=== PATIENT | male | born 1960 | race Caucasian/White ===

== ENCOUNTER 2016-11-22 05:44 | Inpatient (IN) | payer MEDICARE, MEDICAID ==
[2016-11-22] VITALS (19 sets, daily range): BP systolic 81–146; BP diastolic 55–86; PULSE 76–147; RESP 16; TEMP 98.4–100.4; O2SAT 94–100
[~2016-11-22] VITALS: Ht 182.9 cm; Wt 61.0 kg
[~2016-11-22 05:44] MED LIST: AMLO10 PO; DIPH1TAB36 PO; FOLI1 PO; LEVE500 PO; METO50CR PO; OXYC5 PO; PHEN100 PO; PHEN60TA PO; TOPA25TA8 PO; VITA100T13 PO
--- NOTE | 2016-11-22 05:56 | PD ---
HPI Chief Complaint: seizure Time Seen by Provider: 05:46 Travel History International Travel<30 days: No Contact w/Intl Traveler<30days: No Traveled to known affect area: No History of Present Illness HPI 56-year-old male brought in by EMS from home for evaluation of seizure. The patient apparently has history of seizure disorder. When EMS arrived to the patient's home, he was having a generalized tonoclonic seizure. He was given 2 mg of IM Ativan followed by 2 mg of IV Ativan once IV was established. After IV Ativan seizure activity stopped. BGL was in the 200s. Upon arrival to the emergency department the patient is altered and obtunded. He is unable to provide any history. His airway is patent and protected and he is breathing spontaneously. He has a preferential gaze to the right. Chart review shows that in 2013 the patient was brought in as a trauma alert and found to have a large right subdural hematoma with mass effect. He underwent right frontotemporal parietal decompressive craniectomy with evacuation of acute SDH. In 2014 he underwent cranioplasty to repair skull defect. Both procedures were performed by Dr. Davis. EMS presents with the patient's medications and shows that he is on Dilantin and Topiramate. Seizure witnessed by the patient's significant other. EMS reports that she is going to work and not coming to the emergency department. PFSH Past Medical History Anxiety: No Depression: No Cancer: No Cardiovascular Problems: Yes Diabetes: No Endocrine: No Genitourinary: No Hepatitis: No Hiatal Hernia: No Hypertension: Yes Immune Disorder: No Musculoskeletal: Yes (ARTHRITIS; LOW BACK PAIN) Neurologic: Yes (HX SEIZURES; 12/17 ACCIDENT SUBDURAL HEMATOMA) Psychiatric: No Reproductive: No Respiratory: No Thyroid Disease: No Past Surgical History Abdominal Surgery: No Body Medical Devices: RUBBER FLAP Cardiac Surgery: No Endocrine Surgery: No Gynecologic Surgery: No Neurologic Surgery: Yes (12/21/13 RIGHT CRANIOTOMY FOR SUBDURAL HEMATOMA ) Oral Surgery: Yes (DENTAL SX) Thoracic Surgery: No Social History Alcohol Use: Yes (occas) Tobacco Use: Yes Substance Use: No Allergies-Medications (Allergen,Severity, Reaction): Coded Allergies: No Known Allergies (Unverified , 11/22/16) Reported Meds & Prescriptions Reported Meds & Active Scripts Active Reported Amlodipine (Amlodipine Besylate) 10 Mg Tab 10 Mg PO DAILY Phenytoin Extended 100 Mg Cap 200 Mg PO BID Topiramate 50 Mg Tab 50 Mg PO BID Fluoxetine (Fluoxetine HCl) 20 Mg Cap 20 Mg PO DAILY Hydroxyzine Pamoate 25 Mg Cap 25 Mg PO DAILY PRN Review of Systems ROS Limitations: Clinical Condition, Altered Mental Status, Unresponsive Physical Exam Narrative GENERAL: Obtunded. Unresponsive to verbal or painful stimuli. SKIN: Warm and dry. No lacerations, abrasions, or ecchymosis. HEAD: Atraumatic. Normocephalic. EYES: Pupils equal, round, 2 mm, reactive to light. Preferential gaze to the right. No scleral icterus. No injection or drainage. ENT: Mucous membranes pink and moist. Airways patent and protected. No drooling or stridor. Normal gag reflex. NECK: Trachea midline. No JVD. No nuchal rigidity. CARDIOVASCULAR: Tachycardic, regular. RESPIRATORY: No accessory muscle use. Clear to auscultation. Breath sounds equal bilaterally. GASTROINTESTINAL: Abdomen soft, non-tender, nondistended. MUSCULOSKELETAL: No obvious deformities. No clubbing. No cyanosis. No edema. NEUROLOGICAL: Obtunded. Unresponsive to verbal or painful stimuli. Data Data Last Documented VS Vital Signs Date Time Temp Pulse Resp B/P Pulse Ox O2 Delivery O2 Flow Rate FiO2 11/22/16 06:36 100.4 127 16 146/86 96 Nasal Cannula 4 Orders Complete Blood Count With Diff (11/22/16 05:46) Alcohol (Ethanol) (11/22/16 05:46) Phenytoin (Dilantin) (11/22/16 05:46) Drug Screen, Random Urine (11/22/16 05:46) Blood Culture (11/22/16 05:46) Electrocardiogram (11/22/16 ) Ct Brain W/O Iv Contrast(Rout) (11/22/16 ) Ecg Monitoring (11/22/16 05:46) Iv Access Insert/Monitor (11/22/16 05:46) Oximetry (11/22/16 05:46) Comprehensive Metabolic Panel (11/22/16 05:46) Sodium Chloride 0.9% Flush (Ns Flush) (11/22/16 06:00) Urinalysis - C+S If Indicated (11/22/16 05:46) Prothrombin Time / Inr (Pt) (11/22/16 05:57) Act Partial Throm Time (Ptt) (11/22/16 05:57) Sodium Chlor 0.9% 1000 Ml Inj (Ns 1000 M (11/22/16 06:15) Insert Temp Sensing Schaffer Cath (11/22/16 06:09) Ckmb (Isoenzyme) Profile (11/22/16 06:12) Troponin I (11/22/16 06:12) Lactic Acid (11/22/16 06:40) Blood Culture (11/22/16 06:40) Drug Screen, Random Urine (11/22/16 06:47) Phenytoin Inj (Dilantin Inj) (11/22/16 07:00) Labs Laboratory Tests Test 11/22/16 05:50 White Blood Count 6.8 TH/MM3 Red Blood Count 4.16 MIL/MM3 Hemoglobin 14.5 GM/DL Hematocrit 43.6 % Mean Corpuscular Volume 104.8 FL Mean Corpuscular Hemoglobin 34.8 PG Mean Corpuscular Hemoglobin 33.3 % Concent Red Cell Distribution Width 14.8 % Platelet Count 364 TH/MM3 Mean Platelet Volume 7.1 FL Neutrophils (%) (Auto) 47.0 % Lymphocytes (%) (Auto) 38.5 % Monocytes (%) (Auto) 6.0 % Eosinophils (%) (Auto) 7.4 % Basophils (%) (Auto) 1.1 % Neutrophils # (Auto) 3.2 TH/MM3 Lymphocytes # (Auto) 2.6 TH/MM3 Monocytes # (Auto) 0.4 TH/MM3 Eosinophils # (Auto) 0.5 TH/MM3 Basophils # (Auto) 0.1 TH/MM3 CBC Comment DIFF FINAL Differential Comment Prothrombin Time 10.5 SEC Prothromb Time International 1.0 RATIO Ratio Activated Partial 25.0 SEC Thromboplast Time Sodium Level 140 MEQ/L Potassium Level 4.3 MEQ/L Chloride Level 103 MEQ/L Carbon Dioxide Level 13.2 MEQ/L Anion Gap 24 MEQ/L Blood Urea Nitrogen 13 MG/DL Creatinine 1.31 MG/DL Estimat Glomerular Filtration 56 ML/MIN Rate Random Glucose 220 MG/DL Calcium Level 8.6 MG/DL Total Bilirubin 0.2 MG/DL Aspartate Amino Transf 60 U/L (AST/SGOT) Alanine Aminotransferase 33 U/L (ALT/SGPT) Alkaline Phosphatase 148 U/L Total Protein 8.0 GM/DL Albumin 3.4 GM/DL Phenytoin (Dilantin) Level 5.6 MCG/ML Ethyl Alcohol Level LESS THAN 3 MG/DL MDM Medical Decision Making Medical Screen Exam Complete: Yes Emergency Medical Condition: Yes Medical Record Reviewed: Yes Interpretation(s) EKG: Sinus tachycardia, rate 137, normal axis, normal intervals, nonspecific ST and T-wave abnormality, no ST segment elevations. Differential Diagnosis ICH, status epilepticus, postictal, metabolic abnormality, meningitis/ encephalitis, dilantin toxicity Narrative Course Shortly after assessing the patient he was taken immediately to CAT scan for CT head. CT head: FINDINGS: There is no evidence for intracranial hemorrhage, mass effect, mass lesions, edema, or extra-axial fluid collections. The visualized bony structures appear intact. The ventricles are normal size for the patient's age. There are no signs of acute infarction for technique. Postcraniotomy changes are seen on the right than previously seen right subdural fluid blood is no longer seen, however encephalomalacia has developed in the right temporal lobe. Slight periventricular white matter changes are seen nonspecific mostly consistent with chronic small vessel ischemic changes. CONCLUSION: Resolution of previously seen subdural fluid collection on the right and development of encephalomalacia in right temporal lobe in the interim. Initial vital signs show heart rate 147, blood pressure 132/81, pulse ox 94% on room air, axillary temp of 99.6F. CBC shows WBC 6.8, hemoglobin 14.5, hematocrit 43.6, platelets 364, MCV 104.8. CMP is remarkable for bicarbonate 13.2, anion gap 24, creatinine 1.31, GFR 56, random glucose 220. Anion gap metabolic acidosis is likely secondary to lactic acidosis after seizure. Lactic acid will be sent. Dilantin level is 5.6. Alcohol level is negative. About 45 minutes after the patient arrived to the emergency department he is more responsive to sternal rub. He moves both of his extremities to sternal rub. His gag reflex remains intact and airway remains patent with spontaneous respirations. There is no nuchal rigidity on exam. I believe his elevated temperature is likely hyperthermia after having seizures. 6:45 AM: Case discussed with wine steward/stewardess Dr. Garcia who presented to the bedside to evaluate the patient. The patient be given a loading dose of Dilantin. At time of his assessment the patient seems to be responding more to painful stimuli. He is still severely altered. He has a wandering gaze. He will intubate the patient for airway protection. Diagnosis Primary Impression: Seizure Additional Impressions: Altered mental status Qualified Code: R40.2430 - Justin coma scale total score 3-8, unspecified time Metabolic acidosis Admitting Information Admitting Physician Requests: Admit Kirt Frances MD Nov 22, 2016 05:56 Kirt Frances MD Nov 22, 2016 05:56
[2016-11-22] MEDS ORDERED: SODIUM CHLORIDE 0.9% FLUSH 5 ML FLUSH IVF PRN ×2 (06:00→08:00)
--- NOTE | 2016-11-22 06:03 | RADRPT ---
EXAM DATE/TIME: 11/22/2016 05:52 [facility] COMPARISON: CT BRAIN W/O CONTRAST, June 18, 2015, 12:20. INDICATIONS : Altered mental status. Witnessed seziure. RADIATION DOSE: 56.35 CTDIvol (mGy) MEDICAL HISTORY : Non-responsive. SURGICAL HISTORY : Craniotomy. ENCOUNTER: Initial ACUITY: 1 day PAIN SCALE: Non-responsive LOCATION: cranial TECHNIQUE: Multiple contiguous axial images were obtained of the head. Using automated exposure control and adj ustment of the mA and/or kV according to patient size, radiation dose was kept as low as reasonably a chievable to obtain optimal diagnostic quality images. FINDINGS: There is no evidence for intracranial hemorrhage, mass effect, mass lesions, edema, or extra-axial fl uid collections. The visualized bony structures appear intact. The ventricles are normal size for t he patient's age. There are no signs of acute infarction for technique. Postcraniotomy changes are s een on the right than previously seen right subdural fluid blood is no longer seen, however encephalo malacia has developed in the right temporal lobe. Slight periventricular white matter changes are see n nonspecific mostly consistent with chronic small vessel ischemic changes. CONCLUSION: Resolution of previously seen subdural fluid collection on the right and development of e ncephalomalacia in right temporal lobe in the interim. Malena Boyd MD on November 22, 2016 at 6:01 Board Certified Radiologist. This report was verified electronically.
[2016-11-22 06:12] LABS: AUTOMATED NEUTROPHIL # 3.2 TH/MM3 (1.8-7.7); BASOPHIL # 0.1 TH/MM3 (0-0.2); BASOPHIL % 1.1 % (0.0-2.0); EOSINOPHIL # 0.5 TH/MM3 (0-0.4); EOSINOPHIL % 7.4 % (0.0-4.0); HEMATOCRIT 43.6 % (39.0-51.0); HEMO FLAGS DIFF FINAL; LYMPH % 38.5 % (9.0-44.0); LYMPHOCYTE # 2.6 TH/MM3 (1.0-4.8); MEAN CELL VOLUME 104.8 FL (80.0-100.0); MEAN CORPUSCULAR HEMOGLOBIN 34.8 PG (27.0-34.0); MEAN CORPUSCULAR HGB CONC 33.3 % (32.0-36.0); PLATELET COUNT 364 TH/MM3 (150-450); RED BLOOD COUNT 4.16 MIL/MM3 (4.50-5.90); RED CELL DISTRIBUTION WIDTH 14.8 % (11.6-17.2); WHITE BLOOD COUNT 6.8 TH/MM3 (4.0-11.0)
[2016-11-22] MEDS ORDERED: SODIUM CHLOR 0.9% 1000 ML INJ 1,000 ML IV ONE (06:15)
[2016-11-22 06:23] LABS: PROTHROMBIN TIME - PATIENT 10.5 SEC (9.8-11.6)
[2016-11-22 06:34] LABS: ALKALINE PHOSPHATASE 148 U/L (45-117); ALT (GPT) 33 U/L (12-78); ANION GAP 24 MEQ/L (5-15); AST (GOT) 60 U/L (15-37); BICARBONATE 13.2 MEQ/L (21.0-32.0); BLOOD UREA NITROGEN 13 MG/DL (7-18); CHLORIDE 103 MEQ/L (98-107); GLOMERULAR FILTRATION RATE 56 ML/MIN (>89); SODIUM (NA) 140 MEQ/L (136-145); TOTAL BILIRUBIN ADULT 0.2 MG/DL (0.2-1.0)
[2016-11-22 06:35] LABS: POTASSIUM 4.3 MEQ/L (3.5-5.1)
[2016-11-22] MEDS ORDERED: FLUO20CA4 PO (06:40)
[2016-11-22] MEDS ORDERED: HYDR1CAP30 PO (06:40)
[2016-11-22] MEDS ORDERED: PHEN100C PO (06:40)
[2016-11-22] MEDS ORDERED: TOPI1TAB36 PO (06:40)
[2016-11-22] MEDS ORDERED: AMLO10TA2 PO (06:42)
[2016-11-22] MEDS ORDERED: ETOMIDATE 20 MG/10 ML VIAL ONE (06:52)
[2016-11-22] MEDS ORDERED: ROCURONIUM INJ 50 MG/5 ML VIAL ONE (06:52)
[2016-11-22] MEDS ORDERED: MIDAZOLAM HCL 5 MG/ML VIAL (1 ML) ONE (06:52)
[2016-11-22] MEDS ORDERED: PROPOFOL 1000 MG/100 ML INJ 100 ML ONE ×2 (06:57→07:46)
[2016-11-22] MEDS ORDERED: PHENYTOIN INJ 1,000 MG in SODIUM CHLORIDE 0.9% INJ 100 ML IV ONE (07:00)
--- NOTE | 2016-11-22 07:30 | RADRPT ---
EXAM DATE/TIME: 11/22/2016 07:12 [facility] COMPARISON: CHEST SINGLE AP, June 19, 2015, 9:24. INDICATIONS : AMS, seizure, post intubation MEDICAL HISTORY : None. SURGICAL HISTORY : None. ENCOUNTER: Subsequent ACUITY: 1 day PAIN SCORE: Non-responsive. LOCATION: Bilateral chest FINDINGS: The ET tube and NG tube are well placed. The heart size is normal. The lungs are clear. There is a he aled third and ninth left rib fracture. CONCLUSION: ET tube and NG tube are well placed. The lungs are clear. Jose Paul MD on November 22, 2016 at 7:27 Board Certified Radiologist. This report was verified electronically.
[2016-11-22] MEDS ORDERED: POTASSIUM CL 40 MEQ/30 ML LIQ UDC PO/TUBE PRN ×2 (07:45)
[2016-11-22] MEDS ORDERED: POTASSIUM CHLOR 40 MEQ PREMIX 100 ML IV PRN ×2 (07:45)
[2016-11-22] MEDS ORDERED: POTASSIUM PHOSPHATE INJ 30 MMOL in SODIUM CHLOR 0.9% 250 ML INJ 250 ML IV PRN (07:45)
[2016-11-22] MEDS ORDERED: POTASSIUM CHLOR 20 MEQ PREMIX 100 ML IV PRN (07:45)
[2016-11-22] MEDS ORDERED: SODIUM PHOSPHATE INJ 30 MMOL in SODIUM CHLOR 0.9% 250 ML INJ 240 ML IV PRN (07:45)
[2016-11-22] MEDS ORDERED: POTASSIUM PHOSPHATE MONOBASIC 500 MG TAB PO/TUBE PRN (07:45)
[2016-11-22] MEDS ORDERED: MAGNESIUM SULFATE INJ 2 GM in SODIUM CHLORIDE 0.9% INJ 96 ML IV PRN (07:45)
[2016-11-22] MEDS ORDERED: MAGNESIUM SULFATE INJ 4 GM in SODIUM CHLORIDE 0.9% INJ 92 ML IV PRN (07:45)
[2016-11-22] MEDS ORDERED: POTASSIUM PHOSPHATE MONOBASIC 500 MG TAB PO PRN (07:45)
--- NOTE | 2016-11-22 07:52 | HHI.HP ---
[facility] Service Critical Care Medicine Primary Care Physician Jose Sheridan MD Admission Diagnosis seizure, AMS, anion gap metabolic acidosis Diagnosis: (1) Status epilepticus Diagnosis: Principal (2) Acute encephalopathy Diagnosis: Principal (3) Acute respiratory failure Diagnosis: Principal (4) Lactic acidosis Diagnosis: Principal (5) Acute kidney insufficiency Diagnosis: Principal (6) Metabolic acidosis Diagnosis: Principal (7) Sinus tachycardia Diagnosis: Principal (8) Seizure Diagnosis: Secondary (9) History of opioid abuse Diagnosis: Secondary (10) Essential hypertension Diagnosis: Secondary (11) History of TBI and subdural hemorrhage Diagnosis: Secondary (12) Status post craniotomy Diagnosis: Secondary (13) History of cranioplasty Diagnosis: Secondary Chief Complaint: Status epilepticus Travel History International Travel<30 Days: No Contact w/Intl Traveler <30 Da: No Traveled to Known Affected Are: No History of Present Illness This is a 55-year-old male with a past medical history of right subdural hematoma status post evacuation and craniectomy on 12/22/13, status post frontotemporal parietal reconstructive cranioplasty on 06/14/15, history of seizure disorder and hypertension who was brought in by EMS from home for evaluation of seizure. On EMS arrival he was having a generalized tonoclonic seizure. He was given 2 mg of IM Ativan followed by 2 mg of IV Ativan once IV was established. After IV Ativan seizure activity stopped. In the ER patient was altered and obtunded. He is unable to provide any history. Patient takes Dilantin and topiramate for seizure. A stat CT of the head did not show any acute changes other than evidence of encephalomalacia in the right temporal region and previous cranioplasty. Patient's Dilantin level was subtherapeutic at 5.6, alcohol level was negative. His lactic acid was elevated at 6.7 most likely secondary to seizure I evaluated the patient in the emergency department. He remains unresponsive not responding to painful stimuli. No spontaneous eye opening his eyes shows horizontal roving movements probable horizontal nystagmus. It appears like patient is in subclinical status. I proceeded with endotracheal intubation for airway protection as the patient was making gurgling sounds. Stat EEG is pending at this time. 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 Hypertension History of opiate abuse Past Surgical History Craniectomy with evacuation of subdural hemorrhage 12/22/14 Frontotemporal parietal reconstruction cranioplasty 06/14/15 Reported Medications Amlodipine (Amlodipine Besylate) 10 Mg Tab 10 Mg PO DAILY Phenytoin Extended 100 Mg Cap 200 Mg PO BID Topiramate 50 Mg Tab 50 Mg PO BID Fluoxetine (Fluoxetine HCl) 20 Mg Cap 20 Mg PO DAILY Hydroxyzine Pamoate 25 Mg Cap 25 Mg PO DAILY PRN Active Ordered Medications Reviewed Family History Unable to obtain at this time Social History Patient unable to give history Chart review reveals tobacco abuse, occasional alcohol use and previous history of poor by mouth abuse Physical Exam Vital Signs Vital Signs Date Time Temp Pulse Resp B/P Pulse Ox O2 Delivery O2 Flow Rate FiO2 11/22/16 07:30 100.2 118 16 135/79 100 Ventilator 11/22/16 07:06 100.2 132 16 146/76 100 Room Air 11/22/16 07:03 50 11/22/16 07:00 100 50 11/22/16 06:36 100.4 127 16 146/86 96 Nasal Cannula 4 11/22/16 06:26 147 16 100 Room Air 11/22/16 06:26 100.4 126 16 146/86 95 Nasal Cannula 6 11/22/16 05:54 145 16 143/82 100 Non-Rebreather 6 11/22/16 05:50 99.6 147 16 132/81 94 Physical Exam GENERAL: Obtunded. Unresponsive to verbal or painful stimuli. Gurgling breath sounds SKIN: Warm and dry. HEAD: Atraumatic. Normocephalic. EYES: Pupils equal, round, 2 mm, reactive to light. Horizontal roving movements probable horizontal nystagmus. e. ENT: Mucous membranes dry. NECK: Trachea midline. No JVD. No nuchal rigidity. CARDIOVASCULAR: Tachycardic, regular. No murmurs RESPIRATORY: No accessory muscle use. Clear to auscultation. Breath sounds equal bilaterally. GASTROINTESTINAL: Abdomen soft, non-tender, nondistended. MUSCULOSKELETAL: No obvious deformities. No clubbing. No cyanosis. No edema. NEUROLOGICAL: Obtunded. Unresponsive to verbal or painful stimuli. Slow horizontal nystagmus. Probable subclinical status Laboratory Laboratory Tests Test 11/22/16 11/22/16 05:50 06:48 White Blood Count 6.8 Red Blood Count 4.16 Hemoglobin 14.5 Hematocrit 43.6 Mean Corpuscular Volume 104.8 Mean Corpuscular Hemoglobin 34.8 Mean Corpuscular Hemoglobin 33.3 Concent Red Cell Distribution Width 14.8 Platelet Count 364 Mean Platelet Volume 7.1 Neutrophils (%) (Auto) 47.0 Lymphocytes (%) (Auto) 38.5 Monocytes (%) (Auto) 6.0 Eosinophils (%) (Auto) 7.4 Basophils (%) (Auto) 1.1 Neutrophils # (Auto) 3.2 Lymphocytes # (Auto) 2.6 Monocytes # (Auto) 0.4 Eosinophils # (Auto) 0.5 Basophils # (Auto) 0.1 CBC Comment DIFF FINAL Differential Comment Prothrombin Time 10.5 Prothromb Time International 1.0 Ratio Activated Partial 25.0 Thromboplast Time Sodium Level 140 Potassium Level 4.3 Chloride Level 103 Carbon Dioxide Level 13.2 Anion Gap 24 Blood Urea Nitrogen 13 Creatinine 1.31 Estimat Glomerular Filtration 56 Rate Random Glucose 220 Calcium Level 8.6 Total Bilirubin 0.2 Aspartate Amino Transf 60 (AST/SGOT) Alanine Aminotransferase 33 (ALT/SGPT) Alkaline Phosphatase 148 Total Protein 8.0 Albumin 3.4 Phenytoin (Dilantin) Level 5.6 Ethyl Alcohol Level LESS THAN 3 Lactic Acid Level 6.7 Date/Time Procedure Status Source Growth 11/22/16 05:50 Aerobic Blood Culture Received Blood Peripheral Pending 11/22/16 05:50 Anaerobic Blood Culture Received Blood Peripheral Pending Result Diagram: 11/22/16 0550 11/22/[address] of the head shows previous encephalomalacia right temporal region, no acute findings Assessment and Plan Assessment and Plan ASSESSMENT/PLAN: NEURO: Status epilepticus Seizure disorder Subtherapeutic Dilantin Craniectomy with evacuation of subdural hemorrhage 12/22/14 Frontotemporal parietal reconstruction cranioplasty 06/14/15 -Presented with status epilepticus. Dilantin level was subtherapeutic-5.6. Stat EEG -Ativan 2 mg IV every 2 hours when necessary for seizures -IV Cerebyx 1 g loading dose and 100 mg every 8 hours -Continue Topamax -CT head did not show any acute findings RESP: Acute respiratory failure Failure to protect airway -Intubated for airway protection. ACV 16/550/5. Titrate FiO2 to keep oxygen saturation more than 90% -Start weaning trials one seizure is better controlled and mentation improves -DuoNeb every 6 hours when necessary. -Monitor closely for aspiration and pneumonia CV: Lactic acidosis secondary to seizure Sinus tachycardia/SIRS History of hypertension -Normal saline IV fluids, await 2d echo, cardiology consult, repeat troponin -Repeat lactic acid to ensure clearance GI: -Nothing by mouth, IV Protonix, Colace for bowel regimen : Acute kidney insufficiency -Monitor renal function closely. Schaffer catheter. -Continue aggressive hydration ID: -Monitor closely for infection HEME: -Monitor CBC, CMP ENDO: -Electrolyte replacement per protocol PROPH: -Bilateral lower extremity SCDs. Lovenox 40 mg subcutaneous daily. IV Protonix 40 mg daily LINES: -Utilize peripheral IVs, central line if needed CC time 65 min not including procedure time Code Status Full Discussed Condition With Serena Spears MD Nov 22, 2016 07:52
[2016-11-22] MEDS ORDERED: RESP: ALBUTEROL 2.5 MG/IPRATROPIUM 0.5 MG NEB (PRN) INH (08:00)
[2016-11-22] MEDS ORDERED: CHLORHEXIDINE GLUCONATE 2 % 1 PACK (2 CLOTHS) TOP PRN (08:00)
[2016-11-22] MEDS ORDERED: MISCELLANEOUS NURSING INFORMATION XX SCH (08:00)
[2016-11-22 08:19] LABS: BLOOD GAS BASE EXCESS -2.8 mmol/L (-2-2); BLOOD GAS CARBOXYHEMOGLOBIN 2.3 % (0-4); BLOOD GAS HCO3 22 mmol/L (22-26); BLOOD GAS METHEMOGLOBIN 2.2 % (0-2); BLOOD GAS O2 HGB SATURATION 94 % (90-100); BLOOD GAS OXYGEN CONTENT 18.1 Vol % (12.0-20.0); BLOOD GAS PCO2 41 mmHg (38-42); BLOOD GAS PO2 155 mmHG (61-120); BLOOD GAS TOTAL HGB 13.5 G/DL (12.0-16.0); CRITICAL VALUE NO; DRAW SITE LT FEMORAL; FIO2 50 %; NUMBER OF ARTERIAL PUNCTURES 2; OXYGEN DEVICE VENTILATOR; STAT YES; TEMP CORR TO 98.6; VENT SETTINGS AC16/500/5PEEP
[2016-11-22] MEDS ORDERED: MIDAZOLAM HCL 5 MG/5 ML VIAL IV PUSH ONE (08:30)
[2016-11-22] MEDS: TOPIRAMATE 25 MG TAB PO SCH ×2 (09:00→22:44)
[2016-11-22] MEDS: SODIUM CHLORIDE 0.9% FLUSH 5 ML FLUSH IVF SCH ×2 (09:00→21:31)
[2016-11-22] MEDS ORDERED: ETOMIDATE 20 MG/10 ML VIAL IV PUSH ONE (09:15)
[2016-11-22] MEDS ORDERED: ROCURONIUM INJ 50 MG/5 ML VIAL IV ONE (09:15)
[2016-11-22] MEDS: PROPOFOL 1000 MG/100 ML INJ 100 ML IV SCH ×3 (10:04→21:33)
[2016-11-22] MEDS: SODIUM CHLOR 0.9% 1000 ML INJ 1,000 ML IV SCH ×2 (11:00→15:00)
[2016-11-22] MEDS: PANTOPRAZOLE SODIUM 40 MG VIAL IV SCH (11:00)
[2016-11-22] MEDS: ENOXAPARIN SODIUM 40 MG/0.4 ML SYRINGE SQ SCH (11:00)
[2016-11-22] MEDS ORDERED: MIDAZOLAM 100 MG/ML INJ 100 ML IV SCH (12:00)
[2016-11-22] MEDS ORDERED: FOSPHENYTOIN SODIUM 100 MG PE/2 ML VIAL IV SCH (14:00)
[2016-11-22] MEDS: FOSPHENYTOIN INJ 100 MGPE in SODIUM CHLORIDE 0.9% INJ 50 ML IV SCH (17:23)
[2016-11-22] MEDS: CHLORHEXIDINE 0.12% (ORAL KIT) 15 ML CUP MT SCH (21:31)
--- NOTE | 2016-11-22 22:40 | EKG ---
Date Performed: 11/22/2016 Time Performed: 05:09:33 PTAGE: 56 years EKG: SINUS TACHYCARDIA NONSPECIFIC ST & T-WAVE ABNORMALITY ABNORMAL RHYTHM ECG PREVIOUS TRACING : 06/18/2015 11.40 DOCTOR: Ernie Gunderson Interpretating Date/Time 11/22/2016 22:38:57
[2016-11-22 23:31] LABS: CREATINE KINASE 128 U/L (39-308)
[2016-11-22 23:51] LABS: CKMB 0.8 NG/ML (0.5-3.6)
[2016-11-23] VITALS (17 sets, daily range): BP systolic 127–156; BP diastolic 68–93; PULSE 76–107; RESP 15–22; TEMP 95.2–99.9; O2SAT 93–100
[2016-11-23 00:11] LABS: BLOOD, URINE MOD (NEG); GLUCOSE,URINE NEG (NEG); KETONE, URINE 40 mg/dL (NEG); MUCUS URINE FEW /lpf (OCC); NITRITE,URINE NEG (NEG); PH, URINE 5.5 (5.0-8.5); SQUAMOUS EPITHELIAL CELL URINE 1 /hpf (0-5); URIC ACID CRYSTALS, URINE OCC /hpf; URINE COLOR YELLOW (YELLW/STRAW)
[2016-11-23 00:12] LABS: COMMENT (UR) CATH-CULT NOT IND; CULTURE IF INDICATED CATH CULTURE NOT IND
[2016-11-23 00:23] LABS: AMPHETAMINE, URINE NEG (NEG); BARBITURATES, URINE NEG (NEG); COCAINE, URINE NEG (NEG)
[2016-11-23] MEDS: FOSPHENYTOIN INJ 100 MGPE in SODIUM CHLORIDE 0.9% INJ 50 ML IV SCH ×3 (00:51→18:00)
[2016-11-23] MEDS: CHLORHEXIDINE GLUCONATE 2 % 1 PACK (2 CLOTHS) TOP SCH ×2 (03:10→21:33)
[2016-11-23] MEDS: PROPOFOL 1000 MG/100 ML INJ 100 ML IV SCH ×2 (05:14→10:11)
[2016-11-23 06:35] LABS: ANION GAP 9 MEQ/L (5-15)
[2016-11-23 06:39] LABS: ALKALINE PHOSPHATASE 94 U/L (45-117); ALT (GPT) 28 U/L (12-78); AST (GOT) 34 U/L (15-37); BICARBONATE 24.6 MEQ/L (21.0-32.0); BLOOD UREA NITROGEN 7 MG/DL (7-18); CHLORIDE 108 MEQ/L (98-107); GLOMERULAR FILTRATION RATE 188 ML/MIN (>89); SODIUM (NA) 142 MEQ/L (136-145); TOTAL BILIRUBIN ADULT 0.3 MG/DL (0.2-1.0)
[2016-11-23 06:42] LABS: POTASSIUM 2.9 MEQ/L (3.5-5.1)
[2016-11-23] MEDS: POTASSIUM CHLOR 20 MEQ PREMIX 100 ML IV PRN ×3 (06:50→12:48)
[2016-11-23 07:00] LABS: AUTOMATED NEUTROPHIL # 5.5 TH/MM3 (1.8-7.7); BASOPHIL % 0.6 % (0.0-2.0); EOSINOPHIL % 0.4 % (0.0-4.0); HEMATOCRIT 38.5 % (39.0-51.0); HEMO FLAGS DIFF FINAL; LYMPH % 10.4 % (9.0-44.0); LYMPHOCYTE # 0.7 TH/MM3 (1.0-4.8); MEAN CELL VOLUME 99.6 FL (80.0-100.0); MEAN CORPUSCULAR HGB CONC 34.1 % (32.0-36.0); MONO % 10.1 % (0.0-8.0); NEUT % 78.5 % (16.0-70.0); PLATELET COUNT 295 TH/MM3 (150-450); RED BLOOD COUNT 3.86 MIL/MM3 (4.50-5.90); RED CELL DISTRIBUTION WIDTH 14.4 % (11.6-17.2)
[2016-11-23] MEDS: CHLORHEXIDINE 0.12% (ORAL KIT) 15 ML CUP MT SCH ×2 (08:00→20:00)
[2016-11-23] MEDS: PANTOPRAZOLE SODIUM 40 MG VIAL IV SCH (09:00)
[2016-11-23] MEDS: SODIUM CHLORIDE 0.9% FLUSH 5 ML FLUSH IVF SCH ×2 (09:00→21:00)
[2016-11-23] MEDS: ENOXAPARIN SODIUM 40 MG/0.4 ML SYRINGE SQ SCH (09:00)
[2016-11-23] MEDS: TOPIRAMATE 25 MG TAB PO SCH ×2 (09:00→20:18)
--- NOTE | 2016-11-23 10:36 | HHI.CCPN ---
Subjective Remarks/Hospital Course This is a 55-year-old male with a past medical history of right subdural hematoma status post evacuation and craniectomy on 12/22/13, status post frontotemporal parietal reconstructive cranioplasty on 06/14/15, history of seizure disorder and hypertension who was brought in by EMS from home for evaluation of seizure. On EMS arrival he was having a generalized tonoclonic seizure. He was given 2 mg of IM Ativan followed by 2 mg of IV Ativan once IV was established. After IV Ativan seizure activity stopped. In the ER patient was altered and obtunded. He is unable to provide any history. Patient takes Dilantin and topiramate for seizure. A stat CT of the head did not show any acute changes other than evidence of encephalomalacia in the right temporal region and previous cranioplasty. Patient's Dilantin level was subtherapeutic at 5.6, alcohol level was negative. His lactic acid was elevated at 6.7 most likely secondary to seizure I evaluated the patient in the emergency department. He remains unresponsive not responding to painful stimuli. No spontaneous eye opening his eyes shows horizontal roving movements probable horizontal nystagmus. It appears like patient is in subclinical status. I proceeded with endotracheal intubation for airway protection as the patient was making gurgling sounds. Stat EEG is pending at this time. Patient had been loaded with 1 g of IV Cerebyx continue Cerebyx at 100 mg every 8 hours, and use when necessary Ativan for seizures 11/23 Patient is sedated with Diprivan, Fentanyl and intubated. Afebrile, no recurrence seizures overnight. Objective Vital Signs Date Time Temp Pulse Resp B/P Pulse Ox O2 Delivery O2 Flow Rate FiO2 11/23/16 09:41 100 40 11/23/16 07:00 Mechanical Ventilator 11/23/16 06:00 90 11/23/16 04:00 98.1 19 127/70 11/22/16 06:36 4 Intake and Output 11/22/16 11/22/16 11/23/16 08:00 16:00 00:00 Intake Total 2500 ml 757 ml Output Total 600 ml 1330 ml Balance 1900 ml -573 ml Result Diagram: 11/23/16 0535 11/23/16 0535 Other Results Laboratory Tests Test 11/22/16 11/23/16 23:45 05:35 Urine Color YELLOW Urine Turbidity CLOUDY Urine pH 5.5 Urine Specific [place] 1.018 Urine Protein NEG mg/dL Urine Glucose (UA) NEG mg/dL Urine Ketones 40 mg/dL Urine Occult Blood MOD Urine Nitrite NEG Urine Bilirubin NEG Urine Urobilinogen LESS THAN 2.0 MG/DL Urine Leukocyte Esterase NEG Urine RBC 27 /hpf Urine WBC 4 /hpf Urine Squamous Epithelial 1 /hpf Cells Urine Uric Acid Crystals OCC /hpf Urine Mucus FEW /lpf Microscopic Urinalysis Comment CATH-CULT NOT IND Urine Opiates Screen NEG Urine Barbiturates Screen NEG Urine Amphetamines Screen NEG Urine Benzodiazepines Screen POS Urine Cocaine Screen NEG Urine Cannabinoids Screen NEG White Blood Count 7.0 TH/MM3 Red Blood Count 3.86 MIL/MM3 Hemoglobin 13.1 GM/DL Hematocrit 38.5 % Mean Corpuscular Volume 99.6 FL Mean Corpuscular Hemoglobin 34.0 PG Mean Corpuscular Hemoglobin 34.1 % Concent Red Cell Distribution Width 14.4 % Platelet Count 295 TH/MM3 Mean Platelet Volume 7.2 FL Neutrophils (%) (Auto) 78.5 % Lymphocytes (%) (Auto) 10.4 % Monocytes (%) (Auto) 10.1 % Eosinophils (%) (Auto) 0.4 % Basophils (%) (Auto) 0.6 % Neutrophils # (Auto) 5.5 TH/MM3 Lymphocytes # (Auto) 0.7 TH/MM3 Monocytes # (Auto) 0.7 TH/MM3 Eosinophils # (Auto) 0.0 TH/MM3 Basophils # (Auto) 0.0 TH/MM3 CBC Comment DIFF FINAL Differential Comment Sodium Level 142 MEQ/L Potassium Level 2.9 MEQ/L Chloride Level 108 MEQ/L Carbon Dioxide Level 24.6 MEQ/L Anion Gap 9 MEQ/L Blood Urea Nitrogen 7 MG/DL Creatinine 0.46 MG/DL Estimat Glomerular Filtration 188 ML/MIN Rate Random Glucose 98 MG/DL Calcium Level 7.6 MG/DL Total Bilirubin 0.3 MG/DL Aspartate Amino Transf 34 U/L (AST/SGOT) Alanine Aminotransferase 28 U/L (ALT/SGPT) Alkaline Phosphatase 94 U/L Total Protein 6.4 GM/DL Albumin 2.7 GM/DL Phenytoin (Dilantin) Level 14.4 MCG/ML Imaging Last Impressions Head CT 11/22/16 0000 Signed Impressions: Service Date/Time: Tuesday, November 22, 2016 05:52 - CONCLUSION: Resolution of previously seen subdural fluid collection on the right and development of encephalomalacia in right temporal lobe in the interim. Malena Boyd MD Chest X-Ray 11/22/16 0000 Signed Impressions: Service Date/Time: Tuesday, November 22, 2016 07:12 - CONCLUSION: ET tube and NG tube are well placed. The lungs are clear. Jose Paul MD Objective Remarks GENERAL: Patient is 56 yo intubated and sedated SKIN: Warm and dry. HEAD: Normocephalic. EYES: No scleral icterus. No injection or drainage. NECK: Supple, trachea midline. No JVD or lymphadenopathy. CARDIOVASCULAR: Regular rate and rhythm without murmurs, gallops, or rubs. RESPIRATORY: Breath sounds equal bilaterally. No accessory muscle use. GASTROINTESTINAL: Abdomen soft, non-tender, nondistended. MUSCULOSKELETAL: No cyanosis, or edema. Neuro: sedated A/P Assessment and Plan ASSESSMENT/PLAN: NEURO: Status epilepticus Seizure disorder Subtherapeutic Dilantin Craniectomy with evacuation of subdural hemorrhage 12/22/14 Frontotemporal parietal reconstruction cranioplasty 06/14/15 -Presented with status epilepticus. Dilantin level 14.4 today from 5.6 -Ativan 2 mg IV every 2 hours when necessary for seizures -s/p IV Cerebyx 1 g loading dose and 100 mg every 8 hours -Continue Topamax -CT head did not show any acute findings -Neuro eval. RESP: Acute respiratory failure Failure to protect airway -Continue with vent support keep sat >92% -DuoNeb every 6 hours when necessary. -ICU vent bundle. CV: Lactic acidosis secondary to seizure Sinus tachycardia/SIRS History of hypertension -Monitor HR and BP keep MAP>65mmHg. On Norvasc 10mg daily -Repeat lactic acid to ensure clearance -Follow up on echo results GI: - IV Protonix, Colace for bowel regimen -Start TF-Glucerna 1.5 with goal rate 45ml/hr : Acute kidney insufficiency -Monitor renal function , I/O's, electrolytes replacement per protocol. -Will need K replacement today, check Mg, phos level. ID: -Monitor for signs of infections ( Fever, WBC) HEME: -Monitor CBC, CMP ENDO: -Electrolyte replacement per protocol -SSI if needed for glycemic control PROPH: -Bilateral lower extremity SCDs. Lovenox 40 mg subcutaneous daily. IV Protonix 40 mg daily LINES: -Utilize peripheral IVs, CCT 30 mins Lawrence Sanchez MD Nov 23, 2016 10:36 Lawrence Sanchez MD Nov 23, 2016 10:36
[2016-11-23] MEDS ORDERED: DEXTROSE 50% IN WATER 50 ML VIAL(D50) IV PUSH PRN (11:15)
[2016-11-23] MEDS ORDERED: GLUCAGON 1 MG/ML VIAL OTHER PRN (11:15)
[2016-11-23 11:29] LABS: MAGNESIUM 1.8 MG/DL (1.5-2.5)
[2016-11-23] MEDS: INSULIN NovoLIN REGULAR SUPPLEMENTAL SCALE SQ SCH ×2 (12:00→18:00)
[2016-11-23] MEDS: ACETAMINOPHEN 325 MG TAB PO PRN (20:18)
[2016-11-24] VITALS (18 sets, daily range): BP systolic 136–154; BP diastolic 74–86; PULSE 85–105; RESP 16–24; TEMP 98–100.2; O2SAT 0–100
[2016-11-24] MEDS: PROPOFOL 1000 MG/100 ML INJ 100 ML IV SCH ×2 (01:12→09:26)
[2016-11-24] MEDS: FOSPHENYTOIN INJ 100 MGPE in SODIUM CHLORIDE 0.9% INJ 50 ML IV SCH ×3 (02:30→17:00)
[2016-11-24 03:45] LABS: AUTOMATED NEUTROPHIL # 4.7 TH/MM3 (1.8-7.7); BASOPHIL % 0.6 % (0.0-2.0); EOSINOPHIL # 0.2 TH/MM3 (0-0.4); EOSINOPHIL % 3.4 % (0.0-4.0); HEMATOCRIT 37.1 % (39.0-51.0); HEMO FLAGS DIFF FINAL; MEAN CELL VOLUME 98.5 FL (80.0-100.0); MEAN CORPUSCULAR HEMOGLOBIN 34.5 PG (27.0-34.0); MEAN CORPUSCULAR HGB CONC 35.1 % (32.0-36.0); MONO % 11.1 % (0.0-8.0); NEUT % 69.9 % (16.0-70.0); PLATELET COUNT 266 TH/MM3 (150-450); RED BLOOD COUNT 3.77 MIL/MM3 (4.50-5.90); RED CELL DISTRIBUTION WIDTH 14.4 % (11.6-17.2); WHITE BLOOD COUNT 6.7 TH/MM3 (4.0-11.0)
[2016-11-24 04:09] LABS: BICARBONATE 26.3 MEQ/L (21.0-32.0); POTASSIUM 3.6 MEQ/L (3.5-5.1)
[2016-11-24] MEDS: RESP: ALBUTEROL 2.5 MG/IPRATROPIUM 0.5 MG NEB (SCH) NEB ×4 (04:21→22:45)
[2016-11-24] MEDS: INSULIN NovoLIN REGULAR SUPPLEMENTAL SCALE SQ SCH ×3 (06:00→12:00)
[2016-11-24] MEDS: ENOXAPARIN SODIUM 40 MG/0.4 ML SYRINGE SQ SCH (09:26)
[2016-11-24] MEDS: PANTOPRAZOLE SODIUM 40 MG VIAL IV SCH (09:26)
[2016-11-24] MEDS: CHLORHEXIDINE 0.12% (ORAL KIT) 15 ML CUP MT SCH ×2 (09:27→20:00)
[2016-11-24] MEDS: SODIUM CHLORIDE 0.9% FLUSH 5 ML FLUSH IVF SCH ×2 (09:27→20:27)
[2016-11-24] MEDS: TOPIRAMATE 25 MG TAB PO SCH ×2 (09:27→20:27)
--- NOTE | 2016-11-24 09:28 | HHI.CCPN ---
Subjective Remarks/Hospital Course This is a 55-year-old male with a past medical history of right subdural hematoma status post evacuation and craniectomy on 12/22/13, status post frontotemporal parietal reconstructive cranioplasty on 06/14/15, history of seizure disorder and hypertension who was brought in by EMS from home for evaluation of seizure. On EMS arrival he was having a generalized tonoclonic seizure. He was given 2 mg of IM Ativan followed by 2 mg of IV Ativan once IV was established. After IV Ativan seizure activity stopped. In the ER patient was altered and obtunded. He is unable to provide any history. Patient takes Dilantin and topiramate for seizure. A stat CT of the head did not show any acute changes other than evidence of encephalomalacia in the right temporal region and previous cranioplasty. Patient's Dilantin level was subtherapeutic at 5.6, alcohol level was negative. His lactic acid was elevated at 6.7 most likely secondary to seizure I evaluated the patient in the emergency department. He remains unresponsive not responding to painful stimuli. No spontaneous eye opening his eyes shows horizontal roving movements probable horizontal nystagmus. It appears like patient is in subclinical status. I proceeded with endotracheal intubation for airway protection as the patient was making gurgling sounds. Stat EEG is pending at this time. Patient had been loaded with 1 g of IV Cerebyx continue Cerebyx at 100 mg every 8 hours, and use when necessary Ativan for seizures 11/23 Patient is sedated with Diprivan, Fentanyl and intubated. Afebrile, no recurrence seizures overnight. 11/24 No acute events overnight. Sedated and intubated, Afebrile. Objective Vital Signs Date Time Temp Pulse Resp B/P Pulse Ox O2 Delivery O2 Flow Rate FiO2 11/24/16 08:00 98.2 103 22 145/85 100 11/24/16 07:00 Mechanical Ventilator 40 11/22/16 06:36 4 Intake and Output 11/23/16 11/23/16 11/24/16 08:00 16:00 00:00 Intake Total 792 ml 1165 ml 1395 ml Output Total 425 ml 400 ml Balance 367 ml 1165 ml 995 ml Result Diagram: 11/24/167 11/24/167 Other Results Laboratory Tests Test 11/23/16 11/24/16 10:55 03:17 Lactic Acid Level 1.5 mmol/L Phosphorus Level 2.4 MG/DL Magnesium Level 1.8 MG/DL White Blood Count 6.7 TH/MM3 Red Blood Count 3.77 MIL/MM3 Hemoglobin 13.0 GM/DL Hematocrit 37.1 % Mean Corpuscular Volume 98.5 FL Mean Corpuscular Hemoglobin 34.5 PG Mean Corpuscular Hemoglobin 35.1 % Concent Red Cell Distribution Width 14.4 % Platelet Count 266 TH/MM3 Mean Platelet Volume 7.1 FL Neutrophils (%) (Auto) 69.9 % Lymphocytes (%) (Auto) 15.0 % Monocytes (%) (Auto) 11.1 % Eosinophils (%) (Auto) 3.4 % Basophils (%) (Auto) 0.6 % Neutrophils # (Auto) 4.7 TH/MM3 Lymphocytes # (Auto) 1.0 TH/MM3 Monocytes # (Auto) 0.7 TH/MM3 Eosinophils # (Auto) 0.2 TH/MM3 Basophils # (Auto) 0.0 TH/MM3 CBC Comment DIFF FINAL Differential Comment Sodium Level 142 MEQ/L Potassium Level 3.6 MEQ/L Chloride Level 108 MEQ/L Carbon Dioxide Level 26.3 MEQ/L Anion Gap 8 MEQ/L Blood Urea Nitrogen 5 MG/DL Creatinine 0.43 MG/DL Estimat Glomerular Filtration 203 ML/MIN Rate Random Glucose 110 MG/DL Calcium Level 7.9 MG/DL Imaging Last Impressions Head CT 11/22/16 0000 Signed Impressions: Service Date/Time: Tuesday, November 22, 2016 05:52 - CONCLUSION: Resolution of previously seen subdural fluid collection on the right and development of encephalomalacia in right temporal lobe in the interim. Malena Boyd MD Chest X-Ray 11/22/16 0000 Signed Impressions: Service Date/Time: Tuesday, November 22, 2016 07:12 - CONCLUSION: ET tube and NG tube are well placed. The lungs are clear. Jose Paul MD Objective Remarks GENERAL: Patient is 56 yo intubated and sedated SKIN: Warm and dry. HEAD: Normocephalic. EYES: No scleral icterus. No injection or drainage. NECK: Supple, trachea midline. No JVD or lymphadenopathy. CARDIOVASCULAR: Regular rate and rhythm without murmurs, gallops, or rubs. RESPIRATORY: Breath sounds equal bilaterally. No accessory muscle use. GASTROINTESTINAL: Abdomen soft, non-tender, nondistended. MUSCULOSKELETAL: No cyanosis, or edema. Neuro: sedated A/P Assessment and Plan ASSESSMENT/PLAN: NEURO: Status epilepticus Seizure disorder Subtherapeutic Dilantin Craniectomy with evacuation of subdural hemorrhage 12/22/14 Frontotemporal parietal reconstruction cranioplasty 06/14/15 -Presented with status epilepticus. Dilantin level 14.4 on 11/23 -Ativan 2 mg IV every 2 hours when necessary for seizures -s/p IV Cerebyx 1 g loading dose and 100 mg every 8 hours -Continue Topamax -CT head did not show any acute findings -Neuro consulted RESP: Acute respiratory failure Failure to protect airway -Continue with vent support keep sat >92% -DuoNeb every 6 hours when necessary. -ICU vent bundle. start CPAP trials and possible extubation today CV: Lactic acidosis secondary to seizure Sinus tachycardia/SIRS History of hypertension -Monitor HR and BP keep MAP>65mmHg. On Norvasc 10mg daily -Lactic acid 1.5 -Follow up on echo results GI: - IV Protonix, Colace for bowel regimen -On TF-Glucerna 1.5 with goal rate 45ml/hr : Acute kidney insufficiency -Monitor renal function , I/O's, electrolytes replacement per protocol. ID: -Monitor for signs of infections ( Fever, WBC) HEME: -Monitor CBC, CMP ENDO: -Electrolyte replacement per protocol -SSI if needed for glycemic control PROPH: -Bilateral lower extremity SCDs. Lovenox 40 mg subcutaneous daily. IV Protonix 40 mg daily LINES: -Utilize peripheral IVs, CCT 30 mins Lawrence Sanchez MD Nov 24, 2016 09:28
[2016-11-24 12:49] LABS: BLOOD GAS BASE EXCESS 0.5 mmol/L (-2-2); BLOOD GAS CARBOXYHEMOGLOBIN 0.7 % (0-4); BLOOD GAS HCO3 24 mmol/L (22-26); BLOOD GAS O2 HGB SATURATION 97 % (90-100); BLOOD GAS OXYGEN CONTENT 18.6 Vol % (12.0-20.0); BLOOD GAS PCO2 34 mmHg (38-42); BLOOD GAS PO2 149 mmHg (61-120); BLOOD GAS TOTAL HGB 13.4 G/DL (12.0-16.0); CRITICAL VALUE NO; DRAW SITE RT RADIAL; FIO2 40 %; NUMBER OF ARTERIAL PUNCTURES 1; OXYGEN DEVICE VENTILATOR; STAT NO; TEMP CORR TO 98.6; ULNAR PULSE PRESENT; VENT SETTINGS CPAP 5/PS 10
--- NOTE | 2016-11-24 15:07 | PD.CONS ---
History of Present Illness Service Neurology Consult Requested By medical Reason for Consult sz Primary Care Physician Jose Sheridan MD History of Present Illness 55-year-old male with a past medical history of right subdural hematoma status post evacuation and craniectomy, status post frontotemporal parietal reconstructive cranioplasty, history of seizure disorder and hypertension who was brought in by EMS from home for evaluation of seizure. On EMS arrival he was having a generalized tonoclonic seizure. He was given 2 mg of IM Ativan followed by 2 mg of IV Ativan once IV was established. After IV Ativan seizure activity stopped. Patient's Dilantin level was subtherapeutic at 5.6 he is followed at our clinic but some non-compliance with f/u. 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 Hypertension History of opiate abuse Past Surgical History Craniectomy with evacuation of subdural hemorrhage 12/22/14 Frontotemporal parietal reconstruction cranioplasty 06/14/15 Reported Medications Amlodipine (Amlodipine Besylate) 10 Mg Tab 10 Mg PO DAILY Phenytoin Extended 100 Mg Cap 200 Mg PO BID Topiramate 50 Mg Tab 50 Mg PO BID Fluoxetine (Fluoxetine HCl) 20 Mg Cap 20 Mg PO DAILY Hydroxyzine Pamoate 25 Mg Cap 25 Mg PO DAILY PRN Active Ordered Medications Reviewed Family History Unable to obtain at this time Social History Patient unable to give history Chart review reveals tobacco abuse, occasional alcohol use and previous history of poor by mouth abuse Review of Systems Eye: Blurring Respiratory: Negative Cardiovascular: Negative Gastrointestinal: Negative All other ROS: ROS reviewed as documented in chart Past Family Social History Allergies: Coded Allergies: No Known Allergies (Unverified , 11/22/16) Active Ordered Medications Current Medications Medications (Trade) Dose Ordered Sig/Peewee Route Start Time Stop Time Status Last Admin Potassium Chloride 100 ml @ 50 mls/hr Q2H PRN IV 11/22/16 07:45 (KCl 20 Meq Premix Inj) 100 ml @ 50 mls/hr Q2H PRN IV 11/22/16 07:45 11/23/16 12:48 Potassium Chloride 40 meq 40 meq UNSCH PRN PO/TUBE 11/22/16 07:45 Potassium Chloride 100 ml @ 25 mls/hr UNSCH PRN IV 11/22/16 07:45 Potassium Chloride 100 ml @ 50 mls/hr Q2H PRN IV 11/22/16 07:45 (Magnesium Sulfate Inj/NS Inj) 100 ml @ 50 mls/hr UNSCH PRN IV 11/22/16 07:45 Magnesium Oxide 800 mg 800 mg UNSCH PRN PO 11/22/16 07:45 (Magnesium Sulfate Inj/NS Inj) 100 ml @ 50 mls/hr UNSCH PRN IV 11/22/16 07:45 Potassium Phosphate 2000 mg 2,000 mg Q4H PRN PO 11/22/16 07:45 (Sodium Phosphate Inj/NS 250 ml Inj) 250 ml @ 42 mls/hr UNSCH PRN IV 11/22/16 07:45 (KCl 40 Meq/30 ml Liq) 40 meq UNSCH PRN PO/TUBE 11/22/16 07:45 Potassium Phosphate 2000 mg 2,000 mg UNSCH PRN PO/TUBE 11/22/16 07:45 (Potassium Phosphate Inj/NS 250 ml Inj) 260 ml @ 42 mls/hr UNSCH PRN IV 11/22/16 07:45 (Norvasc) 10 mg DAILY PO 11/22/16 09:00 11/24/16 09:27 (Topamax) 50 mg BID PO 11/22/16 09:00 11/24/16 09:27 (NS Flush) 2 ml UNSCH PRN IVF 11/22/16 08:00 (NS Flush) 2 ml BID IVF 11/22/16 09:00 11/24/16 09:27 (Tylenol) 650 mg Q6H PRN PO 11/22/16 08:00 11/23/16 20:18 (fentaNYL INJ) 50 mcg Q1H PRN IV 11/22/16 08:00 11/22/16 08:31 (Peridex 0.12% Liq) 15 ml BID@08,20 MT 11/22/16 08:00 11/24/16 09:27 (Protonix Inj) 40 mg DAILY IV 11/22/16 09:00 11/24/16 09:26 (Lovenox Inj) 40 mg Q24H SQ 11/22/16 09:00 11/24/16 09:26 Miscellaneous Information 1 Q361D XX 11/22/16 08:00 (Chlorhexidine 2% Cloth) 3 pack Taper DAILY@04 TOP 11/23/16 04:00 11/19/17 03:59 11/23/16 21:33 Chlorhexidine Gluconate 3 pack 3 pack UNSCH PRN TOP 11/22/16 08:00 Midazolam HCl 100 ml @ 0 mls/hr TITRATE IV 11/22/16 12:00 11/23/16 05:14 (Cerebyx Inj/NS Inj) 52 ml @ 208 mls/hr Q8H IV 11/22/16 17:00 11/24/16 09:32 (D50w (Vial) Inj) 25 ml UNSCH PRN IV PUSH 11/23/16 11:15 (Glucagon Inj) 1 mg UNSCH PRN OTHER 11/23/16 11:15 (NovoLIN R SUPPLEMENTAL SCALE) 1 Q6HR SQ 11/23/16 11:15 Exam I&O / VS 11/23/16 11/23/16 11/24/16 15:00 23:00 07:00 Intake Total 1165 ml 1395 ml 810 ml Output Total 400 ml 250 ml Balance 1165 ml 995 ml 560 ml Intake Oral 0 ml IV Total 900 ml 675 ml 440 ml Tube Feeding 145 ml 600 ml 250 ml Tube Irrigant 120 ml Other 120 ml 120 ml Output Urine Total 400 ml 250 ml Stool Total 0 ml Vital Signs Date Time Temp Pulse Resp B/P Pulse Ox O2 Delivery O2 Flow Rate FiO2 11/24/16 14:00 100 11/24/16 13:52 99 Nasal Cannula 2.00 11/24/16 13:42 94 Nasal Cannula 4 11/24/16 12:00 100 11/24/16 12:00 100.0 100 22 154/74 96 11/24/16 10:10 40 11/24/16 10:10 100 40 11/24/16 10:00 99 11/24/16 08:00 98.2 103 22 145/85 100 11/24/16 08:00 102 11/24/16 07:00 100 Mechanical Ventilator 40 11/24/16 06:00 100 11/24/16 04:13 100 40 11/24/16 04:00 99.7 93 18 148/80 100 11/24/16 04:00 99 11/24/16 02:00 90 11/24/16 00:35 100 40 1/22/17 00:00 99.7 102 16 148/86 100 11/24/16 00:00 98 11/23/16 22:00 96 11/23/16 22:00 93 40 11/23/16 20:00 103 11/23/16 20:00 99.9 107 22 156/93 100 11/23/16 19:00 100 Mechanical Ventilator 40 11/23/16 18:00 90 11/23/16 17:00 95.2 91 15 146/68 100 11/23/16 16:49 100 40 11/23/16 16:00 90 Eye: Other Respiratory: Lungs CTA, Non-labored respirations Cardiology: Normal rate Musculoskeletal: Deformity, Other Neurologic: Alert, CN II-XII intact Psychiatric: Cooperative Exam Comments ox 2, not to date, does not recognize me, ou 3-2mm, russell to gravity, mild postural tremor Review/Management Diagnosis/Plan: (1) Seizure Plan: subtherapeutic levels recs resume dilantin and topamax p.t. d/c planning in 1-2 days no driving/no climbing/operating dangerous machinery (2) Head injury, unspecified (3) Intracranial hemorrhage on right side following injury Problem Qualifiers (1) Intracranial hemorrhage on right side following injury: Michael Rascon MD Nov 24, 2016 15:07
[2016-11-24] MEDS ORDERED: LORazepam 2 MG/ML VIAL IV PRN (18:45)
[2016-11-24] MEDS: PHENYTOIN SUSP 100 MG/4 ML CUP PO SCH (22:55)
[2016-11-24] MEDS: ACETAMINOPHEN 325 MG TAB PO PRN (23:05)
[2016-11-25] VITALS (13 sets, daily range): BP systolic 114–128; BP diastolic 58–68; PULSE 85–116; RESP 11–24; TEMP 97.8–98.5; O2SAT 96–98
[2016-11-25] MEDS: CHLORHEXIDINE GLUCONATE 2 % 1 PACK (2 CLOTHS) TOP SCH (04:00)
[2016-11-25 04:14] LABS: AUTOMATED NEUTROPHIL # 4.4 TH/MM3 (1.8-7.7); BASOPHIL # 0.1 TH/MM3 (0-0.2); BASOPHIL % 1.1 % (0.0-2.0); EOSINOPHIL # 0.4 TH/MM3 (0-0.4); EOSINOPHIL % 6.1 % (0.0-4.0); HEMATOCRIT 37.5 % (39.0-51.0); HEMO FLAGS DIFF FINAL; LYMPH % 17.3 % (9.0-44.0); LYMPHOCYTE # 1.2 TH/MM3 (1.0-4.8); MEAN CELL VOLUME 98.8 FL (80.0-100.0); MEAN CORPUSCULAR HEMOGLOBIN 34.3 PG (27.0-34.0); MEAN CORPUSCULAR HGB CONC 34.7 % (32.0-36.0); MONO % 10.1 % (0.0-8.0); NEUT % 65.4 % (16.0-70.0); PLATELET COUNT 262 TH/MM3 (150-450); RED CELL DISTRIBUTION WIDTH 14.1 % (11.6-17.2); WHITE BLOOD COUNT 6.7 TH/MM3 (4.0-11.0)
[2016-11-25] MEDS: RESP: ALBUTEROL 2.5 MG/IPRATROPIUM 0.5 MG NEB (SCH) NEB ×4 (04:29→22:00)
[2016-11-25 04:44] LABS: BICARBONATE 26.2 MEQ/L (21.0-32.0); MAGNESIUM 1.4 MG/DL (1.5-2.5); POTASSIUM 3.2 MEQ/L (3.5-5.1)
[2016-11-25] MEDS: PHENYTOIN SUSP 100 MG/4 ML CUP PO SCH ×3 (05:14→22:03)
[2016-11-25] MEDS: MAGNESIUM OXIDE 400 MG TAB PO PRN (05:14)
[2016-11-25] MEDS: CHLORHEXIDINE 0.12% (ORAL KIT) 15 ML CUP MT SCH ×2 (07:56→20:00)
--- NOTE | 2016-11-25 08:52 | MG ---
cc: ASIM GARDNER MD Lab No: [id number] Date: 11/22/2016 Age: 56 Sex: M Race: DATE OF : 1960. HISTORY: This 56 year-old male with history of intubation, seizure activity. Asymmetric left hemispheric swelling appreciated. Generalized spindles. Tiny sharp transient, C4, P4, EPOCH 42. rare sharp transient, Sharp wave C4, P4, EPOCH 57. A little bit of driving photic stimulation. Single EKG show sinus rhythm. INTERPRETATION: Moderate to severe encephalopathy with asymmetric left hemispheric slowing in addition to right frontal central lesion sharp transient suggestive of cortical irritability although no active seizures. Clinical correlation. Asim Gardner MD MG/ /4:36 PM /8:48 AM MTD
--- NOTE | 2016-11-25 09:00 | HHI.PR ---
Review/Management Diagnosis/Plan: (1) Seizure Plan: subtherapeutic levels dil 11.3 recs resume dilantin and topamax p.t. d/c planning ok for floor 5th with tele he lives with his sister outpatient f/u no driving/no climbing/operating dangerous machinery (2) Head injury, unspecified (3) Intracranial hemorrhage on right side following injury Subjective Subjective Comments No acute events reported No headache No chest pain No dyspnea Active Medications Current Medications Medications (Trade) Dose Ordered Sig/Peewee Route Start Time Stop Time Status Last Admin Potassium Chloride 100 ml @ 50 mls/hr Q2H PRN IV 11/22/16 07:45 (KCl 20 Meq Premix Inj) 100 ml @ 50 mls/hr Q2H PRN IV 11/22/16 07:45 11/23/16 12:48 Potassium Chloride 40 meq 40 meq UNSCH PRN PO/TUBE 11/22/16 07:45 Potassium Chloride 100 ml @ 25 mls/hr UNSCH PRN IV 11/22/16 07:45 Potassium Chloride 100 ml @ 50 mls/hr Q2H PRN IV 11/22/16 07:45 (Magnesium Sulfate Inj/NS Inj) 100 ml @ 50 mls/hr UNSCH PRN IV 11/22/16 07:45 Magnesium Oxide 800 mg 800 mg UNSCH PRN PO 11/22/16 07:45 11/25/16 05:14 (Magnesium Sulfate Inj/NS Inj) 100 ml @ 50 mls/hr UNSCH PRN IV 11/22/16 07:45 Potassium Phosphate 2000 mg 2,000 mg Q4H PRN PO 11/22/16 07:45 (Sodium Phosphate Inj/NS 250 ml Inj) 250 ml @ 42 mls/hr UNSCH PRN IV 11/22/16 07:45 (KCl 40 Meq/30 ml Liq) 40 meq UNSCH PRN PO/TUBE 11/22/16 07:45 11/25/16 05:09 Potassium Phosphate 2000 mg 2,000 mg UNSCH PRN PO/TUBE 11/22/16 07:45 11/25/16 05:09 (Potassium Phosphate Inj/NS 250 ml Inj) 260 ml @ 42 mls/hr UNSCH PRN IV 11/22/16 07:45 (Norvasc) 10 mg DAILY PO 11/22/16 09:00 11/24/16 09:27 (NS Flush) 2 ml UNSCH PRN IVF 11/22/16 08:00 (NS Flush) 2 ml BID IVF 11/22/16 09:00 11/24/16 20:27 (Tylenol) 650 mg Q6H PRN PO 11/22/16 08:00 11/24/16 23:05 (fentaNYL INJ) 50 mcg Q1H PRN IV 11/22/16 08:00 11/22/16 08:31 (Peridex 0.12% Liq) 15 ml BID@08,20 MT 11/22/16 08:00 11/24/16 09:27 (Protonix Inj) 40 mg DAILY IV 11/22/16 09:00 11/24/16 09:26 (Lovenox Inj) 40 mg Q24H SQ 11/22/16 09:00 11/24/16 09:26 Miscellaneous Information 1 Q361D XX 11/22/16 08:00 (Chlorhexidine 2% Cloth) 3 pack Taper DAILY@04 TOP 11/23/16 04:00 11/19/17 03:59 11/25/16 04:00 Chlorhexidine Gluconate 3 pack 3 pack UNSCH PRN TOP 11/22/16 08:00 (Versed Inj) 100 ml @ 0 mls/hr TITRATE IV 11/22/16 12:00 11/23/16 05:14 (Topamax) 75 mg BID PO 11/24/16 21:00 11/24/16 20:27 (Dilantin Liq) 150 mg Q8HR PO 11/24/16 22:00 11/25/16 05:14 (Ativan Inj) 1 mg Q4H PRN IV 11/24/16 18:45 Allergies Allergies Coded Allergies No Known Allergies (Unverified11/22/16) Review of Systems Eye: Blurring Respiratory: Negative Cardiovascular: Negative Gastrointestinal: Negative All other ROS: ROS reviewed as documented in chart Exam I&O / VS 11/24/16 11/24/16 11/25/16 15:00 23:00 07:00 Intake Total 620 ml 240 ml 240 ml Output Total 900 ml Balance -280 ml 240 ml 240 ml Intake Oral 240 ml 240 ml IV Total 540 ml Tube Feeding 50 ml Other 30 ml Output Urine Total 900 ml # Voids 1 4 # Bowel Movements 1 1 Vital Signs Date Time Temp Pulse Resp B/P Pulse Ox O2 Delivery O2 Flow Rate FiO2 11/25/16 06:00 96 11/25/16 04:00 97.9 88 20 128/62 96 11/25/16 04:00 88 11/25/16 02:00 86 11/25/16 00:00 98.2 86 11 117/58 96 11/25/16 00:00 86 11/24/16 22:45 96 21 11/24/16 22:00 93 11/24/16 20:00 105 11/24/16 20:00 98.0 105 24 136/76 97 11/24/16 18:00 85 11/24/16 16:51 92 70 11/24/16 16:00 98 11/24/16 16:00 100.2 100 16 140/83 0 11/24/16 14:00 100 11/24/16 13:52 99 Nasal Cannula 2.00 11/24/16 13:42 94 Nasal Cannula 4 11/24/16 13:42 94 Nasal Cannula 4.00 11/24/16 12:00 100 11/24/16 12:00 100.0 100 22 154/74 96 11/24/16 10:10 40 11/24/16 10:10 100 40 11/24/16 10:00 99 Eye: Other Respiratory: Lungs CTA, Non-labored respirations Cardiology: Normal rate Musculoskeletal: Deformity, Other Neurologic: Alert, CN II-XII intact Psychiatric: Cooperative Exam Comments ox 2, not to date, calm, pleasant, ou 3-2mm, russell to gravity, mild postural tremor Objective Micro and Labs Laboratory Tests Test 11/24/16 11/25/16 12:36 03:36 Blood Gas Puncture Site RT RADIAL Blood Gas Patient Temperature 98.6 Blood Gas HCO3 24 Blood Gas Base Excess 0.5 Blood Gas Oxygen Saturation 97 Arterial Blood pH 7.46 Arterial Blood Partial 34 Pressure CO2 Arterial Blood Partial 149 Pressure O2 Arterial Blood Oxygen Content 18.6 Arterial Blood 0.7 Carboxyhemoglobin Arterial Blood Methemoglobin 1.0 Blood Gas Hemoglobin 13.4 Oxygen Delivery Device VENTILATOR Blood Gas Ventilator Setting CPAP 5/PS 10 Blood Gas Inspired Oxygen 40 White Blood Count 6.7 Red Blood Count 3.80 Hemoglobin 13.0 Hematocrit 37.5 Mean Corpuscular Volume 98.8 Mean Corpuscular Hemoglobin 34.3 Mean Corpuscular Hemoglobin 34.7 Concent Red Cell Distribution Width 14.1 Platelet Count 262 Mean Platelet Volume 7.3 Neutrophils (%) (Auto) 65.4 Lymphocytes (%) (Auto) 17.3 Monocytes (%) (Auto) 10.1 Eosinophils (%) (Auto) 6.1 Basophils (%) (Auto) 1.1 Neutrophils # (Auto) 4.4 Lymphocytes # (Auto) 1.2 Monocytes # (Auto) 0.7 Eosinophils # (Auto) 0.4 Basophils # (Auto) 0.1 CBC Comment DIFF FINAL Differential Comment Sodium Level 141 Potassium Level 3.2 Chloride Level 107 Carbon Dioxide Level 26.2 Anion Gap 8 Blood Urea Nitrogen 5 Creatinine 0.40 Estimat Glomerular Filtration 221 Rate Random Glucose 88 Calcium Level 8.5 Phosphorus Level 2.0 Magnesium Level 1.4 Phenytoin (Dilantin) Level 11.3 Date/Time Procedure Status Source Growth 11/22/16 05:50 Aerobic Blood Culture - Preliminary Resulted Blood Peripheral NO GROWTH IN 2 DAYS 11/22/16 05:50 Anaerobic Blood Culture - Preliminary Resulted Blood Peripheral NO GROWTH IN 2 DAYS Problem Qualifiers (1) Intracranial hemorrhage on right side following injury: Michael Rascon MD Nov 25, 2016 09:00
[2016-11-25] MEDS: PANTOPRAZOLE SODIUM 40 MG VIAL IV SCH (09:09)
[2016-11-25] MEDS: SODIUM CHLORIDE 0.9% FLUSH 5 ML FLUSH IVF SCH ×2 (09:10→22:04)
[2016-11-25] MEDS: TOPIRAMATE 25 MG TAB PO SCH ×2 (09:10→22:03)
[2016-11-25] MEDS: ENOXAPARIN SODIUM 40 MG/0.4 ML SYRINGE SQ SCH (09:11)
--- NOTE | 2016-11-25 17:07 | HHI.CCPN ---
Subjective Remarks/Hospital Course This is a 55-year-old male with a past medical history of right subdural hematoma status post evacuation and craniectomy on 12/22/13, status post frontotemporal parietal reconstructive cranioplasty on 06/14/15, history of seizure disorder and hypertension who was brought in by EMS from home for evaluation of seizure. On EMS arrival he was having a generalized tonoclonic seizure. He was given 2 mg of IM Ativan followed by 2 mg of IV Ativan once IV was established. After IV Ativan seizure activity stopped. In the ER patient was altered and obtunded. He is unable to provide any history. Patient takes Dilantin and topiramate for seizure. A stat CT of the head did not show any acute changes other than evidence of encephalomalacia in the right temporal region and previous cranioplasty. Patient's Dilantin level was subtherapeutic at 5.6, alcohol level was negative. His lactic acid was elevated at 6.7 most likely secondary to seizure I evaluated the patient in the emergency department. He remains unresponsive not responding to painful stimuli. No spontaneous eye opening his eyes shows horizontal roving movements probable horizontal nystagmus. It appears like patient is in subclinical status. I proceeded with endotracheal intubation for airway protection as the patient was making gurgling sounds. Stat EEG is pending at this time. Patient had been loaded with 1 g of IV Cerebyx continue Cerebyx at 100 mg every 8 hours, and use when necessary Ativan for seizures 11/23 Patient is sedated with Diprivan, Fentanyl and intubated. Afebrile, no recurrence seizures overnight. 11/24 No acute events overnight. Sedated and intubated, Afebrile. 11/25: The patient was successfully extubated yesterday afternoon. The patient became confused and got out of bed going to the bathroom and was found down on the bathroom floor. Occurrence report obtained. No apparent injuries were noted at that time. [place] restraint was initiated last evening. The patient alert and responsive today. Objective Vital Signs Date Time Temp Pulse Resp B/P Pulse Ox O2 Delivery O2 Flow Rate FiO2 11/25/16 16:00 101 11/25/16 16:00 98.2 17 115/61 98 11/24/16 22:45 21 11/24/16 13:52 Nasal Cannula 2.00 Intake and Output 11/24/16 11/24/16 11/25/16 08:00 16:00 00:00 Intake Total 810 ml 620 ml 240 ml Output Total 250 ml 900 ml Balance 560 ml -280 ml 240 ml Result Diagram: 11/25/16 0336 11/25/16 1100 Imaging Last Impressions Head CT 11/22/16 0000 Signed Impressions: Service Date/Time: Tuesday, November 22, 2016 05:52 - CONCLUSION: Resolution of previously seen subdural fluid collection on the right and development of encephalomalacia in right temporal lobe in the interim. Malena Boyd MD Chest X-Ray 11/22/16 0000 Signed Impressions: Service Date/Time: Tuesday, November 22, 2016 07:12 - CONCLUSION: ET tube and NG tube are well placed. The lungs are clear. Jose Paul MD Objective Remarks GENERAL: Patient is 56 yo intubated and sedated SKIN: Warm and dry. HEAD: Normocephalic. EYES: No scleral icterus. No injection or drainage. NECK: Supple, trachea midline. No JVD or lymphadenopathy. CARDIOVASCULAR: Regular rate and rhythm without murmurs, gallops, or rubs. RESPIRATORY: Breath sounds equal bilaterally. No accessory muscle use. GASTROINTESTINAL: Abdomen soft, non-tender, nondistended. MUSCULOSKELETAL: No cyanosis, or edema. Neuro: sedated Urinary Catheter: No Vascular Central Line Catheter: No A/P Assessment and Plan ASSESSMENT/PLAN: NEURO: Status epilepticus Seizure disorder Subtherapeutic Dilantin Craniectomy with evacuation of subdural hemorrhage 12/22/14 Frontotemporal parietal reconstruction cranioplasty 06/14/15 -Presented with status epilepticus. Dilantin level 14.4 on 11/23 -Ativan 2 mg IV every 2 hours when necessary for seizures -s/p IV Cerebyx 1 g loading dose and 100 mg every 8 hours -Continue Topamax -CT head did not show any acute findings -Neurology, Dr. Rascon on board follow-up recommendations -Patient oriented to self and location, states the year 1998 RESP: Acute respiratory failure-resolved Failure to protect airway-resolved -Maintain O2 sat >92%. Currently on room air 97% -DuoNeb every 6 hours when necessary. -Continue incentive spirometry q 1 hr while awake, 2000 cc per breath CV: Lactic acidosis secondary to seizure-resolved Sinus tachycardia/SIRS-resolved History of hypertension -Monitor HR and BP keep MAP>65mmHg. - On Norvasc 10mg daily -Lactic acid 1.5 GI: - IV Protonix, -Colace for bowel regimen, on hold secondary to loose stools -Tolerating regular diet : Acute kidney insufficiency -Monitor renal function , I/O's, electrolytes replacement per protocol. ID: -Monitor for signs of infections ( Fever, WBC) HEME: -Monitor CBC, CMP ENDO: -Electrolyte replacement per protocol -SSI if needed for glycemic control PROPH: -Bilateral lower extremity SCDs. Lovenox 40 mg subcutaneous daily. IV Protonix 40 mg daily LINES: -Utilize peripheral IVs, Dispo: Patient tolerating regular diet, maintaining O2 sat > 97% on room air. Plan to transfer to hospitalist, and transfer to [address] [place] [address] 3 Physician Brittany Quiroz MD Nov 25, 2016 17:07
[2016-11-25] MEDS: ACETAMINOPHEN 325 MG TAB PO PRN (18:23)
[2016-11-26] VITALS (14 sets, daily range): BP systolic 118–143; BP diastolic 68–88; PULSE 80–109; RESP 17–29; TEMP 98–98.7; O2SAT 95–97
[2016-11-26] MEDS: RESP: ALBUTEROL 2.5 MG/IPRATROPIUM 0.5 MG NEB (SCH) NEB ×4 (02:36→20:57)
[2016-11-26] MEDS: ACETAMINOPHEN 325 MG TAB PO PRN (03:20)
[2016-11-26] MEDS: CHLORHEXIDINE GLUCONATE 2 % 1 PACK (2 CLOTHS) TOP SCH (04:00)
[2016-11-26] MEDS: PHENYTOIN SUSP 100 MG/4 ML CUP PO SCH ×3 (05:38→22:52)
[2016-11-26] MEDS: CHLORHEXIDINE 0.12% (ORAL KIT) 15 ML CUP MT SCH ×2 (08:00→22:51)
--- NOTE | 2016-11-26 08:05 | HHI.PR ---
Review/Management Diagnosis/Plan: (1) Seizure Plan: subtherapeutic levels dil 15.6 recs resume dilantin and topamax p.t. d/c planning today ok for floor 5th with tele he lives with his sister outpatient f/u no driving/no climbing/operating dangerous machinery (2) Head injury, unspecified (3) Intracranial hemorrhage on right side following injury Subjective Subjective Comments No acute events reported; no sz's No headache No chest pain No dyspnea Active Medications Current Medications Medications (Trade) Dose Ordered Sig/Peewee Route Start Time Stop Time Status Last Admin Potassium Chloride 100 ml @ 50 mls/hr Q2H PRN IV 11/22/16 07:45 (KCl 20 Meq Premix Inj) 100 ml @ 50 mls/hr Q2H PRN IV 11/22/16 07:45 11/23/16 12:48 Potassium Chloride 40 meq 40 meq UNSCH PRN PO/TUBE 11/22/16 07:45 Potassium Chloride 100 ml @ 25 mls/hr UNSCH PRN IV 11/22/16 07:45 Potassium Chloride 100 ml @ 50 mls/hr Q2H PRN IV 11/22/16 07:45 (Magnesium Sulfate Inj/NS Inj) 100 ml @ 50 mls/hr UNSCH PRN IV 11/22/16 07:45 Magnesium Oxide 800 mg 800 mg UNSCH PRN PO 11/22/16 07:45 11/25/16 05:14 (Magnesium Sulfate Inj/NS Inj) 100 ml @ 50 mls/hr UNSCH PRN IV 11/22/16 07:45 Potassium Phosphate 2000 mg 2,000 mg Q4H PRN PO 11/22/16 07:45 (Sodium Phosphate Inj/NS 250 ml Inj) 250 ml @ 42 mls/hr UNSCH PRN IV 11/22/16 07:45 (KCl 40 Meq/30 ml Liq) 40 meq UNSCH PRN PO/TUBE 11/22/16 07:45 11/25/16 05:09 Potassium Phosphate 2000 mg 2,000 mg UNSCH PRN PO/TUBE 11/22/16 07:45 11/25/16 05:09 (Potassium Phosphate Inj/NS 250 ml Inj) 260 ml @ 42 mls/hr UNSCH PRN IV 11/22/16 07:45 (Norvasc) 10 mg DAILY PO 11/22/16 09:00 11/25/16 09:10 (NS Flush) 2 ml UNSCH PRN IVF 11/22/16 08:00 (NS Flush) 2 ml BID IVF 11/22/16 09:00 11/25/16 22:04 (Tylenol) 650 mg Q6H PRN PO 11/22/16 08:00 11/26/16 03:20 (fentaNYL INJ) 50 mcg Q1H PRN IV 11/22/16 08:00 11/22/16 08:31 (Peridex 0.12% Liq) 15 ml BID@08,20 MT 11/22/16 08:00 11/24/16 09:27 (Protonix Inj) 40 mg DAILY IV 11/22/16 09:00 11/25/16 09:09 (Lovenox Inj) 40 mg Q24H SQ 11/22/16 09:00 11/25/16 09:11 Miscellaneous Information 1 Q361D XX 11/22/16 08:00 (Chlorhexidine 2% Cloth) 3 pack Taper DAILY@04 TOP 11/23/16 04:00 11/19/17 03:59 11/26/16 04:00 Chlorhexidine Gluconate 3 pack 3 pack UNSCH PRN TOP 11/22/16 08:00 (Versed Inj) 100 ml @ 0 mls/hr TITRATE IV 11/22/16 12:00 11/23/16 05:14 (Topamax) 75 mg BID PO 11/24/16 21:00 11/25/16 22:03 (Ativan Inj) 1 mg Q4H PRN IV 11/24/16 18:45 (Dilantin Liq) 200 mg Q8HR PO 11/25/16 14:00 11/26/16 05:38 Allergies Allergies Coded Allergies No Known Allergies (Unverified11/22/16) Review of Systems Eye: Blurring Respiratory: Negative Cardiovascular: Negative Gastrointestinal: Negative All other ROS: ROS reviewed as documented in chart Exam I&O / VS 11/25/16 11/25/16 11/26/16 15:00 23:00 07:00 Intake Total 760 ml 120 ml Balance 760 ml 120 ml Intake Oral 760 ml 120 ml IV Total 0 ml # Voids 6 2 4 # Bowel Movements 2 1 2 Vital Signs Date Time Temp Pulse Resp B/P Pulse Ox O2 Delivery O2 Flow Rate FiO2 1/24/17 06:00 85 11/26/16 04:00 98.0 87 17 131/70 95 11/26/16 04:00 87 11/26/16 02:39 95 21 11/26/16 02:00 82 11/26/16 00:00 85 11/26/16 00:00 98.2 85 19 130/84 95 11/25/16 22:00 86 11/25/16 20:00 91 11/25/16 20:00 98.4 91 20 126/63 97 11/25/16 18:00 100 11/25/16 16:00 101 11/25/16 16:00 98.2 104 17 115/61 98 11/25/16 14:00 102 11/25/16 12:00 97.8 116 19 128/68 98 11/25/16 12:00 104 11/25/16 10:22 96 11/25/16 10:00 100 Eye: Other Respiratory: Lungs CTA, Non-labored respirations Cardiology: Normal rate Musculoskeletal: Deformity, Other Neurologic: Alert, CN II-XII intact Psychiatric: Cooperative Exam Comments ox 2-3, remembers seeing me yesterday, "you're a doctor", calm, pleasant, ou 3- 2mm, russell to gravity,no tremor Objective Micro and Labs Laboratory Tests Test 11/25/16 11/26/16 11:00 03:32 Potassium Level 3.6 Phenytoin (Dilantin) Level 15.6 Date/Time Procedure Status Source Growth 11/22/16 05:50 Aerobic Blood Culture - Preliminary Resulted Blood Peripheral NO GROWTH IN 3 DAYS 11/22/16 05:50 Anaerobic Blood Culture - Preliminary Resulted Blood Peripheral NO GROWTH IN 3 DAYS Problem Qualifiers (1) Intracranial hemorrhage on right side following injury: Michael Rascon MD Nov 26, 2016 08:05
[2016-11-26] MEDS: SODIUM CHLORIDE 0.9% FLUSH 5 ML FLUSH IVF SCH ×2 (09:00→22:51)
[2016-11-26] MEDS: ENOXAPARIN SODIUM 40 MG/0.4 ML SYRINGE SQ SCH (09:12)
[2016-11-26] MEDS: PANTOPRAZOLE SODIUM 40 MG VIAL IV SCH (09:12)
[2016-11-26] MEDS: TOPIRAMATE 100 MG TAB PO SCH ×2 (09:33→22:52)
--- NOTE | 2016-11-26 16:20 | HHI.PR ---
Subjective Remarks Patient seen this morning around 11:30 AM. He says he feels all right. Denies any pain. Denies any nausea or vomiting. He says he lives with his sister. Objective Vital Signs Date Time Temp Pulse Resp B/P Pulse Ox O2 Delivery O2 Flow Rate FiO2 11/26/16 14:00 109 11/26/16 12:00 98.7 102 21 118/68 95 11/26/16 12:00 109 11/26/16 10:00 109 11/26/16 08:20 97 21 11/26/16 08:00 109 11/26/16 08:00 98.7 109 29 138/88 95 11/26/16 06:00 85 11/26/16 04:00 98.0 87 17 131/70 95 11/26/16 04:00 87 11/26/16 02:39 95 21 11/26/16 02:00 82 11/26/16 00:00 85 11/26/16 00:00 98.2 85 19 130/84 95 11/25/16 22:00 86 11/25/16 20:00 91 11/25/16 20:00 98.4 91 20 126/63 97 11/25/16 18:00 100 I/O 11/25/16 11/25/16 11/25/16 11/26/16 11/26/16 11/26/16 07:00 15:00 23:00 07:00 15:00 23:00 Intake Total 240 ml 760 ml 120 ml 600 ml Balance 240 ml 760 ml 120 ml 600 ml Intake Oral 240 ml 760 ml 120 ml 600 ml IV Total 0 ml # Voids 4 6 2 4 3 # Bowel Movements 1 2 1 2 1 Result Diagram: 11/25/16 0336 11/25/16 1100 Imaging Last Impressions Head CT 11/22/16 0000 Signed Impressions: Service Date/Time: Tuesday, November 22, 2016 05:52 - CONCLUSION: Resolution of previously seen subdural fluid collection on the right and development of encephalomalacia in right temporal lobe in the interim. Malena Boyd MD Chest X-Ray 11/22/16 0000 Signed Impressions: Service Date/Time: Tuesday, November 22, 2016 07:12 - CONCLUSION: ET tube and NG tube are well placed. The lungs are clear. Jose Paul MD Objective Remarks GENERAL: Lying in bed. Appears comfortable. Patient is alert to place. Uncertain of date. Tells me it is 2008. SKIN: Warm and dry. HEAD: Normocephalic. EYES: No scleral icterus. No injection or drainage. NECK: Supple, trachea midline. No JVD. CARDIOVASCULAR: Regular rate and rhythm without murmurs, gallops, or rubs. RESPIRATORY: Breath sounds equal bilaterally. No accessory muscle use. GASTROINTESTINAL: Abdomen soft, non-tender, nondistended. MUSCULOSKELETAL: No cyanosis, or edema. Moves all extremities. BACK: Nontender without obvious deformity. No CVA tenderness. A/P Assessment and Plan //Status epilepticus //Seizure disorder //Subtherapeutic Dilantin //Craniectomy with evacuation of subdural hemorrhage 12/22/14 //Frontotemporal parietal reconstruction cranioplasty 06/14/15 -Presented his admission with status epilepticus. Dilantin level 14.4 on 11/23 -Ativan 2 mg IV every 2 hours when necessary for seizures -s/p IV Cerebyx 1 g loading dose and 100 mg every 8 hours -Continue Topamax -CT head did not show any acute findings -Neurology, Dr. Rascon on board follow-up outpatient -Patient oriented to self and location, states the year 2008 (previously told it was 1998) RESP: //Acute respiratory failure-resolved //Failure to protect airway-resolved, extubated -Maintain O2 sat >92%. Continue on room air. -DuoNeb every 6 hours when necessary. -Continue incentive spirometry q 1 hr while awake, 2000 cc per breath CV: //Lactic acidosis secondary to seizure-resolved //Sinus tachycardia/SIRS-resolved //History of hypertension -Monitor HR and BP keep MAP>65mmHg. - Continue on Norvasc 10mg daily GI: - IV Protonix, -Colace for bowel regimen, on hold secondary to loose stools -Tolerating regular diet : //Acute kidney insufficiency -Monitor renal function , I/O's, electrolytes replacement per protocol. PROPH: -Bilateral lower extremity SCDs. Lovenox 40 mg subcutaneous daily. IV Protonix 40 mg daily LINES: -Utilize peripheral IVs, Discharge Planning Transfer to medical floor. Discharge home tomorrow with sister if stable. Jose Christopher MD Nov 26, 2016 16:20
[2016-11-27] VITALS (11 sets, daily range): BP systolic 106–147; BP diastolic 68–81; PULSE 87–115; RESP 14–29; TEMP 97.7–98.5; O2SAT 95–97
[2016-11-27] MEDS: RESP: ALBUTEROL 2.5 MG/IPRATROPIUM 0.5 MG NEB (SCH) NEB ×2 (04:47→09:05)
[2016-11-27 05:04] LABS: AUTOMATED NEUTROPHIL # 3.1 TH/MM3 (1.8-7.7); BASOPHIL # 0.1 TH/MM3 (0-0.2); BASOPHIL % 1.1 % (0.0-2.0); EOSINOPHIL # 0.6 TH/MM3 (0-0.4); EOSINOPHIL % 9.7 % (0.0-4.0); HEMATOCRIT 37.9 % (39.0-51.0); HEMO FLAGS DIFF FINAL; LYMPH % 22.9 % (9.0-44.0); LYMPHOCYTE # 1.4 TH/MM3 (1.0-4.8); MEAN CELL VOLUME 98.9 FL (80.0-100.0); MEAN CORPUSCULAR HGB CONC 34.4 % (32.0-36.0); MONO % 14.4 % (0.0-8.0); NEUT % 51.9 % (16.0-70.0); PLATELET COUNT 317 TH/MM3 (150-450); RED BLOOD COUNT 3.83 MIL/MM3 (4.50-5.90); RED CELL DISTRIBUTION WIDTH 14.3 % (11.6-17.2)
[2016-11-27] MEDS: CHLORHEXIDINE GLUCONATE 2 % 1 PACK (2 CLOTHS) TOP SCH (05:18)
[2016-11-27] MEDS: PHENYTOIN SUSP 100 MG/4 ML CUP PO SCH ×3 (05:18→21:06)
[2016-11-27 05:38] LABS: BICARBONATE 24.1 MEQ/L (21.0-32.0); POTASSIUM 3.4 MEQ/L (3.5-5.1)
--- NOTE | 2016-11-27 07:41 | HHI.PR ---
Review/Management Diagnosis/Plan: (1) Seizure Plan: subtherapeutic levels dil 17.2 recs resume dilantin and topamax p.t. d/c planning today ok for floor 5th with tele f/u with me in 1-2 weeks; weekly dilantin levels he lives with his sister; needs supervision outpatient f/u no driving/no climbing/operating dangerous machinery (2) Head injury, unspecified (3) Intracranial hemorrhage on right side following injury Subjective Subjective Comments No acute events reported No headache No chest pain No dyspnea Active Medications Current Medications Medications (Trade) Dose Ordered Sig/Peewee Route Start Time Stop Time Status Last Admin Potassium Chloride 100 ml @ 50 mls/hr Q2H PRN IV 11/22/16 07:45 (KCl 20 Meq Premix Inj) 100 ml @ 50 mls/hr Q2H PRN IV 11/22/16 07:45 11/23/16 12:48 Potassium Chloride 40 meq 40 meq UNSCH PRN PO/TUBE 11/22/16 07:45 Potassium Chloride 100 ml @ 25 mls/hr UNSCH PRN IV 11/22/16 07:45 Potassium Chloride 100 ml @ 50 mls/hr Q2H PRN IV 11/22/16 07:45 (Magnesium Sulfate Inj/NS Inj) 100 ml @ 50 mls/hr UNSCH PRN IV 11/22/16 07:45 Magnesium Oxide 800 mg 800 mg UNSCH PRN PO 11/22/16 07:45 11/25/16 05:14 (Magnesium Sulfate Inj/NS Inj) 100 ml @ 50 mls/hr UNSCH PRN IV 11/22/16 07:45 Potassium Phosphate 2000 mg 2,000 mg Q4H PRN PO 11/22/16 07:45 (Sodium Phosphate Inj/NS 250 ml Inj) 250 ml @ 42 mls/hr UNSCH PRN IV 11/22/16 07:45 (KCl 40 Meq/30 ml Liq) 40 meq UNSCH PRN PO/TUBE 11/22/16 07:45 11/25/16 05:09 Potassium Phosphate 2000 mg 2,000 mg UNSCH PRN PO/TUBE 11/22/16 07:45 11/25/16 05:09 (Potassium Phosphate Inj/NS 250 ml Inj) 260 ml @ 42 mls/hr UNSCH PRN IV 11/22/16 07:45 (Norvasc) 10 mg DAILY PO 11/22/16 09:00 11/26/16 09:12 (NS Flush) 2 ml UNSCH PRN IVF 11/22/16 08:00 (NS Flush) 2 ml BID IVF 11/22/16 09:00 11/26/16 22:51 (Tylenol) 650 mg Q6H PRN PO 11/22/16 08:00 11/26/16 03:20 (fentaNYL INJ) 50 mcg Q1H PRN IV 11/22/16 08:00 11/22/16 08:31 (Peridex 0.12% Liq) 15 ml BID@08,20 MT 11/22/16 08:00 11/26/16 22:51 (Protonix Inj) 40 mg DAILY IV 11/22/16 09:00 11/26/16 09:12 (Lovenox Inj) 40 mg Q24H SQ 11/22/16 09:00 11/26/16 09:12 Miscellaneous Information 1 Q361D XX 11/22/16 08:00 (Chlorhexidine 2% Cloth) 3 pack Taper DAILY@04 TOP 11/23/16 04:00 11/19/17 03:59 11/27/16 05:18 Chlorhexidine Gluconate 3 pack 3 pack UNSCH PRN TOP 11/22/16 08:00 (Versed Inj) 100 ml @ 0 mls/hr TITRATE IV 11/22/16 12:00 11/23/16 05:14 (Ativan Inj) 1 mg Q4H PRN IV 11/24/16 18:45 (Dilantin Liq) 150 mg Q8HR PO 11/26/16 14:00 11/27/16 05:18 (Topamax) 100 mg BID PO 11/26/16 09:00 11/26/16 22:52 Allergies Allergies Coded Allergies No Known Allergies (Unverified11/22/16) Review of Systems Eye: Blurring Respiratory: Negative Cardiovascular: Negative Gastrointestinal: Negative All other ROS: ROS reviewed as documented in chart Exam I&O / VS 11/26/16 11/26/16 11/27/16 15:00 23:00 07:00 Intake Total 600 ml Balance 600 ml Intake Oral 600 ml # Voids 3 2 3 # Bowel Movements 1 1 Vital Signs Date Time Temp Pulse Resp B/P Pulse Ox O2 Delivery O2 Flow Rate FiO2 11/27/16 04:00 97.7 99 14 147/81 95 11/27/16 04:00 99 11/27/16 00:00 87 11/27/16 00:00 98.0 87 22 140/75 97 11/26/16 22:00 91 11/26/16 20:00 95 11/26/16 20:00 98.3 95 23 143/83 97 11/26/16 18:00 109 11/26/16 16:00 98.2 80 24 130/76 95 11/26/16 16:00 109 11/26/16 14:00 109 11/26/16 12:00 98.7 102 21 118/68 95 11/26/16 12:00 109 11/26/16 10:00 109 11/26/16 08:20 97 21 11/26/16 08:00 109 11/26/16 08:00 98.7 109 29 138/88 95 Eye: Other Respiratory: Lungs CTA, Non-labored respirations Cardiology: Normal rate Musculoskeletal: Deformity, Other Neurologic: Alert, CN II-XII intact Psychiatric: Cooperative Exam Comments ox 2-3, calm, pleasant, remembers seeing me yesterday, pres: Trump, calm, pleasant, ou 3-2mm, russell to gravity,no tremor Objective Micro and Labs Laboratory Tests Test 11/27/16 04:31 White Blood Count 6.0 Red Blood Count 3.83 Hemoglobin 13.0 Hematocrit 37.9 Mean Corpuscular Volume 98.9 Mean Corpuscular Hemoglobin 34.0 Mean Corpuscular Hemoglobin 34.4 Concent Red Cell Distribution Width 14.3 Platelet Count 317 Mean Platelet Volume 7.3 Neutrophils (%) (Auto) 51.9 Lymphocytes (%) (Auto) 22.9 Monocytes (%) (Auto) 14.4 Eosinophils (%) (Auto) 9.7 Basophils (%) (Auto) 1.1 Neutrophils # (Auto) 3.1 Lymphocytes # (Auto) 1.4 Monocytes # (Auto) 0.9 Eosinophils # (Auto) 0.6 Basophils # (Auto) 0.1 CBC Comment DIFF FINAL Differential Comment Sodium Level 141 Potassium Level 3.4 Chloride Level 106 Carbon Dioxide Level 24.1 Anion Gap 11 Blood Urea Nitrogen 8 Creatinine 0.53 Estimat Glomerular Filtration 160 Rate Random Glucose 99 Calcium Level 8.9 Phenytoin (Dilantin) Level 17.2 Problem Qualifiers (1) Intracranial hemorrhage on right side following injury: Michael Rascon MD Nov 27, 2016 07:41
[2016-11-27] MEDS: CHLORHEXIDINE 0.12% (ORAL KIT) 15 ML CUP MT SCH ×2 (07:44→20:00)
[2016-11-27] MEDS: SODIUM CHLORIDE 0.9% FLUSH 5 ML FLUSH IVF SCH ×2 (07:51→21:06)
[2016-11-27] MEDS: TOPIRAMATE 100 MG TAB PO SCH ×2 (07:51→21:06)
[2016-11-27] MEDS: ENOXAPARIN SODIUM 40 MG/0.4 ML SYRINGE SQ SCH (07:51)
[2016-11-27] MEDS: PANTOPRAZOLE SODIUM 40 MG VIAL IV SCH (07:51)
[2016-11-27] MEDS: ACETAMINOPHEN 325 MG TAB PO PRN (07:52)
[2016-11-27] MEDS ORDERED: POTASSIUM CHLORIDE 10 MEQ CONTROLLED RELEASE TAB PO ONE (09:45)
[2016-11-27] MEDS: MAGNESIUM SULFATE 1 GM PREMIX 100 ML IV SCH ×2 (10:27→10:28)
[2016-11-27] MEDS: MAGNESIUM OXIDE 400 MG TAB PO PRN (12:08)
--- NOTE | 2016-11-27 19:12 | HHI.PR ---
Subjective Remarks Patient seen today at around 11 AM. He says that he feels well. Denies any chest pain or shortness of breath. Discussed over the phone with sister, who says that she saw him yesterday. She says that she works during the day, cannot be home to supervise him. Neurology recommends supervision at home. Objective Vital Signs Date Time Temp Pulse Resp B/P Pulse Ox O2 Delivery O2 Flow Rate FiO2 11/27/16 18:00 98 11/27/16 16:00 96 11/27/16 16:00 98.0 96 24 112/68 95 11/27/16 14:00 102 11/27/16 12:00 106 11/27/16 12:00 98.5 106 21 106/70 96 11/27/16 10:00 115 11/27/16 09:06 96 21 11/27/16 08:00 98.2 98 23 133/69 96 11/27/16 08:00 98 11/27/16 04:00 97.7 99 14 147/81 95 11/27/16 04:00 99 11/27/16 00:00 87 11/27/16 00:00 98.0 87 22 140/75 97 11/26/16 22:00 91 11/26/16 20:00 95 11/26/16 20:00 98.3 95 23 143/83 97 I/O 11/26/16 11/26/16 11/26/16 11/27/16 11/27/16 11/27/16 07:00 15:00 23:00 07:00 15:00 23:00 Intake Total 600 ml 840 ml Balance 600 ml 840 ml Intake Oral 600 ml 840 ml # Voids 4 3 2 3 6 # Bowel Movements 2 1 1 1 Result Diagram: 11/27/16 0431 11/27/16 0431 Objective Remarks GENERAL: sitting up in chair. Appears comfortable. Patient is alert to place. Uncertain of date. SKIN: Warm and dry. HEAD: Normocephalic. EYES: No scleral icterus. No injection or drainage. NECK: Supple, trachea midline. No JVD. CARDIOVASCULAR: Regular rate and rhythm without murmurs, gallops, or rubs. RESPIRATORY: Breath sounds equal bilaterally. No accessory muscle use. GASTROINTESTINAL: Abdomen soft, non-tender, nondistended. MUSCULOSKELETAL: No cyanosis, or edema. Moves all extremities. BACK: Nontender without obvious deformity. No CVA tenderness. A/P Assessment and Plan //Status epilepticus //Seizure disorder //Subtherapeutic Dilantin //Craniectomy with evacuation of subdural hemorrhage 12/22/14 //Frontotemporal parietal reconstruction cranioplasty 06/14/15 -Presented his admission with status epilepticus. Dilantin level 14.4 on 11/23 -Ativan 2 mg IV every 2 hours when necessary for seizures -s/p IV Cerebyx 1 g loading dose and 100 mg every 8 hours -Continue Topamax -CT head did not show any acute findings -Neurology, Dr. Rascon on board follow-up outpatient -11/26 Patient oriented to self and location, states the year 2008 (previously told it was 1998) -11/27. doing well. Electrolytes replaced. Discussed with sister, who says that patient is pretty much back to baseline, but says that she cannot supervise him , and does not feel comfortable leaving him at home. Even though patient will not need physical therapy, neurology recommends that patient will need supervision. Case management consult. RESP: //Acute respiratory failure-resolved //Failure to protect airway-resolved, extubated -Maintain O2 sat >92%. Continue on room air. -DuoNeb every 6 hours when necessary. -Continue incentive spirometry q 1 hr while awake, 2000 cc per breath CV: //Lactic acidosis secondary to seizure-resolved //Sinus tachycardia/SIRS-resolved //History of hypertension -Monitor HR and BP keep MAP>65mmHg. - Continue on Norvasc 10mg daily GI: - IV Protonix, -Colace for bowel regimen, on hold secondary to loose stools -Tolerating regular diet : //Acute kidney insufficiency -Monitor renal function , I/O's, electrolytes replacement per protocol. //Hypokalemia. Replaced. Monitor. //Hypomagnesemia. Replace. Monitor. PROPH: -Bilateral lower extremity SCDs. Lovenox 40 mg subcutaneous daily. IV Protonix 40 mg daily Discharge Planning Transfer to medical floor. -sister says that she cannot supervise patient, does not think he would be safe at her home at this time. Case management consult for possible placement options Jose Christopher MD Nov 27, 2016 19:12
[2016-11-28] VITALS (9 sets, daily range): BP systolic 101–139; BP diastolic 61–78; PULSE 83–99; RESP 16–24; TEMP 97.7–98.2; O2SAT 93–100
[2016-11-28] MEDS: CHLORHEXIDINE GLUCONATE 2 % 1 PACK (2 CLOTHS) TOP SCH (04:00)
[2016-11-28 04:35] LABS: AUTOMATED NEUTROPHIL # 2.7 TH/MM3 (1.8-7.7); BASOPHIL # 0.1 TH/MM3 (0-0.2); EOSINOPHIL # 0.6 TH/MM3 (0-0.4); EOSINOPHIL % 11.1 % (0.0-4.0); HEMATOCRIT 38.4 % (39.0-51.0); HEMO FLAGS DIFF FINAL; LYMPH % 25.1 % (9.0-44.0); LYMPHOCYTE # 1.4 TH/MM3 (1.0-4.8); MEAN CELL VOLUME 99.5 FL (80.0-100.0); MEAN CORPUSCULAR HEMOGLOBIN 34.2 PG (27.0-34.0); MEAN CORPUSCULAR HGB CONC 34.4 % (32.0-36.0); NEUT % 47.8 % (16.0-70.0); PLATELET COUNT 345 TH/MM3 (150-450); RED BLOOD COUNT 3.86 MIL/MM3 (4.50-5.90); RED CELL DISTRIBUTION WIDTH 14.3 % (11.6-17.2); WHITE BLOOD COUNT 5.6 TH/MM3 (4.0-11.0)
[2016-11-28 04:56] LABS: BICARBONATE 24.1 MEQ/L (21.0-32.0); MAGNESIUM 1.4 MG/DL (1.5-2.5); POTASSIUM 4.1 MEQ/L (3.5-5.1)
--- NOTE | 2016-11-28 06:19 | HHI.PR ---
Review/Management Diagnosis/Plan: (1) Seizure Plan: subtherapeutic levels dil 18.4 recs doing well d/c planning today ok for floor 5th with tele f/u with me in 1-2 weeks; weekly dilantin levels he lives with his sister; needs supervision outpatient f/u no driving/no climbing/operating dangerous machinery (2) Head injury, unspecified (3) Intracranial hemorrhage on right side following injury Subjective Subjective Comments No acute events reported No headache No chest pain No dyspnea Active Medications Current Medications Medications (Trade) Dose Ordered Sig/Peewee Route Start Time Stop Time Status Last Admin (Norvasc) 10 mg DAILY PO 11/22/16 09:00 11/27/16 07:51 (NS Flush) 2 ml UNSCH PRN IVF 11/22/16 08:00 (NS Flush) 2 ml BID IVF 11/22/16 09:00 11/27/16 21:06 (Tylenol) 650 mg Q6H PRN PO 11/22/16 08:00 11/27/16 07:52 (fentaNYL INJ) 50 mcg Q1H PRN IV 11/22/16 08:00 11/22/16 08:31 (Peridex 0.12% Liq) 15 ml BID@08,20 MT 11/22/16 08:00 11/26/16 22:51 (Protonix Inj) 40 mg DAILY IV 11/22/16 09:00 11/27/16 07:51 (Lovenox Inj) 40 mg Q24H SQ 11/22/16 09:00 11/27/16 07:51 Miscellaneous Information 1 Q361D XX 11/22/16 08:00 (Chlorhexidine 2% Cloth) Taper DAILY@04 TOP 11/23/16 04:00 11/19/17 03:59 11/28/16 04:00 Chlorhexidine Gluconate 3 pack 3 pack UNSCH PRN TOP 11/22/16 08:00 (Versed Inj) 100 ml @ 0 mls/hr TITRATE IV 11/22/16 12:00 11/23/16 05:14 (Ativan Inj) 1 mg Q4H PRN IV 11/24/16 18:45 (Dilantin Liq) 150 mg Q8HR PO 11/26/16 14:00 11/27/16 21:06 (Topamax) 100 mg BID PO 11/26/16 09:00 11/27/16 21:06 Allergies Allergies Coded Allergies No Known Allergies (Unverified11/22/16) Review of Systems Eye: Blurring Respiratory: Negative Cardiovascular: Negative Gastrointestinal: Negative All other ROS: ROS reviewed as documented in chart Exam I&O / VS 11/27/16 11/27/16 11/28/16 15:00 23:00 07:00 Intake Total 840 ml 480 ml Balance 840 ml 480 ml Intake Oral 840 ml 480 ml # Voids 6 5 # Bowel Movements 1 Vital Signs Date Time Temp Pulse Resp B/P Pulse Ox O2 Delivery O2 Flow Rate FiO2 11/28/16 04:00 97.8 99 17 119/76 100 11/28/16 04:00 99 11/28/16 02:00 88 11/28/16 00:00 94 11/28/16 00:00 97.7 94 24 101/76 96 11/27/16 22:00 101 11/27/16 20:00 97.9 101 29 142/80 96 11/27/16 20:00 101 11/27/16 18:00 98 11/27/16 16:00 96 11/27/16 16:00 98.0 96 24 112/68 95 11/27/16 14:00 102 11/27/16 12:00 106 11/27/16 12:00 98.5 106 21 106/70 96 11/27/16 10:00 115 11/27/16 09:06 96 21 11/27/16 08:00 98.2 98 23 133/69 96 11/27/16 08:00 98 Eye: Other Respiratory: Lungs CTA, Non-labored respirations Cardiology: Normal rate Musculoskeletal: Deformity, Other Neurologic: Alert, CN II-XII intact Psychiatric: Cooperative Exam Comments ox 3, calm, pleasant, pres: Trump, calm, pleasant, ou 3-2mm, russell to gravity,no tremor Objective Micro and Labs Laboratory Tests Test 11/27/16 11/27/16 11/28/16 08:00 10:52 04:00 Nasal Screen MRSA (PCR) NEGATIVE Magnesium Level 1.4 1.4 White Blood Count 5.6 Red Blood Count 3.86 Hemoglobin 13.2 Hematocrit 38.4 Mean Corpuscular Volume 99.5 Mean Corpuscular Hemoglobin 34.2 Mean Corpuscular Hemoglobin 34.4 Concent Red Cell Distribution Width 14.3 Platelet Count 345 Mean Platelet Volume 7.8 Neutrophils (%) (Auto) 47.8 Lymphocytes (%) (Auto) 25.1 Monocytes (%) (Auto) 15.0 Eosinophils (%) (Auto) 11.1 Basophils (%) (Auto) 1.0 Neutrophils # (Auto) 2.7 Lymphocytes # (Auto) 1.4 Monocytes # (Auto) 0.8 Eosinophils # (Auto) 0.6 Basophils # (Auto) 0.1 CBC Comment DIFF FINAL Differential Comment Sodium Level 140 Potassium Level 4.1 Chloride Level 107 Carbon Dioxide Level 24.1 Anion Gap 9 Blood Urea Nitrogen 10 Creatinine 0.58 Estimat Glomerular Filtration 144 Rate Random Glucose 93 Calcium Level 9.3 Phenytoin (Dilantin) Level 18.4 Problem Qualifiers (1) Intracranial hemorrhage on right side following injury: Michael Rascon MD Nov 28, 2016 06:19
[2016-11-28] MEDS: PHENYTOIN SUSP 100 MG/4 ML CUP PO SCH ×3 (06:22→19:49)
[2016-11-28] MEDS: CHLORHEXIDINE 0.12% (ORAL KIT) 15 ML CUP MT SCH ×2 (08:00→20:00)
[2016-11-28] MEDS: TOPIRAMATE 100 MG TAB PO SCH ×2 (08:54→19:49)
[2016-11-28] MEDS: MAGNESIUM SULFATE 1 GM PREMIX 100 ML IV SCH ×2 (08:55→09:59)
[2016-11-28] MEDS: SODIUM CHLORIDE 0.9% FLUSH 5 ML FLUSH IVF SCH ×2 (08:55→19:49)
[2016-11-28] MEDS: PANTOPRAZOLE SODIUM 40 MG VIAL IV SCH (08:55)
[2016-11-28] MEDS: ENOXAPARIN SODIUM 40 MG/0.4 ML SYRINGE SQ SCH (08:56)
[2016-11-28] MEDS: NICOTINE 7 MG/24 HR PATCH TD SCH (22:16)
--- NOTE | 2016-11-28 23:37 | HHI.PR ---
Subjective Remarks patient seen today around 10:30 AM. Patient says he feels well. Denies any chest pain or shortness of breath. Denies any nausea or vomiting. Discussed with caseworker protective services. Sister unable to take care of patientor provide supervision at home. Objective Vital Signs Date Time Temp Pulse Resp B/P Pulse Ox O2 Delivery O2 Flow Rate FiO2 11/28/16 19:43 93 11/28/16 16:00 98.0 83 18 123/68 100 11/28/16 12:00 98.2 98 16 111/61 100 11/28/16 08:00 98.2 97 23 139/78 100 11/28/16 07:47 97 21 11/28/16 04:00 97.8 99 17 119/76 100 11/28/16 04:00 99 11/28/16 02:00 88 11/28/16 00:00 94 11/28/16 00:00 97.7 94 24 101/76 96 I/O 11/27/16 11/27/16 11/27/16 11/28/16 11/28/16 11/28/16 07:00 15:00 23:00 07:00 15:00 23:00 Intake Total 840 ml 480 ml 240 ml 535 ml Balance 840 ml 480 ml 240 ml 535 ml Intake Oral 840 ml 480 ml 240 ml 350 ml IV Total 185 ml # Voids 3 6 5 2 3 # Bowel Movements 1 1 1 Result Diagram: 11/28/16 0400 11/28/16 0400 Objective Remarks GENERAL: sitting up in chair. Appears comfortable. Patient is alert to place. Uncertain of date. exam unchanged from yesterday. SKIN: Warm and dry. HEAD: Normocephalic. EYES: No scleral icterus. No injection or drainage. NECK: Supple, trachea midline. No JVD. CARDIOVASCULAR: Regular rate and rhythm without murmurs, gallops, or rubs. RESPIRATORY: Breath sounds equal bilaterally. No accessory muscle use. GASTROINTESTINAL: Abdomen soft, non-tender, nondistended. MUSCULOSKELETAL: No cyanosis, or edema. Moves all extremities. BACK: Nontender without obvious deformity. No CVA tenderness. A/P Assessment and Plan //Status epilepticus //Seizure disorder //Subtherapeutic Dilantin //Craniectomy with evacuation of subdural hemorrhage 2/19/15 //Frontotemporal parietal reconstruction cranioplasty 06/14/15 -Presented his admission with status epilepticus. Dilantin level 14.4 on 11/23 -Ativan 2 mg IV every 2 hours when necessary for seizures -s/p IV Cerebyx 1 g loading dose and 100 mg every 8 hours -Continue Topamax -CT head did not show any acute findings -Neurology, Dr. Rascon on board follow-up outpatient -11/26 Patient oriented to self and location, states the year 2008 (previously told it was 1998) -11/27. doing well. Electrolytes replaced. Discussed with sister, who says that patient is pretty much back to baseline, but says that she cannot supervise him , and does not feel comfortable leaving him at home. Even though patient will not need physical therapy, neurology recommends that patient will need supervision. Case management consult. -11/28. Discussed with case management. Working on safe discharge. RESP: //Acute respiratory failure-resolved //Failure to protect airway-resolved, extubated -Maintain O2 sat >92%. Continue on room air. -DuoNeb every 6 hours when necessary. -Continue incentive spirometry q 1 hr while awake, 2000 cc per breath CV: //Lactic acidosis secondary to seizure-resolved //Sinus tachycardia/SIRS-resolved //History of hypertension -Monitor HR and BP keep MAP>65mmHg. - Continue on Norvasc 10mg daily GI: - IV Protonix, -Colace for bowel regimen, on hold secondary to loose stools -Tolerating regular diet : //Acute kidney insufficiency -Monitor renal function , I/O's, electrolytes replacement per protocol. //Hypokalemia. resolved after replacement. Monitor. //Hypomagnesemia. Replace again. Monitor. PROPH: -Bilateral lower extremity SCDs. Lovenox 40 mg subcutaneous daily. IV Protonix 40 mg daily Discharge Planning Transfer to medical floorordered. -sister says that she cannot supervise patient, does not think he would be safe at her home at this time. Case management working on placement options Jose Christopher MD Nov 28, 2016 23:37
[2016-11-29] VITALS: BP 115/73; PULSE 86; RESP 16; TEMP 98; O2SAT 96
[2016-11-29 04:00] VITALS: BP 128/70; PULSE 90; RESP 19; TEMP 97.9; O2SAT 97
[2016-11-29] MEDS: CHLORHEXIDINE GLUCONATE 2 % 1 PACK (2 CLOTHS) TOP SCH ×2 (04:00→22:38)
[2016-11-29 05:37] LABS: BICARBONATE 26.6 MEQ/L (21.0-32.0); POTASSIUM 3.5 MEQ/L (3.5-5.1)
[2016-11-29] MEDS: PHENYTOIN SUSP 100 MG/4 ML CUP PO SCH ×3 (06:06→22:38)
--- NOTE | 2016-11-29 07:42 | HHI.PR ---
Review/Management Diagnosis/Plan: (1) Seizure Plan: 2/2 subtherapeutic levels dil 14.2 recs neuro stable d/c planning today ok for floor f/u with me in 1-2 weeks; weekly dilantin levels no driving/no climbing/operating dangerous machinery (2) Head injury, unspecified (3) Intracranial hemorrhage on right side following injury Subjective Subjective Comments No acute events reported No headache No chest pain No dyspnea Active Medications Current Medications Medications (Trade) Dose Ordered Sig/Peewee Route Start Time Stop Time Status Last Admin (Norvasc) 10 mg DAILY PO 11/22/16 09:00 11/28/16 08:54 (NS Flush) 2 ml UNSCH PRN IVF 11/22/16 08:00 (NS Flush) 2 ml BID IVF 11/22/16 09:00 11/28/16 19:49 (Tylenol) 650 mg Q6H PRN PO 11/22/16 08:00 11/27/16 07:52 (fentaNYL INJ) 50 mcg Q1H PRN IV 11/22/16 08:00 11/22/16 08:31 (Peridex 0.12% Liq) 15 ml BID@08,20 MT 11/22/16 08:00 11/26/16 22:51 (Protonix Inj) 40 mg DAILY IV 11/22/16 09:00 11/28/16 08:55 (Lovenox Inj) 40 mg Q24H SQ 11/22/16 09:00 11/28/16 08:56 Miscellaneous Information 1 Q361D XX 11/22/16 08:00 (Chlorhexidine 2% Cloth) Taper DAILY@04 TOP 11/23/16 04:00 11/19/17 03:59 11/28/16 04:00 Chlorhexidine Gluconate 3 pack 3 pack UNSCH PRN TOP 11/22/16 08:00 (Versed Inj) 100 ml @ 0 mls/hr TITRATE IV 11/22/16 12:00 11/23/16 05:14 (Ativan Inj) 1 mg Q4H PRN IV 11/24/16 18:45 (Dilantin Liq) 150 mg Q8HR PO 11/26/16 14:00 11/29/16 06:06 (Topamax) 100 mg BID PO 11/26/16 09:00 11/28/16 19:49 (Habitrol 7 Mg Patch.24 Hr) 1 patch DAILY TD 11/28/16 21:15 11/28/16 22:16 Miscellaneous Information 1 DAILY TD 11/29/16 09:00 Allergies Allergies Coded Allergies No Known Allergies (Unverified11/22/16) Review of Systems Eye: Blurring Respiratory: Negative Cardiovascular: Negative Gastrointestinal: Negative All other ROS: ROS reviewed as documented in chart Exam I&O / VS 11/28/16 11/28/16 11/29/16 15:00 23:00 07:00 Intake Total 535 ml 480 ml 240 ml Balance 535 ml 480 ml 240 ml Intake Oral 350 ml 480 ml 240 ml IV Total 185 ml # Voids 3 3 3 # Bowel Movements 1 Vital Signs Date Time Temp Pulse Resp B/P Pulse Ox O2 Delivery O2 Flow Rate FiO2 11/29/16 04:00 90 11/29/16 04:00 97.9 90 19 128/70 97 11/29/16 00:00 98.0 86 16 115/73 96 11/29/16 00:00 86 11/28/16 20:00 97.8 99 24 102/71 100 11/28/16 20:00 99 11/28/16 19:43 93 11/28/16 16:00 98.0 83 18 123/68 100 11/28/16 12:00 98.2 98 16 111/61 100 11/28/16 08:00 98.2 97 23 139/78 100 11/28/16 07:47 97 21 Eye: Other Respiratory: Lungs CTA, Non-labored respirations Cardiology: Normal rate Musculoskeletal: Deformity, Other Neurologic: Alert, CN II-XII intact Psychiatric: Cooperative Exam Comments ox 3, calm, pleasant, pres: Trump, calm, pleasant, ou 3-2mm, russell to gravity,no tremor, gait steady, romberg negative, difficulty with tandem Objective Micro and Labs Laboratory Tests Test 11/29/16 04:00 Sodium Level 138 Potassium Level 3.5 Chloride Level 104 Carbon Dioxide Level 26.6 Anion Gap 7 Blood Urea Nitrogen 14 Creatinine 0.59 Estimat Glomerular Filtration 141 Rate Random Glucose 106 Calcium Level 9.1 Phenytoin (Dilantin) Level 14.2 Problem Qualifiers (1) Intracranial hemorrhage on right side following injury: Michael Rascon MD Nov 29, 2016 07:42
[2016-11-29 08:00] VITALS: BP 98/67; PULSE 109; PULSE 90; RESP 26; TEMP 98.5; O2SAT 100
[2016-11-29] MEDS: CHLORHEXIDINE 0.12% (ORAL KIT) 15 ML CUP MT SCH ×2 (08:00→20:00)
[2016-11-29] MEDS: TOPIRAMATE 100 MG TAB PO SCH ×2 (08:17→22:38)
[2016-11-29] MEDS: NICOTINE 7 MG/24 HR PATCH TD SCH (08:17)
[2016-11-29] MEDS: ENOXAPARIN SODIUM 40 MG/0.4 ML SYRINGE SQ SCH (08:17)
[2016-11-29] MEDS: REMOVE OLD NICODERM (NICOTINE) PATCH TD SCH (08:17)
[2016-11-29] MEDS: PANTOPRAZOLE SODIUM 40 MG VIAL IV SCH (08:18)
[2016-11-29] MEDS: SODIUM CHLORIDE 0.9% FLUSH 5 ML FLUSH IVF SCH ×2 (08:18→22:49)
[2016-11-29] MEDS: ACETAMINOPHEN 325 MG TAB PO PRN ×3 (08:29→22:38)
[2016-11-29 12:00] VITALS: BP 114/68; PULSE 100; RESP 14; TEMP 97.9; O2SAT 100
[2016-11-29 16:00] VITALS: BP 126/79; PULSE 103; RESP 18; TEMP 96.6; O2SAT 100
[2016-11-29 20:00] VITALS: BP 138/70; PULSE 97; RESP 17; TEMP 98.6; O2SAT 99
--- NOTE | 2016-11-29 23:34 | HHI.PR ---
Subjective Remarks patient seen today around 11am. says he feels well. denies pain d/w cm. SNF referral Objective Vital Signs Date Time Temp Pulse Resp B/P Pulse Ox O2 Delivery O2 Flow Rate FiO2 11/29/16 16:00 96.6 103 18 126/79 100 11/29/16 12:00 97.9 100 14 114/68 100 11/29/16 08:00 98.5 109 26 98/67 100 11/29/16 08:00 90 11/29/16 04:00 90 11/29/16 04:00 97.9 90 19 128/70 97 11/29/16 00:00 98.0 86 16 115/73 96 11/29/16 00:00 86 I/O 11/28/16 11/28/16 11/28/16 11/29/16 11/29/16 11/29/16 07:00 15:00 23:00 07:00 15:00 23:00 Intake Total 240 ml 535 ml 480 ml 240 ml 450 ml Balance 240 ml 535 ml 480 ml 240 ml 450 ml Intake Oral 240 ml 350 ml 480 ml 240 ml 450 ml IV Total 185 ml # Voids 2 3 3 3 2 # Bowel Movements 1 Result Diagram: 11/28/16 0400 11/29/16 0400 Objective Remarks GENERAL: sitting up in chair. Appears comfortable. Patient is alert to place. Uncertain of date. exam again unchanged. SKIN: Warm and dry. HEAD: Normocephalic. EYES: No scleral icterus. No injection or drainage. NECK: Supple, trachea midline. No JVD. CARDIOVASCULAR: Regular rate and rhythm without murmurs, gallops, or rubs. RESPIRATORY: Breath sounds equal bilaterally. No accessory muscle use. GASTROINTESTINAL: Abdomen soft, non-tender, nondistended. MUSCULOSKELETAL: No cyanosis, or edema. Moves all extremities. BACK: Nontender without obvious deformity. No CVA tenderness. A/P Assessment and Plan patient seen and examined on 11/29/16. patient stable. Discharge planning. //Status epilepticus //Seizure disorder //Subtherapeutic Dilantin //Craniectomy with evacuation of subdural hemorrhage 12/22/14 //Frontotemporal parietal reconstruction cranioplasty 06/14/15 -Presented his admission with status epilepticus. Dilantin level 14.4 on 11/23 -Ativan 2 mg IV every 2 hours when necessary for seizures -s/p IV Cerebyx 1 g loading dose and 100 mg every 8 hours -Continue Topamax -CT head did not show any acute findings -Neurology, Dr. Rascon on board follow-up outpatient -11/26 Patient oriented to self and location, states the year 2008 (previously told it was 1998) -11/27. doing well. Electrolytes replaced. Discussed with sister, who says that patient is pretty much back to baseline, but says that she cannot supervise him , and does not feel comfortable leaving him at home. Even though patient will not need physical therapy, neurology recommends that patient will need supervision. Case management consult. -11/28. Discussed with case management. Working on safe discharge. RESP: //Acute respiratory failure-resolved //Failure to protect airway-resolved, extubated -Maintain O2 sat >92%. Continue on room air. -DuoNeb every 6 hours when necessary. -Continue incentive spirometry q 1 hr while awake, 2000 cc per breath CV: //Lactic acidosis secondary to seizure-resolved //Sinus tachycardia/SIRS-resolved //History of hypertension -Monitor HR and BP keep MAP>65mmHg. - Continue on Norvasc 10mg daily GI: - IV Protonix, -Colace for bowel regimen, on hold secondary to loose stools -Tolerating regular diet : //Acute kidney insufficiency -Monitor renal function , I/O's, electrolytes replacement per protocol. //Hypokalemia. resolved after replacement. Monitor. //Hypomagnesemia. Replace again. Monitor. PROPH: -Bilateral lower extremity SCDs. Lovenox 40 mg subcutaneous daily. IV Protonix 40 mg daily Discharge Planning Transfer to medical floorordered. -sister says that she cannot supervise patient, does not think he would be safe at her home at this time. Case management working on placement options Jose Christophre MD Nov 29, 2016 23:34
[2016-11-30 00:41] VITALS: BP 107/61; PULSE 97; RESP 16; TEMP 98; O2SAT 95
[2016-11-30 04:49] VITALS: BP 124/76; PULSE 88; RESP 16; TEMP 97.6; O2SAT 99
[2016-11-30] MEDS: PHENYTOIN SUSP 100 MG/4 ML CUP PO SCH ×2 (06:00→12:59)
[2016-11-30] MEDS: ACETAMINOPHEN 325 MG TAB PO PRN (06:01)
[2016-11-30 08:00] VITALS: BP 121/61; PULSE 94; PULSE 98; RESP 17; TEMP 96; TEMP 96.3; O2SAT 98
[2016-11-30] MEDS: CHLORHEXIDINE 0.12% (ORAL KIT) 15 ML CUP MT SCH (08:00)
[2016-11-30] MEDS: TOPIRAMATE 100 MG TAB PO SCH (08:22)
[2016-11-30] MEDS: ENOXAPARIN SODIUM 40 MG/0.4 ML SYRINGE SQ SCH (08:23)
[2016-11-30] MEDS: PANTOPRAZOLE SODIUM 40 MG VIAL IV SCH (08:24)
[2016-11-30] MEDS: SODIUM CHLORIDE 0.9% FLUSH 5 ML FLUSH IVF SCH (08:26)
[2016-11-30] MEDS: REMOVE OLD NICODERM (NICOTINE) PATCH TD SCH (08:26)
[2016-11-30] MEDS: NICOTINE 7 MG/24 HR PATCH TD SCH (08:26)
[2016-11-30] MEDS ORDERED: MAGNESIUM OXIDE 400 MG TAB PO SCH (09:45)
[2016-11-30] MEDS ORDERED: TOPA100T11 PO (11:05)
[2016-11-30] MEDS ORDERED: PHEN125S PO (11:05)
[2016-11-30] MEDS ORDERED: NICO7DIS2 TD (11:05)
[2016-11-30] MEDS ORDERED: MAGN400T3 PO (11:05)
[2016-11-30] MEDS ORDERED: PANT20TA2 PO (11:05)
[2016-11-30 12:00] VITALS: BP 104/65; PULSE 103; RESP 19; TEMP 98.5; O2SAT 99
--- NOTE | 2016-12-09 13:15 | HHI.DS ---
Discharge Summary Admission Date Nov 22, 2016 at 06:51 Discharge Date: Nov 30, 2016 Admitting Diagnosis seizure, AMS, anion gap metabolic acidosis (1) Status epilepticus ICD Code: G40.901 Diagnosis: Principal (2) Acute encephalopathy ICD Code: G93.40 Diagnosis: Principal (3) Acute respiratory failure ICD Code: J96.00 Diagnosis: Principal (4) Lactic acidosis ICD Code: E87.2 Diagnosis: Principal (5) Acute kidney insufficiency ICD Code: N28.9 Diagnosis: Principal (6) Metabolic acidosis ICD Code: E87.2 Diagnosis: Principal (7) Sinus tachycardia ICD Code: R00.0 Diagnosis: Principal (8) Seizure ICD Code: R56.9 Diagnosis: Secondary (9) History of opioid abuse ICD Code: F11.10 Diagnosis: Secondary (10) Essential hypertension ICD Code: I10 Diagnosis: Secondary (11) History of TBI and subdural hemorrhage Diagnosis: Secondary (12) Status post craniotomy ICD Code: Z98.89 Diagnosis: Secondary (13) History of cranioplasty ICD Code: Z98.89 Diagnosis: Secondary Procedures intubated. Subsequently extubated. Brief History - From Admission This is a 55-year-old male with a past medical history of right subdural hematoma status post evacuation and craniectomy on 12/22/13, status post frontotemporal parietal reconstructive cranioplasty on 06/14/15, history of seizure disorder and hypertension who was brought in by EMS from home for evaluation of seizure. On EMS arrival he was having a generalized tonoclonic seizure. He was given 2 mg of IM Ativan followed by 2 mg of IV Ativan once IV was established. After IV Ativan seizure activity stopped. In the ER patient was altered and obtunded. He is unable to provide any history. Patient takes Dilantin and topiramate for seizure. A stat CT of the head did not show any acute changes other than evidence of encephalomalacia in the right temporal region and previous cranioplasty. Patient's Dilantin level was subtherapeutic at 5.6, alcohol level was negative. His lactic acid was elevated at 6.7 most likely secondary to seizure I evaluated the patient in the emergency department. He remains unresponsive not responding to painful stimuli. No spontaneous eye opening his eyes shows horizontal roving movements probable horizontal nystagmus. It appears like patient is in subclinical status. I proceeded with endotracheal intubation for airway protection as the patient was making gurgling sounds. Stat EEG is pending at this time. Patient had been loaded with 1 g of IV Cerebyx continue Cerebyx at 100 mg every 8 hours, and use when necessary Ativan for seizures Imaging Last Impressions Head CT 11/22/16 0000 Signed Impressions: Service Date/Time: Tuesday, November 22, 2016 05:52 - CONCLUSION: Resolution of previously seen subdural fluid collection on the right and development of encephalomalacia in right temporal lobe in the interim. Malena Boyd MD Chest X-Ray 11/22/16 0000 Signed Impressions: Service Date/Time: Tuesday, November 22, 2016 07:12 - CONCLUSION: ET tube and NG tube are well placed. The lungs are clear. Jose Paul MD PE at Discharge GENERAL: sitting up in chair. Appears comfortable. Patient is alert to place. Uncertain of date. exam unchanged. SKIN: Warm and dry. HEAD: Normocephalic. EYES: No scleral icterus. No injection or drainage. NECK: Supple, trachea midline. No JVD. CARDIOVASCULAR: Regular rate and rhythm without murmurs, gallops, or rubs. RESPIRATORY: Breath sounds equal bilaterally. No accessory muscle use. GASTROINTESTINAL: Abdomen soft, non-tender, nondistended. MUSCULOSKELETAL: No cyanosis, or edema. Moves all extremities. BACK: Nontender without obvious deformity. No CVA tenderness. Pt update on day of discharge pt feeling well. no cp or sob. Hospital Course Patient was intubated for airway protection. Subsequently extubated. Neurology was consult that. Phenytoin found to be subtherapeutic. Phenytoin adjusted by neurology. Appreciate assistance. Patient doing well, however sister does not feel that she can supervise him. Patient was discharged to SNF. Needs monitoring of Dilantin level, follow-up with neurology in 1 week. //Status epilepticus //Seizure disorder //Subtherapeutic Dilantin //Craniectomy with evacuation of subdural hemorrhage 12/22/14 //Frontotemporal parietal reconstruction cranioplasty 06/14/15 -Presented his admission with status epilepticus. Dilantin level 14.4 on 11/23 -Ativan 2 mg IV every 2 hours when necessary for seizures -s/p IV Cerebyx 1 g loading dose and 100 mg every 8 hours -Continue Topamax -CT head did not show any acute findings -Neurology, Dr. Rascon on board follow-up outpatient -11/26 Patient oriented to self and location, states the year 2008 (previously told MD it was 1998) -11/27. doing well. Electrolytes replaced. Discussed with sister, who says that patient is pretty much back to baseline, but says that she cannot supervise him , and does not feel comfortable leaving him at home. Even though patient will not need physical therapy, neurology recommends that patient will need supervision. Case management consult. -11/28. Discussed with case management. Working on safe discharge. RESP: //Acute respiratory failure-resolved //Failure to protect airway-resolved, extubated -Maintain O2 sat >92%. Continue on room air. -DuoNeb every 6 hours when necessary. -Continue incentive spirometry q 1 hr while awake, 2000 cc per breath CV: //Lactic acidosis secondary to seizure-resolved //Sinus tachycardia/SIRS-resolved //History of hypertension -Monitor HR and BP keep MAP>65mmHg. - Continue on Norvasc 10mg daily GI: - IV Protonix, -Colace for bowel regimen, on hold secondary to loose stools -Tolerating regular diet : //Acute kidney insufficiency -Monitor renal function , I/O's, electrolytes replacement per protocol. //Hypokalemia. resolved after replacement. Monitor. //Hypomagnesemia. Replace again. Monitor. PROPH: -Bilateral lower extremity SCDs. Lovenox 40 mg subcutaneous daily. IV Protonix 40 mg daily Discharge Planning Transfer to medical floorordered. -sister says that she cannot supervise patient, does not think he would be safe at her home at this time. Case management working on placement options Pt Condition on Discharge: Good Discharge Disposition: Discharge to SNF Discharge Time: <= 30 minutes Discharge Instructions DIET: Follow Instructions for: Heart Healthy Diet Speech Therapy-Diet Recommends: Mechanical Soft Activities you can perform: Regular-No Restrictions Activities to Avoid: Driving Follow up Referrals: Neurology - 1 Week with Michael Rascon MD PCP Follow-up - 1 Week New Orders: BASIC METABOLIC PROF - 3-5 Days PHENYTOIN (DILANTIN) - 1 Week New Medications: Pantoprazole (Pantoprazole) 20 Mg Tab 20 MG PO DAILY Reflux #30 Ref 0 TAB Magnesium Oxide (Magnesium Oxide) 241.3 Mg Tab 400 MG PO DAILY low magnesium Days 30 TAB Nicotine Patch (Nicotine Patch) 7 Mg/24 Hr Patch 1 PATCH TD DAILY tobacco abuse Days 30 PATCH Phenytoin Liq (Phenytoin Liq) 125 Mg/5 Ml Micheline 150 MG PO Q8HR seizures Days 30 TAB Topiramate (Topamax) 100 Mg Tab 100 MG PO BID anticonvulsant Days 30 TAB Continued Medications: Amlodipine (Amlodipine) 10 Mg Tab 10 MG PO DAILY Blood Pressure Management #30 Ref 0 TAB Discontinued Medications: Fluoxetine (Fluoxetine) 20 Mg Cap 20 MG PO DAILY #30 Ref 0 CAP Hydroxyzine Pamoate (Hydroxyzine Pamoate) 25 Mg Cap 25 MG PO DAILY PRN SBP> OR = 180, DBP> OR = 100 Ref 0 CAP Phenytoin Extended (Phenytoin Extended) 100 Mg Cap 200 MG PO BID Control Seizures #90 Ref 0 CAP Topiramate (Topiramate) 50 Mg Tab 50 MG PO BID Control Seizures #60 Ref 0 TAB Jose Christopher MD Dec 09, 2016 13:15
== END 2016-11-30 14:12 | DRG 100 ==
LOC: NEPE 05:44 → NEDA 06:51 → N03A 11:25 → N03B 11-24 18:49 → N05B 11-29 15:38
PROVIDERS: ADMIT Internal Medicine; ATTEND Internal Medicine
DX: G40.901 Epilepsy, unspecified, not intractable, with status epilepticus (principal); G93.40 Encephalopathy, unspecified; J96.00 Acute respiratory failure, unspecified whether with hypoxia or hypercapnia; E87.2 Acidosis; N28.9 Disorder of kidney and ureter, unspecified; R00.0 Tachycardia, unspecified; I10 Essential (primary) hypertension; F11.10 Opioid abuse, uncomplicated; Z87.820 Personal history of traumatic brain injury; G93.89 Other specified disorders of brain; H55.09 Other forms of nystagmus; E83.42 Hypomagnesemia; E87.6 Hypokalemia; F17.200 Nicotine dependence, unspecified, uncomplicated; Z72.89 Other problems related to lifestyle; Z91.19 Patient's noncompliance with other medical treatment and regimen
CPT/HCPCS: 31500; 36600; 70450; 71010; 80048; 80053; 80185; 80307; 80320; 81001; 82550; 82552; 82805; 83605; 83735; 84100; 84132; 84484; 85025; 85610; 85730; 87040; 87641; 93005; 94002; 94003; 94150; 94640; 94664; 95819; C9113; J1165; J1650; J2250; J3010; J3475; J3480; J7030; Q2009

== ENCOUNTER 2016-12-13 09:29 | Inpatient (IN) | payer MEDICARE, MEDICAID ==
[2016-12-13] VITALS (7 sets, daily range): BP systolic 96–115; BP diastolic 55–73; PULSE 77–82; RESP 14–18; TEMP 97.6–97.8; O2SAT 98–99
[~2016-12-13] VITALS: Ht 180.3 cm; Wt 58.5 kg
[~2016-12-13 09:29] MED LIST changes: -AMLO10 PO; +AMLO10TA2 PO; -DIPH1TAB36 PO; -FOLI1 PO; -LEVE500 PO; +MAGN400T3 PO; -METO50CR PO; +NICO7DIS2 TD; -OXYC5 PO; +PANT20TA2 PO; -PHEN100 PO; +PHEN125S PO; -PHEN60TA PO; +TOPA100T11 PO; -TOPA25TA8 PO; -VITA100T13 PO
[2016-12-13] MEDS ORDERED: SODIUM CHLOR 0.9% 1000 ML INJ 1,000 ML IV ONE (09:37)
[2016-12-13] MEDS ORDERED: FLUO20CA4 PO (09:41)
[2016-12-13] MEDS ORDERED: TIZA4CAP3 PO (09:43)
[2016-12-13] MEDS ORDERED: SODIUM CHLORIDE 0.9% FLUSH 5 ML FLUSH IVF PRN (09:45)
[2016-12-13] MEDS ORDERED: LORazepam 2 MG/ML VIAL IV PUSH ONE (10:00)
[2016-12-13 10:03] LABS: AUTOMATED NEUTROPHIL # 7.7 TH/MM3 (1.8-7.7); BASOPHIL # 0.2 TH/MM3 (0-0.2); BASOPHIL % 1.5 % (0.0-2.0); EOSINOPHIL # 0.7 TH/MM3 (0-0.4); EOSINOPHIL % 6.2 % (0.0-4.0); HEMATOCRIT 38.5 % (39.0-51.0); HEMO FLAGS DIFF FINAL; LYMPH % 17.3 % (9.0-44.0); LYMPHOCYTE # 2.1 TH/MM3 (1.0-4.8); MEAN CELL VOLUME 100.1 FL (80.0-100.0); MEAN CORPUSCULAR HGB CONC 33.9 % (32.0-36.0); MONO % 9.6 % (0.0-8.0); NEUT % 65.4 % (16.0-70.0); PLATELET COUNT 416 TH/MM3 (150-450); RED BLOOD COUNT 3.85 MIL/MM3 (4.50-5.90); RED CELL DISTRIBUTION WIDTH 13.8 % (11.6-17.2); WHITE BLOOD COUNT 11.8 TH/MM3 (4.0-11.0)
--- NOTE | 2016-12-13 10:04 | RADRPT ---
EXAM DATE/TIME: 12/13/2016 09:42 [facility] COMPARISON: CT BRAIN W/O CONTRAST, November 22, 2016, 5:52. INDICATIONS : Altered mental status. RADIATION DOSE: 56.35 CTDIvol (mGy) MEDICAL HISTORY : Hypertension. Seizures. Cardiovascular disease SURGICAL HISTORY : Craniotomy. ENCOUNTER: Initial ACUITY: 1 day PAIN SCALE: Non-responsive LOCATION: cranial TECHNIQUE: Multiple contiguous axial images were obtained of the head. Using automated exposure control and adjustment of the mA and/or kV according to patient size, radiation dose was kept as low as reasonably achievable to obtain optimal diagnostic quality images. FINDINGS: There is evidence for previous surgery on the right. There is no parenchymal hemorrhage, acute infarction or mass lesion. 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 There are no extra -axial fluid collection appreciated. Ventricular size is appropriate. Posterior fossa is normal. T he portion of the orbits and sinuses visualized are unremarkable. CONCLUSION: Negative for an acute process. Chuck Edgar MD FACR on December 13, 2016 at 10:00 Board Certified Radiologist. This report was verified electronically.
--- NOTE | 2016-12-13 10:06 | RADRPT ---
EXAM DATE/TIME: 12/13/2016 09:42 [facility] COMPARISON: No previous studies available for comparison. INDICATIONS : Generalized abdominal pain. ORAL CONTRAST: No oral contrast ingested. RADIATION DOSE: 9.96 CTDIvol (mGy) MEDICAL HISTORY : Seizures. Hypertension. Cardiovascular disease SURGICAL HISTORY : Craniotomy. ENCOUNTER: Initial ACUITY: 1 day PAIN SCALE: Non-responsive LOCATION: abdomen TECHNIQUE: Volumetric scanning of the abdomen and pelvis was performed. Using automated exposure control and ad justment of the mA and/or kV according to patient size, radiation dose was kept as low as reasonably achievable to obtain optimal diagnostic quality images. FINDINGS: The lung bases are clear. The heart is minimally enlarged. The liver, spleen, pancreas and adrenals are unremarkable. There are no gallstones. The right and left kidneys are unremarkable. Bladder is distended in the pelvis. Pelvic contents are otherwise unremarkable. There is no ascites, adenopathy or free air. The abdominal kwan intact. Review of bone windows reveals only degenerative changes Small hiatal hernia is noted. CONCLUSION: Negative for an acute process. I don't see an etiology for the patient's acute abdominal pain. Mini mal vascular changes are evident.. Chuck Edgar MD FACR on December 13, 2016 at 10:02 Board Certified Radiologist. This report was verified electronically.
[2016-12-13 10:08] LABS: BLOOD GAS BASE EXCESS -0.7 mmol/L (-2-2); BLOOD GAS CARBOXYHEMOGLOBIN 4.6 % (0-4); BLOOD GAS HCO3 24 mmol/L (22-26); BLOOD GAS O2 HGB SATURATION 91 % (90-100); BLOOD GAS OXYGEN CONTENT 16.8 Vol % (12.0-20.0); BLOOD GAS PCO2 43 mmHg (38-42); BLOOD GAS PO2 93 mmHG (61-120); BLOOD GAS TOTAL HGB 13.1 G/DL (12.0-16.0); CRITICAL VALUE NO; DRAW SITE RT RADIAL; FIO2 21 %; OXYGEN DEVICE ROOM AIR; TEMP CORR TO 98.6
[2016-12-13 10:09] LABS: NUMBER OF ARTERIAL PUNCTURES 1; STAT YES; ULNAR PULSE PRESENT
[2016-12-13 10:16] LABS: ALT (GPT) 30 U/L (12-78); ANION GAP 11 MEQ/L (5-15); AST (GOT) 30 U/L (15-37); BICARBONATE 24.3 MEQ/L (21.0-32.0); CHLORIDE 101 MEQ/L (98-107); GLOMERULAR FILTRATION RATE 110 ML/MIN (>89); SODIUM (NA) 136 MEQ/L (136-145)
[2016-12-13 10:18] LABS: ALKALINE PHOSPHATASE 94 U/L (45-117); CREATINE KINASE 245 U/L (39-308); MAGNESIUM 1.4 MG/DL (1.5-2.5); TOTAL BILIRUBIN ADULT 0.2 MG/DL (0.2-1.0)
[2016-12-13] MEDS: MAGNESIUM SULFATE 1 GM PREMIX 100 ML IV ONE ×2 (10:30→12:06)
--- NOTE | 2016-12-13 10:32 | PD ---
HPI Chief Complaint: Neuro Symptoms/ Deficits Time Seen by Provider: 09:36 Travel History International Travel<30 days: No Contact w/Intl Traveler<30days: No Traveled to known affect area: No History of Present Illness HPI Patient is a 56-year-old male with history of seizures, presents to emergency room with complaints of altered mental status. As per EMS, patient was last seen normal by his friends around 9 PM last night. Reports that his friend went to check up on him this morning, patient was found on all fours in his bathroom with altered mental status. There was concerned that he may have been vomiting or to EMS arrival. EMS reports that patient's GCS was 10, reports history of seizures in the past, reports that he was recently discharged from rehabilitation facility for unknown reason.. Patient appears postictal at this time, patient unable to provide history of present illness. PFSH Past Medical History Anxiety: No Depression: No Heart Rhythm Problems: Yes Cancer: No Cardiovascular Problems: Yes High Cholesterol: No Chest Pain: No Congestive Heart Failure: No Cerebrovascular Accident: No Diabetes: No Endocrine: No Genitourinary: No Headaches: Yes Hepatitis: No Hiatal Hernia: No Hypertension: Yes Immune Disorder: No Musculoskeletal: No Neurologic: Yes (seizures) Psychiatric: No Reproductive: No Respiratory: No Migraines: Yes Seizures: Yes Thyroid Disease: No Past Surgical History Abdominal Surgery: No Body Medical Devices: RUBBER FLAP Cardiac Surgery: No Ear Surgery: No Endocrine Surgery: No Eye Surgery: No Genitourinary Surgery: No Gynecologic Surgery: No Neurologic Surgery: Yes (12/21/13 RIGHT CRANIOTOMY FOR SUBDURAL HEMATOMA ) Oral Surgery: Yes (dental removal) Thoracic Surgery: No Other Surgery: Yes Social History Alcohol Use: Yes (ETOH ABUSE ) Tobacco Use: Yes Substance Use: Yes (hx of Loratabs. ETOH ) Allergies-Medications (Allergen,Severity, Reaction): Coded Allergies: No Known Allergies (Unverified , 12/13/16) Reported Meds & Prescriptions Reported Meds & Active Scripts Active Pantoprazole (Pantoprazole Sodium) 20 Mg Tab 20 Mg PO DAILY Magnesium Oxide 241.3 Mg Tab 400 Mg PO DAILY 30 Days Phenytoin Liq (Phenytoin) 125 Mg/5 Ml Micheline 150 Mg PO Q8HR 30 Days Topamax (Topiramate) 100 Mg Tab 100 Mg PO BID 30 Days Reported Tizanidine (Tizanidine HCl) 4 Mg Cap 4 Mg PO DAILY Fluoxetine (Fluoxetine HCl) 20 Mg Cap 20 Mg PO DAILY Amlodipine (Amlodipine Besylate) 10 Mg Tab 10 Mg PO DAILY Review of Systems ROS Limitations: Altered Mental Status (patient post ictal at this time) Physical Exam Narrative GENERAL: Patient in moderate distress SKIN: Warm and dry. HEAD: Atraumatic. Normocephalic. EYES: Pupils equal and round. No scleral icterus. No injection or drainage. ENT: No nasal bleeding or discharge. Mucous membranes pink and moist. NECK: Trachea midline. No JVD. CARDIOVASCULAR: Patient tachycardic. No murmur appreciated. RESPIRATORY: No accessory muscle use. Clear to auscultation. Breath sounds equal bilaterally. GASTROINTESTINAL: Abdomen soft, non-tender, nondistended. Hepatic and splenic margins not palpable. MUSCULOSKELETAL: No obvious deformities. No clubbing. No cyanosis. No edema. NEUROLOGICAL: Patient awake, not alert, postictal Data Data Last Documented VS Vital Signs Date Time Temp Pulse Resp B/P Pulse Ox O2 Delivery O2 Flow Rate FiO2 12/13/16 10:05 98 Room Air 12/13/16 10:00 97.8 82 16 104/[address] Brain W/O Iv Contrast(Rout) (12/13/16 09:35) Complete Blood Count With Diff (12/13/16 09:37) Phenytoin (Dilantin) (12/13/16 09:37) Valproic Acid (Depakene) (12/13/16 09:37) Electrocardiogram (12/13/16 ) Blood Glucose (12/13/16 09:37) Ecg Monitoring (12/13/16 09:37) Iv Access Insert/Monitor (12/13/16 09:37) Oximetry (12/13/16 09:37) Cath For Specimen (12/13/16 09:37) Comprehensive Metabolic Panel (12/13/16 09:37) Sodium Chlor 0.9% 1000 Ml Inj (Ns 1000 M (12/13/16 09:37) Sodium Chloride 0.9% Flush (Ns Flush) (12/13/16 09:45) Urinalysis - C+S If Indicated (12/13/16 09:37) Lipase (12/13/16 09:37) Ckmb (Isoenzyme) Profile (12/13/16 09:39) Magnesium (Mg) (12/13/16 09:39) Troponin I (12/13/16 09:39) Drug Screen, Random Urine (12/13/16 09:40) Bedside Glucose SACHA.AC&HS (12/13/16 09:40) Arterial Blood Gas (Abg) (12/13/16 ) Ct Abd/Pel W/O Iv Contrast (12/13/16 ) Lorazepam Inj (Ativan Inj) (12/13/16 10:00) Alcohol (Ethanol) (12/13/16 10:00) CKMB (12/13/16 09:48) CKMB% (12/13/16 09:48) Magnesium Sulfate 1 Gm Premix (Magnesium (12/13/16 10:30) Chest, Single Ap (12/13/16 ) Labs Laboratory Tests Test 12/13/16 12/13/16 12/13/16 09:48 09:58 10:10 White Blood Count 11.8 TH/MM3 Red Blood Count 3.85 MIL/MM3 Hemoglobin 13.1 GM/DL Hematocrit 38.5 % Mean Corpuscular Volume 100.1 FL Mean Corpuscular Hemoglobin 34.0 PG Mean Corpuscular Hemoglobin 33.9 % Concent Red Cell Distribution Width 13.8 % Platelet Count 416 TH/MM3 Mean Platelet Volume 6.9 FL Neutrophils (%) (Auto) 65.4 % Lymphocytes (%) (Auto) 17.3 % Monocytes (%) (Auto) 9.6 % Eosinophils (%) (Auto) 6.2 % Basophils (%) (Auto) 1.5 % Neutrophils # (Auto) 7.7 TH/MM3 Lymphocytes # (Auto) 2.1 TH/MM3 Monocytes # (Auto) 1.1 TH/MM3 Eosinophils # (Auto) 0.7 TH/MM3 Basophils # (Auto) 0.2 TH/MM3 CBC Comment DIFF FINAL Differential Comment Sodium Level 136 MEQ/L Potassium Level 4.0 MEQ/L Chloride Level 101 MEQ/L Carbon Dioxide Level 24.3 MEQ/L Anion Gap 11 MEQ/L Blood Urea Nitrogen 13 MG/DL Creatinine 0.73 MG/DL Estimat Glomerular Filtration 110 ML/MIN Rate Random Glucose 204 MG/DL Calcium Level 8.9 MG/DL Magnesium Level 1.4 MG/DL Total Bilirubin 0.2 MG/DL Aspartate Amino Transf 30 U/L (AST/SGOT) Alanine Aminotransferase 30 U/L (ALT/SGPT) Alkaline Phosphatase 94 U/L Total Creatine Kinase 245 U/L Creatine Kinase MB 4.0 NG/ML Troponin I LESS THAN 0.02 NG/ML Total Protein 8.3 GM/DL Albumin 3.7 GM/DL Lipase 92 U/L Phenytoin (Dilantin) Level 64.2 MCG/ML Valproic Acid (Depakene) Level 6 MCG/ML Blood Gas Puncture Site RT RADIAL Blood Gas Patient Temperature 98.6 Blood Gas HCO3 24 mmol/L Blood Gas Base Excess -0.7 mmol/L Blood Gas Oxygen Saturation 91 % Arterial Blood pH 7.37 Arterial Blood Partial 43 mmHg Pressure CO2 Arterial Blood Partial 93 mmHG Pressure O2 Arterial Blood Oxygen Content 16.8 Vol % Arterial Blood 4.6 % Carboxyhemoglobin Arterial Blood Methemoglobin 2.0 % Blood Gas Hemoglobin 13.1 G/DL Oxygen Delivery Device ROOM AIR Blood Gas Inspired Oxygen 21 % Urine Color LIGHT-YELLOW Urine Turbidity CLOUDY Urine pH 7.5 Urine Specific [place] 1.010 Urine Protein NEG mg/dL Urine Glucose (UA) 150 mg/dL Urine Ketones NEG mg/dL Urine Occult Blood NEG Urine Nitrite NEG Urine Bilirubin NEG Urine Urobilinogen LESS THAN 2.0 MG/DL Urine Leukocyte Esterase NEG Urine Amorphous Sediment MOD Urine Mucus FEW /lpf Microscopic Urinalysis Comment CATH-CULT NOT IND Urine Opiates Screen NEG Urine Barbiturates Screen NEG Urine Amphetamines Screen NEG Urine Benzodiazepines Screen NEG Urine Cocaine Screen NEG Urine Cannabinoids Screen NEG Ethyl Alcohol Level LESS THAN 3 MG/DL MDM Medical Decision Making Medical Screen Exam Complete: Yes Emergency Medical Condition: Yes Interpretation(s) EKG at 1005: Normal sinus rhythm at 79 bpm, qt/qtc: 423/458, no acute st or t wave changes Vital Signs Date Time Temp Pulse Resp B/P Pulse Ox O2 Delivery O2 Flow Rate FiO2 12/13/16 10:05 98 Room Air 12/13/16 10:00 97.8 82 16 104/73 98 Room Air 12/13/16 09:35 87 14 98 Room Air 12/13/16 09:32 79 18 115/[address] 12/13/16 0935 Signed Impressions: Service Date/Time: Tuesday, December 13, 2016 09:42 - CONCLUSION: Negative for an acute process. Chuck Edgar MD FACR Abdomen/Pelvis CT 12/13/16 0000 Signed Impressions: Service Date/Time: Tuesday, December 13, 2016 09:42 - CONCLUSION: Negative for an acute process. I don't see an etiology for the patient's acute abdominal pain. Minimal vascular changes are evident.. Chuck Edgar MD FACR CBC & BMP Diagram 12/13/16 09:48 Differential Diagnosis Seizure, intracranial hemorrhage, drug overdose, arrhythmia, electrolyte abnormality Narrative Course Patient is a 56-year-old male with history of seizures, hypertension, AKA, history of opiate abuse, presents to emergency room with complaints of altered mental status. As per EMS, patient was last seen normal by his friends around 9 PM last night. Reports that his friend went to check up on him this morning, patient was found on all fours in his bathroom with altered mental status. There was concerned that he may have been vomiting or to EMS arrival. EMS reports that patient's GCS was 10, reports history of seizures in the past, reports that he was recently discharged from rehabilitation facility for unknown reason. Blood sugar was greater than 100 by EMS Upon arrival to the emergency room, patient is now alert and oriented 3, patient appears post ictal and is moving all extremities but does not have purposeful conversation. Patient unable to provide history of present illness. Patient was placed on a cellophane casting machine repairer as well as continuous pulse oximetry. EKG obtained as well as blood sugar. As well as CAT scan of head ordered. CT of head ordered for evaluation of possible intracranial hemorrhage as as previous records were reviewed. Patient does have history of a right-sided subdural hematoma status post evacuation and craniectomy on December 22, 2013. He is also status post frontal temporal parietal reconstructive cranioplasty on June 14, 2015. IV established, will continue to monitor patient. It appears the patient was discharged on November 30, 2016 after he was admitted on November 22, 2016 for status epilepticus, acute encephalopathy, anion gap metabolic acidosis. Laboratory Tests Test 12/13/16 12/13/16 12/13/16 09:48 09:58 10:10 White Blood Count 11.8 TH/MM3 (4.0-11.0) Red Blood Count 3.85 MIL/MM3 (4.50-5.90) Hemoglobin 13.1 GM/DL (13.0-17.0) Hematocrit 38.5 % (39.0-51.0) Mean Corpuscular Volume 100.1 FL (80.0-100.0) Mean Corpuscular Hemoglobin 34.0 PG (27.0-34.0) Mean Corpuscular Hemoglobin 33.9 % Concent (32.0-36.0) Red Cell Distribution Width 13.8 % (11.6-17.2) Platelet Count 416 TH/MM3 (150-450) Mean Platelet Volume 6.9 FL (7.0-11.0) Neutrophils (%) (Auto) 65.4 % (16.0-70.0) Lymphocytes (%) (Auto) 17.3 % (9.0-44.0) Monocytes (%) (Auto) 9.6 % (0.0-8.0) Eosinophils (%) (Auto) 6.2 % (0.0-4.0) Basophils (%) (Auto) 1.5 % (0.0-2.0) Neutrophils # (Auto) 7.7 TH/MM3 (1.8-7.7) Lymphocytes # (Auto) 2.1 TH/MM3 (1.0-4.8) Monocytes # (Auto) 1.1 TH/MM3 (0-0.9) Eosinophils # (Auto) 0.7 TH/MM3 (0-0.4) Basophils # (Auto) 0.2 TH/MM3 (0-0.2) CBC Comment DIFF FINAL Differential Comment Sodium Level 136 MEQ/L (136-145) Potassium Level 4.0 MEQ/L (3.5-5.1) Chloride Level 101 MEQ/L (98-107) Carbon Dioxide Level 24.3 MEQ/L (21.0-32.0) Anion Gap 11 MEQ/L (5-15) Blood Urea Nitrogen 13 MG/DL (7-18) Creatinine 0.73 MG/DL (0.60-1.30) Estimat Glomerular Filtration 110 ML/MIN Rate (>89) Random Glucose 204 MG/DL (74-106) Calcium Level 8.9 MG/DL (8.5-10.1) Magnesium Level 1.4 MG/DL (1.5-2.5) Total Bilirubin 0.2 MG/DL (0.2-1.0) Aspartate Amino Transf 30 U/L (15-37) (AST/SGOT) Alanine Aminotransferase 30 U/L (12-78) (ALT/SGPT) Alkaline Phosphatase 94 U/L (45-117) Total Creatine Kinase 245 U/L (39-308) Creatine Kinase MB 4.0 NG/ML (0.5-3.6) Troponin I LESS THAN 0.02 NG/ML (0.02-0.05) Total Protein 8.3 GM/DL (6.4-8.2) Albumin 3.7 GM/DL (3.4-5.0) Lipase 92 U/L (73-393) Phenytoin (Dilantin) Level 64.2 MCG/ML (10.0-20.0) Valproic Acid (Depakene) Level 6 MCG/ML (50-100) Blood Gas Puncture Site RT RADIAL Blood Gas Patient Temperature 98.6 Blood Gas HCO3 24 mmol/L (22-26) Blood Gas Base Excess -0.7 mmol/L (-2-2) Blood Gas Oxygen Saturation 91 % (90-100) Arterial Blood pH 7.37 (7.380-7.420) Arterial Blood Partial 43 mmHg (38-42) Pressure CO2 Arterial Blood Partial 93 mmHG Pressure O2 (61-120) Arterial Blood Oxygen Content 16.8 Vol % (12.0-20.0) Arterial Blood 4.6 % (0-4) Carboxyhemoglobin Arterial Blood Methemoglobin 2.0 % (0-2) Blood Gas Hemoglobin 13.1 G/DL (12.0-16.0) Oxygen Delivery Device ROOM AIR Blood Gas Inspired Oxygen 21 % Urine Color LIGHT-YELLOW (YELLW/STRAW) Urine Turbidity CLOUDY (CLEAR) Urine pH 7.5 (5.0-8.5) Urine Specific [place] 1.010 (1.002-1.035) Urine Protein NEG mg/dL (NEG-TRACE) Urine Glucose (UA) 150 mg/dL (NEG) Urine Ketones NEG mg/dL (NEG) Urine Occult Blood NEG (NEG) Urine Nitrite NEG (NEG) Urine Bilirubin NEG (NEG) Urine Urobilinogen LESS THAN 2.0 MG/DL (LESS THAN 2.0) Urine Leukocyte Esterase NEG (NEG) Urine Amorphous Sediment MOD Urine Mucus FEW /lpf (OCC) Microscopic Urinalysis Comment CATH-CULT NOT IND Urine Opiates Screen NEG (NEG) Urine Barbiturates Screen NEG (NEG) Urine Amphetamines Screen NEG (NEG) Urine Benzodiazepines Screen NEG (NEG) Urine Cocaine Screen NEG (NEG) Urine Cannabinoids Screen NEG (NEG) Ethyl Alcohol Level LESS THAN 3 MG/DL (0-5) Dilantin level is 64.2 which could be causing his symptoms at this time. Patient will prior admission for Dilantin toxicity Physician Communication Physician Communication case reviewed with dr arce who accepts pt to service Diagnosis Primary Impression: Dilantin toxicity Qualified Code: T42.0X4A - Dilantin toxicity, undetermined intent, initial encounter Additional Impressions: Altered mental status, unspecified Hypomagnesemia Admitting Information Admitting Physician Requests: AdmGrisel Emmanuel DO Dec 13, 2016 10:32
[2016-12-13 10:42] LABS: BLOOD UREA NITROGEN 13 MG/DL (7-18)
[2016-12-13 10:47] LABS: BLOOD, URINE NEG (NEG); GLUCOSE,URINE 150 mg/dL (NEG); KETONE, URINE NEG (NEG); MUCUS URINE FEW /lpf (OCC); NITRITE,URINE NEG (NEG); PH, URINE 7.5 (5.0-8.5); URINE COLOR LIGHT-YELLOW (YELLW/STRAW)
[2016-12-13 10:53] LABS: COMMENT (UR) CATH-CULT NOT IND; CULTURE IF INDICATED CATH CULTURE NOT IND
[2016-12-13 10:58] LABS: AMPHETAMINE, URINE NEG (NEG); BARBITURATES, URINE NEG (NEG); COCAINE, URINE NEG (NEG)
--- NOTE | 2016-12-13 11:48 | RADRPT ---
EXAM DATE/TIME: 12/13/2016 10:15 [place] COMPARISON: CHEST SINGLE AP, November 22, 2016, 7:12. INDICATIONS : Cough. MEDICAL HISTORY : Cardiovascular disease. SURGICAL HISTORY : None. ENCOUNTER: Initial ACUITY: 1 day PAIN SCORE: Non-responsive. LOCATION: Bilateral chest FINDINGS: A single view of the chest demonstrates lungs to be clear bilaterally. No effusions. Heart size is no rmal. Multilevel degenerative spurring in the dorsal spine. Osseous structures are intact. Endotrache al and nasogastric tubes have been removed. CONCLUSION: 1. No acute cardiopulmonary process. 2. Endotracheal and nasogastric tubes have been removed. Gunner Porras MD on December 13, 2016 at 11:45 Board Certified Radiologist. This report was verified electronically.
[2016-12-13] MEDS ORDERED: PROCHLORPERAZINE 25 MG SUPP PR PRN (12:00)
[2016-12-13] MEDS ORDERED: SENNOSIDES 8.6 MG TAB PO PRN (12:00)
[2016-12-13] MEDS ORDERED: MAGNESIUM HYDROXIDE SUSP 30 ML CUP PO PRN (12:00)
[2016-12-13] MEDS ORDERED: BISACODYL 10 MG SUPP PR PRN (12:00)
[2016-12-13] MEDS ORDERED: ACETAMINOPHEN 325 MG TAB PO PRN (12:00)
[2016-12-13] MEDS: MAGNESIUM SULFATE 1 GM PREMIX 100 ML IV SCH ×2 (12:10→13:17)
[2016-12-13] MEDS: SODIUM CHLOR 0.9% 1000 ML INJ 1,000 ML IV SCH ×2 (13:16→20:53)
[2016-12-13] MEDS: ONDANSETRON HCL 4 MG/2 ML VIAL IVP PRN ×2 (13:43→20:55)
--- NOTE | 2016-12-13 16:08 | HHI.HP ---
[facility] Service [facility] Primary Care Physician Jose Sheridan MD Admission Diagnosis Dilantin toxicity Diagnoses: Chief Complaint: Altered mental status Travel History International Travel<30 Days: No Contact w/Intl Traveler <30 Da: No Traveled to Known Affected Are: No History of Present Illness 56-year-old male with a past medical history of TBI, seizure disorder, HTN, depression, GERD who is brought in secondary to altered mental status. The patient is currently lethargic, poorly responsive, Ms. and noncontributory historian. History is obtained from patient's sister at bedside, ED communication, and the medical record. The patient was recently admitted for altered mental status, seizures, and subtherapeutic Dilantin level. He was discharged about 2 weeks ago to SNF. Prior to that he was living with his sister, who is no longer able to take care of him at home. He was discharged from SNF yesterday. He went to stay with a friend. When the friend returned in the evening, they found the patient on the floor with altered mental status. Sister reports the patient didn't have any access to medications. She is not sure how long he was alone. The patient's voice no acute concerns during his intermittent lucid. 2 sisters or nursing staff. The sister is not aware of any recent medication changes. The patient did have a history of alcohol use, has not had any access to alcohol since prior to admission last month. 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 Hypertension Depression GERD Past Surgical History Craniectomy with hematoma evacuation 12/22/14 Frontotemporal parietal reconstruction cranioplasty 06/14/15 Reported Medications Pantoprazole (Pantoprazole Sodium) 20 Mg Tab 20 Mg PO DAILY Magnesium Oxide 241.3 Mg Tab 400 Mg PO DAILY 30 Days Phenytoin Liq (Phenytoin) 125 Mg/5 Ml Micheline 150 Mg PO Q8HR 30 Days Topamax (Topiramate) 100 Mg Tab 100 Mg PO BID 30 Days Tizanidine (Tizanidine HCl) 4 Mg Cap 4 Mg PO DAILY Fluoxetine (Fluoxetine HCl) 20 Mg Cap 20 Mg PO DAILY Amlodipine (Amlodipine Besylate) 10 Mg Tab 10 Mg PO DAILY Allergies: Coded Allergies: No Known Allergies (Unverified , 12/13/16) Active Ordered Medications Current Medications Medications (Trade) Dose Ordered Sig/Peewee Route Start Time Stop Time Status Last Admin (NS 1000 ml Inj) 1,000 ml @ 100 mls/hr Q10H IV 12/13/16 12:00 12/13/16 13:16 (NS Flush) 2 ml UNSCH PRN FLUSH 12/13/16 12:00 (NS Flush) 2 ml BID FLUSH 12/13/16 21:00 (Tylenol) 650 mg Q4H PRN PO 12/13/16 12:00 (Zofran Inj) 4 mg Q6H PRN IVP 12/13/16 12:00 12/13/16 13:43 (Compazine Supp) 25 mg Q12H PRN AR 12/13/16 12:00 (Dulcolax Supp) 10 mg DAILY PRN AR 12/13/16 12:00 (Milk Of Magnesia Liq) 30 ml Q12H PRN PO 12/13/16 12:00 (Senokot) 17.2 mg Q12H PRN PO 12/13/16 12:00 Family History Mother had hepatitis and liver failure Father had kidney failure and peripheral vascular disease Social History History of alcohol and Lortab abuse Tobacco use Discharge from SNF and planning for [facility] Physical Exam Vital Signs Vital Signs Date Time Temp Pulse Resp B/P Pulse Ox O2 Delivery O2 Flow Rate FiO2 12/13/16 12:00 77 14 97/62 99 Room Air 12/13/16 11:00 82 16 96/55 99 Room Air 12/13/16 10:05 98 Room Air 12/13/16 10:00 97.8 82 16 104/73 98 Room Air 12/13/16 09:35 87 14 98 Room Air 12/13/16 09:32 79 18 115/66 Physical Exam GENERAL: Well-developed well-nourished. In no acute distress. SKIN: Warm and dry. No lesions noted. HEENT: Normocephalic. Pupils equal and round. Mucous membranes pink and moist. CARDIOVASCULAR: Regular rate and rhythm. No murmur appreciated. RESPIRATORY: No accessory muscle use. Clear to auscultation. Breath sounds equal bilaterally. GASTROINTESTINAL: Abdomen soft, non-tender, nondistended. Bowel sounds x4. MUSCULOSKELETAL: No obvious deformities. No clubbing or cyanosis. No edema. NEUROLOGICAL: Somnolent. Withdrawal to painful stimuli. Intermittently lucid. Intermittently agitated. Moves upper and lower extremities spontaneously. Normal speech. Laboratory Laboratory Tests Test 12/13/16 12/13/16 12/13/16 09:48 09:58 10:10 White Blood Count 11.8 Red Blood Count 3.85 Hemoglobin 13.1 Hematocrit 38.5 Mean Corpuscular Volume 100.1 Mean Corpuscular Hemoglobin 34.0 Mean Corpuscular Hemoglobin 33.9 Concent Red Cell Distribution Width 13.8 Platelet Count 416 Mean Platelet Volume 6.9 Neutrophils (%) (Auto) 65.4 Lymphocytes (%) (Auto) 17.3 Monocytes (%) (Auto) 9.6 Eosinophils (%) (Auto) 6.2 Basophils (%) (Auto) 1.5 Neutrophils # (Auto) 7.7 Lymphocytes # (Auto) 2.1 Monocytes # (Auto) 1.1 Eosinophils # (Auto) 0.7 Basophils # (Auto) 0.2 CBC Comment DIFF FINAL Differential Comment Sodium Level 136 Potassium Level 4.0 Chloride Level 101 Carbon Dioxide Level 24.3 Anion Gap 11 Blood Urea Nitrogen 13 Creatinine 0.73 Estimat Glomerular Filtration 110 Rate Random Glucose 204 Calcium Level 8.9 Magnesium Level 1.4 Total Bilirubin 0.2 Aspartate Amino Transf 30 (AST/SGOT) Alanine Aminotransferase 30 (ALT/SGPT) Alkaline Phosphatase 94 Total Creatine Kinase 245 Creatine Kinase MB 4.0 Troponin I LESS THAN 0.02 Total Protein 8.3 Albumin 3.7 Lipase 92 Phenytoin (Dilantin) Level 64.2 Valproic Acid (Depakene) Level 6 Blood Gas Puncture Site RT RADIAL Blood Gas Patient Temperature 98.6 Blood Gas HCO3 24 Blood Gas Base Excess -0.7 Blood Gas Oxygen Saturation 91 Arterial Blood pH 7.37 Arterial Blood Partial 43 Pressure CO2 Arterial Blood Partial 93 Pressure O2 Arterial Blood Oxygen Content 16.8 Arterial Blood 4.6 Carboxyhemoglobin Arterial Blood Methemoglobin 2.0 Blood Gas Hemoglobin 13.1 Oxygen Delivery Device ROOM AIR Blood Gas Inspired Oxygen 21 Urine Color LIGHT-YELLOW Urine Turbidity CLOUDY Urine pH 7.5 Urine Specific [place] 1.010 Urine Protein NEG Urine Glucose (UA) 150 Urine Ketones NEG Urine Occult Blood NEG Urine Nitrite NEG Urine Bilirubin NEG Urine Urobilinogen LESS THAN 2.0 Urine Leukocyte Esterase NEG Urine Amorphous Sediment MOD Urine Mucus FEW Microscopic Urinalysis Comment CATH-CULT NOT IND Urine Opiates Screen NEG Urine Barbiturates Screen NEG Urine Amphetamines Screen NEG Urine Benzodiazepines Screen NEG Urine Cocaine Screen NEG Urine Cannabinoids Screen NEG Ethyl Alcohol Level LESS THAN 3 Result Diagram: 12/13/1648 12/13/1648 Imaging Last Impressions Head CT 12/13/1635 Signed Impressions: Service Date/Time: Tuesday, December 13, 2016 09:42 - CONCLUSION: Negative for an acute process. Chuck Edgar MD FACR Chest X-Ray 12/13/16 0000 Signed Impressions: Service Date/Time: Tuesday, December 13, 2016 10:15 - CONCLUSION: 1. No acute cardiopulmonary process. 2. Endotracheal and nasogastric tubes have been removed. Gunner Porras MD Abdomen/Pelvis CT 12/13/16 0000 Signed Impressions: Service Date/Time: Tuesday, December 13, 2016 09:42 - CONCLUSION: Negative for an acute process. I don't see an etiology for the patient's acute abdominal pain. Minimal vascular changes are evident.. Chuck Edgar MD FACR Assessment and Plan Assessment and Plan 56-year-old male with a past medical history of TBI, seizure disorder, HTN, depression, GERD admitted for altered mental status Acute encephalopathy: Suspect secondary to Dilantin toxicity. WBC 11.8, reactive? Afebrile and no signs of acute infection on chest x-ray or UA. Neuro checks. Check EEG. Consult neurology. PT/ST consulted. Supratherapeutic Dilantin level: Recent admission for subtherapeutic level. At previous admission he received IV Celebrex 1, and otherwise Dilantin level was controlled on oral Dilantin. Currently Dilantin level is 64.2. Hold Dilantin and follow-up levels. History of seizure disorder: As above. Continue home Topamax. Seizure precautions. History of hypertension: BP is soft. Hold home amlodipine for now. Hypomagnesemia: Acute on chronic. Magnesium 1.4. Given IV magnesium in the ED. Resume home oral magnesium. Other chronic medical conditions include depression/GERD: Stable at this time and will continue home medications as indicated. DVT prophylaxis: SCDs Written by Norberto Ortega, acting as scribe for Dr. Harrington on 12/13/16 at 16:08. The documentation accurately reflects the work performed [id number] by me Dr. Harrington on 12/13/16 at 16:08. Discussed Condition With Patient with sister and RN at bedside, ED physician Norberto Ortega Dec 13, 2016 16:08 Philly Harrington MD Dec 13, 2016 16:30
--- NOTE | 2016-12-13 17:49 | MB ---
cc: JANIS BARDALES DATE OF CONSULTATION: 12/13/2016 HISTORY OF PRESENT ILLNESS The patient is a 48-year-old man with a history of traumatic brain injury, seizure disorder, hypertension, depression, GERD, and recently treated for a subtherapeutic Dilantin, discharged about two weeks ago to a SNF, living with his sister who cannot take care of him at home. Discharged from the SNF yesterday, went to stay with a friend, when the friend came he found him on the floor with change in mental status, not sure how long he was alone. There is some history of alcohol use but no access to alcohol on this admission. There is a history of subdural hematoma in December of 2014 status post craniectomy, hematoma evacuation, frontotemporal parietal reconstructive cranioplasty. MEDICATIONS AT HOME 1. Amlodipine. 2. Fluoxetine. 3. Tizanidine. 4. Topamax 100 b.i.d. 5. Dilantin suspension 150 mg q.8 hours. 6. Magnesium. 7. Protonix. ALLERGIES NO KNOWN DRUG ALLERGIES. REVIEW OF SYSTEMS Unable to get any review of systems from the patient. He was awake but not alert. He appeared postictal according to the ER. He did not have purposeful conversation. He was somnolent earlier today, intermittently lucid, some agitation, moved all of his extremities, normal speech according to Norberto Ortega. NEUROLOGIC EXAMINATION VITAL SIGNS: On exam he has been afebrile here, 97/62, 14, 77. He is restrained at the wrist bilaterally but literally climbing down the bottom of his bed with his arms behind him saying he has to pee, he does have a Schaffer in. He was rocking back and forth so much he almost hit his head on the crossbar at the foot of the bed. He will not answer any questions for me. He moves all of his extremities well. LABORATORIES His Dilantin level was 64. He had a Depakote level of 6. Urine drug screen was negative. Alcohol was negative. His UA here was normal. His basic metabolic profile here was normal. Glucose was 204. Magnesium was low at 1.4 though it has been in the past. CPK 245. Troponin negative. Albumin 3.7. CBC is generally unremarkable. White count 11.8. ABG was essentially normal. IMAGING STUDIES He had a CAT scan of his brain today, was no acute process. Review of the films shows the old craniotomy, he has got some hypodensities on the right white matter posteriorly, right temporal lobe encephalomalacia was noted a fair amount. EEG in the past had shown some right sharps. CT is basically unchanged from November 22 of this year, a little bit more extensive than what was seen in 2015 as far as encephalomalacia in the right temporal region. IMPRESSION Dilantin toxicity. He is too agitated to be on the floor here, I would recommend transferring him to the ICU. He also needs to be watched for any cardiac arrhythmias on the high Dilantin level, I note he was in sinus rhythm here so far. I would discontinue his Schaffer as that is only agitating for him. I did notify the nursing staff that I thought he needed to go to the ICU and that his Schaffer needed to be discontinued and for them to call the med team. MD CARTER Hyman/GABRIEL /4:51 PM /5:10 PM
[2016-12-13] MEDS ORDERED: CHLORHEXIDINE GLUCONATE 2 % 1 PACK (2 CLOTHS)(extra cloths) TOP PRN (20:45)
[2016-12-13] MEDS: SODIUM CHLORIDE 0.9% FLUSH 5 ML FLUSH FLUSH SCH (20:53)
[2016-12-13] MEDS: TOPIRAMATE 100 MG TAB PO SCH (20:53)
--- NOTE | 2016-12-13 21:17 | EKG ---
Date Performed: 12/13/2016 Time Performed: 10:05:59 PTAGE: 56 years EKG: Sinus rhythm MODERATE INTRAVENTRICULAR CONDUCTION DELAY When copmpared to previous tracing, heart rate has reduce d from 137 to 79, and ST-T changes have improved. BORDERLINE ECG PREVIOUS TRACING : 11/22/2016 05.09 DOCTOR: Michael Palemr Interpretating Date/Time 12/13/2016 21:16:49
[2016-12-13] MEDS: LORazepam 2 MG/ML VIAL IV PUSH PRN (21:52)
[2016-12-14] VITALS (9 sets, daily range): BP systolic 111–114; BP diastolic 61–74; PULSE 78–98; RESP 13–27; TEMP 98–98.4; O2SAT 100
[2016-12-14] MEDS: CHLORHEXIDINE GLUCONATE 2 % 1 PACK (2 CLOTHS)(taper/protocol) TOP SCH (04:00)
[2016-12-14] MEDS: LORazepam 2 MG/ML VIAL IV PUSH PRN ×2 (05:27→13:07)
[2016-12-14 06:20] LABS: ALKALINE PHOSPHATASE 101 U/L (45-117); ALT (GPT) 24 U/L (12-78); ANION GAP 5 MEQ/L (5-15); AST (GOT) 24 U/L (15-37); BICARBONATE 29.6 MEQ/L (21.0-32.0); BLOOD UREA NITROGEN 5 MG/DL (7-18); CHLORIDE 103 MEQ/L (98-107); GLOMERULAR FILTRATION RATE 188 ML/MIN (>89); POTASSIUM 3.6 MEQ/L (3.5-5.1); SODIUM (NA) 138 MEQ/L (136-145); TOTAL BILIRUBIN ADULT 0.3 MG/DL (0.2-1.0)
[2016-12-14] MEDS: SODIUM CHLOR 0.9% 1000 ML INJ 1,000 ML IV SCH ×2 (08:00→18:00)
--- NOTE | 2016-12-14 08:01 | MG ---
cc: JANIS BARDALES Lab No: [id number] Date: 12/14/2016 Age: 48 Sex: M Race: Hyperventilation not performed, 48-year-old man with seizures, subdural hematoma, right craniotomy, Fluoxetine with a definite asymmetry to the background, some 5 Hz slowing on the right compared to the left. The amplitudes are higher on the right compared with the left. Likely due to a breach rhythm effect, some phase reversing sharply contoured theta waves are seen over the right posterior temporal parietal head region and spindle like activity at that time seen as the patient is noted be asleep, better appreciated on the right than the left. 8 to 10 Hz posterior rhythm seen on the right, photic stimulation was performed without significant posterior driving. Hyperventilation was not performed. IMPRESSION There is an asymmetry which is likely somewhat of a breach rhythm. There is some phase reversing over the right posterior temporal parietal head region at times slightly sharply contoured could be a slight risk for seizures but no ongoing seizures are noted here. No spikes were seen. MD CARTER Hyman/florina /6:58 AM /7:48 AM
[2016-12-14] MEDS: PANTOPRAZOLE SOD 20 MG DELAYED RELEASE TAB PO SCH (09:16)
[2016-12-14] MEDS: FLUoxetine HCL 20 MG CAP PO SCH (09:16)
[2016-12-14] MEDS: TOPIRAMATE 100 MG TAB PO SCH ×2 (09:16→19:41)
[2016-12-14] MEDS: MAGNESIUM OXIDE 400 MG TAB PO SCH (09:16)
[2016-12-14] MEDS: SODIUM CHLORIDE 0.9% FLUSH 5 ML FLUSH FLUSH SCH ×2 (09:17→19:41)
--- NOTE | 2016-12-14 10:03 | HHI.PR ---
Subjective Remarks sr Objective Vital Signs Date Time Temp Pulse Resp B/P Pulse Ox O2 Delivery O2 Flow Rate FiO2 12/14/16 06:00 80 12/14/16 04:00 98.0 78 17 113/70 100 12/14/16 04:00 78 12/14/16 02:00 79 12/14/16 00:00 98.1 80 13 111/61 100 12/14/16 00:00 80 12/13/16 22:00 81 12/13/16 20:00 79 12/13/16 20:00 97.6 81 15 108/68 99 12/13/16 12:00 77 14 97/62 99 Room Air 12/13/16 11:00 82 16 96/55 99 Room Air 12/13/16 10:05 98 Room Air 12/13/16 10:00 97.8 82 16 104/73 98 Room Air I/O 12/13/16 12/13/16 12/13/16 12/14/16 12/14/16 12/14/16 07:00 15:00 23:00 07:00 15:00 23:00 Intake Total 565 ml 778 ml Output Total 1600 ml 1400 ml 700 ml Balance -1600 ml -835 ml 78 ml Intake IV Total 565 ml 778 ml Output Urine Total 1500 ml 1400 ml 700 ml Emesis 100 ml # Voids 0 Result Diagram: 12/13/16 0948 12/14/16 0453 Objective Remarks dil 60 his eyes rolled back a little but rxt threat at times ok says high and sticks out tongue for me moves all Assessment and Plan Assessment and Plan dil toxic check mri with odd eye position behavior better Dejan Cruz MD Dec 14, 2016 10:03
--- NOTE | 2016-12-14 12:06 | HHI.PR ---
Subjective Remarks Responding to name , he is still disoriented. No fever or chills. VSS. In restraints. Falling asleep easily. Eyes rolling back at times. Doesn't follow much commands. Objective Vitals Vital Signs Date Time Temp Pulse Resp B/P Pulse Ox O2 Delivery O2 Flow Rate FiO2 12/14/16 06:00 80 12/14/16 04:00 98.0 78 17 113/70 100 12/14/16 04:00 78 12/14/16 02:00 79 12/14/16 00:00 98.1 80 13 111/61 100 12/14/16 00:00 80 12/13/16 22:00 81 12/13/16 20:00 79 12/13/16 20:00 97.6 81 15 108/68 99 I/O 12/13/16 12/13/16 12/13/16 12/14/16 12/14/16 12/14/16 07:00 15:00 23:00 07:00 15:00 23:00 Intake Total 565 ml 778 ml Output Total 1600 ml 1400 ml 700 ml Balance -1600 ml -835 ml 78 ml Intake IV Total 565 ml 778 ml Output Urine Total 1500 ml 1400 ml 700 ml Emesis 100 ml # Voids 0 Result Diagram: 12/13/16 0948 12/14/16 0453 Imaging Last Impressions Head CT 12/13/16 0935 Signed Impressions: Service Date/Time: Tuesday, December 13, 2016 09:42 - CONCLUSION: Negative for an acute process. Chuck Edgar MD FACR Chest X-Ray 12/13/16 0000 Signed Impressions: Service Date/Time: Tuesday, December 13, 2016 10:15 - CONCLUSION: 1. No acute cardiopulmonary process. 2. Endotracheal and nasogastric tubes have been removed. Gunner Porras MD Abdomen/Pelvis CT 12/13/16 0000 Signed Impressions: Service Date/Time: Tuesday, December 13, 2016 09:42 - CONCLUSION: Negative for an acute process. I don't see an etiology for the patient's acute abdominal pain. Minimal vascular changes are evident.. Chuck Edgar MD FACR Objective Remarks GENERAL: Well-developed well-nourished. In no acute distress. SKIN: Warm and dry. No lesions noted. HEENT: Normocephalic. Pupils equal and round. Mucous membranes pink and moist. CARDIOVASCULAR: Regular rate and rhythm. No murmur appreciated. RESPIRATORY: No accessory muscle use. Clear to auscultation. Breath sounds equal bilaterally. GASTROINTESTINAL: Abdomen soft, non-tender, nondistended. Bowel sounds x4. MUSCULOSKELETAL: No obvious deformities. No clubbing or cyanosis. No edema. NEUROLOGICAL: Somnolent. Withdrawal to painful stimuli. Intermittently lucid. Intermittently agitated. Moves upper and lower extremities spontaneously. Normal speech. A/P Assessment and Plan 56-year-old male with a past medical history of TBI, seizure disorder, HTN, depression, GERD admitted for altered mental status Acute encephalopathy: Suspect secondary to Dilantin toxicity. WBC 11.8, reactive? Afebrile and no signs of acute infection on chest x-ray or UA. Neuro checks. Check EEG pending. Consult neurology, seen by Dr Cruz appreciate recommendations. Plan for MRI brain. PT/ST consulted. Supratherapeutic Dilantin level: Recent admission for subtherapeutic level. At previous admission he received IV Celebrex 1, and otherwise Dilantin level was controlled on oral Dilantin. Currently Dilantin level is 64.2 on admission. Hold Dilantin and follow-up levels. Trending down. History of seizure disorder: As above. Continue home Topamax. Seizure precautions. History of hypertension: BP is soft. Hold home amlodipine for now. Hypomagnesemia: Acute on chronic. Magnesium 1.4. Given IV magnesium in the ED. Resume home oral magnesium. Other chronic medical conditions include depression/GERD: Stable at this time and will continue home medications as indicated. DVT prophylaxis: SCDs Discussed with the patient, ICU nurse Philly Harrington MD Dec 14, 2016 12:06
[2016-12-14] MEDS ORDERED: MAGNESIUM OXIDE 400 MG TAB PO PRN (13:00)
[2016-12-14] MEDS ORDERED: MAGNESIUM SULFATE INJ 4 GM in SODIUM CHLORIDE 0.9% INJ 92 ML IV PRN (13:00)
[2016-12-14] MEDS ORDERED: SODIUM PHOSPHATE INJ 30 MMOL in SODIUM CHLOR 0.9% 250 ML INJ 240 ML IV PRN (13:00)
[2016-12-14] MEDS ORDERED: POTASSIUM PHOSPHATE MONOBASIC 500 MG TAB PO/TUBE PRN (13:00)
[2016-12-14] MEDS ORDERED: POTASSIUM PHOSPHATE MONOBASIC 500 MG TAB PO PRN (13:00)
[2016-12-14] MEDS ORDERED: MAGNESIUM SULFATE INJ 2 GM in SODIUM CHLORIDE 0.9% INJ 96 ML IV PRN (13:00)
[2016-12-14] MEDS ORDERED: POTASSIUM CHLOR 20 MEQ PREMIX 100 ML IV PRN ×2 (13:00)
[2016-12-14] MEDS ORDERED: POTASSIUM PHOSPHATE INJ 30 MMOL in SODIUM CHLOR 0.9% 250 ML INJ 250 ML IV PRN (13:00)
[2016-12-14] MEDS ORDERED: POTASSIUM CL 40 MEQ/30 ML LIQ UDC PO/TUBE PRN ×2 (13:00)
[2016-12-14] MEDS ORDERED: POTASSIUM CHLOR 40 MEQ PREMIX 100 ML IV PRN ×2 (13:00)
[2016-12-15] VITALS: BP 101/63; PULSE 90; PULSE 96; RESP 16; TEMP 98.6; O2SAT 98
[2016-12-15] MEDS: LORazepam 2 MG/ML VIAL IV PUSH PRN ×3 (01:08→21:36)
[2016-12-15 02:00] VITALS: PULSE 98
[2016-12-15 04:00] VITALS: BP 108/69; PULSE 102; RESP 19; TEMP 98.9; O2SAT 96
[2016-12-15] MEDS: CHLORHEXIDINE GLUCONATE 2 % 1 PACK (2 CLOTHS)(taper/protocol) TOP SCH (04:00)
[2016-12-15] MEDS: SODIUM CHLOR 0.9% 1000 ML INJ 1,000 ML IV SCH (05:02)
[2016-12-15 05:53] LABS: AUTOMATED NEUTROPHIL # 3.3 TH/MM3 (1.8-7.7); BASOPHIL # 0.1 TH/MM3 (0-0.2); BASOPHIL % 1.7 % (0.0-2.0); EOSINOPHIL # 0.9 TH/MM3 (0-0.4); EOSINOPHIL % 13.8 % (0.0-4.0); HEMATOCRIT 39.8 % (39.0-51.0); HEMO FLAGS DIFF FINAL; LYMPH % 22.6 % (9.0-44.0); LYMPHOCYTE # 1.5 TH/MM3 (1.0-4.8); MEAN CORPUSCULAR HEMOGLOBIN 33.9 PG (27.0-34.0); MEAN CORPUSCULAR HGB CONC 34.6 % (32.0-36.0); MONO % 10.8 % (0.0-8.0); NEUT % 51.1 % (16.0-70.0); PLATELET COUNT 392 TH/MM3 (150-450); RED BLOOD COUNT 4.07 MIL/MM3 (4.50-5.90); RED CELL DISTRIBUTION WIDTH 13.6 % (11.6-17.2); WHITE BLOOD COUNT 6.5 TH/MM3 (4.0-11.0)
[2016-12-15 06:00] VITALS: PULSE 93
[2016-12-15 06:58] LABS: BICARBONATE 27.1 MEQ/L (21.0-32.0); MAGNESIUM 1.5 MG/DL (1.5-2.5); POTASSIUM 3.4 MEQ/L (3.5-5.1)
[2016-12-15] MEDS: TOPIRAMATE 100 MG TAB PO SCH ×2 (07:30→19:43)
[2016-12-15] MEDS: PANTOPRAZOLE SOD 20 MG DELAYED RELEASE TAB PO SCH (07:31)
[2016-12-15] MEDS: MAGNESIUM OXIDE 400 MG TAB PO SCH (07:32)
[2016-12-15] MEDS: SODIUM CHLORIDE 0.9% FLUSH 5 ML FLUSH FLUSH SCH ×2 (07:32→19:43)
--- NOTE | 2016-12-15 08:09 | HHI.PR ---
Subjective Remarks More awake and alert. He is oriented by name only. Doesn't remember much. Reports headache. no seizures. No n/v/d/c. Falling asleep easily. Wth nistagmus. Follows commands . Denies motor or sensory deficit. no fever or chills. Objective Vitals Vital Signs Date Time Temp Pulse Resp B/P Pulse Ox O2 Delivery O2 Flow Rate FiO2 12/15/16 06:00 93 12/15/16 04:00 98.9 102 19 108/69 96 12/15/16 04:00 102 12/15/16 02:00 98 12/15/16 00:00 98.6 90 16 101/63 98 12/15/16 00:00 96 12/14/16 22:00 84 12/14/16 20:00 98 12/14/16 20:00 98.4 98 27 114/74 100 12/14/16 16:00 98.3 12/14/16 12:00 98.0 I/O 12/14/16 12/14/16 12/14/16 12/15/16 12/15/16 12/15/16 07:00 15:00 23:00 07:00 15:00 23:00 Intake Total 778 ml 1356 ml 761 ml Output Total 700 ml 1150 ml 350 ml Balance 78 ml 206 ml 411 ml Intake IV Total 778 ml 1356 ml 761 ml Output Urine Total 700 ml 1150 ml 350 ml # Bowel Movements 0 0 Result Diagram: 12/15/16 0442 12/15/16 0442 Imaging Last Impressions Brain MRI 12/15/16 0000 Signed Impressions: Service Date/Time: Thursday, December 15, 2016 09:48 - CONCLUSION: 1. 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 2. Otherwise unremarkable examination for patient' s age. No acute intracranial pathology on this limited study. Marco A Sadler MD Head CT 12/13/16 0935 Signed Impressions: Service Date/Time: Tuesday, December 13, 2016 09:42 - CONCLUSION: Negative for an acute process. Chuck Edgar MD FACR Chest X-Ray 12/13/16 0000 Signed Impressions: Service Date/Time: Tuesday, December 13, 2016 10:15 - CONCLUSION: 1. No acute cardiopulmonary process. 2. Endotracheal and nasogastric tubes have been removed. Gunner Porras MD Abdomen/Pelvis CT 12/13/16 0000 Signed Impressions: Service Date/Time: Tuesday, December 13, 2016 09:42 - CONCLUSION: Negative for an acute process. I don't see an etiology for the patient's acute abdominal pain. Minimal vascular changes are evident.. Chuck Edgar MD FACR Objective Remarks GENERAL: Well-developed well-nourished. In no acute distress. SKIN: Warm and dry. No lesions noted. HEENT: Normocephalic. Pupils equal and round. Mucous membranes pink and moist. CARDIOVASCULAR: Regular rate and rhythm. No murmur appreciated. RESPIRATORY: No accessory muscle use. Clear to auscultation. Breath sounds equal bilaterally. GASTROINTESTINAL: Abdomen soft, non-tender, nondistended. Bowel sounds x4. MUSCULOSKELETAL: No obvious deformities. No clubbing or cyanosis. No edema. NEUROLOGICAL: Somnolent. Withdrawal to painful stimuli. Intermittently lucid. Intermittently agitated. Moves upper and lower extremities spontaneously. Normal speech. A/P Assessment and Plan 56-year-old male with a past medical history of TBI, seizure disorder, HTN, depression, GERD admitted for altered mental status Acute encephalopathy: Suspect secondary to Dilantin toxicity. WBC 11.8, reactive? Afebrile and no signs of acute infection on chest x-ray or UA. Neuro checks. Check EEG pending. Consult neurology, seen by Dr Cruz appreciate recommendations. Plan for MRI brain. PT/ST consulted. Supratherapeutic Dilantin level: Recent admission for subtherapeutic level. At previous admission he received IV Celebrex 1, and otherwise Dilantin level was controlled on oral Dilantin. Currently Dilantin level is 64.2 on admission. Hold Dilantin and follow-up levels. Trending down. History of seizure disorder: As above. Continue home Topamax. Seizure precautions. History of hypertension: BP is soft. Hold home amlodipine for now. Hypomagnesemia: Acute on chronic. Magnesium 1.4. Given IV magnesium in the ED. Resume home oral magnesium. Other chronic medical conditions include depression/GERD: Stable at this time and will continue home medications as indicated. DVT prophylaxis: SCDs Discussed with the patient, ICU nurse Philly Harrington MD Dec 15, 2016 08:09
--- NOTE | 2016-12-15 08:42 | HHI.PR ---
Subjective Remarks sr Objective Vital Signs Date Time Temp Pulse Resp B/P Pulse Ox O2 Delivery O2 Flow Rate FiO2 12/15/16 06:00 93 12/15/16 04:00 98.9 102 19 108/69 96 12/15/16 04:00 102 12/15/16 02:00 98 12/15/16 00:00 98.6 90 16 101/63 98 12/15/16 00:00 96 12/14/16 22:00 84 12/14/16 20:00 98 12/14/16 20:00 98.4 98 27 114/74 100 12/14/16 16:00 98.3 12/14/16 12:00 98.0 I/O 12/14/16 12/14/16 12/14/16 12/15/16 12/15/16 12/15/16 07:00 15:00 23:00 07:00 15:00 23:00 Intake Total 778 ml 1356 ml 761 ml Output Total 700 ml 1150 ml 350 ml Balance 78 ml 206 ml 411 ml Intake IV Total 778 ml 1356 ml 761 ml Output Urine Total 700 ml 1150 ml 350 ml # Bowel Movements 0 0 Result Diagram: 12/15/162 12/15/16441 Objective Remarks dil 50 counts fingers moving well speech more clear Assessment and Plan Assessment and Plan dil toxic slowly lower check mri pend eyes better should slowly improve Dejan Cruz MD Dec 15, 2016 08:42
[2016-12-15] MEDS: SODIUM CHLORIDE 0.9% FLUSH 5 ML FLUSH FLUSH PRN (09:13)
[2016-12-15] MEDS ORDERED: GADODIAMIDE PF 287 MG/ML 10 ML VIAL (for RAD MRI) IV ONE (10:11)
--- NOTE | 2016-12-15 11:11 | RADRPT ---
EXAM DATE/TIME: 12/15/2016 09:48 [place] COMPARISON: CT BRAIN W/O CONTRAST, December 13, 2016, 9:42. INDICATIONS : Seizures. CONTRAST: 10 cc Omniscan (gadodiamide) IV MEDICAL HISTORY : Hypertension. TBI SURGICAL HISTORY : Craniotomy. Crainioplasty ENCOUNTER: Initial ACUITY: 1 day PAIN SCORE: 0/10 LOCATION: cranial TECHNIQUE: Multiplanar, multisequence MRI of the brain was performed both prior to and following the administrat ion of paramagnetic contrast. The study was significantly limited due to motion artifact on the major ity of the images. FINDINGS: CEREBRUM: The ventricles are normal for age. There is evidence of an old infarct involving the right temporal lobe. No evidence of midline shift, mass lesion, hemorrhage or acute infarction. No extraaxial fluid collections are seen. The pituitary gland and suprasellar cistern are normal in configuration. WHITE MATTER: No significant signal abnormalities are seen in the white matter. Limited due to motion artifact. POSTERIOR FOSSA: The cerebellum and brainstem are grossly intact. The 4th ventricle is midline. The cerebellopontine angle is unremarkable. The cerebellar tonsils are normal in position. Limited due to motion artifact . DIFFUSION IMAGING: No focal areas of restricted diffusion are seen. No evidence of acute infarction. EXTRACRANIAL: The visualized portions of the orbits and paranasal sinuses are unremarkable. POST-CONTRAST: Severely limited due to motion artifact. No definite enhancing mass occupying lesion. CONCLUSION: 1. 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 2. Otherwise unremarkable examination for patient's age. No acute intracranial pathology on this limi sofia study. Marco A Sadler MD on December 15, 2016 at 11:04 Board Certified Radiologist. This report was verified electronically.
[2016-12-15 20:00] VITALS: BP 127/72; PULSE 87; RESP 16; TEMP 98.8; O2SAT 97
[2016-12-15 22:00] VITALS: PULSE 84
[2016-12-16] VITALS (10 sets, daily range): BP systolic 100–150; BP diastolic 61–89; PULSE 82–97; RESP 17–20; TEMP 97.8–98.6; O2SAT 94–97
[2016-12-16] MEDS: SODIUM CHLOR 0.9% 1000 ML INJ 1,000 ML IV SCH ×3 (00:27→20:00)
[2016-12-16] MEDS: CHLORHEXIDINE GLUCONATE 2 % 1 PACK (2 CLOTHS)(taper/protocol) TOP SCH (00:28)
[2016-12-16] MEDS: LORazepam 2 MG/ML VIAL IV PUSH PRN ×2 (03:11→21:11)
[2016-12-16 04:36] LABS: AUTOMATED NEUTROPHIL # 2.7 TH/MM3 (1.8-7.7); BASOPHIL # 0.2 TH/MM3 (0-0.2); BASOPHIL % 3.3 % (0.0-2.0); EOSINOPHIL # 1.2 TH/MM3 (0-0.4); HEMATOCRIT 36.2 % (39.0-51.0); HEMO FLAGS DIFF FINAL; LYMPHOCYTE # 1.7 TH/MM3 (1.0-4.8); MEAN CELL VOLUME 98.1 FL (80.0-100.0); MEAN CORPUSCULAR HGB CONC 34.7 % (32.0-36.0); MONO % 12.3 % (0.0-8.0); NEUT % 40.4 % (16.0-70.0); PLATELET COUNT 379 TH/MM3 (150-450); RED BLOOD COUNT 3.69 MIL/MM3 (4.50-5.90); RED CELL DISTRIBUTION WIDTH 13.3 % (11.6-17.2); WHITE BLOOD COUNT 6.6 TH/MM3 (4.0-11.0)
[2016-12-16 05:04] LABS: BICARBONATE 25.3 MEQ/L (21.0-32.0); MAGNESIUM 1.8 MG/DL (1.5-2.5); POTASSIUM 3.3 MEQ/L (3.5-5.1)
--- NOTE | 2016-12-16 08:20 | HHI.PR ---
Subjective Remarks sr Objective Vital Signs Date Time Temp Pulse Resp B/P Pulse Ox O2 Delivery O2 Flow Rate FiO2 12/16/16 06:00 89 12/16/16 04:00 98.4 88 18 106/61 96 12/16/16 04:00 88 12/16/16 02:00 85 12/16/16 00:00 90 12/16/16 00:00 98.6 90 17 100/63 94 12/15/16 22:00 84 12/15/16 20:00 98.8 87 16 127/72 97 12/15/16 20:00 87 I/O 12/15/16 12/15/16 12/15/16 12/16/16 12/16/16 12/16/16 07:00 15:00 23:00 07:00 15:00 23:00 Intake Total 761 ml 115 ml 869 ml Output Total 350 ml 1000 ml 450 ml Balance 411 ml -885 ml 419 ml Intake IV Total 761 ml 115 ml 869 ml Output Urine Total 350 ml 1000 ml 450 ml # Bowel Movements 0 0 0 Result Diagram: 12/16/1640912/16/16 0410 Objective Remarks dil 44 moving well awakens and follows commands Assessment and Plan Assessment and Plan dil toxic slowly lower check mrineg eyes better should slowly improve oob Dejan Cruz MD Dec 16, 2016 08:20
[2016-12-16] MEDS: FLUoxetine HCL 20 MG CAP PO SCH ×2 (09:03→09:05)
[2016-12-16] MEDS: MAGNESIUM OXIDE 400 MG TAB PO SCH (09:03)
[2016-12-16] MEDS: SODIUM CHLORIDE 0.9% FLUSH 5 ML FLUSH FLUSH SCH ×2 (09:03→21:11)
[2016-12-16] MEDS: TOPIRAMATE 100 MG TAB PO SCH ×2 (09:03→21:10)
[2016-12-16] MEDS: PANTOPRAZOLE SOD 20 MG DELAYED RELEASE TAB PO SCH (09:03)
--- NOTE | 2016-12-16 14:02 | HHI.PR ---
Subjective Remarks More awake and alert. knows his name and . Confused. No n/v/d/c. Had urinary retention, wei in. No fever or chills. No seizures. Objective Vitals Vital Signs Date Time Temp Pulse Resp B/P Pulse Ox O2 Delivery O2 Flow Rate FiO2 12/16/16 06:00 89 12/16/16 04:00 98.4 88 18 106/61 96 12/16/16 04:00 88 12/16/16 02:00 85 12/16/16 00:00 90 12/16/16 00:00 98.6 90 17 100/63 94 12/15/16 22:00 84 12/15/16 20:00 98.8 87 16 127/72 97 12/15/16 20:00 87 I/O 12/15/16 12/15/16 12/15/16 12/16/16 12/16/16 12/16/16 07:00 15:00 23:00 07:00 15:00 23:00 Intake Total 761 ml 115 ml 869 ml Output Total 350 ml 1000 ml 450 ml Balance 411 ml -885 ml 419 ml Intake IV Total 761 ml 115 ml 869 ml Output Urine Total 350 ml 1000 ml 450 ml # Bowel Movements 0 0 0 Result Diagram: 12/16/1640912/16/16409 Objective Remarks GENERAL: Well-developed well-nourished. In no acute distress. Confused. SKIN: Warm and dry. No lesions noted. HEENT: Normocephalic. Pupils equal and round. Mucous membranes pink and moist. CARDIOVASCULAR: Regular rate and rhythm. No murmur appreciated. RESPIRATORY: No accessory muscle use. Clear to auscultation. Breath sounds equal bilaterally. GASTROINTESTINAL: Abdomen soft, non-tender, nondistended. Bowel sounds x4. MUSCULOSKELETAL: No obvious deformities. No clubbing or cyanosis. No edema. NEUROLOGICAL: Somnolent. Withdrawal to painful stimuli. Intermittently lucid. Intermittently agitated. Moves upper and lower extremities spontaneously. Normal speech. Following some commands. A/P Assessment and Plan 56-year-old male with a past medical history of TBI, seizure disorder, HTN, depression, GERD admitted for altered mental status Acute encephalopathy: Suspect secondary to Dilantin toxicity. WBC 11.8, reactive? Afebrile and no signs of acute infection on chest x-ray or UA. Neuro checks. Check EEG pending. Consult neurology, seen by Dr Cruz appreciate recommendations. Plan for MRI brain. PT/ST consulted. ST recommends soft diet. Supratherapeutic Dilantin level: Recent admission for subtherapeutic level. At previous admission he received IV Celebrex 1, and otherwise Dilantin level was controlled on oral Dilantin. Currently Dilantin level is 64.2 on admission. Hold Dilantin and follow-up levels. Trending down. History of seizure disorder: As above. Continue home Topamax. Seizure precautions. History of hypertension: BP is soft. Hold home amlodipine for now. Hypomagnesemia: Acute on chronic. Magnesium 1.4. Given IV magnesium in the ED. Resume home oral magnesium. Other chronic medical conditions include depression/GERD: Stable at this time and will continue home medications as indicated. DVT prophylaxis: SCDs Discussed with the patient, ICU nurse Discharge Planning DC pending improvement and clearance form consultants. Philly Harrington MD Dec 16, 2016 14:02
[2016-12-17] VITALS (12 sets, daily range): BP systolic 131–158; BP diastolic 75–95; PULSE 71–103; RESP 18–20; TEMP 97.9–98.3; O2SAT 98–100
[2016-12-17] MEDS: CHLORHEXIDINE GLUCONATE 2 % 1 PACK (2 CLOTHS)(taper/protocol) TOP SCH (04:00)
[2016-12-17] MEDS: SODIUM CHLOR 0.9% 1000 ML INJ 1,000 ML IV SCH ×2 (06:00→16:00)
--- NOTE | 2016-12-17 08:00 | HHI.PR ---
Subjective Remarks sr Objective Vital Signs Date Time Temp Pulse Resp B/P Pulse Ox O2 Delivery O2 Flow Rate FiO2 12/17/16 06:00 72 12/17/16 04:00 97.9 80 20 157/84 100 12/17/16 04:00 80 12/17/16 02:00 71 12/17/16 00:00 89 12/17/16 00:00 97.9 89 20 131/95 98 12/16/16 22:47 96 21 12/16/16 22:00 82 12/16/16 20:00 94 12/16/16 20:00 98.6 94 20 150/89 97 12/16/16 16:00 97.9 97 20 120/85 96 12/16/16 12:00 97.8 12/16/16 08:00 98.0 I/O 12/16/16 12/16/16 12/16/16 12/17/16 12/17/16 12/17/16 07:00 15:00 23:00 07:00 15:00 23:00 Intake Total 869 ml 1430 ml 704 ml Output Total 450 ml 1050 ml 1100 ml 650 ml Balance 419 ml -1050 ml 330 ml 54 ml Intake Oral 60 ml IV Total 869 ml 1370 ml 704 ml Output Urine Total 450 ml 1050 ml 1100 ml 650 ml # Bowel Movements 0 0 0 Result Diagram: 12/16/1640912/16/16409 Objective Remarks dil pend moving well awakens and follows commands hosptial yr not month Assessment and Plan Assessment and Plan dil toxic slowly lower pend today check mrineg eyes better slowly improve oDejan Fowler MD Dec 17, 2016 08:00
[2016-12-17 08:31] LABS: BASOPHIL # 0.2 TH/MM3 (0-0.2); BASOPHIL % 2.5 % (0.0-2.0); EOSINOPHIL # 1.7 TH/MM3 (0-0.4); EOSINOPHIL % 20.4 % (0.0-4.0); HEMATOCRIT 39.9 % (39.0-51.0); HEMO FLAGS DIFF FINAL; LYMPH % 18.5 % (9.0-44.0); LYMPHOCYTE # 1.6 TH/MM3 (1.0-4.8); MEAN CELL VOLUME 97.8 FL (80.0-100.0); MEAN CORPUSCULAR HEMOGLOBIN 34.3 PG (27.0-34.0); MEAN CORPUSCULAR HGB CONC 35.1 % (32.0-36.0); NEUT % 46.6 % (16.0-70.0); PLATELET COUNT 398 TH/MM3 (150-450); RED BLOOD COUNT 4.08 MIL/MM3 (4.50-5.90); RED CELL DISTRIBUTION WIDTH 13.3 % (11.6-17.2); WHITE BLOOD COUNT 8.5 TH/MM3 (4.0-11.0)
[2016-12-17] MEDS: TOPIRAMATE 100 MG TAB PO SCH (09:00)
[2016-12-17] MEDS: PANTOPRAZOLE SOD 20 MG DELAYED RELEASE TAB PO SCH (09:00)
[2016-12-17] MEDS: FLUoxetine HCL 20 MG CAP PO SCH (09:00)
[2016-12-17] MEDS: MAGNESIUM OXIDE 400 MG TAB PO SCH (09:00)
[2016-12-17] MEDS: SODIUM CHLORIDE 0.9% FLUSH 5 ML FLUSH FLUSH SCH (09:00)
[2016-12-17 09:11] LABS: BICARBONATE 25.7 MEQ/L (21.0-32.0); MAGNESIUM 1.5 MG/DL (1.5-2.5); POTASSIUM 3.3 MEQ/L (3.5-5.1)
[2016-12-17] MEDS: LORazepam 2 MG/ML VIAL IV PUSH PRN (09:30)
--- NOTE | 2016-12-17 10:02 | HHI.PR ---
Subjective Remarks in no acute distress. d/w the RN and reportedly anxious and agitated at times despite getting Ativan. noted that was on four-point restraints. Objective Vitals Vital Signs Date Time Temp Pulse Resp B/P Pulse Ox O2 Delivery O2 Flow Rate FiO2 12/17/16 08:00 77 12/17/16 06:00 72 12/17/16 04:00 97.9 80 20 157/84 100 12/17/16 04:00 80 12/17/16 02:00 71 12/17/16 00:00 89 12/17/16 00:00 97.9 89 20 131/95 98 12/16/16 22:47 96 21 12/16/16 22:00 82 12/16/16 20:00 94 12/16/16 20:00 98.6 94 20 150/89 97 12/16/16 16:00 97.9 97 20 120/85 96 12/16/16 12:00 97.8 I/O 12/16/16 12/16/16 12/16/16 12/17/16 12/17/16 12/17/16 07:00 15:00 23:00 07:00 15:00 23:00 Intake Total 869 ml 1430 ml 704 ml Output Total 450 ml 1050 ml 1100 ml 650 ml Balance 419 ml -1050 ml 330 ml 54 ml Intake Oral 60 ml IV Total 869 ml 1370 ml 704 ml Output Urine Total 450 ml 1050 ml 1100 ml 650 ml # Bowel Movements 0 0 0 Result Diagram: 12/17/16 0746 12/17/16 0746 Imaging Last Impressions Brain MRI 12/15/16 0000 Signed Impressions: Service Date/Time: Thursday, December 15, 2016 09:48 - CONCLUSION: 1. 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 2. Otherwise unremarkable examination for patient' s age. No acute intracranial pathology on this limited study. Marco A Sadler MD Head CT 12/13/16 0935 Signed Impressions: Service Date/Time: Tuesday, December 13, 2016 09:42 - CONCLUSION: Negative for an acute process. Chuck Edgar MD FACR Chest X-Ray 12/13/16 0000 Signed Impressions: Service Date/Time: Tuesday, December 13, 2016 10:15 - CONCLUSION: 1. No acute cardiopulmonary process. 2. Endotracheal and nasogastric tubes have been removed. Gunner Porras MD Abdomen/Pelvis CT 12/13/16 0000 Signed Impressions: Service Date/Time: Tuesday, December 13, 2016 09:42 - CONCLUSION: Negative for an acute process. I don't see an etiology for the patient's acute abdominal pain. Minimal vascular changes are evident.. Chuck Edgar MD FACR Objective Remarks GENERAL: This is a well-nourished, well-developed patient, in no apparent distress. CARDIOVASCULAR: Regular rate and regular rhythm without murmurs, gallops, or rubs. RESPIRATORY: Clear to auscultation. Breath sounds equal bilaterally. No wheezes , rales, or rhonchi. GASTROINTESTINAL: Abdomen soft, non-tender, nondistended. Normal, active bowel sounds MUSCULOSKELETAL: Extremities without clubbing, cyanosis, or edema. NEURO: awake and alert- oriented to person and partly to place Medications and IVs Current Medications Sodium Chloride (NS 1000 ml Inj) 1,000 ml @ 1,000 mls/hr Q1H ONCE IV Last administered on 12/13/16 12:07; Start 12/13/16 at 09:37; Stop 12/13/16 at 10:36 ; Status DC IV Flush (NS Flush) 2 ml UNSCH PRN IVF FLUSH AFTER USING IV ACCESS; Start 12/13 at 09:45; Stop 12/13/16 at 11:57; Status DC Lorazepam 1 mg 1 mg ONCE ONCE IV PUSH ; Start 12/13/16 at 10:00; Stop 12/13/16 at 10:00; Status DC Magnesium Sulfate/ Dextrose 100 ml @ 100 mls/hr ONCE ONCE IV ; Start 12/13/16 at 10:30; Stop 12/13/16 at 11:29; Status DC Magnesium Sulfate/ Dextrose 100 ml @ 100 mls/hr Q1H IV Last administered on 13:17; Start 12/13/16 at 12:00; Stop 12/13/16 at 13:59; Status DC Sodium Chloride (NS 1000 ml Inj) 1,000 ml @ 100 mls/hr Q10H IV Last administered on 12/16/16 20:00; Start 12/13/16 at 12:00 IV Flush (NS Flush) 2 ml UNSCH PRN FLUSH FLUSH AFTER USING IV ACCESS Last administered on 12/15/16 09:13; Start 12/13/16 at 12:00 IV Flush (NS Flush) 2 ml BID FLUSH Last administered on 12/16/16 21:11; Start 12/13/16 at 21:00 Acetaminophen (Tylenol) 650 mg Q4H PRN PO TEMP > 100.4; Start 12/13/16 at 12:00 Ondansetron HCl (Zofran Inj) 4 mg Q6H PRN IVP NAUSEA OR VOMITING Last administered on 12/13/16 20:55; Start 12/13/16 at 12:00 Prochlorperazine (Compazine Supp) 25 mg Q12H PRN MD NAUSEA OR VOMITING; Start 12/13/16 at 12:00 Bisacodyl (Dulcolax Supp) 10 mg DAILY PRN MD CONSTIPATION; Start 12/13/16 at 12 :00 Magnesium Hydroxide (Milk Of Magnesia Liq) 30 ml Q12H PRN PO CONSTIPATION; Start 12/13/16 at 12:00 Sennosides (Senokot) 17.2 mg Q12H PRN PO CONSTIPATION Last administered on 12/15 07:30; Start 12/13/16 at 12:00 Fluoxetine HCl (PROzac) 20 mg DAILY PO Last administered on 12/16/16 09:05; Start 12/14/16 at 09:00 Magnesium Oxide (Mag-Ox) 400 mg DAILY PO Last administered on 12/16/16 09:03; Start 12/14/16 at 09:00 Pantoprazole Sodium (Protonix) 20 mg DAILY PO Last administered on 12/16/16 09 :03; Start 12/14/16 at 09:00 Tizanidine HCl (Zanaflex) 4 mg DAILY PO Last administered on 12/16/16 09:03; Start 12/14/16 at 09:00 Topiramate (Topamax) 100 mg BID PO Last administered on 12/16/16 21:10; Start 12/13/16 at 21:00 Lorazepam (Ativan Inj) 1 mg Q6H PRN IV PUSH agitation/seizures Last administered on 12/16/16 21:11; Start 12/13/16 at 16:30 Miscellaneous Information Patient in critical care unit? Ass... Q361D XX Last administered on 12/13/16 20:45; Start 12/13/16 at 20:45 Chlorhexidine Gluconate (Chlorhexidine 2% Cloth) 3 pack DAILY@04 TOP Last administered on 12/17/16 04:00; Start 12/14/16 at 04:00; Stop 12/18/16 at 04:01 Chlorhexidine Gluconate 3 pack 3 pack UNSCH PRN TOP HYGIENIC CARE; Start at 20:45; Stop 12/18/16 at 20:33 Potassium Chloride 100 ml @ 50 mls/hr Q2H PRN IV For Potassium 2.8 - 3.2 mEq/L ; Start 12/14/16 at 13:00 Potassium Chloride (KCl 20 Meq Premix Inj) 100 ml @ 50 mls/hr Q2H PRN IV For Potassium 2.8 - 3.2 mEq/L; Start 12/14/16 at 13:00 Potassium Chloride 40 meq 40 meq UNSCH PRN PO/TUBE For Potassium 3.3 - 3.5 mEq/ L; Start 12/14/16 at 13:00 Potassium Chloride 100 ml @ 25 mls/hr UNSCH PRN IV For Potassium 3.3 - 3.5 mEq /L; Start 12/14/16 at 13:00 Potassium Chloride 100 ml @ 50 mls/hr Q2H PRN IV For Potassium 3.3 - 3.5 mEq/ L Last administered on 12/16/16 05:20; Start 12/14/16 at 13:00 Magnesium Sulfate/ Sodium Chloride (Magnesium Sulfate Inj/NS Inj) 100 ml @ 50 mls/hr UNSCH PRN IV For Magnesium 0.9 - 1.1 mg/dL; Start 12/14/16 at 13:00 Magnesium Oxide 800 mg 800 mg UNSCH PRN PO For Magnesium 1.2 - 1.6 mg/dL; Start 12/14/16 at 13:00 Magnesium Sulfate/ Sodium Chloride (Magnesium Sulfate Inj/NS Inj) 100 ml @ 50 mls/hr UNSCH PRN IV For Magnesium 1.2 - 1.6 mg/dL; Start 12/14/16 at 13:00 Potassium Phosphate 2000 mg 2,000 mg Q4H PRN PO For Phosphorus < 2.5 mg/dL; Start 12/14/16 at 13:00 Sodium Phosphate/ Sodium Chloride (Sodium Phosphate Inj/NS 250 ml Inj) 250 ml @ 42 mls/hr UNSCH PRN IV For Phosphorus < 2.5 mg/dL; Start 12/14/16 at 13:00 Potassium Chloride (KCl 40 Meq/30 ml Liq) 40 meq UNSCH PRN PO/TUBE SEE LABEL COMMENTS; Start 12/14/16 at 13:00 Potassium Phosphate 2000 mg 2,000 mg UNSCH PRN PO/TUBE SEE LABEL COMMENTS; Start 12/14/16 at 13:00 Potassium Phosphate/Sodium Chloride (Potassium Phosphate Inj/NS 250 ml Inj) 260 ml @ 42 mls/hr UNSCH PRN IV SEE LABEL COMMENTS; Start 12/14/16 at 13:00 Gadodiamide (Omniscan Pf Inj) 10 ml STK-MED ONCE IV Last administered on t 10:11; Start 12/15/16 at 10:11; Stop 12/15/16 at 10:12; Status DC A/P Assessment and Plan A/P Acute encephalopathy: Suspect secondary to Dilantin toxicity. Afebrile and no signs of acute infection on chest x-ray or UA. Neuro checks. dialntin level slowly improving- neurology following. restraints as needed. PT/ST consulted. ST recommends soft diet. Supratherapeutic Dilantin level: Recent admission for subtherapeutic level. At previous admission he received IV Celebrex 1, and otherwise Dilantin level was controlled on oral Dilantin. Hold Dilantin and follow-up levels. Trending down. History of seizure disorder: As above. Continue home Topamax. Seizure precautions. History of hypertension: BP is soft. Hold home amlodipine for now. Hypokalemia; replace as needed. Other chronic medical conditions include depression/GERD: Stable at this time and will continue home medications as indicated. DVT prophylaxis: Stephania Spence MD Dec 17, 2016 10:02
[2016-12-17] MEDS: HALOPERIDOL LACTATE 5 MG/ML AMP IM PRN ×2 (10:25→18:45)
[2016-12-17] MEDS ORDERED: MAGNESIUM SULFATE 1 GM PREMIX 100 ML ONE (10:30)
[2016-12-18] VITALS (12 sets, daily range): BP systolic 122–176; BP diastolic 68–86; PULSE 69–107; RESP 13–22; TEMP 97.5–98.7; O2SAT 94–99
[2016-12-18] MEDS: CHLORHEXIDINE GLUCONATE 2 % 1 PACK (2 CLOTHS)(taper/protocol) TOP SCH (04:00)
--- NOTE | 2016-12-18 07:53 | HHI.PR ---
Subjective Remarks sr Objective Vital Signs Date Time Temp Pulse Resp B/P Pulse Ox O2 Delivery O2 Flow Rate FiO2 12/18/16 06:00 86 12/18/16 04:00 79 12/18/16 04:00 98.0 69 18 122/68 94 12/18/16 02:00 89 12/18/16 00:00 98.2 81 18 142/71 99 12/18/16 00:00 81 12/17/16 22:00 103 12/17/16 20:00 98.1 97 20 137/77 100 12/17/16 20:00 97 12/17/16 18:00 74 12/17/16 16:00 98.3 84 18 158/84 100 12/17/16 16:00 88 12/17/16 14:27 77 12/17/16 12:00 98.0 80 18 153/75 100 12/17/16 12:00 76 12/17/16 10:00 82 12/17/16 08:00 98.0 85 18 157/91 100 12/17/16 08:00 77 I/O 12/17/16 12/17/16 12/17/16 12/18/16 12/18/16 12/18/16 07:00 15:00 23:00 07:00 15:00 23:00 Intake Total 704 ml 1028 ml 1108 ml 980 ml Output Total 650 ml 800 ml 1600 ml 350 ml Balance 54 ml 228 ml -492 ml 630 ml Intake Oral 450 ml 250 ml IV Total 704 ml 578 ml 858 ml 980 ml Output Urine Total 650 ml 800 ml 1600 ml 350 ml # Bowel Movements 0 1 3 1 Result Diagram: 12/17/1646 12/17/1646 Objective Remarks dil 39 moving well awakens and follows commands Assessment and Plan Assessment and Plan dil toxic slowly lower pend today check mri neg eyes better slowly improve oob ambulate more ok to tele bed by me a call put in to sister on how this happened Dejan Cruz MD Dec 18, 2016 07:53
[2016-12-18] MEDS: PANTOPRAZOLE SOD 20 MG DELAYED RELEASE TAB PO SCH (08:49)
[2016-12-18] MEDS: FLUoxetine HCL 20 MG CAP PO SCH (08:49)
[2016-12-18] MEDS: MAGNESIUM OXIDE 400 MG TAB PO SCH (08:49)
[2016-12-18] MEDS: LORazepam 2 MG/ML VIAL IV PUSH PRN ×2 (08:50→19:45)
[2016-12-18] MEDS: SODIUM CHLORIDE 0.9% FLUSH 5 ML FLUSH FLUSH PRN (08:51)
[2016-12-18] MEDS: SODIUM CHLORIDE 0.9% FLUSH 5 ML FLUSH FLUSH SCH ×2 (09:00→19:45)
[2016-12-18] MEDS: TOPIRAMATE 100 MG TAB PO SCH ×2 (09:02→19:45)
--- NOTE | 2016-12-18 09:47 | HHI.PR ---
Subjective Remarks f/u; dilantin toxicity in no acute distress. d/w the RN; agitated at times. otherwise no other acute issues over night. Objective Vitals Vital Signs Date Time Temp Pulse Resp B/P Pulse Ox O2 Delivery O2 Flow Rate FiO2 12/18/16 06:00 86 12/18/16 04:00 79 12/18/16 04:00 98.0 69 18 122/68 94 12/18/16 02:00 89 12/18/16 00:00 98.2 81 18 142/71 99 12/18/16 00:00 81 12/17/16 22:00 103 12/17/16 20:00 98.1 97 20 137/77 100 12/17/16 20:00 97 12/17/16 18:00 74 12/17/16 16:00 98.3 84 18 158/84 100 12/17/16 16:00 88 12/17/16 14:27 77 12/17/16 12:00 98.0 80 18 153/75 100 12/17/16 12:00 76 12/17/16 10:00 82 I/O 12/17/16 12/17/16 12/17/16 12/18/16 12/18/16 12/18/16 07:00 15:00 23:00 07:00 15:00 23:00 Intake Total 704 ml 1028 ml 1108 ml 980 ml Output Total 650 ml 800 ml 1600 ml 350 ml Balance 54 ml 228 ml -492 ml 630 ml Intake Oral 450 ml 250 ml IV Total 704 ml 578 ml 858 ml 980 ml Output Urine Total 650 ml 800 ml 1600 ml 350 ml # Bowel Movements 0 1 3 1 Result Diagram: 12/17/16 0746 12/17/16 0746 Imaging Last Impressions Brain MRI 12/15/16 0000 Signed Impressions: Service Date/Time: Thursday, December 15, 2016 09:48 - CONCLUSION: 1. 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 2. Otherwise unremarkable examination for patient' s age. No acute intracranial pathology on this limited study. Marco A Sadler MD Head CT 12/13/16 0935 Signed Impressions: Service Date/Time: Tuesday, December 13, 2016 09:42 - CONCLUSION: Negative for an acute process. Chuck Edgar MD FACR Chest X-Ray 12/13/16 0000 Signed Impressions: Service Date/Time: Tuesday, December 13, 2016 10:15 - CONCLUSION: 1. No acute cardiopulmonary process. 2. Endotracheal and nasogastric tubes have been removed. Gunner Porras MD Abdomen/Pelvis CT 12/13/16 0000 Signed Impressions: Service Date/Time: Tuesday, December 13, 2016 09:42 - CONCLUSION: Negative for an acute process. I don't see an etiology for the patient's acute abdominal pain. Minimal vascular changes are evident.. Chuck Edgar MD FACR Objective Remarks GENERAL: This is a well-nourished, well-developed patient, in no apparent distress. CARDIOVASCULAR: Regular rate and regular rhythm without murmurs, gallops, or rubs. RESPIRATORY: Clear to auscultation. Breath sounds equal bilaterally. No wheezes , rales, or rhonchi. GASTROINTESTINAL: Abdomen soft, non-tender, nondistended. Normal, active bowel sounds MUSCULOSKELETAL: Extremities without clubbing, cyanosis, or edema. NEURO: awake and alert- oriented to person and partly to place Medications and IVs Current Medications Sodium Chloride (NS 1000 ml Inj) 1,000 ml @ 1,000 mls/hr Q1H ONCE IV Last administered on 12/13/16 12:07; Start 12/13/16 at 09:37; Stop 12/13/16 at 10:36 ; Status DC IV Flush (NS Flush) 2 ml UNSCH PRN IVF FLUSH AFTER USING IV ACCESS; Start 12/13 at 09:45; Stop 12/13/16 at 11:57; Status DC Lorazepam 1 mg 1 mg ONCE ONCE IV PUSH ; Start 12/13/16 at 10:00; Stop 12/13/16 at 10:00; Status DC Magnesium Sulfate/ Dextrose 100 ml @ 100 mls/hr ONCE ONCE IV ; Start 12/13/16 at 10:30; Stop 12/13/16 at 11:29; Status DC Magnesium Sulfate/ Dextrose 100 ml @ 100 mls/hr Q1H IV Last administered on 13:17; Start 12/13/16 at 12:00; Stop 12/13/16 at 13:59; Status DC Sodium Chloride (NS 1000 ml Inj) 1,000 ml @ 100 mls/hr Q10H IV Last administered on 12/17/16 16:00; Start 12/13/16 at 12:00 IV Flush (NS Flush) 2 ml UNSCH PRN FLUSH FLUSH AFTER USING IV ACCESS Last administered on 12/18/16 08:51; Start 12/13/16 at 12:00 IV Flush (NS Flush) 2 ml BID FLUSH Last administered on 12/18/16 09:00; Start 12/13/16 at 21:00 Acetaminophen (Tylenol) 650 mg Q4H PRN PO TEMP > 100.4; Start 12/13/16 at 12:00 Ondansetron HCl (Zofran Inj) 4 mg Q6H PRN IVP NAUSEA OR VOMITING Last administered on 12/13/16 20:55; Start 12/13/16 at 12:00 Prochlorperazine (Compazine Supp) 25 mg Q12H PRN [place] NAUSEA OR VOMITING; Start 12/13/16 at 12:00 Bisacodyl (Dulcolax Supp) 10 mg DAILY PRN [place] CONSTIPATION; Start 12/13/16 at 12 :00 Magnesium Hydroxide (Milk Of Magnesia Liq) 30 ml Q12H PRN PO CONSTIPATION; Start 12/13/16 at 12:00 Sennosides (Senokot) 17.2 mg Q12H PRN PO CONSTIPATION Last administered on 12/15 07:30; Start 12/13/16 at 12:00 Fluoxetine HCl (PROzac) 20 mg DAILY PO Last administered on 12/18/16 08:49; Start 12/14/16 at 09:00 Magnesium Oxide (Mag-Ox) 400 mg DAILY PO Last administered on 12/18/16 08:49; Start 12/14/16 at 09:00 Pantoprazole Sodium (Protonix) 20 mg DAILY PO Last administered on 12/18/16 08 :49; Start 12/14/16 at 09:00 Tizanidine HCl (Zanaflex) 4 mg DAILY PO Last administered on 12/18/16 09:03; Start 12/14/16 at 09:00 Topiramate (Topamax) 100 mg BID PO Last administered on 12/18/16 09:02; Start 12/13/16 at 21:00 Lorazepam (Ativan Inj) 1 mg Q6H PRN IV PUSH agitation/seizures Last administered on 12/18/16 08:50; Start 12/13/16 at 16:30 Miscellaneous Information Patient in critical care unit? Ass... Q361D XX Last administered on 12/13/16 20:45; Start 12/13/16 at 20:45 Chlorhexidine Gluconate (Chlorhexidine 2% Cloth) 3 pack DAILY@04 TOP Last administered on 12/18/16 04:00; Start 12/14/16 at 04:00; Stop 12/18/16 at 04:01 ; Status DC Chlorhexidine Gluconate 3 pack 3 pack UNSCH PRN TOP HYGIENIC CARE; Start at 20:45; Stop 12/18/16 at 20:33 Potassium Chloride 100 ml @ 50 mls/hr Q2H PRN IV For Potassium 2.8 - 3.2 mEq/L ; Start 12/14/16 at 13:00 Potassium Chloride (KCl 20 Meq Premix Inj) 100 ml @ 50 mls/hr Q2H PRN IV For Potassium 2.8 - 3.2 mEq/L; Start 12/14/16 at 13:00 Potassium Chloride 40 meq 40 meq UNSCH PRN PO/TUBE For Potassium 3.3 - 3.5 mEq/ L Last administered on 12/17/16 10:11; Start 12/14/16 at 13:00 Potassium Chloride 100 ml @ 25 mls/hr UNSCH PRN IV For Potassium 3.3 - 3.5 mEq /L; Start 12/14/16 at 13:00 Potassium Chloride 100 ml @ 50 mls/hr Q2H PRN IV For Potassium 3.3 - 3.5 mEq/ L Last administered on 12/16/16 05:20; Start 12/14/16 at 13:00 Magnesium Sulfate/ Sodium Chloride (Magnesium Sulfate Inj/NS Inj) 100 ml @ 50 mls/hr UNSCH PRN IV For Magnesium 0.9 - 1.1 mg/dL; Start 12/14/16 at 13:00 Magnesium Oxide 800 mg 800 mg UNSCH PRN PO For Magnesium 1.2 - 1.6 mg/dL; Start 12/14/16 at 13:00 Magnesium Sulfate/ Sodium Chloride (Magnesium Sulfate Inj/NS Inj) 100 ml @ 50 mls/hr UNSCH PRN IV For Magnesium 1.2 - 1.6 mg/dL; Start 12/14/16 at 13:00 Potassium Phosphate 2000 mg 2,000 mg Q4H PRN PO For Phosphorus < 2.5 mg/dL; Start 12/14/16 at 13:00 Sodium Phosphate/ Sodium Chloride (Sodium Phosphate Inj/NS 250 ml Inj) 250 ml @ 42 mls/hr UNSCH PRN IV For Phosphorus < 2.5 mg/dL; Start 12/14/16 at 13:00 Potassium Chloride (KCl 40 Meq/30 ml Liq) 40 meq UNSCH PRN PO/TUBE SEE LABEL COMMENTS; Start 12/14/16 at 13:00 Potassium Phosphate 2000 mg 2,000 mg UNSCH PRN PO/TUBE SEE LABEL COMMENTS; Start 12/14/16 at 13:00 Potassium Phosphate/Sodium Chloride (Potassium Phosphate Inj/NS 250 ml Inj) 260 ml @ 42 mls/hr UNSCH PRN IV SEE LABEL COMMENTS; Start 12/14/16 at 13:00 Gadodiamide (Omniscan Pf Inj) 10 ml STK-MED ONCE IV Last administered on 10:11; Start 12/15/16 at 10:11; Stop 12/15/16 at 10:12; Status DC Haloperidol Lactate 2 mg 2 mg Q6H PRN IM AGITATION AND/OR HALLUCINATION Last administered on 12/17/16 18:45; Start 12/17/16 at 10:15 Magnesium Sulfate/ Dextrose (Magnesium Sulfate 1 Gm Premix) 100 ml @ As Directed STK-MED ONCE .ROUTE Last administered on 12/17/16 10:30; Start at 10:30; Stop 12/17/16 at 10:31; Status DC A/P Assessment and Plan A/P Acute encephalopathy: Suspect secondary to Dilantin toxicity. Afebrile and no signs of acute infection on chest x-ray or UA. Neuro checks. dialntin level slowly improving- neurology following. restraints as needed. PT/ST consulted. ST recommends soft diet. History of seizure disorder: As above. Continue home Topamax. Seizure precautions. History of hypertension: BP is soft. Hold home amlodipine for now. Hypokalemia; replace as needed. Other chronic medical conditions include depression/GERD: Stable at this time and will continue home medications as indicated. DVT prophylaxis: SCDs transfer to telemetry. d/w the RN. Stephania Metz MD Dec 18, 2016 09:47
[2016-12-18] MEDS: SODIUM CHLOR 0.9% 1000 ML INJ 1,000 ML IV SCH ×3 (12:00→22:00)
[2016-12-18] MEDS: HALOPERIDOL LACTATE 5 MG/ML AMP IM PRN (14:13)
[2016-12-19] VITALS (10 sets, daily range): BP systolic 151–189; BP diastolic 78–99; PULSE 80–97; RESP 20–26; TEMP 98.2–98.7; O2SAT 96–99
[2016-12-19] MEDS: LORazepam 2 MG/ML VIAL IV PUSH PRN ×2 (05:10→20:11)
[2016-12-19] MEDS: SODIUM CHLORIDE 0.9% FLUSH 5 ML FLUSH FLUSH SCH ×2 (09:00→20:11)
[2016-12-19] MEDS: FLUoxetine HCL 20 MG CAP PO SCH (10:02)
[2016-12-19] MEDS: TOPIRAMATE 100 MG TAB PO SCH ×2 (10:02→20:11)
[2016-12-19] MEDS: MAGNESIUM OXIDE 400 MG TAB PO SCH (10:02)
[2016-12-19] MEDS: PANTOPRAZOLE SOD 20 MG DELAYED RELEASE TAB PO SCH (10:02)
--- NOTE | 2016-12-19 10:42 | HHI.PR ---
Subjective Remarks in no acute distress. denies pain. still on restraints. Objective Vitals Vital Signs Date Time Temp Pulse Resp B/P Pulse Ox O2 Delivery O2 Flow Rate FiO2 12/19/16 08:25 98.5 92 26 189/78 98 12/19/16 08:23 93 12/19/16 06:00 90 12/19/16 04:00 98.4 95 26 177/99 98 12/19/16 04:00 95 12/19/16 02:00 80 12/19/16 00:00 83 12/19/16 00:00 98.2 83 20 151/90 98 12/18/16 22:00 78 12/18/16 20:00 80 12/18/16 20:00 97.5 99 22 173/86 98 12/18/16 18:00 92 12/18/16 16:00 98.7 86 18 169/80 99 12/18/16 16:00 86 12/18/16 14:00 107 12/18/16 12:00 98.2 90 17 176/86 98 12/18/16 12:00 90 I/O 12/18/16 12/18/16 12/18/16 12/19/16 12/19/16 12/19/16 07:00 15:00 23:00 07:00 15:00 23:00 Intake Total 980 ml 980 ml 1799 ml 638 ml Output Total 350 ml 450 ml 325 ml 250 ml Balance 630 ml 530 ml 1474 ml 388 ml Intake Oral 120 ml 400 ml 200 ml IV Total 980 ml 860 ml 1399 ml 438 ml Output Urine Total 350 ml 450 ml 325 ml 250 ml # Bowel Movements 1 1 0 Result Diagram: 12/17/16 0746 12/17/16 0746 Imaging Last Impressions Brain MRI 12/15/16 0000 Signed Impressions: Service Date/Time: Thursday, December 15, 2016 09:48 - CONCLUSION: 1. 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 2. Otherwise unremarkable examination for patient' s age. No acute intracranial pathology on this limited study. Marco A Sadler MD Head CT 12/13/16 0935 Signed Impressions: Service Date/Time: Tuesday, December 13, 2016 09:42 - CONCLUSION: Negative for an acute process. Chuck Edgar MD FACR Chest X-Ray 12/13/16 0000 Signed Impressions: Service Date/Time: Tuesday, December 13, 2016 10:15 - CONCLUSION: 1. No acute cardiopulmonary process. 2. Endotracheal and nasogastric tubes have been removed. Gunner Porras MD Abdomen/Pelvis CT 12/13/16 0000 Signed Impressions: Service Date/Time: Tuesday, December 13, 2016 09:42 - CONCLUSION: Negative for an acute process. I don't see an etiology for the patient's acute abdominal pain. Minimal vascular changes are evident.. Chuck Edgar MD FACR Objective Remarks GENERAL: in no apparent distress. CARDIOVASCULAR: Regular rate and regular rhythm without murmurs, gallops, or rubs. RESPIRATORY: Clear to auscultation. Breath sounds equal bilaterally. No wheezes , rales, or rhonchi. GASTROINTESTINAL: Abdomen soft, non-tender, nondistended. Normal, active bowel sounds MUSCULOSKELETAL: Extremities without clubbing, cyanosis, or edema. NEURO: awake and alert- oriented to person and partly to place Medications and IVs Current Medications Sodium Chloride (NS 1000 ml Inj) 1,000 ml @ 1,000 mls/hr Q1H ONCE IV Last administered on 12/13/16 12:07; Start 12/13/16 at 09:37; Stop 12/13/16 at 10:36 ; Status DC IV Flush (NS Flush) 2 ml UNSCH PRN IVF FLUSH AFTER USING IV ACCESS; Start 12/13 at 09:45; Stop 12/13/16 at 11:57; Status DC Lorazepam 1 mg 1 mg ONCE ONCE IV PUSH ; Start 12/13/16 at 10:00; Stop 12/13/16 at 10:00; Status DC Magnesium Sulfate/ Dextrose 100 ml @ 100 mls/hr ONCE ONCE IV ; Start 12/13/16 at 10:30; Stop 12/13/16 at 11:29; Status DC Magnesium Sulfate/ Dextrose 100 ml @ 100 mls/hr Q1H IV Last administered on 13:17; Start 12/13/16 at 12:00; Stop 12/13/16 at 13:59; Status DC Sodium Chloride (NS 1000 ml Inj) 1,000 ml @ 100 mls/hr Q10H IV Last administered on 12/18/16 22:00; Start 12/13/16 at 12:00 IV Flush (NS Flush) 2 ml UNSCH PRN FLUSH FLUSH AFTER USING IV ACCESS Last administered on 12/18/16 08:51; Start 12/13/16 at 12:00 IV Flush (NS Flush) 2 ml BID FLUSH Last administered on 12/18/16 19:45; Start 12/13/16 at 21:00 Acetaminophen (Tylenol) 650 mg Q4H PRN PO TEMP > 100.4; Start 12/13/16 at 12:00 Ondansetron HCl (Zofran Inj) 4 mg Q6H PRN IVP NAUSEA OR VOMITING Last administered on 12/13/16 20:55; Start 12/13/16 at 12:00 Prochlorperazine (Compazine Supp) 25 mg Q12H PRN [place] NAUSEA OR VOMITING; Start 12/13/16 at 12:00 Bisacodyl (Dulcolax Supp) 10 mg DAILY PRN [place] CONSTIPATION; Start 12/13/16 at 12 :00 Magnesium Hydroxide (Milk Of Magnesia Liq) 30 ml Q12H PRN PO CONSTIPATION; Start 12/13/16 at 12:00 Sennosides (Senokot) 17.2 mg Q12H PRN PO CONSTIPATION Last administered on 12/15 07:30; Start 12/13/16 at 12:00 Fluoxetine HCl (PROzac) 20 mg DAILY PO Last administered on 12/19/16 10:02; Start 12/14/16 at 09:00 Magnesium Oxide (Mag-Ox) 400 mg DAILY PO Last administered on 12/19/16 10:02; Start 12/14/16 at 09:00 Pantoprazole Sodium (Protonix) 20 mg DAILY PO Last administered on 12/19/16 10 :02; Start 12/14/16 at 09:00 Tizanidine HCl (Zanaflex) 4 mg DAILY PO Last administered on 12/19/16 10:02; Start 12/14/16 at 09:00 Topiramate (Topamax) 100 mg BID PO Last administered on 12/19/16 10:02; Start 12/13/16 at 21:00 Lorazepam (Ativan Inj) 1 mg Q6H PRN IV PUSH agitation/seizures Last administered on 12/19/16 05:10; Start 12/13/16 at 16:30 Miscellaneous Information Patient in critical care unit? Ass... Q361D XX Last administered on 12/13/16 20:45; Start 12/13/16 at 20:45 Chlorhexidine Gluconate (Chlorhexidine 2% Cloth) 3 pack DAILY@04 TOP Last administered on 12/18/16 04:00; Start 12/14/16 at 04:00; Stop 12/18/16 at 04:01 ; Status DC Chlorhexidine Gluconate 3 pack 3 pack UNSCH PRN TOP HYGIENIC CARE; Start at 20:45; Stop 12/18/16 at 20:33; Status DC Potassium Chloride 100 ml @ 50 mls/hr Q2H PRN IV For Potassium 2.8 - 3.2 mEq/L ; Start 12/14/16 at 13:00; Stop 12/18/16 at 09:53; Status DC Potassium Chloride (KCl 20 Meq Premix Inj) 100 ml @ 50 mls/hr Q2H PRN IV For Potassium 2.8 - 3.2 mEq/L; Start 12/14/16 at 13:00; Stop 12/18/16 at 09:53; Status DC Potassium Chloride 40 meq 40 meq UNSCH PRN PO/TUBE For Potassium 3.3 - 3.5 mEq/ L Last administered on 12/17/16 10:11; Start 12/14/16 at 13:00; Stop 12/18/16 at 09:50; Status DC Potassium Chloride 100 ml @ 25 mls/hr UNSCH PRN IV For Potassium 3.3 - 3.5 mEq /L; Start 12/14/16 at 13:00; Stop 12/18/16 at 09:50; Status DC Potassium Chloride 100 ml @ 50 mls/hr Q2H PRN IV For Potassium 3.3 - 3.5 mEq/ L Last administered on 12/16/16 05:20; Start 12/14/16 at 13:00; Stop 12/18/16 at 09:50; Status DC Magnesium Sulfate/ Sodium Chloride (Magnesium Sulfate Inj/NS Inj) 100 ml @ 50 mls/hr UNSCH PRN IV For Magnesium 0.9 - 1.1 mg/dL; Start 12/14/16 at 13:00; Stop 12/18/16 at 09:50; Status DC Magnesium Oxide 800 mg 800 mg UNSCH PRN PO For Magnesium 1.2 - 1.6 mg/dL; Start 12/14/16 at 13:00; Stop 12/18/16 at 09:51; Status DC Magnesium Sulfate/ Sodium Chloride (Magnesium Sulfate Inj/NS Inj) 100 ml @ 50 mls/hr UNSCH PRN IV For Magnesium 1.2 - 1.6 mg/dL; Start 12/14/16 at 13:00; Stop 12/18/16 at 09:51; Status DC Potassium Phosphate 2000 mg 2,000 mg Q4H PRN PO For Phosphorus < 2.5 mg/dL; Start 12/14/16 at 13:00; Stop 12/18/16 at 09:51; Status DC Sodium Phosphate/ Sodium Chloride (Sodium Phosphate Inj/NS 250 ml Inj) 250 ml @ 42 mls/hr UNSCH PRN IV For Phosphorus < 2.5 mg/dL; Start 12/14/16 at 13:00 Potassium Chloride (KCl 40 Meq/30 ml Liq) 40 meq UNSCH PRN PO/TUBE SEE LABEL COMMENTS; Start 12/14/16 at 13:00; Stop 12/18/16 at 09:51; Status DC Potassium Phosphate 2000 mg 2,000 mg UNSCH PRN PO/TUBE SEE LABEL COMMENTS; Start 12/14/16 at 13:00; Stop 12/18/16 at 09:51; Status DC Potassium Phosphate/Sodium Chloride (Potassium Phosphate Inj/NS 250 ml Inj) 260 ml @ 42 mls/hr UNSCH PRN IV SEE LABEL COMMENTS; Start 12/14/16 at 13:00; Stop 12/18/16 at 09:51; Status DC Gadodiamide (Omniscan Pf Inj) 10 ml STK-MED ONCE IV Last administered on 10:11; Start 12/15/16 at 10:11; Stop 12/15/16 at 10:12; Status DC Haloperidol Lactate 2 mg 2 mg Q6H PRN IM AGITATION AND/OR HALLUCINATION Last administered on 12/18/16 14:13; Start 12/17/16 at 10:15 Magnesium Sulfate/ Dextrose (Magnesium Sulfate 1 Gm Premix) 100 ml @ As Directed STK-MED ONCE .ROUTE Last administered on 12/17/16 10:30; Start 2/14/ 17 at 10:30; Stop 12/18/16 at 09:52; Status DC A/P Assessment and Plan A/P Acute encephalopathy: Suspect secondary to Dilantin toxicity. Afebrile and no signs of acute infection on chest x-ray or UA. Neuro checks. dialntin level slowly improving- neurology following. restraints as needed. PT/ST consulted. ST recommends soft diet. History of seizure disorder: As above. Continue home Topamax. Seizure precautions. History of hypertension: resume amlodipine- will monitor and adjust the regimen as needed. Hypokalemia; replaced as needed. Other chronic medical conditions include depression/GERD: Stable at this time and will continue home medications as indicated. DVT prophylaxis: SCDs for transfer to telemetry. Stephania Metz MD Dec 19, 2016 10:42
[2016-12-19] MEDS: amLODIPine BESYLATE 5 MG TAB PO SCH (11:00)
[2016-12-19] MEDS: SODIUM CHLOR 0.9% 1000 ML INJ 1,000 ML IV SCH (20:12)
[2016-12-19] MEDS: HALOPERIDOL LACTATE 5 MG/ML AMP IM PRN (21:29)
[2016-12-20] VITALS (10 sets, daily range): BP systolic 115–159; BP diastolic 53–86; PULSE 79–111; RESP 18–24; TEMP 98.3–98.7; O2SAT 94–98
[2016-12-20] MEDS: SODIUM CHLOR 0.9% 1000 ML INJ 1,000 ML IV SCH (04:00)
[2016-12-20 07:46] LABS: BICARBONATE 26.8 MEQ/L (21.0-32.0); POTASSIUM 3.4 MEQ/L (3.5-5.1)
--- NOTE | 2016-12-20 08:33 | HHI.PR ---
Subjective Remarks sr Objective Vital Signs Date Time Temp Pulse Resp B/P Pulse Ox O2 Delivery O2 Flow Rate FiO2 12/20/16 06:00 87 12/20/16 04:00 93 12/20/16 04:00 98.3 93 19 153/84 94 12/20/16 02:00 93 12/20/16 00:00 81 12/20/16 00:00 98.5 81 18 137/86 96 12/19/16 22:00 97 12/19/16 20:00 92 12/19/16 20:00 98.2 96 20 154/92 99 12/19/16 18:00 89 12/19/16 16:00 98.7 95 24 165/96 96 12/19/16 16:00 87 I/O 12/19/16 12/19/16 12/19/16 12/20/16 12/20/16 12/20/16 07:00 15:00 23:00 07:00 15:00 23:00 Intake Total 638 ml 800 ml 300 ml 200 ml Output Total 250 ml 845 ml 825 ml 600 ml Balance 388 ml -45 ml -525 ml -400 ml Intake Oral 200 ml 800 ml 300 ml 200 ml IV Total 438 ml 0 ml Output Urine Total 250 ml 845 ml 825 ml 600 ml # Bowel Movements 0 1 0 Result Diagram: 12/17/16 0746 12/20/16 0530 Objective Remarks dil 30 moving well awakens and follows commands no change Assessment and Plan Assessment and Plan dil toxic slowly lower pend today check mri neg eyes better slowly improve oob ambulate more ok to tele bed by me a call put in to sister on how this happened no call back i will be out of town until friday he could when dil level gets to low teens go on 300 mg at noc with level to be checked next week and dc at some point when steady on feet med team should talk to sister and try and find out what happened Dejan Cruz MD Dec 20, 2016 08:33
[2016-12-20] MEDS: SODIUM CHLORIDE 0.9% FLUSH 5 ML FLUSH FLUSH SCH ×2 (09:00→20:25)
[2016-12-20] MEDS: FLUoxetine HCL 20 MG CAP PO SCH (09:00)
[2016-12-20] MEDS: amLODIPine BESYLATE 5 MG TAB PO SCH (09:00)
[2016-12-20] MEDS: TOPIRAMATE 100 MG TAB PO SCH ×2 (09:00→20:25)
[2016-12-20] MEDS: MAGNESIUM OXIDE 400 MG TAB PO SCH (09:00)
[2016-12-20] MEDS: PANTOPRAZOLE SOD 20 MG DELAYED RELEASE TAB PO SCH (09:00)
--- NOTE | 2016-12-20 10:23 | HHI.PR ---
Subjective Remarks in no acute distress. awake and alert. on restraints. d/w the RN and no acute issues over night. Objective Vitals Vital Signs Date Time Temp Pulse Resp B/P Pulse Ox O2 Delivery O2 Flow Rate FiO2 12/20/16 06:00 87 12/20/16 04:00 93 12/20/16 04:00 98.3 93 19 153/84 94 12/20/16 02:00 93 12/20/16 00:00 81 12/20/16 00:00 98.5 81 18 137/86 96 12/19/16 22:00 97 12/19/16 20:00 92 12/19/16 20:00 98.2 96 20 154/92 99 12/19/16 18:00 89 12/19/16 16:00 98.7 95 24 165/96 96 12/19/16 16:00 87 I/O 12/19/16 12/19/16 12/19/16 12/20/16 12/20/16 12/20/16 07:00 15:00 23:00 07:00 15:00 23:00 Intake Total 638 ml 800 ml 300 ml 200 ml Output Total 250 ml 845 ml 825 ml 600 ml Balance 388 ml -45 ml -525 ml -400 ml Intake Oral 200 ml 800 ml 300 ml 200 ml IV Total 438 ml 0 ml Output Urine Total 250 ml 845 ml 825 ml 600 ml # Bowel Movements 0 1 0 Result Diagram: 12/17/16 0746 12/20/16 0530 Imaging Last Impressions Brain MRI 12/15/16 0000 Signed Impressions: Service Date/Time: Thursday, December 15, 2016 09:48 - CONCLUSION: 1. 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 2. Otherwise unremarkable examination for patient' s age. No acute intracranial pathology on this limited study. Marco A Sadler MD Head CT 12/13/16 0935 Signed Impressions: Service Date/Time: Tuesday, December 13, 2016 09:42 - CONCLUSION: Negative for an acute process. Chuck Edgar MD FACR Chest X-Ray 12/13/16 0000 Signed Impressions: Service Date/Time: Tuesday, December 13, 2016 10:15 - CONCLUSION: 1. No acute cardiopulmonary process. 2. Endotracheal and nasogastric tubes have been removed. Gunner Porras MD Abdomen/Pelvis CT 12/13/16 0000 Signed Impressions: Service Date/Time: Tuesday, December 13, 2016 09:42 - CONCLUSION: Negative for an acute process. I don't see an etiology for the patient's acute abdominal pain. Minimal vascular changes are evident.. Chuck Edgar MD FACR Objective Remarks GENERAL: in no apparent distress. CARDIOVASCULAR: Regular rate and regular rhythm without murmurs, gallops, or rubs. RESPIRATORY: Clear to auscultation. Breath sounds equal bilaterally. No wheezes , rales, or rhonchi. GASTROINTESTINAL: Abdomen soft, non-tender, nondistended. Normal, active bowel sounds MUSCULOSKELETAL: Extremities without clubbing, cyanosis, or edema. NEURO: awake and alert- oriented to person and partly to place Medications and IVs Current Medications Sodium Chloride (NS 1000 ml Inj) 1,000 ml @ 1,000 mls/hr Q1H ONCE IV Last administered on 12/13/16 12:07; Start 12/13/16 at 09:37; Stop 12/13/16 at 10:36 ; Status DC IV Flush (NS Flush) 2 ml UNSCH PRN IVF FLUSH AFTER USING IV ACCESS; Start 12/13 at 09:45; Stop 12/13/16 at 11:57; Status DC Lorazepam 1 mg 1 mg ONCE ONCE IV PUSH ; Start 12/13/16 at 10:00; Stop 12/13/16 at 10:00; Status DC Magnesium Sulfate/ Dextrose 100 ml @ 100 mls/hr ONCE ONCE IV ; Start 12/13/16 at 10:30; Stop 12/13/16 at 11:29; Status DC Magnesium Sulfate/ Dextrose 100 ml @ 100 mls/hr Q1H IV Last administered on 13:17; Start 12/13/16 at 12:00; Stop 12/13/16 at 13:59; Status DC Sodium Chloride (NS 1000 ml Inj) 1,000 ml @ 100 mls/hr Q10H IV Last administered on 12/19/16 20:12; Start 12/13/16 at 12:00 IV Flush (NS Flush) 2 ml UNSCH PRN FLUSH FLUSH AFTER USING IV ACCESS Last administered on 12/18/16 08:51; Start 12/13/16 at 12:00 IV Flush (NS Flush) 2 ml BID FLUSH Last administered on 12/19/16 20:11; Start 12/13/16 at 21:00 Acetaminophen (Tylenol) 650 mg Q4H PRN PO TEMP > 100.4; Start 12/13/16 at 12:00 Ondansetron HCl (Zofran Inj) 4 mg Q6H PRN IVP NAUSEA OR VOMITING Last administered on 12/13/16 20:55; Start 12/13/16 at 12:00 Prochlorperazine (Compazine Supp) 25 mg Q12H PRN [place] NAUSEA OR VOMITING; Start 12/13/16 at 12:00 Bisacodyl (Dulcolax Supp) 10 mg DAILY PRN [place] CONSTIPATION; Start 12/13/16 at 12 :00 Magnesium Hydroxide (Milk Of Magnesia Liq) 30 ml Q12H PRN PO CONSTIPATION; Start 12/13/16 at 12:00 Sennosides (Senokot) 17.2 mg Q12H PRN PO CONSTIPATION Last administered on 12/15 07:30; Start 12/13/16 at 12:00 Fluoxetine HCl (PROzac) 20 mg DAILY PO Last administered on 12/19/16 10:02; Start 12/14/16 at 09:00 Magnesium Oxide (Mag-Ox) 400 mg DAILY PO Last administered on 12/19/16 10:02; Start 12/14/16 at 09:00 Pantoprazole Sodium (Protonix) 20 mg DAILY PO Last administered on 12/19/16 10 :02; Start 12/14/16 at 09:00 Tizanidine HCl (Zanaflex) 4 mg DAILY PO Last administered on 12/19/16 10:02; Start 12/14/16 at 09:00 Topiramate (Topamax) 100 mg BID PO Last administered on 12/19/16 20:11; Start 12/13/16 at 21:00 Lorazepam (Ativan Inj) 1 mg Q6H PRN IV PUSH agitation/seizures Last administered on 12/19/16 20:11; Start 12/13/16 at 16:30 Miscellaneous Information Patient in critical care unit? Ass... Q361D XX Last administered on 12/13/16 20:45; Start 12/13/16 at 20:45 Chlorhexidine Gluconate (Chlorhexidine 2% Cloth) 3 pack DAILY@04 TOP Last administered on 12/18/16 04:00; Start 12/14/16 at 04:00; Stop 12/18/16 at 04:01 ; Status DC Chlorhexidine Gluconate 3 pack 3 pack UNSCH PRN [place] HYGIENIC CARE; Start at 20:45; Stop 12/18/16 at 20:33; Status DC Potassium Chloride 100 ml @ 50 mls/hr Q2H PRN IV For Potassium 2.8 - 3.2 mEq/L ; Start 12/14/16 at 13:00; Stop 12/18/16 at 09:53; Status DC Potassium Chloride (KCl 20 Meq Premix Inj) 100 ml @ 50 mls/hr Q2H PRN IV For Potassium 2.8 - 3.2 mEq/L; Start 12/14/16 at 13:00; Stop 12/18/16 at 09:53; Status DC Potassium Chloride 40 meq 40 meq UNSCH PRN PO/TUBE For Potassium 3.3 - 3.5 mEq/ L Last administered on 12/17/16 10:11; Start 12/14/16 at 13:00; Stop 12/18/16 at 09:50; Status DC Potassium Chloride 100 ml @ 25 mls/hr UNSCH PRN IV For Potassium 3.3 - 3.5 mEq /L; Start 12/14/16 at 13:00; Stop 12/18/16 at 09:50; Status DC Potassium Chloride 100 ml @ 50 mls/hr Q2H PRN IV For Potassium 3.3 - 3.5 mEq/ L Last administered on 12/16/16 05:20; Start 12/14/16 at 13:00; Stop 12/18/16 at 09:50; Status DC Magnesium Sulfate/ Sodium Chloride (Magnesium Sulfate Inj/NS Inj) 100 ml @ 50 mls/hr UNSCH PRN IV For Magnesium 0.9 - 1.1 mg/dL; Start 12/14/16 at 13:00; Stop 12/18/16 at 09:50; Status DC Magnesium Oxide 800 mg 800 mg UNSCH PRN PO For Magnesium 1.2 - 1.6 mg/dL; Start 12/14/16 at 13:00; Stop 12/18/16 at 09:51; Status DC Magnesium Sulfate/ Sodium Chloride (Magnesium Sulfate Inj/NS Inj) 100 ml @ 50 mls/hr UNSCH PRN IV For Magnesium 1.2 - 1.6 mg/dL; Start 12/14/16 at 13:00; Stop 12/18/16 at 09:51; Status DC Potassium Phosphate 2000 mg 2,000 mg Q4H PRN PO For Phosphorus < 2.5 mg/dL; Start 12/14/16 at 13:00; Stop 12/18/16 at 09:51; Status DC Sodium Phosphate/ Sodium Chloride (Sodium Phosphate Inj/NS 250 ml Inj) 250 ml @ 42 mls/hr UNSCH PRN IV For Phosphorus < 2.5 mg/dL; Start 12/14/16 at 13:00 Potassium Chloride (KCl 40 Meq/30 ml Liq) 40 meq UNSCH PRN PO/TUBE SEE LABEL COMMENTS; Start 12/14/16 at 13:00; Stop 12/18/16 at 09:51; Status DC Potassium Phosphate 2000 mg 2,000 mg UNSCH PRN PO/TUBE SEE LABEL COMMENTS; Start 12/14/16 at 13:00; Stop 12/18/16 at 09:51; Status DC Potassium Phosphate/Sodium Chloride (Potassium Phosphate Inj/NS 250 ml Inj) 260 ml @ 42 mls/hr UNSCH PRN IV SEE LABEL COMMENTS; Start 12/14/16 at 13:00; Stop 12/18/16 at 09:51; Status DC Gadodiamide (Omniscan Pf Inj) 10 ml STK-MED ONCE IV Last administered on 10:11; Start 12/15/16 at 10:11; Stop 12/15/16 at 10:12; Status DC Haloperidol Lactate 2 mg 2 mg Q6H PRN IM AGITATION AND/OR HALLUCINATION Last administered on 12/19/16 21:29; Start 12/17/16 at 10:15 Magnesium Sulfate/ Dextrose (Magnesium Sulfate 1 Gm Premix) 100 ml @ As Directed STK-MED ONCE .ROUTE Last administered on 12/17/16 10:30; Start at 10:30; Stop 12/18/16 at 09:52; Status DC Amlodipine Besylate (Norvasc) 5 mg DAILY PO ; Start 12/19/16 at 11:00 A/P Assessment and Plan A/P Acute encephalopathy: Suspect secondary to Dilantin toxicity. Afebrile and no signs of acute infection on chest x-ray or UA. Neuro checks. dialntin level slowly improving- neurology following. restraints as needed. PT/ST consulted. History of seizure disorder: As above. Continue home Topamax. Seizure precautions. History of hypertension: resume amlodipine- will monitor and adjust the regimen as needed. Hypokalemia; replaced as needed. Other chronic medical conditions include depression/GERD: Stable at this time and will continue home medications as indicated. DVT prophylaxis: SCDs for transfer to telemetry. Stephania Metz MD Dec 20, 2016 10:23
[2016-12-20] MEDS ORDERED: POTASSIUM CHLORIDE 20 MEQ CONTROLLED RELEASE TAB PO ONE (10:30)
[2016-12-20] MEDS: LORazepam 2 MG/ML VIAL IV PUSH PRN (20:25)
[2016-12-21] VITALS (9 sets, daily range): BP systolic 115–134; BP diastolic 71–92; PULSE 77–109; RESP 16–20; TEMP 97.2–98.7; O2SAT 93–99
[2016-12-21] MEDS: LORazepam 2 MG/ML VIAL IV PUSH PRN ×3 (04:17→21:05)
--- NOTE | 2016-12-21 08:58 | HHI.PR ---
Subjective Remarks in no acute distress. no new complaints. on restraints. Objective Vitals Vital Signs Date Time Temp Pulse Resp B/P Pulse Ox O2 Delivery O2 Flow Rate FiO2 12/21/16 08:00 81 12/21/16 08:00 97.5 80 18 115/71 95 12/21/16 06:00 89 12/21/16 04:00 99 12/21/16 04:00 98.7 99 20 115/73 94 12/21/16 02:00 92 12/21/16 00:00 81 12/21/16 00:00 98.2 77 17 124/92 93 12/20/16 22:00 79 12/20/16 20:00 109 12/20/16 20:00 98.6 99 24 152/86 98 12/20/16 18:00 98 12/20/16 16:00 90 12/20/16 16:00 98.5 111 19 115/53 95 12/20/16 14:09 91 12/20/16 12:00 98.7 93 19 159/74 95 I/O 12/20/16 12/20/16 12/20/16 12/21/16 12/21/16 12/21/16 07:00 15:00 23:00 07:00 15:00 23:00 Intake Total 200 ml 600 ml 400 ml 300 ml Output Total 600 ml 675 ml 925 ml 1000 ml Balance -400 ml -75 ml -525 ml -700 ml Intake Oral 200 ml 600 ml 400 ml 300 ml IV Total 0 ml Output Urine Total 600 ml 675 ml 925 ml 1000 ml # Bowel Movements 0 1 1 Result Diagram: 12/17/16 0746 12/20/16 0530 Imaging Last Impressions Brain MRI 12/15/16 0000 Signed Impressions: Service Date/Time: Thursday, December 15, 2016 09:48 - CONCLUSION: 1. 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 2. Otherwise unremarkable examination for patient' s age. No acute intracranial pathology on this limited study. Marco A Sadler MD Head CT 12/13/16 0935 Signed Impressions: Service Date/Time: Tuesday, December 13, 2016 09:42 - CONCLUSION: Negative for an acute process. Chuck Edgar MD FACR Chest X-Ray 12/13/16 0000 Signed Impressions: Service Date/Time: Tuesday, December 13, 2016 10:15 - CONCLUSION: 1. No acute cardiopulmonary process. 2. Endotracheal and nasogastric tubes have been removed. Gunner Porras MD Abdomen/Pelvis CT 12/13/16 0000 Signed Impressions: Service Date/Time: Tuesday, December 13, 2016 09:42 - CONCLUSION: Negative for an acute process. I don't see an etiology for the patient's acute abdominal pain. Minimal vascular changes are evident.. Chuck Edgar MD FACR Objective Remarks GENERAL: in no apparent distress. CARDIOVASCULAR: Regular rate and regular rhythm without murmurs, gallops, or rubs. RESPIRATORY: Clear to auscultation. Breath sounds equal bilaterally. No wheezes , rales, or rhonchi. GASTROINTESTINAL: Abdomen soft, non-tender, nondistended. Normal, active bowel sounds MUSCULOSKELETAL: Extremities without clubbing, cyanosis, or edema. NEURO: awake and alert- oriented to person and partly to place Medications and IVs Current Medications Sodium Chloride (NS 1000 ml Inj) 1,000 ml @ 1,000 mls/hr Q1H ONCE IV Last administered on 12/13/16 12:07; Start 12/13/16 at 09:37; Stop 12/13/16 at 10:36 ; Status DC IV Flush (NS Flush) 2 ml UNSCH PRN IVF FLUSH AFTER USING IV ACCESS; Start 12/13 at 09:45; Stop 12/13/16 at 11:57; Status DC Lorazepam 1 mg 1 mg ONCE ONCE IV PUSH ; Start 12/13/16 at 10:00; Stop 12/13/16 at 10:00; Status DC Magnesium Sulfate/ Dextrose 100 ml @ 100 mls/hr ONCE ONCE IV ; Start 12/13/16 at 10:30; Stop 12/13/16 at 11:29; Status DC Magnesium Sulfate/ Dextrose 100 ml @ 100 mls/hr Q1H IV Last administered on 13:17; Start 12/13/16 at 12:00; Stop 12/13/16 at 13:59; Status DC Sodium Chloride (NS 1000 ml Inj) 1,000 ml @ 100 mls/hr Q10H IV Last administered on 12/19/16 20:12; Start 12/13/16 at 12:00; Status Hold IV Flush (NS Flush) 2 ml UNSCH PRN FLUSH FLUSH AFTER USING IV ACCESS Last administered on 12/18/16 08:51; Start 12/13/16 at 12:00 IV Flush (NS Flush) 2 ml BID FLUSH Last administered on 12/20/16 20:25; Start 12/13/16 at 21:00 Acetaminophen (Tylenol) 650 mg Q4H PRN PO TEMP > 100.4; Start 12/13/16 at 12:00 Ondansetron HCl (Zofran Inj) 4 mg Q6H PRN IVP NAUSEA OR VOMITING Last administered on 12/13/16 20:55; Start 12/13/16 at 12:00 Prochlorperazine (Compazine Supp) 25 mg Q12H PRN GA NAUSEA OR VOMITING; Start 12/13/16 at 12:00 Bisacodyl (Dulcolax Supp) 10 mg DAILY PRN [place] CONSTIPATION; Start 12/13/16 at 12 :00 Magnesium Hydroxide (Milk Of Magnesia Liq) 30 ml Q12H PRN PO CONSTIPATION; Start 12/13/16 at 12:00 Sennosides (Senokot) 17.2 mg Q12H PRN PO CONSTIPATION Last administered on 12/15 07:30; Start 12/13/16 at 12:00 Fluoxetine HCl (PROzac) 20 mg DAILY PO Last administered on 12/20/16 09:00; Start 12/14/16 at 09:00 Magnesium Oxide (Mag-Ox) 400 mg DAILY PO Last administered on 12/20/16 09:00; Start 12/14/16 at 09:00 Pantoprazole Sodium (Protonix) 20 mg DAILY PO Last administered on 12/20/16 09 :00; Start 12/14/16 at 09:00 Tizanidine HCl (Zanaflex) 4 mg DAILY PO Last administered on 12/20/16 09:00; Start 12/14/16 at 09:00 Topiramate (Topamax) 100 mg BID PO Last administered on 12/20/16 20:25; Start 12/13/16 at 21:00 Lorazepam (Ativan Inj) 1 mg Q6H PRN IV PUSH agitation/seizures Last administered on 12/21/16 04:17; Start 12/13/16 at 16:30 Miscellaneous Information Patient in critical care unit? Ass... Q361D XX Last administered on 12/13/16 20:45; Start 12/13/16 at 20:45 Chlorhexidine Gluconate (Chlorhexidine 2% Cloth) 3 pack DAILY@04 TOP Last administered on 12/18/16 04:00; Start 12/14/16 at 04:00; Stop 12/18/16 at 04:01 ; Status DC Chlorhexidine Gluconate 3 pack 3 pack UNSCH PRN TOP HYGIENIC CARE; Start at 20:45; Stop 12/18/16 at 20:33; Status DC Potassium Chloride 100 ml @ 50 mls/hr Q2H PRN IV For Potassium 2.8 - 3.2 mEq/L ; Start 12/14/16 at 13:00; Stop 12/18/16 at 09:53; Status DC Potassium Chloride (KCl 20 Meq Premix Inj) 100 ml @ 50 mls/hr Q2H PRN IV For Potassium 2.8 - 3.2 mEq/L; Start 12/14/16 at 13:00; Stop 12/18/16 at 09:53; Status DC Potassium Chloride 40 meq 40 meq UNSCH PRN PO/TUBE For Potassium 3.3 - 3.5 mEq/ L Last administered on 12/17/16 10:11; Start 12/14/16 at 13:00; Stop 12/18/16 at 09:50; Status DC Potassium Chloride 100 ml @ 25 mls/hr UNSCH PRN IV For Potassium 3.3 - 3.5 mEq /L; Start 12/14/16 at 13:00; Stop 12/18/16 at 09:50; Status DC Potassium Chloride 100 ml @ 50 mls/hr Q2H PRN IV For Potassium 3.3 - 3.5 mEq/ L Last administered on 12/16/16 05:20; Start 12/14/16 at 13:00; Stop 12/18/16 at 09:50; Status DC Magnesium Sulfate/ Sodium Chloride (Magnesium Sulfate Inj/NS Inj) 100 ml @ 50 mls/hr UNSCH PRN IV For Magnesium 0.9 - 1.1 mg/dL; Start 12/14/16 at 13:00; Stop 12/18/16 at 09:50; Status DC Magnesium Oxide 800 mg 800 mg UNSCH PRN PO For Magnesium 1.2 - 1.6 mg/dL; Start 12/14/16 at 13:00; Stop 12/18/16 at 09:51; Status DC Magnesium Sulfate/ Sodium Chloride (Magnesium Sulfate Inj/NS Inj) 100 ml @ 50 mls/hr UNSCH PRN IV For Magnesium 1.2 - 1.6 mg/dL; Start 12/14/16 at 13:00; Stop 12/18/16 at 09:51; Status DC Potassium Phosphate 2000 mg 2,000 mg Q4H PRN PO For Phosphorus < 2.5 mg/dL; Start 12/14/16 at 13:00; Stop 12/18/16 at 09:51; Status DC Sodium Phosphate/ Sodium Chloride (Sodium Phosphate Inj/NS 250 ml Inj) 250 ml @ 42 mls/hr UNSCH PRN IV For Phosphorus < 2.5 mg/dL; Start 12/14/16 at 13:00 Potassium Chloride (KCl 40 Meq/30 ml Liq) 40 meq UNSCH PRN PO/TUBE SEE LABEL COMMENTS; Start 12/14/16 at 13:00; Stop 12/18/16 at 09:51; Status DC Potassium Phosphate 2000 mg 2,000 mg UNSCH PRN PO/TUBE SEE LABEL COMMENTS; Start 12/14/16 at 13:00; Stop 12/18/16 at 09:51; Status DC Potassium Phosphate/Sodium Chloride (Potassium Phosphate Inj/NS 250 ml Inj) 260 ml @ 42 mls/hr UNSCH PRN IV SEE LABEL COMMENTS; Start 12/14/16 at 13:00; Stop 12/18/16 at 09:51; Status DC Gadodiamide (Omniscan Pf Inj) 10 ml STK-MED ONCE IV Last administered on 10:11; Start 12/15/16 at 10:11; Stop 12/15/16 at 10:12; Status DC Haloperidol Lactate 2 mg 2 mg Q6H PRN IM AGITATION AND/OR HALLUCINATION Last administered on 12/19/16 21:29; Start 12/17/16 at 10:15 Magnesium Sulfate/ Dextrose (Magnesium Sulfate 1 Gm Premix) 100 ml @ As Directed STK-MED ONCE .ROUTE Last administered on 12/17/16 10:30; Start at 10:30; Stop 12/18/16 at 09:52; Status DC Amlodipine Besylate (Norvasc) 5 mg DAILY PO Last administered on 12/20/16 09: 00; Start 12/19/16 at 11:00 Potassium Chloride (KCl) 20 meq ONCE ONCE PO Last administered on 12/20/16 10 :27; Start 12/20/16 at 10:30; Stop 12/20/16 at 10:31; Status DC A/P Assessment and Plan A/P Acute encephalopathy: Suspect secondary to Dilantin toxicity. Afebrile and no signs of acute infection on chest x-ray or UA. Neuro checks. dialntin level slowly improving- neurology following. restraints as needed. PT/ST consulted. History of seizure disorder: As above. Continue home Topamax. Seizure precautions. History of hypertension: resume amlodipine- will monitor and adjust the regimen as needed. Hypokalemia; replaced as needed. Other chronic medical conditions include depression/GERD: Stable at this time and will continue home medications as indicated. DVT prophylaxis: SCDs for transfer to telemetry. Discharge Planning dc planning to SNF. Stephania Metz MD Dec 21, 2016 08:57
[2016-12-21] MEDS: TOPIRAMATE 100 MG TAB PO SCH ×2 (09:06→19:55)
[2016-12-21] MEDS: PANTOPRAZOLE SOD 20 MG DELAYED RELEASE TAB PO SCH (09:06)
[2016-12-21] MEDS: amLODIPine BESYLATE 5 MG TAB PO SCH (09:06)
[2016-12-21] MEDS: MAGNESIUM OXIDE 400 MG TAB PO SCH (09:06)
[2016-12-21] MEDS: SODIUM CHLORIDE 0.9% FLUSH 5 ML FLUSH FLUSH SCH ×2 (09:07→20:02)
[2016-12-21] MEDS: FLUoxetine HCL 20 MG CAP PO SCH (09:07)
[2016-12-21] MEDS: HALOPERIDOL LACTATE 5 MG/ML AMP IM PRN (18:50)
[2016-12-22 03:10] VITALS: BP 111/74; PULSE 97; RESP 16; TEMP 98.6; O2SAT 98
[2016-12-22] MEDS: LORazepam 2 MG/ML VIAL IV PUSH PRN ×2 (04:59→17:30)
[2016-12-22] MEDS: PANTOPRAZOLE SOD 20 MG DELAYED RELEASE TAB PO SCH (07:53)
[2016-12-22] MEDS: FLUoxetine HCL 20 MG CAP PO SCH (07:53)
[2016-12-22] MEDS: TOPIRAMATE 100 MG TAB PO SCH ×2 (07:53→20:57)
[2016-12-22] MEDS: MAGNESIUM OXIDE 400 MG TAB PO SCH (07:53)
[2016-12-22] MEDS: SODIUM CHLORIDE 0.9% FLUSH 5 ML FLUSH FLUSH SCH ×2 (07:54→20:58)
[2016-12-22 08:00] VITALS: BP 102/72; PULSE 104; RESP 16; TEMP 96.5; O2SAT 99
[2016-12-22] MEDS: amLODIPine BESYLATE 5 MG TAB PO SCH (09:00)
--- NOTE | 2016-12-22 11:34 | HHI.PR ---
Subjective Remarks in no acute distress. has slight headache. no other complaints. Objective Vitals Vital Signs Date Time Temp Pulse Resp B/P Pulse Ox O2 Delivery O2 Flow Rate FiO2 12/22/16 08:00 96.5 104 16 102/72 99 12/22/16 03:10 98.6 97 16 111/74 98 12/21/16 21:45 97.2 86 16 131/78 99 12/21/16 20:57 16 12/21/16 20:00 95 Room Air 12/21/16 20:00 98.1 95 16 134/88 95 12/21/16 20:00 95 12/21/16 16:00 109 12/21/16 16:00 97.5 105 18 121/76 93 12/21/16 12:00 90 12/21/16 12:00 97.6 90 18 115/79 95 I/O 12/21/16 12/21/16 12/21/16 12/22/16 12/22/16 12/22/16 07:00 15:00 23:00 07:00 15:00 23:00 Intake Total 300 ml 240 ml 1320 ml 480 ml Output Total 1000 ml 550 ml 925 ml 700 ml Balance -700 ml -310 ml 395 ml -220 ml Intake Oral 300 ml 240 ml 1320 ml 480 ml IV Total 0 ml Output Urine Total 1000 ml 550 ml 925 ml 700 ml # Bowel Movements 0 Result Diagram: 12/20/16 0530 Imaging Last Impressions Brain MRI 12/15/16 0000 Signed Impressions: Service Date/Time: Thursday, December 15, 2016 09:48 - CONCLUSION: 1. 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 2. Otherwise unremarkable examination for patient' s age. No acute intracranial pathology on this limited study. Marco A Sadler MD Head CT 12/13/16 0935 Signed Impressions: Service Date/Time: Tuesday, December 13, 2016 09:42 - CONCLUSION: Negative for an acute process. Chuck Edgar MD FACR Chest X-Ray 12/13/16 0000 Signed Impressions: Service Date/Time: Tuesday, December 13, 2016 10:15 - CONCLUSION: 1. No acute cardiopulmonary process. 2. Endotracheal and nasogastric tubes have been removed. Gunner Porras MD Abdomen/Pelvis CT 12/13/16 0000 Signed Impressions: Service Date/Time: Tuesday, December 13, 2016 09:42 - CONCLUSION: Negative for an acute process. I don't see an etiology for the patient's acute abdominal pain. Minimal vascular changes are evident.. Chuck Edgar MD FACR Objective Remarks GENERAL: in no apparent distress. CARDIOVASCULAR: Regular rate and regular rhythm without murmurs, gallops, or rubs. RESPIRATORY: Clear to auscultation. Breath sounds equal bilaterally. No wheezes , rales, or rhonchi. GASTROINTESTINAL: Abdomen soft, non-tender, nondistended. Normal, active bowel sounds MUSCULOSKELETAL: Extremities without clubbing, cyanosis, or edema. NEURO: awake and alert- oriented to person and partly to place Medications and IVs Current Medications Sodium Chloride (NS 1000 ml Inj) 1,000 ml @ 1,000 mls/hr Q1H ONCE IV Last administered on 12/13/16 12:07; Start 12/13/16 at 09:37; Stop 12/13/16 at 10:36 ; Status DC IV Flush (NS Flush) 2 ml UNSCH PRN IVF FLUSH AFTER USING IV ACCESS; Start 12/13 at 09:45; Stop 12/13/16 at 11:57; Status DC Lorazepam 1 mg 1 mg ONCE ONCE IV PUSH ; Start 12/13/16 at 10:00; Stop 12/13/16 at 10:00; Status DC Magnesium Sulfate/ Dextrose 100 ml @ 100 mls/hr ONCE ONCE IV ; Start 12/13/16 at 10:30; Stop 12/13/16 at 11:29; Status DC Magnesium Sulfate/ Dextrose 100 ml @ 100 mls/hr Q1H IV Last administered on 13:17; Start 12/13/16 at 12:00; Stop 12/13/16 at 13:59; Status DC Sodium Chloride (NS 1000 ml Inj) 1,000 ml @ 100 mls/hr Q10H IV Last administered on 12/19/16 20:12; Start 12/13/16 at 12:00; Status Hold IV Flush (NS Flush) 2 ml UNSCH PRN FLUSH FLUSH AFTER USING IV ACCESS Last administered on 12/18/16 08:51; Start 12/13/16 at 12:00 IV Flush (NS Flush) 2 ml BID FLUSH Last administered on 12/22/16 07:54; Start 12/13/16 at 21:00 Acetaminophen (Tylenol) 650 mg Q4H PRN PO TEMP > 100.4 Last administered on 19:57; Start 12/13/16 at 12:00 Ondansetron HCl (Zofran Inj) 4 mg Q6H PRN IVP NAUSEA OR VOMITING Last administered on 12/13/16 20:55; Start 12/13/16 at 12:00 Prochlorperazine (Compazine Supp) 25 mg Q12H PRN [place] NAUSEA OR VOMITING; Start 12/13/16 at 12:00 Bisacodyl (Dulcolax Supp) 10 mg DAILY PRN [place] CONSTIPATION; Start 12/13/16 at 12 :00 Magnesium Hydroxide (Milk Of Magnesia Liq) 30 ml Q12H PRN PO CONSTIPATION; Start 12/13/16 at 12:00 Sennosides (Senokot) 17.2 mg Q12H PRN PO CONSTIPATION Last administered on 12/15 07:30; Start 12/13/16 at 12:00 Fluoxetine HCl (PROzac) 20 mg DAILY PO Last administered on 12/22/16 07:53; Start 12/14/16 at 09:00 Magnesium Oxide (Mag-Ox) 400 mg DAILY PO Last administered on 12/22/16 07:53; Start 12/14/16 at 09:00 Pantoprazole Sodium (Protonix) 20 mg DAILY PO Last administered on 12/22/16 07 :53; Start 12/14/16 at 09:00 Tizanidine HCl (Zanaflex) 4 mg DAILY PO Last administered on 12/22/16 07:54; Start 12/14/16 at 09:00 Topiramate (Topamax) 100 mg BID PO Last administered on 12/22/16 07:53; Start 12/13/16 at 21:00 Lorazepam (Ativan Inj) 1 mg Q6H PRN IV PUSH agitation/seizures Last administered on 12/22/16 04:59; Start 12/13/16 at 16:30 Miscellaneous Information Patient in critical care unit? Ass... Q361D XX Last administered on 12/13/16 20:45; Start 12/13/16 at 20:45 Chlorhexidine Gluconate (Chlorhexidine 2% Cloth) 3 pack DAILY@04 TOP Last administered on 12/18/16 04:00; Start 12/14/16 at 04:00; Stop 12/18/16 at 04:01 ; Status DC Chlorhexidine Gluconate 3 pack 3 pack UNSCH PRN TOP HYGIENIC CARE; Start at 20:45; Stop 12/18/16 at 20:33; Status DC Potassium Chloride 100 ml @ 50 mls/hr Q2H PRN IV For Potassium 2.8 - 3.2 mEq/L ; Start 12/14/16 at 13:00; Stop 12/18/16 at 09:53; Status DC Potassium Chloride (KCl 20 Meq Premix Inj) 100 ml @ 50 mls/hr Q2H PRN IV For Potassium 2.8 - 3.2 mEq/L; Start 12/14/16 at 13:00; Stop 12/18/16 at 09:53; Status DC Potassium Chloride 40 meq 40 meq UNSCH PRN PO/TUBE For Potassium 3.3 - 3.5 mEq/ L Last administered on 12/17/16 10:11; Start 12/14/16 at 13:00; Stop 12/18/16 at 09:50; Status DC Potassium Chloride 100 ml @ 25 mls/hr UNSCH PRN IV For Potassium 3.3 - 3.5 mEq /L; Start 12/14/16 at 13:00; Stop 12/18/16 at 09:50; Status DC Potassium Chloride 100 ml @ 50 mls/hr Q2H PRN IV For Potassium 3.3 - 3.5 mEq/ L Last administered on 12/16/16 05:20; Start 12/14/16 at 13:00; Stop 12/18/16 at 09:50; Status DC Magnesium Sulfate/ Sodium Chloride (Magnesium Sulfate Inj/NS Inj) 100 ml @ 50 mls/hr UNSCH PRN IV For Magnesium 0.9 - 1.1 mg/dL; Start 12/14/16 at 13:00; Stop 12/18/16 at 09:50; Status DC Magnesium Oxide 800 mg 800 mg UNSCH PRN PO For Magnesium 1.2 - 1.6 mg/dL; Start 12/14/16 at 13:00; Stop 12/18/16 at 09:51; Status DC Magnesium Sulfate/ Sodium Chloride (Magnesium Sulfate Inj/NS Inj) 100 ml @ 50 mls/hr UNSCH PRN IV For Magnesium 1.2 - 1.6 mg/dL; Start 12/14/16 at 13:00; Stop 12/18/16 at 09:51; Status DC Potassium Phosphate 2000 mg 2,000 mg Q4H PRN PO For Phosphorus < 2.5 mg/dL; Start 12/14/16 at 13:00; Stop 12/18/16 at 09:51; Status DC Sodium Phosphate/ Sodium Chloride (Sodium Phosphate Inj/NS 250 ml Inj) 250 ml @ 42 mls/hr UNSCH PRN IV For Phosphorus < 2.5 mg/dL; Start 12/14/16 at 13:00 Potassium Chloride (KCl 40 Meq/30 ml Liq) 40 meq UNSCH PRN PO/TUBE SEE LABEL COMMENTS; Start 12/14/16 at 13:00; Stop 12/18/16 at 09:51; Status DC Potassium Phosphate 2000 mg 2,000 mg UNSCH PRN PO/TUBE SEE LABEL COMMENTS; Start 12/14/16 at 13:00; Stop 12/18/16 at 09:51; Status DC Potassium Phosphate/Sodium Chloride (Potassium Phosphate Inj/NS 250 ml Inj) 260 ml @ 42 mls/hr UNSCH PRN IV SEE LABEL COMMENTS; Start 12/14/16 at 13:00; Stop 12/18/16 at 09:51; Status DC Gadodiamide (Omniscan Pf Inj) 10 ml STK-MED ONCE IV Last administered on 10:11; Start 12/15/16 at 10:11; Stop 12/15/16 at 10:12; Status DC Haloperidol Lactate 2 mg 2 mg Q6H PRN IM AGITATION AND/OR HALLUCINATION Last administered on 12/21/16 18:50; Start 12/17/16 at 10:15 Magnesium Sulfate/ Dextrose (Magnesium Sulfate 1 Gm Premix) 100 ml @ As Directed STK-MED ONCE .ROUTE Last administered on 12/17/16 10:30; Start at 10:30; Stop 12/18/16 at 09:52; Status DC Amlodipine Besylate (Norvasc) 5 mg DAILY PO Last administered on 12/21/16 09: 06; Start 12/19/16 at 11:00 Potassium Chloride (KCl) 20 meq ONCE ONCE PO Last administered on 12/20/16t 10 :27; Start 12/20/16 at 10:30; Stop 12/20/16 at 10:31; Status DC A/P Assessment and Plan A/P Acute encephalopathy: Suspect secondary to Dilantin toxicity. Afebrile and no signs of acute infection on chest x-ray or UA. Neuro checks. dialntin level now within therapeutic level.- neurology following. will resume dilantin likely in am. restraints as needed. PT/ST consulted. History of seizure disorder: As above. Continue home Topamax. Seizure precautions. History of hypertension: resumed amlodipine- will monitor and adjust the regimen as needed. Hypokalemia; replaced as needed. Other chronic medical conditions include depression/GERD: Stable at this time and will continue home medications as indicated. DVT prophylaxis: SCDs couldn't reach the sister. Discharge Planning dc planning to SNF. Stephania Metz MD Dec 22, 2016 11:34
[2016-12-22 12:00] VITALS: BP 115/77; PULSE 93; RESP 16; TEMP 97.9; O2SAT 95
[2016-12-22 16:00] VITALS: BP 156/96; PULSE 91; RESP 16; TEMP 97.6; O2SAT 99
[2016-12-22 20:48] VITALS: BP 139/82; PULSE 107; RESP 21; TEMP 97; O2SAT 99
[2016-12-23 00:56] VITALS: BP 105/72; PULSE 85; RESP 20; TEMP 97.3; O2SAT 96
[2016-12-23 04:58] VITALS: BP 99/66; PULSE 98; RESP 18; TEMP 96.6; O2SAT 97
[2016-12-23 08:00] VITALS: BP 138/84; PULSE 89; RESP 18; TEMP 96.4; O2SAT 99
[2016-12-23] MEDS: amLODIPine BESYLATE 5 MG TAB PO SCH (09:18)
[2016-12-23] MEDS: FLUoxetine HCL 20 MG CAP PO SCH (09:19)
[2016-12-23] MEDS: TOPIRAMATE 100 MG TAB PO SCH ×2 (09:19→20:34)
[2016-12-23] MEDS: PANTOPRAZOLE SOD 20 MG DELAYED RELEASE TAB PO SCH (09:20)
[2016-12-23] MEDS: MAGNESIUM OXIDE 400 MG TAB PO SCH (09:20)
[2016-12-23] MEDS: LORazepam 2 MG/ML VIAL IV PUSH PRN ×3 (09:21→20:34)
[2016-12-23] MEDS: SODIUM CHLORIDE 0.9% FLUSH 5 ML FLUSH FLUSH SCH ×2 (09:21→20:33)
--- NOTE | 2016-12-23 10:37 | HHI.PR ---
Subjective Remarks resting comfortably with no distress. no new complaints. Objective Vitals Vital Signs Date Time Temp Pulse Resp B/P Pulse Ox O2 Delivery O2 Flow Rate FiO2 12/23/16 08:00 96.4 89 18 138/84 99 12/23/16 04:58 96.6 98 18 99/66 97 12/23/16 00:56 97.3 85 20 105/72 96 12/22/16 20:48 97.0 107 21 139/82 99 12/22/16 16:00 97.6 91 16 156/96 99 12/22/16 12:00 97.9 93 16 115/77 95 I/O 12/22/16 12/22/16 12/22/16 12/23/16 12/23/16 12/23/16 07:00 15:00 23:00 07:00 15:00 23:00 Intake Total 480 ml 680 ml Output Total 700 ml 760 ml Balance -220 ml -80 ml Intake Oral 480 ml 680 ml Output Urine Total 700 ml 760 ml # Voids 2 2 # Bowel Movements 1 1 Result Diagram: 12/20/16 0530 Imaging Last Impressions Brain MRI 12/15/16 0000 Signed Impressions: Service Date/Time: Thursday, December 15, 2016 09:48 - CONCLUSION: 1. 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 2. Otherwise unremarkable examination for patient' s age. No acute intracranial pathology on this limited study. Marco A Sadler MD Head CT 12/13/16 0935 Signed Impressions: Service Date/Time: Tuesday, December 13, 2016 09:42 - CONCLUSION: Negative for an acute process. Chuck Edgar MD FACR Chest X-Ray 12/13/16 0000 Signed Impressions: Service Date/Time: Tuesday, December 13, 2016 10:15 - CONCLUSION: 1. No acute cardiopulmonary process. 2. Endotracheal and nasogastric tubes have been removed. Gunner Porras MD Abdomen/Pelvis CT 12/13/16 0000 Signed Impressions: Service Date/Time: Tuesday, December 13, 2016 09:42 - CONCLUSION: Negative for an acute process. I don't see an etiology for the patient's acute abdominal pain. Minimal vascular changes are evident.. Chuck Edgar MD FACR Objective Remarks GENERAL: in no apparent distress. CARDIOVASCULAR: Regular rate and regular rhythm without murmurs, gallops, or rubs. RESPIRATORY: Clear to auscultation. Breath sounds equal bilaterally. No wheezes , rales, or rhonchi. GASTROINTESTINAL: Abdomen soft, non-tender, nondistended. Normal, active bowel sounds MUSCULOSKELETAL: Extremities without clubbing, cyanosis, or edema. NEURO: awake and alert- oriented to person and partly to place Procedures none Medications and IVs Current Medications Sodium Chloride (NS 1000 ml Inj) 1,000 ml @ 1,000 mls/hr Q1H ONCE IV Last administered on 12/13/16 12:07; Start 12/13/16 at 09:37; Stop 12/13/16 at 10:36 ; Status DC IV Flush (NS Flush) 2 ml UNSCH PRN IVF FLUSH AFTER USING IV ACCESS; Start 12/13 at 09:45; Stop 12/13/16 at 11:57; Status DC Lorazepam 1 mg 1 mg ONCE ONCE IV PUSH ; Start 12/13/16 at 10:00; Stop 12/13/16 at 10:00; Status DC Magnesium Sulfate/ Dextrose 100 ml @ 100 mls/hr ONCE ONCE IV ; Start 12/13/16 at 10:30; Stop 12/13/16 at 11:29; Status DC Magnesium Sulfate/ Dextrose 100 ml @ 100 mls/hr Q1H IV Last administered on 13:17; Start 12/13/16 at 12:00; Stop 12/13/16 at 13:59; Status DC Sodium Chloride (NS 1000 ml Inj) 1,000 ml @ 100 mls/hr Q10H IV Last administered on 12/19/16 20:12; Start 12/13/16 at 12:00; Status Hold IV Flush (NS Flush) 2 ml UNSCH PRN FLUSH FLUSH AFTER USING IV ACCESS Last administered on 12/18/16 08:51; Start 12/13/16 at 12:00 IV Flush (NS Flush) 2 ml BID FLUSH Last administered on 12/23/16 09:21; Start 12/13/16 at 21:00 Acetaminophen (Tylenol) 650 mg Q4H PRN PO TEMP > 100.4 Last administered on 19:57; Start 12/13/16 at 12:00 Ondansetron HCl (Zofran Inj) 4 mg Q6H PRN IVP NAUSEA OR VOMITING Last administered on 12/13/16 20:55; Start 12/13/16 at 12:00 Prochlorperazine (Compazine Supp) 25 mg Q12H PRN [place] NAUSEA OR VOMITING; Start 12/13/16 at 12:00 Bisacodyl (Dulcolax Supp) 10 mg DAILY PRN [place] CONSTIPATION; Start 12/13/16 at 12 :00 Magnesium Hydroxide (Milk Of Magnesia Liq) 30 ml Q12H PRN PO CONSTIPATION; Start 12/13/16 at 12:00 Sennosides (Senokot) 17.2 mg Q12H PRN PO CONSTIPATION Last administered on 12/15 07:30; Start 12/13/16 at 12:00 Fluoxetine HCl (PROzac) 20 mg DAILY PO Last administered on 12/23/16 09:19; Start 12/14/16 at 09:00 Magnesium Oxide (Mag-Ox) 400 mg DAILY PO Last administered on 12/23/16 09:20; Start 12/14/16 at 09:00 Pantoprazole Sodium (Protonix) 20 mg DAILY PO Last administered on 12/23/16 09 :20; Start 12/14/16 at 09:00 Tizanidine HCl (Zanaflex) 4 mg DAILY PO Last administered on 12/23/16 09:19; Start 12/14/16 at 09:00 Topiramate (Topamax) 100 mg BID PO Last administered on 12/23/16 09:19; Start 12/13/16 at 21:00 Lorazepam (Ativan Inj) 1 mg Q6H PRN IV PUSH agitation/seizures Last administered on 12/22/16 17:30; Start 12/13/16 at 16:30 Miscellaneous Information Patient in critical care unit? Ass... Q361D [id number] Last administered on 12/13/16 20:45; Start 12/13/16 at 20:45 Chlorhexidine Gluconate (Chlorhexidine 2% Cloth) 3 pack DAILY@04 TOP Last administered on 12/18/16 04:00; Start 12/14/16 at 04:00; Stop 12/18/16 at 04:01 ; Status DC Chlorhexidine Gluconate 3 pack 3 pack UNSCH PRN TOP HYGIENIC CARE; Start at 20:45; Stop 12/18/16 at 20:33; Status DC Potassium Chloride 100 ml @ 50 mls/hr Q2H PRN IV For Potassium 2.8 - 3.2 mEq/L ; Start 12/14/16 at 13:00; Stop 12/18/16 at 09:53; Status DC Potassium Chloride (KCl 20 Meq Premix Inj) 100 ml @ 50 mls/hr Q2H PRN IV For Potassium 2.8 - 3.2 mEq/L; Start 12/14/16 at 13:00; Stop 12/18/16 at 09:53; Status DC Potassium Chloride 40 meq 40 meq UNSCH PRN PO/TUBE For Potassium 3.3 - 3.5 mEq/ L Last administered on 12/17/16 10:11; Start 12/14/16 at 13:00; Stop 12/18/16 at 09:50; Status DC Potassium Chloride 100 ml @ 25 mls/hr UNSCH PRN IV For Potassium 3.3 - 3.5 mEq /L; Start 12/14/16 at 13:00; Stop 12/18/16 at 09:50; Status DC Potassium Chloride 100 ml @ 50 mls/hr Q2H PRN IV For Potassium 3.3 - 3.5 mEq/ L Last administered on 12/16/16 05:20; Start 12/14/16 at 13:00; Stop 12/18/16 at 09:50; Status DC Magnesium Sulfate/ Sodium Chloride (Magnesium Sulfate Inj/NS Inj) 100 ml @ 50 mls/hr UNSCH PRN IV For Magnesium 0.9 - 1.1 mg/dL; Start 12/14/16 at 13:00; Stop 12/18/16 at 09:50; Status DC Magnesium Oxide 800 mg 800 mg UNSCH PRN PO For Magnesium 1.2 - 1.6 mg/dL; Start 12/14/16 at 13:00; Stop 12/18/16 at 09:51; Status DC Magnesium Sulfate/ Sodium Chloride (Magnesium Sulfate Inj/NS Inj) 100 ml @ 50 mls/hr UNSCH PRN IV For Magnesium 1.2 - 1.6 mg/dL; Start 12/14/16 at 13:00; Stop 12/18/16 at 09:51; Status DC Potassium Phosphate 2000 mg 2,000 mg Q4H PRN PO For Phosphorus < 2.5 mg/dL; Start 12/14/16 at 13:00; Stop 12/18/16 at 09:51; Status DC Sodium Phosphate/ Sodium Chloride (Sodium Phosphate Inj/NS 250 ml Inj) 250 ml @ 42 mls/hr UNSCH PRN IV For Phosphorus < 2.5 mg/dL; Start 12/14/16 at 13:00 Potassium Chloride (KCl 40 Meq/30 ml Liq) 40 meq UNSCH PRN PO/TUBE SEE LABEL COMMENTS; Start 12/14/16 at 13:00; Stop 12/18/16 at 09:51; Status DC Potassium Phosphate 2000 mg 2,000 mg UNSCH PRN PO/TUBE SEE LABEL COMMENTS; Start 12/14/16 at 13:00; Stop 12/18/16 at 09:51; Status DC Potassium Phosphate/Sodium Chloride (Potassium Phosphate Inj/NS 250 ml Inj) 260 ml @ 42 mls/hr UNSCH PRN IV SEE LABEL COMMENTS; Start 12/14/16 at 13:00; Stop 12/18/16 at 09:51; Status DC Gadodiamide (Omniscan Pf Inj) 10 ml STK-MED ONCE IV Last administered on 10:11; Start 12/15/16 at 10:11; Stop 12/15/16 at 10:12; Status DC Haloperidol Lactate 2 mg 2 mg Q6H PRN IM AGITATION AND/OR HALLUCINATION Last administered on 12/21/16 18:50; Start 12/17/16 at 10:15 Magnesium Sulfate/ Dextrose (Magnesium Sulfate 1 Gm Premix) 100 ml @ As Directed STK-MED ONCE .ROUTE Last administered on 12/17/16 10:30; Start at 10:30; Stop 12/18/16 at 09:52; Status DC Amlodipine Besylate (Norvasc) 5 mg DAILY PO Last administered on 12/23/16 09: 18; Start 12/19/16 at 11:00 Potassium Chloride (KCl) 20 meq ONCE ONCE PO Last administered on 12/20/16 10 :27; Start 12/20/16 at 10:30; Stop 12/20/16 at 10:31; Status DC A/P Assessment and Plan A/P Acute encephalopathy: Suspect secondary to Dilantin toxicity. improving. dialntin level now within therapeutic level.- will resume dilantin today. neurology following. PT/ST consulted. History of seizure disorder: As above. Continue home Topamax. Seizure precautions. History of hypertension: resumed amlodipine- will monitor and adjust the regimen as needed. Hypokalemia; replaced as needed. Other chronic medical conditions include depression/GERD: Stable at this time and will continue home medications as indicated. DVT prophylaxis: SCDs spoke with the sister; didn't know why and how his dilantin level went too high although she said that he was with her for less than a day after he was released from nursing facility. Discharge Planning dc to SNF in am if stable. d/w case management. Stephania Metz MD Dec 23, 2016 10:37
[2016-12-23] MEDS ORDERED: DILA100C PO (10:40)
[2016-12-23] MEDS ORDERED: AMLO5 PO (10:40)
[2016-12-23 12:00] VITALS: BP 131/88; PULSE 91; RESP 19; TEMP 97.2; O2SAT 100
[2016-12-23 16:00] VITALS: BP 155/96; PULSE 89; RESP 19; TEMP 96; O2SAT 100
[2016-12-23 20:00] VITALS: BP 162/97; PULSE 110; RESP 16; TEMP 96.4; O2SAT 100
[2016-12-23] MEDS ORDERED: PHENYTOIN SODIUM 100 MG CAP PO SCH (21:00)
[2016-12-24] VITALS: BP 160/92; PULSE 85; RESP 16; TEMP 96.4; O2SAT 98
[2016-12-24 04:00] VITALS: BP 152/82; PULSE 81; RESP 17; TEMP 96.4; O2SAT 100
[2016-12-24] MEDS: LORazepam 2 MG/ML VIAL IV PUSH PRN (05:34)
[2016-12-24 08:00] VITALS: BP 142/83; PULSE 84; RESP 18; TEMP 97.2; O2SAT 100
--- NOTE | 2016-12-24 08:37 | HHI.PR ---
Subjective Remarks sr Objective Vital Signs Date Time Temp Pulse Resp B/P Pulse Ox O2 Delivery O2 Flow Rate FiO2 12/24/16 08:00 97.2 84 18 142/83 100 12/24/16 04:00 96.4 81 17 152/82 100 12/24/16 00:00 96.4 85 16 160/92 98 12/23/16 21:00 Room Air 12/23/16 20:00 96.4 110 16 162/97 100 12/23/16 16:00 96.0 89 19 155/96 100 12/23/16 12:00 97.2 91 19 131/88 100 I/O 12/23/16 12/23/16 12/23/16 12/24/16 12/24/16 12/24/16 07:00 15:00 23:00 07:00 15:00 23:00 Intake Total 1080 ml 360 ml Output Total 1150 ml 650 ml Balance -70 ml -290 ml Intake Oral 1080 ml 360 ml Output Urine Total 1150 ml 650 ml # Voids 2 # Bowel Movements 2 0 Result Diagram: 12/20/16 0530 Objective Remarks dil 10 moving well gait steady not yr Assessment and Plan Assessment and Plan dil toxic slowly lower pend today check mri neg eyes better slowly improve oob ambulate more ok to tele bed by me a call put in to sister on how this happened no call back i will be out of town until friday he could when dil level gets to low teens go on 300 mg at noc with level to be checked next week and dc at some point when steady on feet med team should talk to sister and try and find out what happened 12/24/16 back on dil 300 hs he does not know home dose and i putin call to sister it would be helpful if med team could make sure someone talks to sister as she holds his meds b4 Dejan Escobar MD Dec 24, 2016 08:37
[2016-12-24] MEDS: TOPIRAMATE 100 MG TAB PO SCH (10:09)
[2016-12-24] MEDS: FLUoxetine HCL 20 MG CAP PO SCH (10:09)
[2016-12-24] MEDS: MAGNESIUM OXIDE 400 MG TAB PO SCH (10:09)
[2016-12-24] MEDS: amLODIPine BESYLATE 5 MG TAB PO SCH (10:10)
[2016-12-24] MEDS: PANTOPRAZOLE SOD 20 MG DELAYED RELEASE TAB PO SCH (10:10)
[2016-12-24] MEDS: SODIUM CHLORIDE 0.9% FLUSH 5 ML FLUSH FLUSH SCH (10:11)
--- NOTE | 2016-12-24 11:32 | HHI.PR ---
Subjective Remarks looks and feels much better today. denies any new complaints. d/w the RN and no acute issues over night. Objective Vitals Vital Signs Date Time Temp Pulse Resp B/P Pulse Ox O2 Delivery O2 Flow Rate FiO2 12/24/16 08:00 97.2 84 18 142/83 100 12/24/16 04:00 96.4 81 17 152/82 100 12/24/16 00:00 96.4 85 16 160/92 98 12/23/16 21:00 Room Air 12/23/16 20:00 96.4 110 16 162/97 100 12/23/16 16:00 96.0 89 19 155/96 100 12/23/16 12:00 97.2 91 19 131/88 100 I/O 12/23/16 12/23/16 12/23/16 12/24/16 12/24/16 12/24/16 07:00 15:00 23:00 07:00 15:00 23:00 Intake Total 1080 ml 360 ml Output Total 1150 ml 650 ml Balance -70 ml -290 ml Intake Oral 1080 ml 360 ml Output Urine Total 1150 ml 650 ml # Voids 2 # Bowel Movements 2 0 Result Diagram: 12/20/16 0530 Imaging Last Impressions Brain MRI 12/15/16 0000 Signed Impressions: Service Date/Time: Thursday, December 15, 2016 09:48 - CONCLUSION: 1. 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 2. Otherwise unremarkable examination for patient' s age. No acute intracranial pathology on this limited study. Marco A Sadler MD Head CT 12/13/16 0935 Signed Impressions: Service Date/Time: Tuesday, December 13, 2016 09:42 - CONCLUSION: Negative for an acute process. Chuck Edgar MD FACR Chest X-Ray 12/13/16 0000 Signed Impressions: Service Date/Time: Tuesday, December 13, 2016 10:15 - CONCLUSION: 1. No acute cardiopulmonary process. 2. Endotracheal and nasogastric tubes have been removed. Gunner Porras MD Abdomen/Pelvis CT 12/13/16 0000 Signed Impressions: Service Date/Time: Tuesday, December 13, 2016 09:42 - CONCLUSION: Negative for an acute process. I don't see an etiology for the patient's acute abdominal pain. Minimal vascular changes are evident.. Chuck Edgar MD FACR Objective Remarks GENERAL: in no apparent distress. CARDIOVASCULAR: Regular rate and regular rhythm without murmurs, gallops, or rubs. RESPIRATORY: Clear to auscultation. Breath sounds equal bilaterally. No wheezes , rales, or rhonchi. GASTROINTESTINAL: Abdomen soft, non-tender, nondistended. Normal, active bowel sounds MUSCULOSKELETAL: Extremities without clubbing, cyanosis, or edema. NEURO: awake and alert Procedures none Medications and IVs Current Medications Sodium Chloride (NS 1000 ml Inj) 1,000 ml @ 1,000 mls/hr Q1H ONCE IV Last administered on 12/13/16 12:07; Start 12/13/16 at 09:37; Stop 12/13/16 at 10:36 ; Status DC IV Flush (NS Flush) 2 ml UNSCH PRN IVF FLUSH AFTER USING IV ACCESS; Start 12/13 at 09:45; Stop 12/13/16 at 11:57; Status DC Lorazepam 1 mg 1 mg ONCE ONCE IV PUSH ; Start 12/13/16 at 10:00; Stop 12/13/16 at 10:00; Status DC Magnesium Sulfate/ Dextrose 100 ml @ 100 mls/hr ONCE ONCE IV ; Start 12/13/16 at 10:30; Stop 12/13/16 at 11:29; Status DC Magnesium Sulfate/ Dextrose 100 ml @ 100 mls/hr Q1H IV Last administered on 13:17; Start 12/13/16 at 12:00; Stop 12/13/16 at 13:59; Status DC Sodium Chloride (NS 1000 ml Inj) 1,000 ml @ 100 mls/hr Q10H IV Last administered on 12/19/16 20:12; Start 12/13/16 at 12:00; Status Hold IV Flush (NS Flush) 2 ml UNSCH PRN FLUSH FLUSH AFTER USING IV ACCESS Last administered on 12/18/16 08:51; Start 12/13/16 at 12:00 IV Flush (NS Flush) 2 ml BID FLUSH Last administered on 12/24/16 10:11; Start 12/13/16 at 21:00 Acetaminophen (Tylenol) 650 mg Q4H PRN PO TEMP > 100.4 Last administered on 19:57; Start 12/13/16 at 12:00 Ondansetron HCl (Zofran Inj) 4 mg Q6H PRN IVP NAUSEA OR VOMITING Last administered on 12/13/16 20:55; Start 12/13/16 at 12:00 Prochlorperazine (Compazine Supp) 25 mg Q12H PRN [place] NAUSEA OR VOMITING; Start 12/13/16 at 12:00 Bisacodyl (Dulcolax Supp) 10 mg DAILY PRN [place] CONSTIPATION; Start 12/13/16 at 12 :00 Magnesium Hydroxide (Milk Of Magnesia Liq) 30 ml Q12H PRN PO CONSTIPATION; Start 12/13/16 at 12:00 Sennosides (Senokot) 17.2 mg Q12H PRN PO CONSTIPATION Last administered on 12/15 07:30; Start 12/13/16 at 12:00 Fluoxetine HCl (PROzac) 20 mg DAILY PO Last administered on 12/24/16 10:09; Start 12/14/16 at 09:00 Magnesium Oxide (Mag-Ox) 400 mg DAILY PO Last administered on 12/24/16 10:09; Start 12/14/16 at 09:00 Pantoprazole Sodium (Protonix) 20 mg DAILY PO Last administered on 12/24/16 10 :10; Start 12/14/16 at 09:00 Tizanidine HCl (Zanaflex) 4 mg DAILY PO Last administered on 12/24/16 10:10; Start 12/14/16 at 09:00 Topiramate (Topamax) 100 mg BID PO Last administered on 12/24/16 10:09; Start 12/13/16 at 21:00 Lorazepam (Ativan Inj) 1 mg Q6H PRN IV PUSH agitation/seizures Last administered on 12/24/16 05:34; Start 12/13/16 at 16:30 Miscellaneous Information Patient in critical care unit? Ass... Q361D XX Last administered on 12/13/16 20:45; Start 12/13/16 at 20:45 Chlorhexidine Gluconate (Chlorhexidine 2% Cloth) 3 pack DAILY@04 TOP Last administered on 12/18/16 04:00; Start 12/14/16 at 04:00; Stop 12/18/16 at 04:01 ; Status DC Chlorhexidine Gluconate 3 pack 3 pack UNSCH PRN TOP HYGIENIC CARE; Start at 20:45; Stop 12/18/16 at 20:33; Status DC Potassium Chloride 100 ml @ 50 mls/hr Q2H PRN IV For Potassium 2.8 - 3.2 mEq/L ; Start 12/14/16 at 13:00; Stop 12/18/16 at 09:53; Status DC Potassium Chloride (KCl 20 Meq Premix Inj) 100 ml @ 50 mls/hr Q2H PRN IV For Potassium 2.8 - 3.2 mEq/L; Start 12/14/16 at 13:00; Stop 12/18/16 at 09:53; Status DC Potassium Chloride 40 meq 40 meq UNSCH PRN PO/TUBE For Potassium 3.3 - 3.5 mEq/ L Last administered on 12/17/16t 10:11; Start 12/14/16 at 13:00; Stop 12/18/16 at 09:50; Status DC Potassium Chloride 100 ml @ 25 mls/hr UNSCH PRN IV For Potassium 3.3 - 3.5 mEq /L; Start 12/14/16 at 13:00; Stop 12/18/16 at 09:50; Status DC Potassium Chloride 100 ml @ 50 mls/hr Q2H PRN IV For Potassium 3.3 - 3.5 mEq/ L Last administered on 12/16/16t 05:20; Start 12/14/16 at 13:00; Stop 12/18/16 at 09:50; Status DC Magnesium Sulfate/ Sodium Chloride (Magnesium Sulfate Inj/NS Inj) 100 ml @ 50 mls/hr UNSCH PRN IV For Magnesium 0.9 - 1.1 mg/dL; Start 12/14/16 at 13:00; Stop 12/18/16 at 09:50; Status DC Magnesium Oxide 800 mg 800 mg UNSCH PRN PO For Magnesium 1.2 - 1.6 mg/dL; Start 12/14/16 at 13:00; Stop 12/18/16 at 09:51; Status DC Magnesium Sulfate/ Sodium Chloride (Magnesium Sulfate Inj/NS Inj) 100 ml @ 50 mls/hr UNSCH PRN IV For Magnesium 1.2 - 1.6 mg/dL; Start 12/14/16 at 13:00; Stop 12/18/16 at 09:51; Status DC Potassium Phosphate 2000 mg 2,000 mg Q4H PRN PO For Phosphorus < 2.5 mg/dL; Start 12/14/16 at 13:00; Stop 12/18/16 at 09:51; Status DC Sodium Phosphate/ Sodium Chloride (Sodium Phosphate Inj/NS 250 ml Inj) 250 ml @ 42 mls/hr UNSCH PRN IV For Phosphorus < 2.5 mg/dL; Start 12/14/16 at 13:00 Potassium Chloride (KCl 40 Meq/30 ml Liq) 40 meq UNSCH PRN PO/TUBE SEE LABEL COMMENTS; Start 12/14/16 at 13:00; Stop 12/18/16 at 09:51; Status DC Potassium Phosphate 2000 mg 2,000 mg UNSCH PRN PO/TUBE SEE LABEL COMMENTS; Start 12/14/16 at 13:00; Stop 12/18/16 at 09:51; Status DC Potassium Phosphate/Sodium Chloride (Potassium Phosphate Inj/NS 250 ml Inj) 260 ml @ 42 mls/hr UNSCH PRN IV SEE LABEL COMMENTS; Start 12/14/16 at 13:00; Stop 12/18/16 at 09:51; Status DC Gadodiamide (Omniscan Pf Inj) 10 ml STK-MED ONCE IV Last administered on 10:11; Start 12/15/16 at 10:11; Stop 12/15/16 at 10:12; Status DC Haloperidol Lactate 2 mg 2 mg Q6H PRN IM AGITATION AND/OR HALLUCINATION Last administered on 12/21/16 18:50; Start 12/17/16 at 10:15 Magnesium Sulfate/ Dextrose (Magnesium Sulfate 1 Gm Premix) 100 ml @ As Directed STK-MED ONCE .ROUTE Last administered on 12/17/16 10:30; Start at 10:30; Stop 12/18/16 at 09:52; Status DC Amlodipine Besylate (Norvasc) 5 mg DAILY PO Last administered on 12/24/16 10: 10; Start 12/19/16 at 11:00 Potassium Chloride (KCl) 20 meq ONCE ONCE PO Last administered on 12/20/16 10 :27; Start 12/20/16 at 10:30; Stop 12/20/16 at 10:31; Status DC Phenytoin (Dilantin) 300 mg HS PO Last administered on 12/23/16t 20:34; Start 12/23/16 at 21:00 A/P Assessment and Plan A/P Acute encephalopathy: Suspect secondary to Dilantin toxicity. improving. dialntin level now within therapeutic level.- resumed dilantin- will check the level in a few days. neurology follow-up appreciated. PT/ST consulted. History of seizure disorder: As above. Continue home Topamax. Seizure precautions. History of hypertension: resumed amlodipine- will monitor and adjust the regimen as needed. Hypokalemia; replaced as needed. Other chronic medical conditions include depression/GERD: Stable at this time and will continue home medications as indicated. DVT prophylaxis: SCDs spoke with the sister; didn't know why and how his dilantin level went too high although she said that he was with her for less than a day after he was released from nursing facility. Discharge Planning dc to SNF when arrangements made. see med list. d/w the patient and RN. Stephania Metz MD Dec 24, 2016 11:32
--- NOTE | 2016-12-24 11:32 | HHI.DCPOC ---
Discharge Care Plan Diagnosis: (1) Acute encephalopathy (2) Dilantin toxicity Your Health Problems Are: Difficulty with ADL Goals to Promote Your Health * To prevent worsening of your condition and complications * To maintain your health at the optimal level Directions to Meet Your Goals Take your medications as prescribed Follow your dietary instruction Follow activity as directed Keep your appointments as scheduled Take your immunizations and boosters as scheduled If your symptoms worsen call your PCP, if no PCP go to Urgent Care Center or Emergency Room Smoking is Dangerous to Your Health. Avoid second hand smoke Call the 24-hour hour crisis hotline for domestic abuse at Stephania Metz MD Dec 24, 2016 11:32
--- NOTE | 2016-12-24 11:33 | HHI.DS ---
Discharge Summary Admission Date Dec 17, 2016 at 10:17 Discharge Date: Dec 24, 2016 Admitting Diagnosis Dilantin toxicity (1) Dilantin toxicity ICD Code: T42.0X1A Diagnosis: Principal (2) Acute encephalopathy ICD Code: G93.40 Diagnosis: Principal Procedures none Brief History - From Admission 56-year-old male with a past medical history of TBI, seizure disorder, HTN, depression, GERD who is brought in secondary to altered mental status. The patient is currently lethargic, poorly responsive, Ms. and noncontributory historian. History is obtained from patient's sister at bedside, ED communication, and the medical record. The patient was recently admitted for altered mental status, seizures, and subtherapeutic Dilantin level. He was discharged about 2 weeks ago to SNF. Prior to that he was living with his sister, who is no longer able to take care of him at home. He was discharged from SNF yesterday. He went to stay with a friend. When the friend returned in the evening, they found the patient on the floor with altered mental status. Sister reports the patient didn't have any access to medications. She is not sure how long he was alone. The patient's voice no acute concerns during his intermittent lucid. 2 sisters or nursing staff. The sister is not aware of any recent medication changes. The patient did have a history of alcohol use, has not had any access to alcohol since prior to admission last month. CBC/BMP: 12/20/16 0530 Imaging Last Impressions Brain MRI 12/15/16 0000 Signed Impressions: Service Date/Time: Thursday, December 15, 2016 09:48 - CONCLUSION: 1. 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 2. Otherwise unremarkable examination for patient' s age. No acute intracranial pathology on this limited study. Marco A Sadler MD Head CT 12/13/16 0935 Signed Impressions: Service Date/Time: Tuesday, December 13, 2016 09:42 - CONCLUSION: Negative for an acute process. Chuck Edgar MD FACR Chest X-Ray 2/10/17 0000 Signed Impressions: Service Date/Time: Tuesday, December 13, 2016 10:15 - CONCLUSION: 1. No acute cardiopulmonary process. 2. Endotracheal and nasogastric tubes have been removed. Gunner Porras MD Abdomen/Pelvis CT 12/13/16 0000 Signed Impressions: Service Date/Time: Tuesday, December 13, 2016 09:42 - CONCLUSION: Negative for an acute process. I don't see an etiology for the patient's acute abdominal pain. Minimal vascular changes are evident.. Chuck Edgar MD FACR PE at Discharge GENERAL: in no apparent distress. CARDIOVASCULAR: Regular rate and regular rhythm without murmurs, gallops, or rubs. RESPIRATORY: Clear to auscultation. Breath sounds equal bilaterally. No wheezes , rales, or rhonchi. GASTROINTESTINAL: Abdomen soft, non-tender, nondistended. Normal, active bowel sounds MUSCULOSKELETAL: Extremities without clubbing, cyanosis, or edema. NEURO: awake and alert Hospital Course Acute encephalopathy: Suspect secondary to Dilantin toxicity. improving. dialntin level now within therapeutic level.- resumed dilantin- will check the level in a few days. neurology follow-up appreciated. PT/ST consulted. History of seizure disorder: As above. Continue home Topamax. Seizure precautions. History of hypertension: resumed amlodipine- will monitor and adjust the regimen as needed. Hypokalemia; replaced as needed. Other chronic medical conditions include depression/GERD: Stable at this time and will continue home medications as indicated. DVT prophylaxis: SCDs Pt Condition on Discharge: Good Discharge Disposition: Discharge to SNF Discharge Time: <= 30 minutes Discharge Instructions DIET: Follow Instructions for: Heart Healthy Diet Activities you can perform: Regular-No Restrictions Follow up Referrals: Neurology PCP Follow-up New Orders: PHENYTOIN (DILANTIN) - 1 Week New Medications: Phenytoin Extended (Dilantin) 100 Mg Cap 300 MG PO HS Control Seizures Days 30 Ref 0 CAP Amlodipine (Norvasc) 5 Mg Tab 5 MG PO DAILY hypertension Days 30 Ref 0 TAB Changed Medications: Tizanidine (Tizanidine) 4 Mg Cap 4 MG PO DAILY PRN muscle spasm #10 Ref 0 CAP (Medication details modified) Continued Medications: Fluoxetine (Fluoxetine) 20 Mg Cap 20 MG PO DAILY #30 Ref 0 CAP Magnesium Oxide (Magnesium Oxide) 241.3 Mg Tab 400 MG PO DAILY low magnesium Days 30 TAB Pantoprazole (Pantoprazole) 20 Mg Tab 20 MG PO DAILY Reflux #30 Ref 0 TAB Topiramate (Topamax) 100 Mg Tab 100 MG PO BID anticonvulsant Days 30 TAB Discontinued Medications: Amlodipine (Amlodipine) 10 Mg Tab 10 MG PO DAILY Blood Pressure Management #30 Ref 0 TAB Phenytoin Liq (Phenytoin Liq) 125 Mg/5 Ml Micheline 150 MG PO Q8HR seizures Days 30 TAB Stephania Metz MD Dec 24, 2016 11:33
[2016-12-24] MEDS ORDERED: TIZA4CAP3 PO (11:37)
[2016-12-24 12:00] VITALS: BP 138/82; PULSE 83; RESP 18; TEMP 97.4; O2SAT 100
== END 2016-12-24 17:46 | DRG 93 ==
LOC: NEPC 09:29 → NEDA 11:52 → INTOOBSV 11:52 → HOCA 15:23 → HIME 19:15 → OBSVTOIN 12-17 10:17 → N06A 12-21 21:27
PROVIDERS: ADMIT Internal Medicine; ATTEND Internal Medicine
DX: G92 Toxic encephalopathy (principal); E83.42 Hypomagnesemia; I10 Essential (primary) hypertension; T42.0X5A Adverse effect of hydantoin derivatives, initial encounter; Y92.9 Unspecified place or not applicable; G40.909 Epilepsy, unspecified, not intractable, without status epilepticus; E87.6 Hypokalemia; K21.9 Gastro-esophageal reflux disease without esophagitis; R33.9 Retention of urine, unspecified; Z72.0 Tobacco use; F10.10 Alcohol abuse, uncomplicated; F32.9 Major depressive disorder, single episode, unspecified; Z87.820 Personal history of traumatic brain injury
CPT/HCPCS: 36600; 70450; 70553; 71010; 74176; 76937; 80048; 80053; 80164; 80185; 80307; 80320; 81001; 82550; 82552; 82805; 82948; 83690; 83735; 84100; 84484; 85025; 87641; 93005; 95819; A9579; G0378; J1630; J2060; J2405; J3475; J3480; J7030; P9612

== ENCOUNTER 2017-02-12 08:46 | Emergency (ER) | payer MEDICARE, MEDICAID ==
[~2017-02-12] VITALS: Ht 175.3 cm; Wt 73.0 kg
[~2017-02-12 08:46] MED LIST changes: -AMLO10TA2 PO; +AMLO5 PO; +DILA100C PO; +FLUO20CA4 PO; -NICO7DIS2 TD; -PHEN125S PO; +TIZA4CAP3 PO
[2017-02-12 08:52] VITALS: BP 123/74; PULSE 97; RESP 20; TEMP 97.8; O2SAT 96
[2017-02-12] MEDS ORDERED: LORA1TAB12 PO (09:14)
--- NOTE | 2017-02-12 09:14 | PD ---
HPI . Left hand injury Chief Complaint: Injury Time Seen by Provider: 09:05 Travel History International Travel<30 days: No Contact w/Intl Traveler<30days: No Traveled to known affect area: No History of Present Illness HPI Patient was sent to us from [facility] for a fracture of his left fourth metacarpal. The patient is not a very good historian because of some previous brain events. He thinks that he injured it a couple days ago falling getting out of the shower. It was [facility]ed at the [facility] and he was found to have a minimally displaced oblique fracture of the fourth metacarpal. His pain is mild and continuous. PFSH Past Medical History Anxiety: No Depression: Yes Heart Rhythm Problems: Yes Cancer: No Cardiovascular Problems: Yes High Cholesterol: No Chest Pain: No Congestive Heart Failure: No Cerebrovascular Accident: No Diabetes: No Endocrine: No GERD: Yes Genitourinary: No Headaches: Yes Hepatitis: No Hiatal Hernia: No Hypertension: Yes Immune Disorder: No Musculoskeletal: No Neurologic: Yes (seizures, METABOLIC ENCEPHALOPATHY) Psychiatric: No Reproductive: No Respiratory: No Migraines: Yes Seizures: Yes Thyroid Disease: No Past Surgical History Abdominal Surgery: No Body Medical Devices: RUBBER FLAP Cardiac Surgery: No Ear Surgery: No Endocrine Surgery: No Eye Surgery: No Genitourinary Surgery: No Gynecologic Surgery: No Neurologic Surgery: Yes (12/21/13 RIGHT CRANIOTOMY FOR SUBDURAL HEMATOMA ) Oral Surgery: Yes (dental removal) Thoracic Surgery: No Tonsillectomy: Yes Other Surgery: Yes Social History Alcohol Use: Yes (ETOH ABUSE ) Tobacco Use: Yes (1PPD) Substance Use: Yes (hx of Loratabs. ETOH ) Allergies-Medications (Allergen,Severity, Reaction): Coded Allergies: No Known Allergies (Unverified , 02/12/17) Reported Meds & Prescriptions Reported Meds & Active Scripts Active Tizanidine (Tizanidine HCl) 4 Mg Cap 4 Mg PO DAILY PRN Dilantin (Phenytoin Extended) 100 Mg Cap 300 Mg PO HS 30 Days Norvasc (Amlodipine Besylate) 5 Mg Tab 5 Mg PO DAILY 30 Days Pantoprazole (Pantoprazole Sodium) 20 Mg Tab 20 Mg PO DAILY Magnesium Oxide 241.3 Mg Tab 400 Mg PO DAILY 30 Days Topamax (Topiramate) 100 Mg Tab 100 Mg PO BID 30 Days Reported Lorazepam 1 Mg Tab 1 Mg PO Q6H PRN Fluoxetine (Fluoxetine HCl) 20 Mg Cap 20 Mg PO DAILY Review of Systems ROS Limitations: Poor Historian Except as stated in HPI: all other systems reviewed are Neg Musculoskeletal: Positive: Arthralgias, Edema Physical Exam Narrative GENERAL: Awake and alert and in no acute distress. SKIN: Warm and dry. CARDIOVASCULAR: Regular rate and rhythm. RESPIRATORY: No accessory muscle use. MUSCULOSKELETAL: No obvious deformities. Diffuse swelling on the dorsal aspect of the left hand. I am unable to elicit any point tenderness. Is noted to have a wedding ring on. NEUROLOGICAL: Awake and alert. No obvious cranial nerve deficits. Motor grossly within normal limits. Normal speech. PSYCHIATRIC: Appropriate mood and affect; insight and judgment normal. Data Data Last Documented VS Vital Signs Date Time Temp Pulse Resp B/P Pulse Ox O2 Delivery O2 Flow Rate FiO2 02/12/17 08:52 97.8 97 20 123/74 96 Orders Hand, Complete ([id number]) (02/12/17 09:05) ^ Other Nursing Orders (02/12/17 09:05) [employer] Request For Service (02/12/17 09:39) MDM Medical Decision Making Medical Screen Exam Complete: Yes Emergency Medical Condition: Yes Differential Diagnosis Differential diagnosis of extremity trauma includes but is not limited to fracture, sprain or strain, dislocation, contusion Narrative Course This is a [facility] patient who has some dementia who presents to us with a known fracture of the left hand. There is no obvious deformity to the hand. There is some swelling. I will repeat the x-ray and then probably split the hand and refer him to orthopedics. X-ray shows an oblique fracture through the body of the left fourth metacarpal. There is very little displacement. We will splint and discharge him back to the [facility]. Diagnosis Primary Impression: Fracture of fourth metacarpal bone of left hand Qualified Code: S62.355A - Closed nondisplaced fracture of shaft of fourth metacarpal bone of left hand, initial encounter Referrals: Kai Everett MD 3 days Scripts Tramadol (Ultram)50 Mg Tab50 Mg PO Q4H PRN (PAIN) #12 TAB Ref 0 Prov:Shellie Joyner MD 02/12/17 Disposition: 01 DISCHARGE HOME Condition: Stable Shellie Joyner MD Feb 12, 2017 09:14
--- NOTE | 2017-02-12 09:37 | RADRPT ---
EXAM DATE/TIME: 02/12/2017 09:32 [facility] COMPARISON: No previous studies available for comparison. INDICATIONS : Left hand pain, fall. MEDICAL HISTORY : None. SURGICAL HISTORY : None. ENCOUNTER: Initial ACUITY: 3 days PAIN SCORE: 10/10 LOCATION: Left hand, fourth metacarpal. FINDINGS: Oblique mildly displaced fracture of the fourth metacarpal is identified. No other fractures are seen . CONCLUSION: Fourth metacarpal fracture. Regino Ramirez MD on February 12, 2017 at 9:35 Board Certified Radiologist. This report was verified electronically.
[2017-02-12] MEDS ORDERED: ULTR50TA5 PO (09:47)
== END 2017-02-12 10:52 ==
LOC: NEPC 08:46
DX: S62.305A Unspecified fracture of fourth metacarpal bone, left hand, initial encounter for closed fracture (principal); K21.9 Gastro-esophageal reflux disease without esophagitis; I10 Essential (primary) hypertension; F17.200 Nicotine dependence, unspecified, uncomplicated
CPT/HCPCS: 29125; 73130

== ENCOUNTER 2017-02-21 22:23 | Inpatient (IN) | payer MEDICARE, MEDICAID ==
[~2017-02-21 22:23] MED LIST changes: +LORA1TAB12 PO; +ULTR50TA5 PO
[2017-02-21 22:41] VITALS: BP 111/62; PULSE 79; RESP 18; TEMP 97.8; O2SAT 96
--- NOTE | 2017-02-21 23:14 | PD ---
HPI Chief Complaint: Fall Time Seen by Provider: 23:05 Travel History International Travel<30 days: No Contact w/Intl Traveler<30days: No Traveled to known affect area: No History of Present Illness HPI This patient lives at a correction and has history of traumatic brain injury and craniotomy. He had a fall today and struck the left side of his head. They felt that the correction that his mental status had declined somewhat. Symptoms severity is moderate. Patient does not specifically remember the fall. He can't relate any event surrounding the fall. He is not having any neck pain. He follows commands appropriately. Duration 2 hours. No alleviating factors. Symptoms severity is moderate. PFSH Past Medical History Anxiety: No Depression: Yes Heart Rhythm Problems: Yes Cancer: No Cardiovascular Problems: Yes High Cholesterol: No Chest Pain: No Congestive Heart Failure: No Cerebrovascular Accident: No Diabetes: No Diminished Hearing: No Endocrine: No GERD: Yes Genitourinary: No Headaches: Yes Hepatitis: No Hiatal Hernia: No Hypertension: Yes Immune Disorder: No Musculoskeletal: No Neurologic: Yes (seizures, METABOLIC ENCEPHALOPATHY) Psychiatric: No Reproductive: No Respiratory: No Migraines: Yes Seizures: Yes Thyroid Disease: No Past Surgical History Abdominal Surgery: No Body Medical Devices: RUBBER FLAP Cardiac Surgery: No Ear Surgery: No Endocrine Surgery: No Eye Surgery: No Genitourinary Surgery: No Gynecologic Surgery: No Neurologic Surgery: Yes (12/21/13 RIGHT CRANIOTOMY FOR SUBDURAL HEMATOMA ) Oral Surgery: Yes (dental removal) Thoracic Surgery: No Tonsillectomy: Yes Other Surgery: Yes Social History Alcohol Use: Yes (ETOH ABUSE ) Tobacco Use: No Substance Use: Yes (hx of Loratabs. ETOH ) Allergies-Medications (Allergen,Severity, Reaction): Coded Allergies: No Known Allergies (Unverified , 02/12/17) Reported Meds & Prescriptions Reported Meds & Active Scripts Active Ultram (Tramadol HCl) 50 Mg Tab 50 Mg PO Q4H PRN Tizanidine (Tizanidine HCl) 4 Mg Cap 4 Mg PO DAILY PRN Dilantin (Phenytoin Extended) 100 Mg Cap 300 Mg PO HS 30 Days Norvasc (Amlodipine Besylate) 5 Mg Tab 5 Mg PO DAILY 30 Days Pantoprazole (Pantoprazole Sodium) 20 Mg Tab 20 Mg PO DAILY Magnesium Oxide 241.3 Mg Tab 400 Mg PO DAILY 30 Days Topamax (Topiramate) 100 Mg Tab 100 Mg PO BID 30 Days Reported Lorazepam 1 Mg Tab 1 Mg PO Q6H PRN Fluoxetine (Fluoxetine HCl) 20 Mg Cap 20 Mg PO DAILY Review of Systems General / Constitutional: No: Fever Eyes: No: Visual changes HENT: No: Headaches Cardiovascular: No: Chest Pain or Discomfort Respiratory: No: Shortness of Breath Gastrointestinal: No: Abdominal Pain Genitourinary: No: Dysuria Musculoskeletal: No: Pain Skin: No Rash Neurologic: Positive: Change in Mentation, No: Weakness Psychiatric: No: Depression Endocrine: No: Polydipsia Hematologic/Lymphatic: No: Easy Bruising Physical Exam Narrative GENERAL: Well-nourished, well-developed patient who is confused . SKIN: Focused skin assessment reveals no rash and nodules. Skin is Warm and dry. HEAD: Has old right sided craniotomy scar. Tiny abrasion to the left cheekbone without tenderness. Normocephalic. EYES: Pupils equal and round. No scleral icterus. No injection or drainage. ENT: No nasal bleeding or discharge. Mucous membranes pink and moist. NECK: Trachea midline. No JVD. No midline tenderness CARDIOVASCULAR: Regular rate and rhythm. No murmur appreciated. RESPIRATORY: No accessory muscle use. Clear to auscultation. Breath sounds equal bilaterally. GASTROINTESTINAL: Abdomen soft, non-tender, nondistended. Hepatic and splenic margins not palpable. MUSCULOSKELETAL: No obvious deformities. No clubbing. No cyanosis. No edema. NEUROLOGICAL: Awake and looking around, seems confused. No obvious cranial nerve deficits. Motor grossly within normal limits. Understandable speech. PSYCHIATRIC: Somewhat lethargic mood and affect; insight and judgment reduced. Data Data Last Documented VS Vital Signs Date Time Temp Pulse Resp B/P Pulse Ox O2 Delivery O2 Flow Rate FiO2 02/21/17 22:45 18 02/21/17 22:41 97.8 79 111/62 96 Orders Electrocardiogram (02/21/17 23:10) Basic Metabolic Panel (Bmp) (02/21/17 23:10) Complete Blood Count With Diff (02/21/17 23:10) Prothrombin Time / Inr (Pt) (02/21/17 23:10) Act Partial Throm Time (Ptt) (02/21/17 23:10) Ct Brain W/O Iv Contrast(Rout) (02/21/17 23:10) Ecg Monitoring (02/21/17 23:10) Iv Access Insert/Monitor (02/21/17 23:10) Oximetry (02/21/17 23:10) Sodium Chloride 0.9% Flush (Ns Flush) (02/21/17 23:15) Phenytoin (Dilantin) (02/21/17 23:10) Admit Order (Ed Use Only) (02/22/17 00:23) Labs Laboratory Tests Test 02/21/17 23:15 White Blood Count 6.2 TH/MM3 Red Blood Count 3.65 MIL/MM3 Hemoglobin 12.4 GM/DL Hematocrit 34.7 % Mean Corpuscular Volume 95.0 FL Mean Corpuscular Hemoglobin 34.1 PG Mean Corpuscular Hemoglobin 35.9 % Concent Red Cell Distribution Width 13.2 % Platelet Count 331 TH/MM3 Mean Platelet Volume 6.3 FL Neutrophils (%) (Auto) 51.4 % Lymphocytes (%) (Auto) 25.7 % Monocytes (%) (Auto) 12.5 % Eosinophils (%) (Auto) 8.9 % Basophils (%) (Auto) 1.5 % Neutrophils # (Auto) 3.2 TH/MM3 Lymphocytes # (Auto) 1.6 TH/MM3 Monocytes # (Auto) 0.8 TH/MM3 Eosinophils # (Auto) 0.6 TH/MM3 Basophils # (Auto) 0.1 TH/MM3 CBC Comment DIFF FINAL Differential Comment Prothrombin Time 11.0 SEC Prothromb Time International 1.0 RATIO Ratio Activated Partial 32.6 SEC Thromboplast Time Sodium Level 134 MEQ/L Potassium Level 3.5 MEQ/L Chloride Level 100 MEQ/L Carbon Dioxide Level 25.7 MEQ/L Anion Gap 8 MEQ/L Blood Urea Nitrogen 10 MG/DL Creatinine 0.60 MG/DL Estimat Glomerular Filtration 138 ML/MIN Rate Random Glucose 84 MG/DL Calcium Level 8.5 MG/DL Phenytoin (Dilantin) Level 48.2 MCG/ML [facility] Medical Decision Making Medical Screen Exam Complete: Yes Emergency Medical Condition: Yes Medical Record Reviewed: Yes Differential Diagnosis Intracranial hemorrhage, concussion, contusion Narrative Course I have reviewed the patient's electronic medical record. Patient was here in 2013 with intracranial hemorrhage IV placed I reviewed his EKG which shows a sinus rhythm without ectopy. Extended cardiac monitoring reveals sinus rhythm without ectopy Patient has symmetric extremity strength and tone and follows commands appropriately. Brain CT shows no acute hemorrhage. There is right sided encephalomalacia changes where he had his craniotomy CBC is normal Metabolic profile is normal other than minor hyponatremia Coagulation studies are normal Dilantin level is significantly elevated at 48.2 which would explain his altered mental status. He has toxic encephalopathy due to Dilantin toxicity Aggregate critical care time was 35 minutes. Time to perform other separately billable procedures was not included in the critical care time. My time did not include minutes spent treating any other patients simultaneously or on activities that did not directly contribute to the patient's treatment. The services I provided to this patient were to treat and/or prevent clinically significant deterioration that could result in: Hemorrhagic lesion, brain stem herniation, cerebral edema, cardiac arrhythmia I provided critical care services requiring my management, as noted below: Chart data review, documentation time, medication orders and management, vital sign assessments/reviewing monitor data, ordering and reviewing lab tests, ordering and interpreting/reviewing x-rays and diagnostic studies, care of the patient and discussion of the patient with the admitting physicians. Patient will require inpatient stay. He is lethargic and listing to the left side, already fell once. We'll monitor on telemetry and obtain repeat levels. Discussed with hospitalist Diagnosis Primary Impression: Toxic encephalopathy Additional Impression: Dilantin toxicity Qualified Code: T42.0X1A - Dilantin toxicity, accidental or unintentional, initial encounter Admitting Information Admitting Physician Requests: Admit Kieran Nguyen MD Feb 21, 2017 23:14
[2017-02-21] MEDS ORDERED: SODIUM CHLORIDE 0.9% FLUSH 10 ML FLUSH IVF PRN (23:15)
[2017-02-21 23:29] LABS: AUTOMATED NEUTROPHIL # 3.2 TH/MM3 (1.8-7.7); BASOPHIL # 0.1 TH/MM3 (0-0.2); BASOPHIL % 1.5 % (0.0-2.0); EOSINOPHIL # 0.6 TH/MM3 (0-0.4); EOSINOPHIL % 8.9 % (0.0-4.0); HEMATOCRIT 34.7 % (39.0-51.0); HEMO FLAGS DIFF FINAL; LYMPH % 25.7 % (9.0-44.0); LYMPHOCYTE # 1.6 TH/MM3 (1.0-4.8); MEAN CORPUSCULAR HEMOGLOBIN 34.1 PG (27.0-34.0); MEAN CORPUSCULAR HGB CONC 35.9 % (32.0-36.0); MONO % 12.5 % (0.0-8.0); NEUT % 51.4 % (16.0-70.0); PLATELET COUNT 331 TH/MM3 (150-450); RED BLOOD COUNT 3.65 MIL/MM3 (4.50-5.90); RED CELL DISTRIBUTION WIDTH 13.2 % (11.6-17.2); WHITE BLOOD COUNT 6.2 TH/MM3 (4.0-11.0)
[2017-02-21 23:37] LABS: APTT (PATIENT) 32.6 SEC (24.3-30.1)
[2017-02-21 23:50] LABS: BICARBONATE 25.7 MEQ/L (21.0-32.0); POTASSIUM 3.5 MEQ/L (3.5-5.1)
--- NOTE | 2017-02-22 00:21 | RADRPT ---
EXAM DATE/TIME: 02/21/2017 23:51 [facility] COMPARISON: CT BRAIN W/O CONTRAST, December 13, 2016, 9:42. INDICATIONS : Trauma, fall. RADIATION DOSE: 56.35 CTDIvol (mGy) MEDICAL HISTORY : Seizures. Hypertension. SURGICAL HISTORY : Craniotomy. ENCOUNTER: Initial ACUITY: 1 day PAIN SCALE: Non-responsive LOCATION: cranial TECHNIQUE: Multiple contiguous axial images were obtained of the head. Using automated exposure control and adj ustment of the mA and/or kV according to patient size, radiation dose was kept as low as reasonably a chievable to obtain optimal diagnostic quality images. FINDINGS: The examination is stable. Encephalomalacia is seen within the right temporal lobe. There is ex vacuo dilatation of the right lateral ventricle. Right parietal craniotomy. No hemorrhage, acute infarctio n, or a mass. Chronic ethmoid sinus disease bilaterally. CONCLUSION: 1. No acute intracranial abnormality. 2. Stable chronic changes as detailed above. Diony Lynn Jr., MD on February 22, 2017 at 0:17 Board Certified Radiologist. This report was verified electronically.
[2017-02-22] MEDS ORDERED: SODIUM CHLORIDE 0.9% FLUSH 10 ML FLUSH IV FLUSH PRN (00:45)
[2017-02-22] MEDS ORDERED: ONDANSETRON HCL 4 MG/2 ML VIAL IVP PRN (00:45)
[2017-02-22] MEDS ORDERED: BISACODYL 10 MG SUPP RECTAL PRN (00:45)
--- NOTE | 2017-02-22 01:21 | HHI.HP ---
[facility] Dejan Aranda MD Admission Diagnosis toxic encephalopathy Diagnoses: (1) Fall Diagnosis: Principal (2) Toxic encephalopathy Diagnosis: Principal (3) Dilantin toxicity Diagnosis: Principal (4) Seizure Diagnosis: Principal Travel History International Travel<30 Days: No Contact w/Intl Traveler <30 Da: No Traveled to Known Affected Are: No History of Present Illness This is a 56-year-old male with a PMH of Traumatic Brain Injury and Seizure Disorder who was sent to the ER from [facility] after fall 12hrs prior to arrival. Per report, pt had fall today at [facility] where he struck his head, has had progressive weakness and altered mental status noted by staff. Pt w/ little recollection of events, does report headache. On arrival, BP 111/62, HR 79, O2 sat 96% on RA, Afebrile. CBC essentially at baseline. Chemistry unremarkable. INR 1.0. Dilantin Level elevated at 48.2. CT Head with no acute intracranial abnormalities. Review of Systems Except as stated in HPI: all other systems reviewed are Neg ROS: 14 point review of systems otherwise negative. Past Family Social History Past Medical History PMH: Traumatic Brain Injury and Seizure Disorder Past Surgical History PAST SURGICAL HISTORY: Right Craniotomy Allergies: Coded Allergies: No Known Allergies (Unverified , 02/12/17) Family History PAST FAMILY HISTORY: Reviewed. No h/o DM or CAD Social History PAST SOCIAL HISTORY: History of Alcohol Abuse and Opioid Abuse. Negative for tobacco. Physical Exam Vital Signs Vital Signs Date Time Temp Pulse Resp B/P Pulse Ox O2 Delivery O2 Flow Rate FiO2 02/21/17 22:45 18 02/21/17 22:41 97.8 79 18 111/62 96 Physical Exam PE: GENERAL: Middle-aged male in no acute distress, mildly confused. HEENT: PERRLA, EOMI. No scleral icterus or conjunctival pallor. No lid lag or facial droop. CARDIOVASCULAR: Regular rate and rhythm. No obvious murmurs to auscultation. No chest tenderness to palpation. RESPIRATORY: No obvious rhonchi or wheezing. Clear to auscultation. Breath sounds equal bilaterally. GASTROINTESTINAL: Abdomen soft, non-tender, nondistended. BS normal. MUSCULOSKELETAL: Extremities without clubbing, cyanosis, or edema. No obvious deformities. NEUROLOGICAL: Awake, confused, answering some questions. No new focal neurologic deficits. Moving both upper and lower extremities spontaneously. Laboratory Laboratory Tests Test 02/21/17 23:15 White Blood Count 6.2 Red Blood Count 3.65 Hemoglobin 12.4 Hematocrit 34.7 Mean Corpuscular Volume 95.0 Mean Corpuscular Hemoglobin 34.1 Mean Corpuscular Hemoglobin 35.9 Concent Red Cell Distribution Width 13.2 Platelet Count 331 Mean Platelet Volume 6.3 Neutrophils (%) (Auto) 51.4 Lymphocytes (%) (Auto) 25.7 Monocytes (%) (Auto) 12.5 Eosinophils (%) (Auto) 8.9 Basophils (%) (Auto) 1.5 Neutrophils # (Auto) 3.2 Lymphocytes # (Auto) 1.6 Monocytes # (Auto) 0.8 Eosinophils # (Auto) 0.6 Basophils # (Auto) 0.1 CBC Comment DIFF FINAL Differential Comment Prothrombin Time 11.0 Prothromb Time International 1.0 Ratio Activated Partial 32.6 Thromboplast Time Sodium Level 134 Potassium Level 3.5 Chloride Level 100 Carbon Dioxide Level 25.7 Anion Gap 8 Blood Urea Nitrogen 10 Creatinine 0.60 Estimat Glomerular Filtration 138 Rate Random Glucose 84 Calcium Level 8.5 Phenytoin (Dilantin) Level 48.2 Result Diagram: 02/21/17231402/21/175 Assessment and Plan Problem List: (1) Fall ICD Code: W19.XXXA Status: Acute (2) Toxic encephalopathy ICD Code: G92 Status: Acute (3) Dilantin toxicity ICD Code: T42.0X1A Status: Acute (4) Seizure ICD Code: R56.9 Status: Acute Assessment and Plan A/P: 1. Fall: s/p fall at [facility] approx 12hr prior to arrival per report, details of fall unclear but apparent head trauma. CT Head w/ no acute intracranial abnormalities, images reviewed by me. 2. Toxic Encephalopathy: Awake but confused. No reported seizure activity. Likely secondary to Dilantin Toxicity. 3. Dilantin Toxicity: Dilantin 48.2. Hold Dilantin. Seizure Precautions. Place on telemetry to eval for arrhythmia. Check Dilantin level q4h. Neuro checks q4h. 4. Seizure Disorder: Seizure Precautions. Hold anticonvulsants in light of Dilantin Toxicity. Neurology eval if needed. 5. DVT Prophylaxis: SCD/Teds. 6. Social work for d/c planning as needed. 7. Case discussed w/ ER physician at length. Physician Certification 2 Midnight Certification Type: Admission for Inpatient Services Order for Inpatient Services The services are ordered in accordance with Medicare regulations or non- Medicare payer requirements, as applicable. In the case of services not specified as inpatient-only, they are appropriately provided as inpatient services in accordance with the 2-midnight benchmark. Estimated LOS (days): 2 days is the estimated time the patient will need to remain in the hospital, assuming treatment plan goals are met and no additional complications. Post-Hospital Plan: SNF Problem Qualifiers (1) Dilantin toxicity: Qualified Code: T42.0X1A - Dilantin toxicity, accidental or unintentional, initial encounter Hermila Mera MD Feb 22, 2017 01:21
[2017-02-22 06:38] VITALS: PULSE 71
[2017-02-22 08:00] VITALS: BP 124/67; PULSE 84; RESP 17; TEMP 97.1; O2SAT 99
[2017-02-22] MEDS: SODIUM CHLORIDE 0.9% FLUSH 10 ML FLUSH IV FLUSH SCH ×2 (08:46→22:05)
[2017-02-22] MEDS: SODIUM CHLOR 0.9% 1000 ML INJ 1,000 ML IV SCH (08:47)
--- NOTE | 2017-02-22 11:32 | HHI.PR ---
Subjective Remarks This is a 56-year-old male with a PMH of Traumatic Brain Injury and Seizure Disorder who was sent to the ER from [facility] after fall 12hrs prior to arrival. Per report, pt had fall today at SNF where he struck his head, has had progressive weakness and altered mental status noted by staff. Pt w/ little recollection of events, does report headache. On arrival, BP 111/62, HR 79, O2 sat 96% on RA, Afebrile. CBC essentially at baseline. Chemistry unremarkable. INR 1.0. Dilantin Level elevated at 48.2. CT Head with no acute intracranial abnormalities. 02/22: Seen in his bedroom and discussed with nurse Miss Duffy his Dilantin levels are trending down, will be able to be evaluated by Physical Therapy and possible discharge again to his facility tomorrow or day after, he is stable in his bedroom and no complaint, no nausea, vomit or diarrhea. Objective Vital Signs Date Time Temp Pulse Resp B/P Pulse Ox O2 Delivery O2 Flow Rate FiO2 02/22/17 08:00 97.1 84 17 124/67 99 02/22/17 06:38 71 02/22/17 02:58 Room Air 02/21/17 22:45 18 02/21/17 22:41 97.8 79 18 111/62 96 I/O 02/21/17 02/21/17 02/21/17 02/22/17 02/22/17 02/22/17 07:00 15:00 23:00 07:00 15:00 23:00 Intake Total 101 ml Balance 101 ml Intake IV Total 101 ml Result Diagram: 02/21/17231402/21/172314 Imaging Last Impressions Head CT 02/21/172309 Signed Impressions: Service Date/Time: Tuesday, February 21, 2017 23:51 - CONCLUSION: 1. No acute intracranial abnormality. 2. Stable chronic changes as detailed above. Diony Lynn Jr., MD Procedures No procedures performed. Other Results Laboratory Tests Test 02/21/17 02/22/17 23:15 08:08 White Blood Count 6.2 TH/MM3 Red Blood Count 3.65 MIL/MM3 Hemoglobin 12.4 GM/DL Hematocrit 34.7 % Mean Corpuscular Volume 95.0 FL Mean Corpuscular Hemoglobin 34.1 PG Mean Corpuscular Hemoglobin 35.9 % Concent Red Cell Distribution Width 13.2 % Platelet Count 331 TH/MM3 Mean Platelet Volume 6.3 FL Neutrophils (%) (Auto) 51.4 % Lymphocytes (%) (Auto) 25.7 % Monocytes (%) (Auto) 12.5 % Eosinophils (%) (Auto) 8.9 % Basophils (%) (Auto) 1.5 % Neutrophils # (Auto) 3.2 TH/MM3 Lymphocytes # (Auto) 1.6 TH/MM3 Monocytes # (Auto) 0.8 TH/MM3 Eosinophils # (Auto) 0.6 TH/MM3 Basophils # (Auto) 0.1 TH/MM3 CBC Comment DIFF FINAL Differential Comment Prothrombin Time 11.0 SEC Prothromb Time International 1.0 RATIO Ratio Activated Partial 32.6 SEC Thromboplast Time Sodium Level 134 MEQ/L Potassium Level 3.5 MEQ/L Chloride Level 100 MEQ/L Carbon Dioxide Level 25.7 MEQ/L Anion Gap 8 MEQ/L Blood Urea Nitrogen 10 MG/DL Creatinine 0.60 MG/DL Estimat Glomerular Filtration 138 ML/MIN Rate Random Glucose 84 MG/DL Calcium Level 8.5 MG/DL Phenytoin (Dilantin) Level 41.7 MCG/ML Objective Remarks GENERAL: Middle-aged male in no acute distress, mildly confused. HEENT: PERRLA, EOMI. No scleral icterus or conjunctival pallor. No lid lag or facial droop. CARDIOVASCULAR: Regular rate and rhythm. No obvious murmurs to auscultation. No chest tenderness to palpation. RESPIRATORY: No obvious rhonchi or wheezing. Clear to auscultation. Breath sounds equal bilaterally. GASTROINTESTINAL: Abdomen soft, non-tender, nondistended. BS normal. MUSCULOSKELETAL: Extremities without clubbing, cyanosis, or edema. No obvious deformities. NEUROLOGICAL: Awake, confused, answering some questions. No new focal neurologic deficits. Moving both upper and lower extremities spontaneously. Medications and IVs Current Medications Medications (Trade) Dose Ordered Sig/Peewee Route Start Time Stop Time Status Last Admin (NS 1000 ml Inj) 1,000 ml @ 100 mls/hr Q10H IV 02/22/17 00:33 02/22/17 08:47 (NS Flush) 2 ml UNSCH PRN IV FLUSH 02/22/17 00:45 (NS Flush) 2 ml BID IV FLUSH 02/22/17 09:00 02/22/17 08:46 (Zofran Inj) 4 mg Q6H PRN IVP 02/22/17 00:45 (Dulcolax Supp) 10 mg DAILY PRN RECTAL 02/22/17 00:45 (Tylenol) 650 mg Q6H PRN PO 02/22/17 00:45 A/P Assessment and Plan (1) Fall ICD Code: W19.XXXA Status: Acute (2) Toxic encephalopathy ICD Code: G92 Status: Acute (3) Dilantin toxicity ICD Code: T42.0X1A Status: Acute (4) Seizure ICD Code: R56.9 Status: Acute Assessment and Plan A/P: 1. Fall: s/p fall at SNF approx 12hr prior to arrival per report, details of fall unclear but apparent head trauma. CT Head w/ no acute intracranial abnormalities, images reviewed by me. 2. Toxic Encephalopathy: Awake but confused. No reported seizure activity. Likely secondary to Dilantin Toxicity. 3. Dilantin Toxicity: Dilantin 41 now. . Hold Dilantin. Seizure Precautions. Place on telemetry to eval for arrhythmia. Check Dilantin level q4h. Neuro checks q4h. 4. Seizure Disorder: Seizure Precautions. Hold anticonvulsants in light of Dilantin Toxicity. Neurology eval if needed. DVT Prophylaxis: SCD/Teds. Social work for d/c planning as needed. Discharge Planning Expected by tomorrow. Kanu Sosa MD Feb 22, 2017 11:32
[2017-02-22 12:00] VITALS: BP 94/62; PULSE 86; RESP 17; TEMP 96.4; O2SAT 98
--- NOTE | 2017-02-22 13:43 | EKG ---
Date Performed: 02/21/2017 Time Performed: 23:11:02 PTAGE: 56 years EKG: Sinus rhythm VOLTAGE CRITERIA FOR LVH ABNORMAL ECG Compared to prior tracing no significant change NO PREVIOUS TRACING DOCTOR: Miguelito Yoon Interpretating Date/Time 02/22/2017 13:37:53
[2017-02-22] MEDS: ACETAMINOPHEN 325 MG TAB PO PRN ×2 (14:03→14:05)
[2017-02-22] MEDS ORDERED: LORazepam 1 MG TAB PO PRN (14:45)
[2017-02-22] MEDS: traMADol HCL 50 MG TAB PO PRN ×3 (15:04→22:05)
[2017-02-22 16:00] VITALS: BP 135/67; PULSE 94; RESP 17; TEMP 96.9; O2SAT 100
[2017-02-22 19:30] VITALS: BP 103/69; PULSE 78; RESP 16; TEMP 97.9; O2SAT 95
[2017-02-22] MEDS: TOPIRAMATE 100 MG TAB PO SCH (22:05)
[2017-02-23] VITALS: BP 125/73; PULSE 91; RESP 16; TEMP 97.2; O2SAT 96
[2017-02-23] MEDS: SODIUM CHLOR 0.9% 1000 ML INJ 1,000 ML IV SCH ×3 (02:26→16:33)
[2017-02-23 03:40] VITALS: BP 112/69; PULSE 86; RESP 16; TEMP 96; O2SAT 95
[2017-02-23 05:52] LABS: AUTOMATED NEUTROPHIL # 3.4 TH/MM3 (1.8-7.7); BASOPHIL # 0.1 TH/MM3 (0-0.2); BASOPHIL % 1.4 % (0.0-2.0); EOSINOPHIL # 0.6 TH/MM3 (0-0.4); EOSINOPHIL % 9.3 % (0.0-4.0); HEMATOCRIT 40.3 % (39.0-51.0); HEMO FLAGS DIFF FINAL; LYMPH % 24.9 % (9.0-44.0); LYMPHOCYTE # 1.6 TH/MM3 (1.0-4.8); MEAN CELL VOLUME 96.6 FL (80.0-100.0); MEAN CORPUSCULAR HEMOGLOBIN 32.6 PG (27.0-34.0); MEAN CORPUSCULAR HGB CONC 33.7 % (32.0-36.0); NEUT % 51.4 % (16.0-70.0); PLATELET COUNT 350 TH/MM3 (150-450); RED BLOOD COUNT 4.17 MIL/MM3 (4.50-5.90); RED CELL DISTRIBUTION WIDTH 13.5 % (11.6-17.2); WHITE BLOOD COUNT 6.6 TH/MM3 (4.0-11.0)
[2017-02-23 06:10] LABS: ANION GAP 9 MEQ/L (5-15); AST (GOT) 16 U/L (15-37); BICARBONATE 25.1 MEQ/L (21.0-32.0); BLOOD UREA NITROGEN 9 MG/DL (7-18); CHLORIDE 108 MEQ/L (98-107); GLOMERULAR FILTRATION RATE 128 ML/MIN (>89); POTASSIUM 3.7 MEQ/L (3.5-5.1); SODIUM (NA) 142 MEQ/L (136-145)
[2017-02-23 06:21] LABS: ALKALINE PHOSPHATASE 116 U/L (45-117); ALT (GPT) 16 U/L (12-78); TOTAL BILIRUBIN ADULT 0.2 MG/DL (0.2-1.0)
[2017-02-23 08:00] VITALS: BP 112/69; PULSE 82; RESP 17; TEMP 96; O2SAT 95
[2017-02-23] MEDS ORDERED: FLUoxetine HCL 20 MG CAP PO SCH (09:00)
[2017-02-23] MEDS ORDERED: PANTOPRAZOLE SOD 20 MG DELAYED RELEASE TAB PO SCH (09:00)
[2017-02-23] MEDS ORDERED: MAGNESIUM OXIDE 400 MG TAB PO SCH (09:00)
[2017-02-23] MEDS ORDERED: amLODIPine BESYLATE 5 MG TAB PO SCH (09:00)
--- NOTE | 2017-02-23 09:05 | HHI.PR ---
Subjective Remarks This is a 56-year-old male with a PMH of Traumatic Brain Injury and Seizure Disorder who was sent to the ER from [facility] after fall 12hrs prior to arrival. Per report, pt had fall today at SNF where he struck his head, has had progressive weakness and altered mental status noted by staff. Pt w/ little recollection of events, does report headache. On arrival, BP 111/62, HR 79, O2 sat 96% on RA, Afebrile. CBC essentially at baseline. Chemistry unremarkable. INR 1.0. Dilantin Level elevated at 48.2. CT Head with no acute intracranial abnormalities. 02/22: Seen in his bedroom and discussed with nurse Miss Duffy his Dilantin levels are trending down, will be able to be evaluated by Physical Therapy and possible discharge again to his facility tomorrow or day after, he is stable in his bedroom and no complaint, no nausea, vomit or diarrhea. 02/23: Stable his Dilantin level is trending down, okay to discharge and will follow Dilantin level in his [facility] next 02/25/17 and titrate Dilantin by Attending physician. No complaint by patient okay to discharge to SNF again. Objective Vital Signs Date Time Temp Pulse Resp B/P Pulse Ox O2 Delivery O2 Flow Rate FiO2 02/23/17 03:40 96.0 86 16 112/69 95 02/23/17 00:00 97.2 91 16 125/73 96 02/22/17 19:33 Room Air 02/22/17 19:30 97.9 78 16 103/69 95 02/22/17 16:00 96.9 94 17 135/67 100 02/22/17 12:00 96.4 86 17 94/62 98 I/O 02/22/17 02/22/17 02/22/17 02/23/17 02/23/17 02/23/17 07:00 15:00 23:00 07:00 15:00 23:00 Intake Total 101 ml 720 ml 240 ml 832 ml Output Total 650 ml Balance 101 ml 720 ml 240 ml 182 ml Intake Oral 720 ml 240 ml 240 ml IV Total 101 ml 592 ml Output Urine Total 650 ml # Voids 4 2 # Bowel Movements 2 1 0 Result Diagram: 02/23/17 0508 02/23/17 0508 Imaging Last Impressions Head CT 02/21/17 5110 Signed Impressions: Service Date/Time: Tuesday, February 21, 2017 23:51 - CONCLUSION: 1. No acute intracranial abnormality. 2. Stable chronic changes as detailed above. Diony Lynn Jr., MD Procedures No procedures performed. Other Results Laboratory Tests Test 02/21/17 02/23/17 23:15 05:08 Prothrombin Time 11.0 SEC Prothromb Time International 1.0 RATIO Ratio Activated Partial 32.6 SEC Thromboplast Time White Blood Count 6.6 TH/MM3 Red Blood Count 4.17 MIL/MM3 Hemoglobin 13.6 GM/DL Hematocrit 40.3 % Mean Corpuscular Volume 96.6 FL Mean Corpuscular Hemoglobin 32.6 PG Mean Corpuscular Hemoglobin 33.7 % Concent Red Cell Distribution Width 13.5 % Platelet Count 350 TH/MM3 Mean Platelet Volume 6.6 FL Neutrophils (%) (Auto) 51.4 % Lymphocytes (%) (Auto) 24.9 % Monocytes (%) (Auto) 13.0 % Eosinophils (%) (Auto) 9.3 % Basophils (%) (Auto) 1.4 % Neutrophils # (Auto) 3.4 TH/MM3 Lymphocytes # (Auto) 1.6 TH/MM3 Monocytes # (Auto) 0.9 TH/MM3 Eosinophils # (Auto) 0.6 TH/MM3 Basophils # (Auto) 0.1 TH/MM3 CBC Comment DIFF FINAL Differential Comment Sodium Level 142 MEQ/L Potassium Level 3.7 MEQ/L Chloride Level 108 MEQ/L Carbon Dioxide Level 25.1 MEQ/L Anion Gap 9 MEQ/L Blood Urea Nitrogen 9 MG/DL Creatinine 0.64 MG/DL Estimat Glomerular Filtration 128 ML/MIN Rate Random Glucose 88 MG/DL Calcium Level 8.5 MG/DL Total Bilirubin 0.2 MG/DL Aspartate Amino Transf 16 U/L (AST/SGOT) Alanine Aminotransferase 16 U/L (ALT/SGPT) Alkaline Phosphatase 116 U/L Total Protein 6.9 GM/DL Albumin 2.9 GM/DL Phenytoin (Dilantin) Level 36.5 MCG/ML Objective Remarks GENERAL: Middle-aged male in no acute distress, mildly confused. HEENT: PERRLA, EOMI. No scleral icterus or conjunctival pallor. No lid lag or facial droop. CARDIOVASCULAR: Regular rate and rhythm. No obvious murmurs to auscultation. No chest tenderness to palpation. RESPIRATORY: No obvious rhonchi or wheezing. Clear to auscultation. Breath sounds equal bilaterally. GASTROINTESTINAL: Abdomen soft, non-tender, nondistended. BS normal. MUSCULOSKELETAL: Extremities without clubbing, cyanosis, or edema. No obvious deformities. NEUROLOGICAL: Awake, confused, answering some questions. No new focal neurologic deficits. Moving both upper and lower extremities spontaneously. Medications and IVs Current Medications Medications (Trade) Dose Ordered Sig/Peewee Route Start Time Stop Time Status Last Admin (NS 1000 ml Inj) 1,000 ml @ 100 mls/hr Q10H IV 02/22/17 00:33 02/23/17 02:26 (NS Flush) 2 ml UNSCH PRN IV FLUSH 02/22/17 00:45 (NS Flush) 2 ml BID IV FLUSH 02/22/17 09:00 02/22/17 22:05 (Zofran Inj) 4 mg Q6H PRN IVP 02/22/17 00:45 (Dulcolax Supp) 10 mg DAILY PRN RECTAL 02/22/17 00:45 (Tylenol) 650 mg Q6H PRN PO 02/22/17 00:45 (Norvasc) 5 mg DAILY PO 02/23/17 09:00 (PROzac) 20 mg DAILY PO 02/23/17 09:00 (Ativan) 1 mg Q6H PRN PO 02/22/17 14:45 (Protonix) 20 mg DAILY PO 02/23/17 09:00 (Zanaflex) 4 mg DAILY PRN PO 02/22/17 14:45 (Topamax) 100 mg BID PO 02/22/17 21:00 02/22/17 22:05 (Ultram) 50 mg Q4H PRN PO 02/22/17 14:45 02/22/17 22:05 (Mag-Ox) 400 mg DAILY PO 02/23/17 09:00 A/P Assessment and Plan (1) Fall ICD Code: W19.XXXA Status: Acute (2) Toxic encephalopathy ICD Code: G92 Status: Acute (3) Dilantin toxicity ICD Code: T42.0X1A Status: Acute (4) Seizure ICD Code: R56.9 Status: Acute Assessment and Plan A/P: 1. Fall: s/p fall at SNF approx 12hr prior to arrival per report, details of fall unclear but apparent head trauma. CT Head w/ no acute intracranial abnormalities. 2. Toxic Encephalopathy: Awake but confused. No reported seizure activity. Improved after Hydration and Dilantin levels trending down, 3. Dilantin Toxicity: Dilantin 41 now. . Hold Dilantin. Seizure Precautions. was on Telemetry for cardiac monitoring, at this time Dilantin level 36.5 4. Seizure Disorder: Seizure Precautions. Hold anticonvulsants in light of Dilantin Toxicity. DVT Prophylaxis: SCD/Teds. Discussed with housekeeper manager and nurse tiera Abdi to discharge to SNF and follow Dilantin level for 02/25/17 and titrate medicine with Attending. Discharge Planning Discharge to SNF now. Kanu Sosa MD Feb 23, 2017 09:05
[2017-02-23] MEDS: traMADol HCL 50 MG TAB PO PRN ×3 (09:51→17:29)
[2017-02-23] MEDS: TOPIRAMATE 100 MG TAB PO SCH (09:57)
[2017-02-23] MEDS: ACETAMINOPHEN 325 MG TAB PO PRN (09:58)
[2017-02-23] MEDS: SODIUM CHLORIDE 0.9% FLUSH 10 ML FLUSH IV FLUSH SCH (10:07)
[2017-02-23] MEDS ORDERED: DILA100C PO (10:07)
--- NOTE | 2017-02-23 10:10 | HHI.DS ---
Discharge Summary Admission Date Feb 22, 2017 at 00:25 Discharge Date: Feb 23, 2017 Admitting Diagnosis toxic encephalopathy (1) Fall ICD Code: W19.XXXA Diagnosis: Secondary (2) Toxic encephalopathy ICD Code: G92 Diagnosis: Principal (3) Dilantin toxicity ICD Code: T42.0X1A Diagnosis: Principal (4) Seizure ICD Code: R56.9 Diagnosis: Secondary Procedures No procedures performed. Brief History - From Admission This is a 56-year-old male with a PMH of Traumatic Brain Injury and Seizure Disorder who was sent to the ER from [facility] after fall 12hrs prior to arrival. Per report, pt had fall today at SNF where he struck his head, has had progressive weakness and altered mental status noted by staff. Pt w/ little recollection of events, does report headache. On arrival, BP 111/62, HR 79, O2 sat 96% on RA, Afebrile. CBC essentially at baseline. Chemistry unremarkable. INR 1.0. Dilantin Level elevated at 48.2. CT Head with no acute intracranial abnormalities. CBC/BMP: 02/23/17 0508 02/23/17 0508 Significant Findings Laboratory Tests Test 02/21/17 02/22/17 02/22/17 02/22/17 23:15 04:45 08:08 10:28 Red Blood Count 3.65 MIL/MM3 (4.50-5.90) Hemoglobin 12.4 GM/DL (13.0-17.0) Hematocrit 34.7 % (39.0-51.0) Mean Corpuscular Hemoglobin 34.1 PG (27.0-34.0) Mean Platelet Volume 6.3 FL (7.0-11.0) Monocytes (%) (Auto) 12.5 % (0.0-8.0) Eosinophils (%) (Auto) 8.9 % (0.0-4.0) Eosinophils # (Auto) 0.6 TH/MM3 (0-0.4) Activated Partial 32.6 SEC Thromboplast Time (24.3-30.1) Sodium Level 134 MEQ/L (136-145) Phenytoin (Dilantin) Level 48.2 MCG/ML 47.1 MCG/ML 41.7 MCG/ML 43.0 MCG/ML (10.0-20.0) (10.0-20.0) (10.0-20.0) (10.0-20.0) Test 02/23/17 05:08 Red Blood Count 4.17 MIL/MM3 (4.50-5.90) Mean Platelet Volume 6.6 FL (7.0-11.0) Monocytes (%) (Auto) 13.0 % (0.0-8.0) Eosinophils (%) (Auto) 9.3 % (0.0-4.0) Eosinophils # (Auto) 0.6 TH/MM3 (0-0.4) Chloride Level 108 MEQ/L (98-107) Albumin 2.9 GM/DL (3.4-5.0) Phenytoin (Dilantin) Level 36.5 MCG/ML (10.0-20.0) Imaging Last Impressions Head CT 02/21/17 2310 Signed Impressions: Service Date/Time: Tuesday, February 21, 2017 23:51 - CONCLUSION: 1. No acute intracranial abnormality. 2. Stable chronic changes as detailed above. Diony Lynn Jr., MD PE at Discharge GENERAL: Middle-aged male in no acute distress, mildly confused. HEENT: PERRLA, EOMI. No scleral icterus or conjunctival pallor. No lid lag or facial droop. CARDIOVASCULAR: Regular rate and rhythm. No obvious murmurs to auscultation. No chest tenderness to palpation. RESPIRATORY: No obvious rhonchi or wheezing. Clear to auscultation. Breath sounds equal bilaterally. GASTROINTESTINAL: Abdomen soft, non-tender, nondistended. BS normal. MUSCULOSKELETAL: Extremities without clubbing, cyanosis, or edema. No obvious deformities. NEUROLOGICAL: Awake, confused, answering some questions. No new focal neurologic deficits. Moving both upper and lower extremities spontaneously. Hospital Course This is a 56-year-old male with a PMH of Traumatic Brain Injury and Seizure Disorder who was sent to the ER from [facility] after fall 12hrs prior to arrival. Per report, pt had fall today at [facility] where he struck his head, has had progressive weakness and altered mental status noted by staff. Pt w/ little recollection of events, does report headache. On arrival, BP 111/62, HR 79, O2 sat 96% on RA, Afebrile. CBC essentially at baseline. Chemistry unremarkable. INR 1.0. Dilantin Level elevated at 48.2. CT Head with no acute intracranial abnormalities. 02/22: Seen in his bedroom and discussed with nurse Miss Duffy his Dilantin levels are trending down, will be able to be evaluated by Physical Therapy and possible discharge again to his facility tomorrow or day after, he is stable in his bedroom and no complaint, no nausea, vomit or diarrhea. 02/23: Stable his Dilantin level is trending down, okay to discharge and will follow Dilantin level in his [facility] next 02/25/17 and titrate Dilantin by Attending physician. No complaint by patient okay to discharge to SNF again. Assessment and Plan (1) Fall ICD Code: W19.XXXA Status: Acute (2) Toxic encephalopathy ICD Code: G92 Status: Acute (3) Dilantin toxicity ICD Code: T42.0X1A Status: Acute (4) Seizure ICD Code: R56.9 Status: Acute Assessment and Plan A/P: 1. Fall: s/p fall at SNF approx 12hr prior to arrival per report, details of fall unclear but apparent head trauma. CT Head w/ no acute intracranial abnormalities. 2. Toxic Encephalopathy: Awake but confused. No reported seizure activity. Improved after Hydration and Dilantin levels trending down, 3. Dilantin Toxicity: Dilantin 41 now. . Hold Dilantin. Seizure Precautions. was on Telemetry for cardiac monitoring, at this time Dilantin level 36.5 4. Seizure Disorder: Seizure Precautions. Hold anticonvulsants in light of Dilantin Toxicity. DVT Prophylaxis: SCD/Teds. Discussed with physiotherapy practice manager and nurse Miss Padron, okay to discharge to SNF and follow Dilantin level for 02/25/17 and titrate medicine with Attending. Discharge Planning Discharge to SNF now. Pt Condition on Discharge: Good Discharge Disposition: Discharge to SNF Discharge Time: <= 30 minutes Discharge Instructions DIET: Follow Instructions for: As Tolerated, No Restrictions Activities you can perform: Regular-No Restrictions Kanu Sosa MD Feb 23, 2017 10:09
[2017-02-23 12:00] VITALS: BP 105/69; PULSE 87; RESP 17; TEMP 97.3; O2SAT 97
[2017-02-23 16:00] VITALS: BP 126/77; PULSE 83; RESP 18; TEMP 97.1; O2SAT 98
== END 2017-02-23 18:47 | DRG 92 ==
LOC: NEPD 22:23 → NEDA 02-22 00:25 → N06B 02-22 03:12
PROVIDERS: ADMIT Hospitalist; ATTEND Hospitalist
DX: G92 Toxic encephalopathy (principal); E87.1 Hypo-osmolality and hyponatremia; T42.0X5A Adverse effect of hydantoin derivatives, initial encounter; Z87.820 Personal history of traumatic brain injury; G40.909 Epilepsy, unspecified, not intractable, without status epilepticus; Z91.81 History of falling
CPT/HCPCS: 70450; 80048; 80053; 80185; 85025; 85610; 85730; 93005; J7030

== ENCOUNTER 2018-05-14 22:39 | Inpatient (IN) ==
--- NOTE | 2018-05-14 23:31 | ED ---
HPI General Chief Complaint: Altered Mental Status Stated Complaint: Poss AMS Time Seen by Provider: 05/14/18 23:29 Source: EMS Mode of arrival: EMS Limitations: altered mental status History of Present Illness HPI narrative: Patient is a 57-year-old male from a detention he traumatic brain injury lives in the detention apparently found lying on the floor tonight unknown amount of time altered mental status baseline is minimally verbal but now he is not really responding his eyes are open but he is not speaking he is brought in by EMS HPI and ROS is limited due to the fact the patient is nonverbal and altered mental no obvious injury at this time he is awake his eyes are open his heart rate is fluctuating from 110-130 mild temp axillary is 100.3 and he coughed what looked to be coffee-ground emesis on initial eval no other significant history is available due to the patient's mental status and nonverbal status MD complaint: altered mental status, confusion and decreased responsiveness Onset (ago): hour(s) Related Data Home Medications Medication Instructions Recorded Confirmed amlodipine 5 mg PO DAILY 05/15/18 05/15/18 clonazepam 1 mg PO BID 05/15/18 05/15/18 fluoxetine 20 mg PO DAILY 05/15/18 05/15/18 gabapentin 300 mg PO TID 05/15/18 05/15/18 lactulose 10 g PO BID 05/15/18 05/15/18 magnesium oxide 400 mg PO DAILY 05/15/18 05/15/18 omeprazole 20 mg PO DAILY 05/15/18 05/15/18 phenytoin sodium extended 300 mg PO DAILY 05/15/18 05/15/18 topiramate 100 mg PO BID 05/15/18 05/15/18 tramadol 50 mg PO Q6H 05/15/18 05/15/18 Allergies Allergy/AdvReac Type Severity Reaction Status Date / Time No Known Allergies Allergy Uncoded 02/12/17 09:00 Review of Systems ROS Unobtainable unobtainable due to mental status PMFSH Medical History Medical History Dementia (Acute) Epilepsia (Acute) Metabolic encephalopathy (Acute) Seizure (Acute) Traumatic brain injury (Acute) Social History Social History Substance History: Unable to Obtain Smoking Status: Unknown if ever smoked How Often Do You Have a Drink Containing Alcohol: Unable to Obtain Recent Travel in [facility] within the Last 8 Weeks: No Recent Out of Country Travel within the Last 8 Weeks: No Exam Narrative Exam Narrative: GENERAL: STARING OFF NOT MAKING EYE CONTACT SKIN: Focused skin assessment warm/dry. HEAD: Atraumatic. Normocephalic. RIGHT SIDED CRANIOTOMY DEFORMITY FELT ON RIGHT SCALP EYES: Pupils equal and round. No scleral icterus. No injection or drainage. ENT: No nasal bleeding or discharge. Mucous membranes pink and moist. NECK: Trachea midline. No JVD. CARDIOVASCULAR: TACHYCARDIC SINUS rhythm. bilaterally. GASTROINTESTINAL: Abdomen soft, PT VOMITED COFFEE GROUND EMESIS ONE TIME nondistended. Hepatic and splenic margins not palpable. MUSCULOSKELETAL: No obvious deformities. No clubbing. No cyanosis. No edema. NEUROLOGICAL: Awake ALERT NON VERBAL STARING AVOIDING EYE CONTACT PSYCH TBI NON VERBAL Course Reevaluation(s) Reevaluation #1: Patient is given fluid hydration antibiotics as well as aspirin for troponin of 1.69 EKG was sinus tach at 130 fluid and then Lopressor 2.5 to slow his heart I gave him Tylenol as well and there was an occult fever causing the tachycardia CT chest and head and abdomen revealed basal pneumonia covered with ceftriaxone troponin is repeated patient is admitted to [facility] I am going to Lovenox him and follow troponin antibiotics he has an elevated white count of 16 ,, PT is safe for stepdown ICU observation ...anticoagulation for cardiac ischemia Time: 04:11 Initial Documented Vital Signs Temperature 100.3 F H 05/14/18 23:21 Pulse Rate 132 H 05/14/18 23:21 Respiratory Rate 20 05/14/18 23:21 Pulse Oximetry 96 05/14/18 23:21 Last Documented Vital Signs Temperature 100.3 F H 05/14/18 23:21 Pulse Rate 119 H 05/15/18 02:43 Respiratory Rate 20 05/15/18 02:43 Blood Pressure 98/67 L 05/15/18 02:43 Pulse Oximetry 94 L 05/15/18 02:43 Critical Care Time Critical Care Time: Yes Total Critical Care Time: 30 Attestation: Between fluid resuscitation cardiac monitoring reperfusion arrhythmia monitoring anticoagulation antibiotics for pneumonia non-STEMI admit to [facility] critical care time 30 minutes Medical Decision Making Lab Data Result diagrams: 05/14/18 02:46 05/15/18 00:00 Lab Results 05/14/18 05/14/18 05/14/18 Range/Units 00:00 00:00 00:20 WBC (4.0-11.0) th/mm3 RBC (4.50-5.90) mil/mm3 Hgb (13.0-17.0) gm/dL Hct (39.0-51.0) % MCV (80.0-100.0) fL MCH (27.0-34.0) pg MCHC (32.0-36.0) % RDW (11.6-17.2) % Plt Count (150-450) th/mm3 MPV (7.0-11.0) fL Prelim Diff (Auto) Neut % (Auto) (16.0-70.0) % Lymph % (Auto) (9.0-44.0) % Candler % (Auto) (0.0-8.0) % Eos % (Auto) (0.0-4.0) % Baso % (Auto) (0.0-2.0) % Neut # (Auto) (1.8-7.7) th/mm3 Lymph # (Auto) (1.0-4.8) th/mm3 Candler # (Auto) (0.0-0.9) th/mm3 Eos # (Auto) (0.0-0.4) th/mm3 Baso # (Auto) (0.0-0.2) th/mm3 WBC Differential Diff Scan Differential Comment Platelet Estimate (Normal) Platelet Morphology (Normal) PT (9.8-11.6) sec INR Ratio APTT 24.1 L (24.3-30.1) sec Sodium (136-145) meq/L Potassium (3.5-5.1) meq/L Chloride (98-107) meq/L Carbon Dioxide (21.0-32.0) meq/L Anion Gap (5-15) meq/L BUN (7-18) mg/dL Creatinine (0.60-1.30) mg/dL Estimated GFR (>89) mL/min POC Glucose (68-110) mg/dl Random Glucose (74-106) mg/dL Lactic Acid 3.3 H (0.4-2.0) mmol/L Calcium (8.5-10.1) mg/dL Total Bilirubin (0.2-1.0) mg/dL AST (15-37) U/L ALT (12-78) U/L Alkaline Phosphatase (45-117) U/L Troponin I 1.69 H* (0.02-0.05) ng/mL Total Protein (6.4-8.2) g/dL Albumin (3.4-5.0) g/dL Lipase 130 (73-393) U/L Urine Color (Yellw/Straw) Urine Clarity (Clear) Urine pH (5.0-8.5) Ur Specific Mcclusky (1.002-1.035) Urine Protein (Neg-Trace) mg/dL Urine Glucose (UA) (Negative) mg/dL Urine Ketones (Negative) mg/dL Urine Occult Blood (Negative) Urine Nitrate (Negative) Urine Bilirubin (Negative) Urine Urobilinogen (Less than 2) mg/dL Ur Leukocyte Esterase (Negative) Urine RBC (0-3) /hpf Urine WBC (0-5) /hpf Ur Squamous Epith Cells (0-5) /hpf Urine Bacteria (None) /hpf Urine Mucus (Occasional) /lpf Micro UA Comment Urine Culture Comments 05/14/18 05/15/18 05/15/18 Range/Units 02:46 00:00 02:15 WBC 16.9 H (4.0-11.0) th/mm3 RBC 5.00 (4.50-5.90) mil/mm3 Hgb 15.7 (13.0-17.0) gm/dL Hct 46.9 (39.0-51.0) % MCV 93.8 (80.0-100.0) fL MCH 31.3 (27.0-34.0) pg MCHC 33.4 (32.0-36.0) % RDW 14.4 (11.6-17.2) % Plt Count 505 H (150-450) th/mm3 MPV 7.1 (7.0-11.0) fL Prelim Diff (Auto) Slide review pending Neut % (Auto) 80.1 H (16.0-70.0) % Lymph % (Auto) 7.2 L (9.0-44.0) % Candler % (Auto) 12.5 H (0.0-8.0) % Eos % (Auto) 0.0 (0.0-4.0) % Baso % (Auto) 0.2 (0.0-2.0) % Neut # (Auto) 13.6 H (1.8-7.7) th/mm3 Lymph # (Auto) 1.2 (1.0-4.8) th/mm3 Candler # (Auto) 2.1 H (0.0-0.9) th/mm3 Eos # (Auto) 0.0 (0.0-0.4) th/mm3 Baso # (Auto) 0.0 (0.0-0.2) th/mm3 WBC Differential . Diff Scan Auto diff confirmed Differential Comment . Platelet Estimate High H (Normal) Platelet Morphology Normal (Normal) PT (9.8-11.6) sec INR Ratio APTT (24.3-30.1) sec Sodium 136 (136-145) meq/L Potassium 3.9 (3.5-5.1) meq/L Chloride 101 (98-107) meq/L Carbon Dioxide 18.7 L (21.0-32.0) meq/L Anion Gap 16 H (5-15) meq/L BUN 11 (7-18) mg/dL Creatinine 1.37 H (0.60-1.30) mg/dL Estimated GFR 53 L (>89) mL/min POC Glucose (68-110) mg/dl Random Glucose 247 H (74-106) mg/dL Lactic Acid (0.4-2.0) mmol/L Calcium 9.4 (8.5-10.1) mg/dL Total Bilirubin 0.3 (0.2-1.0) mg/dL AST 33 (15-37) U/L ALT 26 (12-78) U/L Alkaline Phosphatase 140 H (45-117) U/L Troponin I (0.02-0.05) ng/mL Total Protein 8.8 H (6.4-8.2) g/dL Albumin 4.2 (3.4-5.0) g/dL Lipase (73-393) U/L Urine Color Yellow (Yellw/Straw) Urine Clarity Hazy H (Clear) Urine pH 5.0 (5.0-8.5) Ur Specific Mc[place]ky 1.012 (1.002-1.035) Urine Protein 100 H (Neg-Trace) mg/dL Urine Glucose (UA) 50 (Negative) mg/dL Urine Ketones Negative (Negative) mg/dL Urine Occult Blood Moderate H (Negative) Urine Nitrate Negative (Negative) Urine Bilirubin Negative (Negative) Urine Urobilinogen Less than 2 (Less than 2) mg/dL Ur Leukocyte Esterase Negative (Negative) Urine RBC 2 (0-3) /hpf Urine WBC 4 (0-5) /hpf Ur Squamous Epith Cells <1 (0-5) /hpf Urine Bacteria Few H (None) /hpf Urine Mucus Few H (Occasional) /lpf Micro UA Comment Cath-culture ind Urine Culture Comments Cath-cult indicated 05/15/18 05/15/18 05/15/18 Range/Units 02:47 03:45 03:45 WBC (4.0-11.0) th/mm3 RBC (4.50-5.90) mil/mm3 Hgb (13.0-17.0) gm/dL Hct (39.0-51.0) % MCV (80.0-100.0) fL MCH (27.0-34.0) pg MCHC (32.0-36.0) % RDW (11.6-17.2) % Plt Count (150-450) th/mm3 MPV (7.0-11.0) fL Prelim Diff (Auto) Neut % (Auto) (16.0-70.0) % Lymph % (Auto) (9.0-44.0) % Candler % (Auto) (0.0-8.0) % Eos % (Auto) (0.0-4.0) % Baso % (Auto) (0.0-2.0) % Neut # (Auto) (1.8-7.7) th/mm3 Lymph # (Auto) (1.0-4.8) th/mm3 Candler # (Auto) (0.0-0.9) th/mm3 Eos # (Auto) (0.0-0.4) th/mm3 Baso # (Auto) (0.0-0.2) th/mm3 WBC Differential Diff Scan Differential Comment Platelet Estimate (Normal) Platelet Morphology (Normal) PT 11.3 (9.8-11.6) sec INR 1.1 Ratio APTT (24.3-30.1) sec Sodium (136-145) meq/L Potassium (3.5-5.1) meq/L Chloride (98-107) meq/L Carbon Dioxide (21.0-32.0) meq/L Anion Gap (5-15) meq/L BUN (7-18) mg/dL Creatinine (0.60-1.30) mg/dL Estimated GFR (>89) mL/min POC Glucose 157 H (68-110) mg/dl Random Glucose (74-106) mg/dL Lactic Acid 1.7 (0.4-2.0) mmol/L Calcium (8.5-10.1) mg/dL Total Bilirubin (0.2-1.0) mg/dL AST (15-37) U/L ALT (12-78) U/L Alkaline Phosphatase (45-117) U/L Troponin I (0.02-0.05) ng/mL Total Protein (6.4-8.2) g/dL Albumin (3.4-5.0) g/dL Lipase (73-393) U/L Urine Color (Yellw/Straw) Urine Clarity (Clear) Urine pH (5.0-8.5) Ur Specific Mc[place]ky (1.002-1.035) Urine Protein (Neg-Trace) mg/dL Urine Glucose (UA) (Negative) mg/dL Urine Ketones (Negative) mg/dL Urine Occult Blood (Negative) Urine Nitrate (Negative) Urine Bilirubin (Negative) Urine Urobilinogen (Less than 2) mg/dL Ur Leukocyte Esterase (Negative) Urine RBC (0-3) /hpf Urine WBC (0-5) /hpf Ur Squamous Epith Cells (0-5) /hpf Urine Bacteria (None) /hpf Urine Mucus (Occasional) /lpf Micro UA Comment Urine Culture Comments Imaging Data Radiologist's impression: ITS Impressions Chest X-Ray 05/14/18 23:56 CONCLUSION: No acute cardiopulmonary disease. Head CT 05/15/18 00:08 CONCLUSION: 1. Encephalomalacia right temporal lobe. 2. Right-sided craniotomy. Chest CT 05/15/18 01:21 CONCLUSION: 1. Patchy infiltrates in the lower lobes and right middle lobe. 2. Mild emphysema. Abdomen/Pelvis CT 05/15/18 01:22 CONCLUSION: 1. No acute abnormalities. Discharge Plan Discharge Disposition Patient Disposition: 30 Still Patient Discharge Details Diagnosis: Non-ST elevation myocardial infarction in recovery phase Physicians Team ED Provider: Chandrakant Fuchs Primary Care Provider: Dejan Aranda Attending Provider: Hermila Mera Other Providers: Jsese Jones Status ED Status: Admitted Patient
[2018-05-15] MEDS ORDERED: Acetaminophen 650 MG Supp RECTAL ONE (00:07)
[2018-05-15 00:52] LABS: Troponin I 1.69 ng/mL (0.02-0.05)
[2018-05-15 00:52] LABS: Baso % (Auto) 0.2 % (0.0-2.0); Hematocrit 46.9 % (39.0-51.0); Hemoglobin 15.7 gm/dL (13.0-17.0); Lymph # (Auto) 1.2 th/mm3 (1.0-4.8); Lymph % (Auto) 7.2 % (9.0-44.0); Mean Corpuscular HGB Conc 33.4 % (32.0-36.0); Mean Corpuscular Hemoglobin 31.3 pg (27.0-34.0); Mean Corpuscular Volume 93.8 fL (80.0-100.0); Mean Platelet Volume 7.1 fL (7.0-11.0); Mono # (Auto) 2.1 th/mm3 (0.0-0.9); Mono % (Auto) 12.5 % (0.0-8.0); Neut # (Auto) 13.6 th/mm3 (1.8-7.7); Neut % (Auto) 80.1 % (16.0-70.0); Platelet Count 505 th/mm3 (150-450); Red Cell Distribution Width 14.4 % (11.6-17.2); White Blood Count 16.9 th/mm3 (4.0-11.0)
[2018-05-15] MEDS ORDERED: Aspirin 300 MG Supp RECTAL ONE (00:52)
--- NOTE | 2018-05-15 00:55 | XR ---
EXAM DATE: 05/15/2018 12:10 AM EDT AGE/SEX: 57 years / Male INDICATIONS: Altered mental status. CLINICAL DATA: This is the patient's initial encounter. Patient reports that signs and symptoms have been present for 1 day and indicates a pain score of Nonresponsive. MEDICAL/SURGICAL HISTORY: Cardiovascular disease. None. COMPARISON: synapse default, CHEST SINGLE AP, 12/13/2016. . FINDINGS: A single AP view of the chest demonstrates the lungs to be symmetrically aerated without evidence of mass, infiltrate or effusion. The cardiomediastinal contours are unremarkable. Osseous structures a re intact. CONCLUSION: No acute cardiopulmonary disease. Electronically signed by: Maury Lua MD 05/15/2018 12:53 AM EDT
[2018-05-15 01:25] LABS: Platelet Morphology Normal (Normal)
[2018-05-15] MEDS ORDERED: Metoprolol Inj 5 MG/5 ML Vial IV.PUSH ONE (02:11)
--- NOTE | 2018-05-15 02:15 | CT ---
EXAM DATE: 05/15/2018 1:42 AM EDT AGE/SEX: 57 years / Male INDICATIONS: Altered mental status. Possible seizure. CLINICAL DATA: This is the patient's initial encounter. Patient reports that signs and symptoms have been present for 1 day and indicates a pain score of Nonresponsive. MEDICAL/SURGICAL HISTORY: . Dementia. Seizures. TBI. Craniotomy. RADIATION DOSE: 56.35 CTDI (mGy) COMPARISON: [facility] [place], CT BRAIN W/O CONTRAST, 02/21/2017. . TECHNIQUE: CT of the head without contrast. Using automated exposure control and adjustment of the mA and/or kV according to patient size, radiation dose was kept as low as reasonably achievable to ob tain optimal diagnostic quality images. DICOM format image data is available electronically for revi ew and comparison. FINDINGS: Cerebrum: The ventricles are normal for age. No evidence of midline shift, mass lesion, hemorrhage or acute infarction. No extraaxial fluid collections are seen. Encephalomalacia right temporal lobe. Posterior Fossa: The cerebellum and brainstem are intact. The 4th ventricle is midline. The cerebe llopontine angle is unremarkable. Extracranial: The visualized portion of the orbits is intact. Skull: Right-sided craniotomy. No evidence of skull fracture. CONCLUSION: 1. Encephalomalacia right temporal lobe. 2. Right-sided craniotomy. Electronically signed by: Maury Lua MD 05/15/2018 2:13 AM EDT
--- NOTE | 2018-05-15 02:19 | CT ---
EXAM DATE: 05/15/2018 1:43 AM EDT AGE/SEX: 57 years / Male INDICATIONS: Fever, tachypnea. CLINICAL DATA: This is the patient's initial encounter. Patient reports that signs and symptoms have been present for 1 day and indicates a pain score of Nonresponsive. MEDICAL/SURGICAL HISTORY: . Dementia. Seizures. TBI. Craniotomy. RADIATION DOSE: 5.17 CTDI (mGy) ; Combined studies COMPARISON: No prior exams available for comparison. TECHNIQUE: Multiple contiguous axial images were obtained through the chest without contrast. Image s were obtained in suspended respiration using multiple row detector helical technique. Using automa sofia exposure control and adjustment of the mA and/or kV according to patient size, radiation dose was kept as low as reasonably achievable to obtain optimal diagnostic quality images. DICOM format imag e data is available electronically for review and comparison. FINDINGS: Lungs: Patchy densities within the lower lobes and right middle lobe. Mild emphysema. Mediastinum: There is good visualization of the great vessels of the middle mediastinum. No evidenc e of mediastinal or hilar adenopathy/mass. Pleurae: No evidence of focal thickening or pleural effusion. Axillae: Unremarkable. Bony Structures: Unremarkable. Miscellaneous: The examination was extended to include the upper abdomen, and both adrenal glands ar e normal in size and configuration. CONCLUSION: 1. Patchy infiltrates in the lower lobes and right middle lobe. 2. Mild emphysema. Electronically signed by: Maury Lua MD 05/15/2018 2:17 AM EDT
--- NOTE | 2018-05-15 02:23 | CT ---
EXAM DATE: 05/15/2018 1:45 AM EDT AGE/SEX: 57 years / Male INDICATIONS: Fever, coffe-ground emesis. CLINICAL DATA: This is the patient's initial encounter. Patient reports that signs and symptoms have been present for 1 day and indicates a pain score of Nonresponsive. MEDICAL/SURGICAL HISTORY: . Dementia. Seizures. TBI. Craniotomy. RADIATION DOSE: 5.17 CTDI (mGy) ; Combined studies [place] [facility] [place]AST[place] 12/13/2016. . TECHNIQUE: Multiple contiguous axial images were obtained through the abdomen. Images were obtained using multiple row detector helical technique. Using automated exposure control and adjustment of the mA and/or kV according to patient size, radiation dose was kept as low as reasonably achievable to o btain optimal diagnostic quality images. DICOM format image data is available electronically for rev iew and comparison. FINDINGS: Lower Lungs: Bibasilar patchy densities Liver: The liver has a homogeneous density without space-occupying lesion. There is no dilation of th e biliary tree. Spleen: Homogeneous density without enlargement. Pancreas: Unremarkable without mass or calcification. Kidneys: Normal in size and shape. No evidence of mass or hydronephrosis. Adrenal Glands: Unremarkable. Aorta: Atherosclerotic changes without aneurysmal dilation. Bowel/Mesentery: The bowel loops are grossly unremarkable. The cecum and sigmoid colon have a normal configuration. Abdominal Wall: Intact. Retroperitoneum: No evidence of adenopathy in the retrocrural, para-aortic, or deep pelvic regions. Bladder: Contours are smooth. Contains a Schaffer catheter. Reproductive Organs: No abnormal masses or calcifications seen. Inguinal: The inguinal region is unremarkable without evidence of adenopathy. Bony Structures: Unremarkable. CONCLUSION: 1. No acute abnormalities. Electronically signed by: Maury Lua MD 05/15/2018 2:22 AM EDT
[2018-05-15] MEDS ORDERED: Sod Chloride 0.9% Inj 1,000 ML IV.CONT SCH (02:30)
[2018-05-15] MEDS ORDERED: Pantoprazole Inj 40 MG Vial IV.PUSH ONE (03:14)
[2018-05-15 03:36] LABS: Alkaline Phosphatase 140 U/L (45-117); Total Protein 8.8 g/dL (6.4-8.2)
[2018-05-15 03:37] LABS: Alanine Aminotransferase 26 U/L (12-78); Albumin 4.2 g/dL (3.4-5.0); Anion Gap 16 meq/L (5-15); Aspartate Aminotransferase 33 U/L (15-37); Blood Urea Nitrogen 11 mg/dL (7-18); Calcium 9.4 mg/dL (8.5-10.1); Carbon Dioxide 18.7 meq/L (21.0-32.0); Chloride 101 meq/L (98-107); Glomerular Filtration Rate 53 mL/min (>89); Glucose,Random 247 mg/dL (74-106); Potassium 3.9 meq/L (3.5-5.1); Sodium 136 meq/L (136-145)
[2018-05-15] MEDS ORDERED: Bisacodyl 10 MG Supp RECTAL PRN (03:41)
[2018-05-15 03:57] LABS: Bacteria,Urine Few /hpf; Bilirubin,Urine Negative (Negative); Clarity,Urine Hazy (Clear); Color,Urine Yellow (Yellw/Straw); Glucose,Urine (UA) 50 mg/dL (Negative); Leukocyte Esterase,Urine Negative (Negative); Mucus,Urine Few /lpf (Occasional); Nitrite,Urine Negative (Negative); Specific Gravity,Urine 1.012 (1.002-1.035); Squamous Epithelial Cell,Urine <1 /hpf (0-5)
[2018-05-15] MEDS ORDERED: Vancomycin Consult Pharmacy 1 EACH OTHER SCH (04:00)
[2018-05-15 04:12] LABS: INR 1.1 Ratio; Prothrombin Time 11.3 sec (9.8-11.6)
--- NOTE | 2018-05-15 04:16 | P.HPIM ---
History of Present Illness Primary Care Physician: Dejan Aranda MD History of Present Illness: This is a 57-year-old male with a PMH of TBI, Seizure Disorder and Dementia who was brought to the ER by EMS from SNF after patient found lying on the floor unresponsive. Unknown length of downtime. Pt nonverbal, not answering questions, seemingly at baseline. Unable to obtain any history from patient. On arrival, BP 127/73, HR 132, O2 sat 96% on RA, Temp 100.3. WBC 16.9. Creatinine 1.37. Lactic Acid 3.3, repeat 1.7. Troponin I 0.69. UA positive for UTI. CT Head encephalomalacia right temporal lobe, right-sided craniotomy, no acute findings. CT Chest patchy infiltrates lower lobes and right middle lobe. CXR with no acute findings. CT Abdomen/Pelvis with no acute abnormalities. S/p Rocephin in ER. - Diagnosis (1) Sepsis (2) PNA (pneumonia) (3) NSTEMI (non-ST elevated myocardial infarction) (4) Encephalopathy Inpatient Certification: I certify that the inpatient services were ordered in accordance with Medicare regulations governing the order. This includes certification that hospital inpatient services are reasonable and necessary and in the case of services not specified as inpatient-only under 42 CFR 419.22(n), that they are appropriately provided as inpatient services in accordance to with the 2-midnight benchmark under 43 CFR 412.3(e) Estimated Total Length of Stay (Days): 2 Plans for Post Hospital Care: Not yet determined Review of Systems unobtainable due to mental condition, unobtainable due to mental status PMFSH - History History Provided By: Medical Record - Medical History Medical History: Medical History (Last Updated 05/15/18 @ 01:27 by Mindy Vazquez) Dementia Epilepsia Metabolic encephalopathy Seizure Traumatic brain injury - Tobacco History Smoking Status: Unknown if ever smoked - Alcohol History How Often Do You Have a Drink Containing Alcohol: Unable to Obtain - Substance Use History Substance History: Unable to Obtain - Travel History Recent Travel in the [place] Within the Last 8 Weeks: No Recent Travel Out of the Country Within the Last 8 Weeks: No - Immunization History Tetanus Immunization: Unable to Assess Hx Influenza Vaccine This Season: Unable to Assess Medications and Allergies Active Medications: Active Medications Acetaminophen (Tylenol) 650 mg PO Q4H PRN PRN Reason: FEVER/PAIN 1-2 Al Hydroxide/Mg Hydroxide (Milk Of Magnesia Liq) 30 ml PO Q12H PRN PRN Reason: Mild Constipation Bisacodyl (Dulcolax Supp) 10 mg RECTAL DAILY PRN PRN Reason: SEVERE CONSITIPATION Sodium Chloride (Ns Inj) 1,000 mls @ 100 mls/hr IV.CONT .Q10H [facility] Last Admin: 05/15/18 02:24 Dose: 100 mls/hr Cefepime HCl 1,000 mg/ Sodium (Chloride) 100 mls @ 200 mls/hr IV.SIG Q12H [facility] Pharmacy Profile Note (Vancomycin Consult Pharmacy) 0 mls @ 0 mls/hr OTHER UNSCH [facility] Sodium Chloride (Ns Inj) 1,000 mls @ 100 mls/hr IV.CONT .Q10H [facility] Lactulose (Lactulose Liq) 30 ml PO DAILY PRN PRN Reason: SEVERE CONSITIPATION Phenytoin Sodium (Dilantin) 300 mg PO DAILY [facility] Senna/Docusate Sodium (Coni-Colace) 1 tab PO BID [facility] Sennosides (Senokot) 17.2 mg PO Q12H PRN PRN Reason: Moderate Constipation Topiramate (Topamax) 100 mg PO BID [facility] Allergies Allergy/AdvReac Type Severity Reaction Status Date / Time No Known Allergies Allergy Uncoded 02/12/17 09:00 Home Medications Medication Instructions Recorded Confirmed Type amlodipine 5 mg PO DAILY 05/15/18 05/15/18 History clonazepam 1 mg PO BID 05/15/18 05/15/18 History fluoxetine 20 mg PO DAILY 05/15/18 05/15/18 History gabapentin 300 mg PO TID 05/15/18 05/15/18 History lactulose 10 g PO BID 05/15/18 05/15/18 History magnesium oxide 400 mg PO DAILY 05/15/18 05/15/18 History omeprazole 20 mg PO DAILY 05/15/18 05/15/18 History phenytoin sodium extended 300 mg PO DAILY 05/15/18 05/15/18 History topiramate 100 mg PO BID 05/15/18 05/15/18 History tramadol 50 mg PO Q6H 05/15/18 05/15/18 History Exam Vital signs: Vital Signs 05/14/18 23:21 05/14/18 23:51 05/15/18 01:21 Temperature 100.3 F H Pulse Rate 132 H 132 H Respiratory Rate 20 20 Blood Pressure 127/73 Pulse Oximetry 96 99 98 05/15/18 01:47 05/15/18 02:43 Temperature Pulse Rate 121 H 119 H Respiratory Rate 20 20 Blood Pressure 106/66 98/67 L Pulse Oximetry 95 94 L Intake & Output 05/14/18 05/14/18 05/15/18 06:59 18:59 06:59 Intake Total 100 / 100 Balance 100 / 100 Weight 88.451 kg Intake: IV 100 / 100 Rocephin Inj 1,000 MG In NS Inj 100 / 100 100 ML @ 200 mls/hr IV.SIG ONCE ONE Rx#:[id number] Narrative: PE: GENERAL: Middle-aged white male in no acute distress, nonverbal, not following commands. HEENT: PERRLA, EOMI. No scleral icterus or conjunctival pallor. No lid lag or facial droop. CARDIOVASCULAR: Regular rate and rhythm. No obvious murmurs to auscultation. No chest tenderness to palpation. RESPIRATORY: No obvious rhonchi or wheezing. Clear to auscultation. Breath sounds equal bilaterally. GASTROINTESTINAL: Abdomen soft, non-tender, nondistended. BS normal. MUSCULOSKELETAL: Extremities without clubbing, cyanosis, or edema. No obvious deformities. NEUROLOGICAL: Awake, nonverbal/non-communicative. No focal neurologic deficits. Moving both upper and lower extremities spontaneously. Results - Labs CBC & Chem 7: 05/14/18 02:46 05/15/18 00:00 Labs: Short CBC 05/14/18 Range/Units 02:46 WBC 16.9 H (4.0-11.0) th/mm3 Hgb 15.7 (13.0-17.0) gm/dL Hct 46.9 (39.0-51.0) % Plt Count 505 H (150-450) th/mm3 BMP 05/15/18 00:00 Sodium 136 Potassium 3.9 Chloride 101 Carbon Dioxide 18.7 L BUN 11 Creatinine 1.37 H Calcium 9.4 Cardiac Enzymes 05/14/18 Range/Units 00:00 Troponin I 1.69 H* (0.02-0.05) ng/mL Liver Function 05/15/18 Range/Units 00:00 Total Bilirubin 0.3 (0.2-1.0) mg/dL AST 33 (15-37) U/L ALT 26 (12-78) U/L Alkaline Phosphatase 140 H (45-117) U/L Albumin 4.2 (3.4-5.0) g/dL Urine 05/15/18 Range/Units 02:15 Urine Color Yellow (Yellw/Straw) Urine Clarity Hazy H (Clear) Urine pH 5.0 (5.0-8.5) Ur Specific [place] 1.012 (1.002-1.035) Urine Protein 100 H (Neg-Trace) mg/dL Urine Glucose (UA) 50 (Negative) mg/dL - Imaging Impressions Chest X-Ray 05/14/18 23:56 CONCLUSION: No acute cardiopulmonary disease. Head CT 05/15/18 00:08 CONCLUSION: 1. Encephalomalacia right temporal lobe. 2. Right-sided craniotomy. Chest CT 05/15/18 01:21 CONCLUSION: 1. Patchy infiltrates in the lower lobes and right middle lobe. 2. Mild emphysema. Abdomen/Pelvis CT 05/15/18 01:22 CONCLUSION: 1. No acute abnormalities. Caprini VTE Risk Assessment Caprini VTE Risk Assessment: No/Low Risk (score <= 1) Caprini Risk Assessment Model: Point Value = 1 Point Value = 2 Point Value = 3 Point Value = 5 Age 41-60 Minor surgery BMI > 25 kg/m2 Swollen legs Varicose veins or History of unexplained or recurrent spontaneous Oral contraceptives or hormone replacement Sepsis (< 1 month) Serious lung disease, including pneumonia (< 1 month) Abnormal pulmonary function Acute myocardial infarction Congestive heart failure (< 1 month) History of inflammatory bowel disease Medical patient at bed rest Age 61-74 Arthroscopic surgery Major open surgery (> 45 min) Laparoscopic surgery (> 45 min) Malignancy Confined to bed (> 72 hours) Immobilizing plaster cast Central venous access Age >= 75 History of VTE Family history of VTE Factor V Leiden Prothrombin [id number] Lupus anticoagulant Anticardiolipin antibodies Elevated serum homocysteine Heparin-induced thrombocytopenia Other congenital or acquired thrombophilia Stroke (< 1 month) Elective arthroplasty Hip, pelvis, or leg fracture Acute spinal cord injury (< 1 month) Prophylaxis Regimen: Total Risk Factor Score Risk Level Prophylaxis Regimen 0-1 Low Early ambulation 2 Moderate Order ONE of the following: *Sequential Compression Device (SCD) *Heparin 5000 units SQ BID 3-4 Higher Order ONE of the following medications: *Heparin 5000 units SQ TID *Enoxaparin/Lovenox 40 mg SQ daily (WT < 150 kg, CrCl > 30 mL/min) *Enoxaparin/Lovenox 30 mg SQ daily (WT < 150 kg, CrCl > 10-29 mL/min) *Enoxaparin/Lovenox 30 mg SQ BID (WT < 150 kg, CrCl > 30 mL/min) AND/OR *Sequential Compression Device (SCD) 5 or more Highest Order ONE of the following medications: *Heparin 5000 units SQ TID (Preferred with Epidurals) *Enoxaparin/Lovenox 40 mg SQ daily (WT < 150 kg, CrCl > 30 mL/min) *Enoxaparin/Lovenox 30 mg SQ daily (WT < 150 kg, CrCl > 10-29 mL/min) *Enoxaparin/Lovenox 30 mg SQ BID (WT < 150 kg, CrCl > 30 mL/min) AND *Sequential Compression Device (SCD) Assessment and Plan - Assessment (1) Sepsis Code(s): A41.9 - Sepsis, unspecified organism Status: Acute (2) PNA (pneumonia) Code(s): J18.9 - Pneumonia, unspecified organism Status: Acute (3) NSTEMI (non-ST elevated myocardial infarction) Code(s): I21.4 - Non-ST elevation (NSTEMI) myocardial infarction Status: Acute (4) Encephalopathy Code(s): G93.40 - Encephalopathy, unspecified Status: Acute - Plan A/P: 1. Sepsis: Temp 100.3, HR 130's, WBC 16, Source-UTI/PNA. Obtain blood cultures, s/p Rocephin in ER, will continue w/ broad spectrum antibiotics Vanc/ Cefepime, follow up cultures, IVF for hydration. Lactic Acid 3.3, repeat 1.7. Telemetry. 2. PNA: CXR w/ no acute findings, CT Chest w/ bilateral lower lobe and RML infiltrates, images reviewed by me. Continue w/ IV Abx as above, follow up cultures. 3. Encephalopathy: H/o TBI/Dementia, unable to obtain history from patient, unclear if baseline, likely Acute on Chronic, compounded by acute infection/ NSTEMI. CT Head w/ encephalomalacia, previous craniotomy, no acute findings, images reviewed by me. Neuro Checks. 4. NSTEMI: Trop 1.69, unable to ascertain if having chest pain, possibly due to demand ischemia from sepsis, however r/o ACS. Telemetry, Check serial cardiac enzymes, Consult Cardiology for further evaluation, pt likely poor candidate for intervention. 5. DVT Prophylaxis: SCD/Teds 6. Social work for d/c planning as needed. 7. Case discussed w/ ER physician at length, labs/records/imaging reviewed by me.
[2018-05-15] MEDS ORDERED: Vancomycin Inj 1,500 MG in Sodium Chlor 0.9% Inj 500 ML IV.SIG ONE (04:30)
[2018-05-15] MEDS ORDERED: Enoxaparin Inj 60 MG/0.6 ML Syringe SQ ONE (04:33)
[2018-05-15] MEDS ORDERED: Heparin 10,000 UNITS/10 ML Vial (for IV use) IV.PUSH ONE (04:51)
[2018-05-15] MEDS ORDERED: Heparin Drip 25,000 UNIT/250 ML BAG IV.CONT PRN (04:56)
--- NOTE | 2018-05-15 08:18 | MB ---
cc: Jesse Jones MD DATE: 05/15/2018 INDICATION: Elevated troponin. HISTORY OF PRESENT ILLNESS: This is a 57-year-old gentleman. Entire history is obtained from chart records as the patient is not able to give a history. The patient has history of dementia and seizure disorder. He was found at the subacute nursing facility on the floor and unresponsive with unknown time of length. The patient is nonverbal. The patient was tachycardic upon arrival with an elevated temperature. The patient was found to have elevated lactate and mildly elevated troponin. The patient has a right craniotomy and had encephalomalacia. Urinalysis revealed a urinary tract infection. CT of the chest revealed infiltrates consistent with possible pneumonia. The patient was started on antibiotics. We were consulted for further recommendations related to the elevated troponin. The patient is unable to give a history, but does not report symptoms or chest pain. Electrocardiograms are unremarkable. PAST MEDICAL HISTORY: Dementia, seizure disorder, metabolic encephalopathy, traumatic brain injury. SOCIAL HISTORY: No tobacco history recorded. FAMILY HISTORY: Not recorded. REVIEW OF SYSTEMS: Unobtainable. MEDICATIONS: See medication reconciliation. PHYSICAL EXAMINATION: VITAL SIGNS: Temperature is 100.3, pulse rate is 130, blood pressure 127/73 mmHg. GENERAL: The patient does not appear in any acute distress. HEENT: Shows pupils are reactive. CARDIOVASCULAR: Regular rate and rhythm without murmurs, rubs or gallops. LUNGS: Clear. ABDOMEN: Nontender, nondistended. MUSCULOSKELETAL: There is no clubbing, cyanosis or edema. NEUROLOGIC: Shows no focal deficits appreciated. LABORATORY DATA: WBC 16.9, hemoglobin 15.7, platelet count 505. INR is 1.1. Sodium 136, potassium 3.9, BUN is 11, creatinine is 1.37. Troponin 1.69 up to 3.88. Electrocardiogram shows sinus tachycardia without any significant ischemic changes. ASSESSMENT: 1. Sepsis. 2. Pneumonia. 3. Elevated troponin. PLAN: Electrocardiogram shows no significant ischemia. I suspect this is a type 2 demand mediated troponin elevation. The patient is not a good candidate for any invasive strategy regardless. We will followup. At this point, would entertain just medical management treatment of his sepsis. We will initiate aspirin and statin therapy. No further recommendations from a cardiovascular standpoint. I would not recommend any further significant workup as he is not a good candidate for heart catheterization. Conservative medical management will be undertaken. Given the nonischemic electrocardiogram, we will discontinue heparin drip. We will sign off. Call with further questions. MD CELI Gutierrez/DL , 07:53 AM , 08:17 AM
[2018-05-15] MEDS ORDERED: Topiramate 100 MG Tablet PO SCH (09:00)
[2018-05-15] MEDS ORDERED: Phenytoin Sodium 100 MG Capsule PO SCH (09:00)
--- NOTE | 2018-05-15 10:37 | P.PNIM ---
Subjective Interval history: This is a 57-year-old male with a PMH of TBI, Seizure Disorder and Dementia who was brought to the ER by EMS from SNF after patient found lying on the floor unresponsive. Unknown length of downtime. Pt nonverbal, not answering questions, seemingly at baseline. Unable to obtain any history from patient. On arrival, BP 127/73, HR 132, O2 sat 96% on RA, Temp 100.3. WBC 16.9. Creatinine 1.37. Lactic Acid 3.3, repeat 1.7. Troponin I 0.69. UA positive for UTI. CT Head encephalomalacia right temporal lobe, right-sided craniotomy, no acute findings. CT Chest patchy infiltrates lower lobes and right middle lobe. CXR with no acute findings. CT Abdomen/Pelvis with no acute abnormalities. S/p Rocephin in ER. 7 pt seen by cardiology- they recommend aspirin and a statin NO FURTHER WORK UP WITH THEM PATIENT IS AGITATED WILL TRY GEODON REVIEW HIS MEDICATIONS NOT FOLLOWING COMMAND IN SOFT RESTRAINTS FOR HIS PROTECTION DW RN WILL NEED PT AND OT AND ST EVAL Physical Exam Vital signs: Vital Signs 05/14/18 23:21 05/14/18 23:51 05/15/18 01:21 Temperature 100.3 F H Pulse Rate 132 H 132 H Respiratory Rate 20 20 Blood Pressure 127/73 Pulse Oximetry 96 99 98 05/15/18 01:47 05/15/18 02:43 05/15/18 04:48 Temperature 99.8 F H Pulse Rate 121 H 119 H 113 H Respiratory Rate 20 20 20 Blood Pressure 106/66 98/67 L 99/65 L Pulse Oximetry 95 94 L 97 05/15/18 04:50 05/15/18 05:25 05/15/18 07:16 Temperature 99.3 F Pulse Rate 113 H 107 H 109 H Respiratory Rate 17 12 Blood Pressure 102/67 108/62 Pulse Oximetry 98 100 Intake & Output 05/14/18 05/15/18 05/15/18 18:59 06:59 18:59 Intake Total 100 / 100 1015 / 1015 Output Total 750 / 750 Balance 100 / 100 265 / 265 Weight 88.451 kg Intake: IV 100 / 100 1015 / 1015 NS Inj 1,000 ML @ 100 mls/hr IV 500 / 500 .CONT .Q10H [facility] Rx#:[id number] Vancomycin Inj 1,500 MG In NS 515 / 515 Inj 500 ML @ 257.5 mls/hr IV. SIG ONCE ONE Rx#:[id number] Rocephin Inj 1,000 MG In NS Inj 100 / 100 100 ML @ 200 mls/hr IV.SIG ONCE ONE Rx#:[id number] Output: Urine Amount (Catheter) 750 / 750 Indwelling Urethral Catheter 750 / 750 Narrative: GENERAL: Awake and alert but very confused not able to follow any commands not able to answer any questions --appears agitated SKIN: Warm and dry. HEAD: Atraumatic. Normocephalic. EYES: Pupils equal and round. No scleral icterus. No injection or drainage. ENT: No nasal bleeding or discharge. Mucous membranes pink and moist. NECK: Trachea midline. No JVD. CARDIOVASCULAR: Regular rate and rhythm. S1-S2 no S3 RESPIRATORY: No accessory muscle use. Clear to auscultation. Breath sounds equal bilaterally. GASTROINTESTINAL: Abdomen soft, non-tender, nondistended. Hepatic and splenic margins not palpable. MUSCULOSKELETAL: Extremities without clubbing, cyanosis, or edema. No obvious deformities. NEUROLOGICAL: Awake and alert. No obvious cranial nerve deficits. Motor grossly within normal limits. Five out of 5 muscle strength in the arms and legs. ABNormal speech. PSYCHIATRIC: INAppropriate mood and affect; insight and judgment ABnormal. - Urinary Catheter Management Indwelling Urethral Catheter Cath placed during this visit: yes Reason for continuing: Other continuation reason Insertion date: 05/15/18 Insertion time: 01:19 Results - Labs CBC & Chem 7: 05/14/18 02:46 05/15/18 00:00 Laboratory Results - last 24 hr 05/14/18 05/14/18 05/14/18 00:00 00:00 00:20 WBC RBC Hgb Hct MCV MCH MCHC RDW Plt Count MPV Prelim Diff (Auto) Neut % (Auto) Lymph % (Auto) [place] % (Auto) Eos % (Auto) Baso % (Auto) Neut # (Auto) Lymph # (Auto) [place] # (Auto) Eos # (Auto) Baso # (Auto) WBC Differential Diff Scan Differential Comment Platelet Estimate Platelet Morphology PT INR APTT 24.1 L Sodium Potassium Chloride Carbon Dioxide Anion Gap BUN Creatinine Estimated GFR POC Glucose Random Glucose Lactic Acid 3.3 H Calcium Total Bilirubin AST ALT Alkaline Phosphatase Troponin I 1.69 H* Total Protein Albumin Lipase 130 Urine Color Urine Clarity Urine pH Ur Specific [place] Urine Protein Urine Glucose (UA) Urine Ketones Urine Occult Blood Urine Nitrate Urine Bilirubin Urine Urobilinogen Ur Leukocyte Esterase Urine RBC Urine WBC Ur Squamous Epith Cells Urine Bacteria Urine Mucus Micro UA Comment Urine Culture Comments 05/14/18 05/15/18 05/15/18 02:46 00:00 02:15 WBC 16.9 H RBC 5.00 Hgb 15.7 Hct 46.9 MCV 93.8 MCH 31.3 MCHC 33.4 RDW 14.4 Plt Count 505 H MPV 7.1 Prelim Diff (Auto) Slide review pending Neut % (Auto) 80.1 H Lymph % (Auto) 7.2 L [place] % (Auto) 12.5 H Eos % (Auto) 0.0 Baso % (Auto) 0.2 Neut # (Auto) 13.6 H Lymph # (Auto) 1.2 [place] # (Auto) 2.1 H Eos # (Auto) 0.0 Baso # (Auto) 0.0 WBC Differential . Diff Scan Auto diff confirmed Differential Comment . Platelet Estimate High H Platelet Morphology Normal PT INR APTT Sodium 136 Potassium 3.9 Chloride 101 Carbon Dioxide 18.7 L Anion Gap 16 H BUN 11 Creatinine 1.37 H Estimated GFR 53 L POC Glucose Random Glucose 247 H Lactic Acid Calcium 9.4 Total Bilirubin 0.3 AST 33 ALT 26 Alkaline Phosphatase 140 H Troponin I Total Protein 8.8 H Albumin 4.2 Lipase Urine Color Yellow Urine Clarity Hazy H Urine pH 5.0 Ur Specific [place] 1.012 Urine Protein 100 H Urine Glucose (UA) 50 Urine Ketones Negative Urine Occult Blood Moderate H Urine Nitrate Negative Urine Bilirubin Negative Urine Urobilinogen Less than 2 Ur Leukocyte Esterase Negative Urine RBC 2 Urine WBC 4 Ur Squamous Epith Cells <1 Urine Bacteria Few H Urine Mucus Few H Micro UA Comment Cath-culture ind Urine Culture Comments Cath-cult indicated 05/15/18 05/15/18 05/15/18 02:47 03:45 03:45 WBC RBC Hgb Hct MCV MCH MCHC RDW Plt Count MPV Prelim Diff (Auto) Neut % (Auto) Lymph % (Auto) [place] % (Auto) Eos % (Auto) Baso % (Auto) Neut # (Auto) Lymph # (Auto) [place] # (Auto) Eos # (Auto) Baso # (Auto) WBC Differential Diff Scan Differential Comment Platelet Estimate Platelet Morphology PT 11.3 INR 1.1 APTT Sodium Potassium Chloride Carbon Dioxide Anion Gap BUN Creatinine Estimated GFR POC Glucose 157 H Random Glucose Lactic Acid 1.7 Calcium Total Bilirubin AST ALT Alkaline Phosphatase Troponin I Total Protein Albumin Lipase Urine Color Urine Clarity Urine pH Ur Specific [place] Urine Protein Urine Glucose (UA) Urine Ketones Urine Occult Blood Urine Nitrate Urine Bilirubin Urine Urobilinogen Ur Leukocyte Esterase Urine RBC Urine WBC Ur Squamous Epith Cells Urine Bacteria Urine Mucus Micro UA Comment Urine Culture Comments 05/15/18 05/15/18 03:45 04:10 WBC RBC Hgb Hct MCV MCH MCHC RDW Plt Count MPV Prelim Diff (Auto) Neut % (Auto) Lymph % (Auto) [place] % (Auto) Eos % (Auto) Baso % (Auto) Neut # (Auto) Lymph # (Auto) [place] # (Auto) Eos # (Auto) Baso # (Auto) WBC Differential Diff Scan Differential Comment Platelet Estimate Platelet Morphology PT INR APTT 29.7 D Sodium Potassium Chloride Carbon Dioxide Anion Gap BUN Creatinine Estimated GFR POC Glucose Random Glucose Lactic Acid Calcium Total Bilirubin AST ALT Alkaline Phosphatase Troponin I 3.88 H* Total Protein Albumin Lipase Urine Color Urine Clarity Urine pH Ur Specific [place] Urine Protein Urine Glucose (UA) Urine Ketones Urine Occult Blood Urine Nitrate Urine Bilirubin Urine Urobilinogen Ur Leukocyte Esterase Urine RBC Urine WBC Ur Squamous Epith Cells Urine Bacteria Urine Mucus Micro UA Comment Urine Culture Comments - Imaging Impressions Chest X-Ray 05/14/18 23:56 CONCLUSION: No acute cardiopulmonary disease. Head CT 05/15/18 00:08 CONCLUSION: 1. Encephalomalacia right temporal lobe. 2. Right-sided craniotomy. Chest CT 05/15/18 01:21 CONCLUSION: 1. Patchy infiltrates in the lower lobes and right middle lobe. 2. Mild emphysema. Abdomen/Pelvis CT 05/15/18 01:22 CONCLUSION: 1. No acute abnormalities. Assessment and Plan - Assessment (1) Sepsis Code(s): A41.9 - Sepsis, unspecified organism Status: Acute (2) PNA (pneumonia) Code(s): J18.9 - Pneumonia, unspecified organism Status: Acute (3) NSTEMI (non-ST elevated myocardial infarction) Code(s): I21.4 - Non-ST elevation (NSTEMI) myocardial infarction Status: Acute (4) Encephalopathy Code(s): G93.40 - Encephalopathy, unspecified Status: Acute - Plan 1. Sepsis: Temp 100.3, HR 130's, WBC 16, Source-UTI/PNA. Obtain blood cultures, s/p Rocephin in ER, will continue w/ broad spectrum antibiotics Vanc/ Cefepime, follow up cultures, IVF for hydration. Lactic Acid 3.3, repeat 1.7. Telemetry. 2. PNA: CXR w/ no acute findings, CT Chest w/ bilateral lower lobe and RML infiltrates, Continue w/ IV Abx as above, follow up cultures. 3. Encephalopathy: H/o TBI/Dementia, unable to obtain history from patient, unclear if baseline, likely Acute on Chronic, compounded by acute infection/ NSTEMI. CT Head w/ encephalomalacia, previous craniotomy, no acute findings, images reviewed by me. Neuro Checks. 4. NSTEMI: Trop 1.69, unable to ascertain if having chest pain, possibly due to demand ischemia from sepsis, however r/o ACS. Telemetry, Check serial cardiac enzymes, Consult Cardiology for further evaluation, pt likely poor candidate for intervention. NO INTERVENTION PER CARDIOLOGY- ASPIRIN AND STATIN 5. DVT Prophylaxis: SCD/Teds 6 CONSULT PSYCHIATRY EFFIE PT AND OT AND ST EVAL AND TREAT Code Status: FULL CODE Discussed Condition With: RN PT IS VERY CONFUSED Discharge Planning: WILL GO BACK TO SNF ONCE IMPROVED
[2018-05-15] MEDS: Sod Chloride 0.9% Inj 1,000 ML IV.CONT SCH ×3 (10:40→20:30)
[2018-05-15] MEDS: Aspirin 300 MG Supp RECTAL SCH (10:40)
[2018-05-15] MEDS ORDERED: FLUoxetine 20 MG Capsule PO SCH (11:30)
[2018-05-15] MEDS ORDERED: Pantoprazole Sodium 20 MG DR Tablet PO SCH (11:30)
[2018-05-15] MEDS ORDERED: clonazePAM 1 MG Tablet PO SCH (12:00)
[2018-05-15] MEDS ORDERED: Gabapentin 300 MG Capsule PO SCH (13:00)
[2018-05-15 13:29] LABS: CKMB Percent 0.6 % (0.0-4.0); Creatine Kinase MB 22.9 ng/mL (0.5-3.6)
[2018-05-15] MEDS: Senna/Docusate Sodium 8.6/50 MG Tablet PO SCH ×2 (13:31→20:18)
[2018-05-15] MEDS: amLODIPine 5 MG Tablet PO SCH (13:31)
[2018-05-15] MEDS: Magnesium Oxide 400 MG Tablet PO SCH (13:31)
--- NOTE | 2018-05-15 17:33 | ECG ---
Date Performed: 05/15/2018 Time Performed: 00:58:12 PTAGE: 57 years EKG: SINUS TACHYCARDIA MODERATE INTRAVENTRICULAR CONDUCTION DELAY NONSPECIFIC T-WAVE ABNORMALITY ABNORMAL RHYTHM ECG PREVIOUS TRACING : 02/21/2017 23.11 COMPARED TO THE PREVIOUS TRACING SINUS TACHYCARDIAS NEW DOCTOR: Dar Myles Interpretating Date/Time 05/18/2018 07:16:58
[2018-05-15] MEDS: Topiramate 100 MG Tablet PO SCH ×2 (18:46→20:18)
[2018-05-15] MEDS: clonazePAM 1 MG Tablet PO SCH ×2 (18:47→20:18)
[2018-05-15] MEDS: Gabapentin 300 MG Capsule PO SCH (18:47)
[2018-05-15] MEDS: Pantoprazole Sodium 20 MG DR Tablet PO SCH (18:47)
[2018-05-15] MEDS: Phenytoin Sodium 100 MG Capsule PO SCH (18:48)
[2018-05-15] MEDS: FLUoxetine 20 MG Capsule PO SCH (18:48)
[2018-05-15 19:08] LABS: Hepatitits B Surface Antigen Nonreactive (Nonreactive)
[2018-05-15 19:19] LABS: CKMB Percent 0.5 % (0.0-4.0); Creatine Kinase MB 18.9 ng/mL (0.5-3.6)
--- NOTE | 2018-05-15 19:23 | ECG ---
Date Performed: 05/15/2018 Time Performed: 03:02:38 PTAGE: 57 years EKG: SINUS TACHYCARDIA ABNORMAL RHYTHM ECG PREVIOUS TRACING : 05/15/2018 00.58 Since the previous tracing, no significant change noted DOCTOR: Dar Myles Interpretating Date/Time 05/15/2018 19:21:32
[2018-05-15 19:34] LABS: Hepatitis A IgM Antibody Nonreactive (Nonreactive)
[2018-05-15] MEDS ORDERED: Vancomycin Inj 1,500 MG in Sodium Chlor 0.9% Inj 500 ML IV.SIG SCH (22:00)
[2018-05-16] MEDS: Sod Chloride 0.9% Inj 1,000 ML IV.CONT SCH ×2 (05:33→18:03)
[2018-05-16 06:00] LABS: Baso % (Auto) 0.2 % (0.0-2.0); Hematocrit 44.7 % (39.0-51.0); Lymph # (Auto) 1.1 th/mm3 (1.0-4.8); Lymph % (Auto) 6.3 % (9.0-44.0); Mean Corpuscular HGB Conc 33.5 % (32.0-36.0); Mean Corpuscular Hemoglobin 31.4 pg (27.0-34.0); Mean Corpuscular Volume 93.9 fL (80.0-100.0); Mean Platelet Volume 7.3 fL (7.0-11.0); Mono # (Auto) 2.2 th/mm3 (0.0-0.9); Mono % (Auto) 12.2 % (0.0-8.0); Neut # (Auto) 14.5 th/mm3 (1.8-7.7); Neut % (Auto) 81.3 % (16.0-70.0); Platelet Count 450 th/mm3 (150-450); Red Blood Count 4.76 mil/mm3 (4.50-5.90); Red Cell Distribution Width 14.4 % (11.6-17.2); White Blood Count 17.9 th/mm3 (4.0-11.0)
[2018-05-16 08:46] LABS: Acanthocytes Occ
[2018-05-16 08:47] LABS: Platelet Morphology Normal (Normal)
[2018-05-16 09:06] LABS: Alanine Aminotransferase 184 U/L (12-78); Albumin 3.3 g/dL (3.4-5.0); Alkaline Phosphatase 106 U/L (45-117); Anion Gap 17 meq/L (5-15); Aspartate Aminotransferase 334 U/L (15-37); Blood Urea Nitrogen 10 mg/dL (7-18); Calcium 8.8 mg/dL (8.5-10.1); Carbon Dioxide 17.9 meq/L (21.0-32.0); Chloride 108 meq/L (98-107); Chol/HDL Ratio 4.39 Ratio; Cholesterol 190 mg/dL (120-200); Free T4 (Free Thyroxine) 1.31 ng/dL (0.76-1.46); Glomerular Filtration Rate Greater Than 89 mL/min (>89); Glucose,Random 92 mg/dL (74-106); HDL Cholesterol 43.2 mg/dL (40.0-60.0); LDL Cholesterol,Calculated 122 mg/dL (0-99); Phosphorus 1.6 mg/dL (2.5-4.9); Sodium 143 meq/L (136-145); Total Protein 7.6 g/dL (6.4-8.2); Triglycerides 125 mg/dL (42-150)
[2018-05-16] MEDS: Topiramate 100 MG Tablet PO SCH ×2 (09:39→21:42)
[2018-05-16] MEDS: Pantoprazole Sodium 20 MG DR Tablet PO SCH (09:39)
[2018-05-16] MEDS: clonazePAM 1 MG Tablet PO SCH ×2 (09:39→21:42)
[2018-05-16] MEDS: Phenytoin Sodium 100 MG Capsule PO SCH (09:39)
[2018-05-16] MEDS: Senna/Docusate Sodium 8.6/50 MG Tablet PO SCH ×2 (09:40→21:42)
[2018-05-16] MEDS: FLUoxetine 20 MG Capsule PO SCH (09:40)
[2018-05-16] MEDS: amLODIPine 5 MG Tablet PO SCH (09:40)
[2018-05-16] MEDS: Gabapentin 300 MG Capsule PO SCH ×3 (09:40→19:35)
[2018-05-16] MEDS: Aspirin 300 MG Supp RECTAL SCH (09:40)
[2018-05-16] MEDS: Magnesium Oxide 400 MG Tablet PO SCH (09:40)
--- NOTE | 2018-05-16 11:09 | P.PNFP ---
Subjective Interval history: Pt seen and examined for follow-up of AMS, sepsis, NSTEMI, and PNA. He is somnolent but arousable. Answers yes or no questions but doesn't converse too much. Endorses a headache. Denies CP, SOB, abdominal pain, N/V. Tolerating PO. Results - Labs Result diagrams: 05/16/18 05:11 05/16/18 05:11 Abnormal lab results 05/15/18 05/15/18 05/16/18 Range/Units 10:45 17:18 05:11 WBC 17.9 H (4.0-11.0) th/mm3 Neut % (Auto) 81.3 H (16.0-70.0) % Lymph % (Auto) 6.3 L (9.0-44.0) % Mills % (Auto) 12.2 H (0.0-8.0) % Neut # (Auto) 14.5 H (1.8-7.7) th/mm3 Mills # (Auto) 2.2 H (0.0-0.9) th/mm3 Platelet Estimate High H (Normal) Basophilic Stippling Faint H (None) Acanthocytes (Spur) Occ H (None) Potassium (3.5-5.1) meq/L Chloride (98-107) meq/L Carbon Dioxide (21.0-32.0) meq/L Anion Gap (5-15) meq/L Phosphorus (2.5-4.9) mg/dL AST (15-37) U/L ALT (12-78) U/L Total Creatine Kinase 3934 H 3984 H (39-308) U/L CK-MB (CK-2) 22.9 H 18.9 H (0.5-3.6) ng/mL Albumin (3.4-5.0) g/dL LDL Cholesterol, Calc (0-99) mg/dL 05/16/18 Range/Units 05:11 WBC (4.0-11.0) th/mm3 Neut % (Auto) (16.0-70.0) % Lymph % (Auto) (9.0-44.0) % Mills % (Auto) (0.0-8.0) % Neut # (Auto) (1.8-7.7) th/mm3 Mills # (Auto) (0.0-0.9) th/mm3 Platelet Estimate (Normal) Basophilic Stippling (None) Acanthocytes (Spur) (None) Potassium 3.0 L D (3.5-5.1) meq/L Chloride 108 H (98-107) meq/L Carbon Dioxide 17.9 L (21.0-32.0) meq/L Anion Gap 17 H (5-15) meq/L Phosphorus 1.6 L (2.5-4.9) mg/dL AST 334 H (15-37) U/L ALT 184 H (12-78) U/L Total Creatine Kinase (39-308) U/L CK-MB (CK-2) (0.5-3.6) ng/mL Albumin 3.3 L D (3.4-5.0) g/dL LDL Cholesterol, Calc 122 H (0-99) mg/dL Short CBC 05/16/18 Range/Units 05:11 WBC 17.9 H (4.0-11.0) th/mm3 Hgb 15.0 (13.0-17.0) gm/dL Hct 44.7 (39.0-51.0) % Plt Count 450 (150-450) th/mm3 BMP 05/16/18 05:11 Sodium 143 Potassium 3.0 L D Chloride 108 H Carbon Dioxide 17.9 L BUN 10 Creatinine 0.83 Calcium 8.8 Cardiac Enzymes 05/15/18 05/15/18 Range/Units 10:45 17:18 Total Creatine Kinase 3934 H 3984 H (39-308) U/L CK-MB (CK-2) 22.9 H 18.9 H (0.5-3.6) ng/mL Liver Function 05/16/18 Range/Units 05:11 Total Bilirubin 0.6 (0.2-1.0) mg/dL AST 334 H (15-37) U/L ALT 184 H (12-78) U/L Alkaline Phosphatase 106 (45-117) U/L Albumin 3.3 L D (3.4-5.0) g/dL Physical Exam Vital signs: Vital Signs 05/15/18 13:27 05/15/18 14:16 05/15/18 15:00 Temperature 100.0 F H Pulse Rate 109 H 112 H 112 H Respiratory Rate 25 H 18 Blood Pressure 122/63 130/77 Pulse Oximetry 99 99 05/15/18 16:00 05/15/18 17:00 05/15/18 17:22 Temperature 99.9 F H Pulse Rate 108 H 110 H 107 H Respiratory Rate 16 Blood Pressure 122/67 Pulse Oximetry 97 05/15/18 18:00 05/15/18 20:00 05/16/18 00:00 Temperature 99.3 F 98.9 F Pulse Rate 107 H 105 H 101 H Respiratory Rate 18 18 Blood Pressure 109/66 107/66 Pulse Oximetry 96 05/16/18 04:00 05/16/18 08:00 Temperature 98.3 F 98 F Pulse Rate 104 H 116 H Respiratory Rate 18 17 Blood Pressure 115/71 106/53 L Pulse Oximetry 97 98 Intake & Output 05/15/18 05/16/18 05/16/18 18:59 06:59 18:59 Intake Total 1914 1200 / 1200 100 / 100 Output Total 1949 / 1949 Balance -35 / -35 1200 / 1200 100 / 100 Weight 66 kg Intake: IV 1914 1200 / 1200 100 / 100 NS Inj 1,000 ML @ 100 mls/hr IV 1300 / 1300 1200 / 1200 .CONT .Q10H [facility] Rx#:[id number] Maxipime Inj 1,000 MG In NS Inj 100 / 100 100 / 100 100 ML @ 200 mls/hr IV.SIG Q12H [facility] Rx#:[id number] Vancomycin Inj 1,500 MG In NS 515 / 515 Inj 500 ML @ 257.5 mls/hr IV. SIG ONCE ONE Rx#:[id number] Output: Urine 200 / 200 Urine Amount (Catheter) 1750 / 1750 Indwelling Urethral Catheter 1750 / 1750 Other: # Voids 1 Narrative: GENERAL: WN, WD male resting in bed in [facility]. SKIN: Warm and dry. HEENT: Right prior craniotomy scar. Pupils equal and round. MMM. NECK: Supple no tender LAD or JVD. HEART: Tachycardic with a regular rhythm. LUNGS: Bibasilar crackles. ABDOMEN: +BS, soft, NT, ND. EXTREMITIES: No LE edema. NEURO: Somnolent but arousable. - Urinary Catheter Management Indwelling Urethral Catheter Cath placed during this visit: yes Reason for continuing: Decision to DC catheter Insertion date: 05/15/18 Insertion time: 01:19 Assessment and Plan - Assessment (1) Sepsis Code(s): A41.9 - Sepsis, unspecified organism Status: Acute (2) PNA (pneumonia) Code(s): J18.9 - Pneumonia, unspecified organism Status: Acute (3) NSTEMI (non-ST elevated myocardial infarction) Code(s): I21.4 - Non-ST elevation (NSTEMI) myocardial infarction Status: Acute (4) Encephalopathy Code(s): G93.40 - Encephalopathy, unspecified Status: Acute - Assessment and Plan 57 YOWM with history of TBI, seizure, and dementia admitted on 05/15 after being found lying on the floor of a SNF unresponsive for an unknown duration of time. On arrival he was febrile with tachycardia, leukocytosis, and lactic acidosis. He was found to have elevated troponins and rhabdomyolysis 1. Sepsis - On admission, white count elevated at 16.9, lactic acid 3.3, and patient febrile with T 100.3 and tachycardia - CT chest showing patchy infiltrates in lower lobes and R middle lobe - Blood cultures from 05/14 and 05/16 all negative so far - U/A with blood but cathed culture negative - Initially started on broad spectrum vanc and cefepime, changing antibiotics to cover for health-care associated and aspiration PNA as below - NS at 150 ml/hr 2. PNA - CXR showing no acute cardiopulmonary disease - CT chest showing patchy infiltrates in the lower lobes and right middle lobe as well as mild emphysema - Concern for aspiration - Blood cultures negative so far - White count has increased to 17.9 and patient continues to be tachycardic - Started on vancomycin and cefepime in the ED - Will change regimen to treat for both aspiration and healthcare associated PNA since he is coming from a SNF - D/C vanc. Continue cefepime and add Azithromycin (for HCAP) and Flagyl (to cover aspiration) - Check urine legionella and pneumococcal antigens - Sputum culture 3. NSTEMI - Troponins 1.69 and 3.88 - Likely demand from sepsis - Cardiology consulted and do not feel he is a good candidate for any aggressive further workup. Recommend medical management - ASA and statin - Heparin drip discontinued as EKG had a nonischemic appearance 4. Transaminitis - Likely secondary from severe sepsis and hypoperfusion - Hepatitis panel negative - Avoid hepatotoxic agents - Monitor LFTs closely - Rehydrate 5. AMS/encephalopathy/seizure disorder - Head CT showing encephalomalacia of R temporal lobe with e/o right-sided craniotomy - Psych consulted, no need for psych admission or additional psychotropic meds - Continue gabapentin, Prozac, and Topamax 6. Tachycardia - Sinus tach on telemetry but steadily getting higher - 500 ml NS bolus x 1 then increase fluids - BP on lower end but not hypotensive - If no improvement consider echo 7. Rhabdomyolysis - Pt was down for an unknown length of time - Total CK >3000 - Aggressive hydration with NS at 150 ml/hr - Check CK in the AM DVT prophylaxis: Lovenox Discharge Planning: If blood cultures remain negative and patient clinically stabilizes, can discharge home. Possibly in next few days but still critical since treating rhabdomyolysis, medically managing an NSTEMI, and treating for sepsis/PNA
[2018-05-16 11:36] LABS: Hemoglobin A1c 5.4 % (4.3-6.0)
--- NOTE | 2018-05-16 14:16 | P.CONPSY ---
Provisional Diagnosis Admission Date: May 15, 2018 03:46 [place] I.: Delirium History of Present Illness Service: Psychiatry Consult date: 05/16/18 Requesting Physician: Tori Mesa Reason for Consult: Assessment Primary Care Provider: Dejan Aranda MD History of Present Illness: Patient is a 57-year-old white male comes with local senior care with agitation. It appears he is septic with a urinary tract infection and he is febrile. Patient has a history of TBI in the past. Showed some out of control behavior yesterday. Leading soft restraints. Her today patient is alert diffusely confused but calm and pleasant with me the nurse states she has been pleasant all day with her cooperative with his treatment his medications and interventions. Patient is vague about any past psychiatric contact he is disoriented as to place time and situation. The stomach feel his behaviors noted prior related to his delirium that he is responding to treatment. At this time I see no need for any significant medications are psychotropic medications. I would recommend continuing on with the treatment of his underlying medical issues and is okay by psychiatry for him to return to his senior living. Thanks for consult will sign off for the present time Review of Systems All other systems reviewed negative except as stated in HPI PMFSH - History History Provided By: Medical Record - Medical History Medical History: Medical History (Last Reviewed 05/15/18 @ 13:41 by Ladan Jimenez) Dementia Epilepsia Metabolic encephalopathy Seizure Traumatic brain injury - Tobacco History Smoking Status: Unknown if ever smoked - Alcohol History How Often Do You Have a Drink Containing Alcohol: Unable to Obtain - Substance Use History Substance History: Unable to Obtain - Travel History Recent Travel in the [place] Within the Last 8 Weeks: No Recent Travel Out of the Country Within the Last 8 Weeks: No - Immunization History Tetanus Immunization: Unable to Assess Hx Influenza Vaccine This Season: Unable to Assess Medications and Allergies Active Medications: Active Medications Acetaminophen (Tylenol) 650 mg PO Q4H PRN PRN Reason: FEVER/PAIN 1-2 Al Hydroxide/Mg Hydroxide (Milk Of Magnesia Liq) 30 ml PO Q12H PRN PRN Reason: Mild Constipation Amlodipine Besylate (Norvasc) 5 mg PO DAILY [facility] Last Admin: 05/16/18 09:40 Dose: 5 mg Aspirin (Aspirin Supp) 300 mg RECTAL DAILY [facility] Last Admin: 05/16/18 09:40 Dose: 300 mg Bisacodyl (Dulcolax Supp) 10 mg RECTAL DAILY PRN PRN Reason: SEVERE CONSITIPATION Clonazepam (Klonopin) 1 mg PO BID [facility] Last Admin: 05/16/18 09:39 Dose: 1 mg Fluoxetine HCl (Prozac) 20 mg PO DAILY [facility] Last Admin: 05/16/18 09:40 Dose: 20 mg Gabapentin (Neurontin) 300 mg PO TID [facility] Last Admin: 05/16/18 09:40 Dose: 300 mg Cefepime HCl 1,000 mg/ Sodium (Chloride) 100 mls @ 200 mls/hr IV.SIG Q12H [facility] Last Admin: 05/16/18 09:37 Dose: 200 mls/hr Pharmacy Profile Note (Vancomycin Consult Pharmacy) 0 mls @ 0 mls/hr OTHER UNSCH [facility] Sodium Chloride (Ns Inj) 1,000 mls @ 100 mls/hr IV.CONT .Q10H [facility] Last Admin: 05/16/18 05:33 Dose: 100 mls/hr Vancomycin HCl 1,500 mg/ (Sodium Chloride) 515 mls @ 250 mls/hr IV.SIG Q18H [facility] Last Infusion: 05/16/18 07:13 Dose: 250 mls/hr Lactulose (Lactulose Liq) 15 ml PO BID [facility] Last Admin: 05/16/18 09:39 Dose: 15 ml Magnesium Oxide (Mag-Ox) 400 mg PO DAILY [facility] Last Admin: 05/16/18 09:40 Dose: 400 mg Miscellaneous Information ([facility] Ordered Lab Info) 0 each OTHER ONCE ONE Stop: 05/17/18 09:46 Pantoprazole Sodium (Protonix) 20 mg PO DAILY [facility] Last Admin: 05/16/18 09:39 Dose: 20 mg Phenytoin Sodium (Dilantin) 300 mg PO DAILY [facility] Last Admin: 05/16/18 09:39 Dose: 300 mg Senna/Docusate Sodium (Coni-Colace) 1 tab PO BID [facility] Last Admin: 05/16/18 09:40 Dose: 1 tab Sennosides (Senokot) 17.2 mg PO Q12H PRN PRN Reason: Moderate Constipation Topiramate (Topamax) 100 mg PO BID [facility] Last Admin: 05/16/18 09:39 Dose: 100 mg Allergies Allergy/AdvReac Type Severity Reaction Status Date / Time No Known Allergies Allergy Unverified 05/15/18 13:21 Home Medications Medication Instructions Recorded Confirmed Type amlodipine 5 mg PO DAILY 05/15/18 05/15/18 History clonazepam 1 mg PO BID 05/15/18 05/15/18 History fluoxetine 20 mg PO DAILY 05/15/18 05/15/18 History gabapentin 300 mg PO TID 05/15/18 05/15/18 History lactulose 10 g PO BID 05/15/18 05/15/18 History magnesium oxide 400 mg PO DAILY 05/15/18 05/15/18 History omeprazole 20 mg PO DAILY 05/15/18 05/15/18 History phenytoin sodium extended 300 mg PO DAILY 05/15/18 05/15/18 History topiramate 100 mg PO BID 05/15/18 05/15/18 History tramadol 50 mg PO Q6H 05/15/18 05/15/18 History Exam Vital signs: Vital Signs 05/15/18 14:16 05/15/18 15:00 05/15/18 16:00 Temperature 100.0 F H Pulse Rate 112 H 112 H 108 H Respiratory Rate 18 Blood Pressure 130/77 Pulse Oximetry 99 05/15/18 17:00 05/15/18 17:22 05/15/18 18:00 Temperature 99.9 F H Pulse Rate 110 H 107 H 107 H Respiratory Rate 16 Blood Pressure 122/67 Pulse Oximetry 97 05/15/18 20:00 05/16/18 00:00 05/16/18 04:00 Temperature 99.3 F 98.9 F 98.3 F Pulse Rate 105 H 101 H 104 H Respiratory Rate 18 18 18 Blood Pressure 109/66 107/66 115/71 Pulse Oximetry 96 97 05/16/18 08:00 Temperature 98 F Pulse Rate 116 H Respiratory Rate 17 Blood Pressure 106/53 L Pulse Oximetry 98 Intake & Output 05/15/18 05/16/18 05/16/18 18:59 06:59 18:59 Intake Total 1914 1200 / 1200 100 / 100 Output Total 1949 Balance -35 / -35 1200 / 1200 100 / 100 Weight 66 kg Intake: IV 1914 1200 / 1200 100 / 100 NS Inj 1,000 ML @ 100 mls/hr IV 1300 / 1300 1200 / 1200 .CONT .Q10H [facility] Rx#:[id number] Maxipime Inj 1,000 MG In NS Inj 100 / 100 100 / 100 100 ML @ 200 mls/hr IV.SIG Q12H [facility] Rx#:[id number] Vancomycin Inj 1,500 MG In NS 515 / 515 Inj 500 ML @ 257.5 mls/hr IV. SIG ONCE ONE Rx#:[id number] Output: Urine 200 / 200 Urine Amount (Catheter) 1750 / 1750 Indwelling Urethral Catheter 1750 / 1750 Other: # Voids 1 Mental Status Examination Appearance: Appropriate Consciousness: Alert Orientation: Person Motor Activity: Other (Patient laying in bed in soft restraints) Speech: Unremarkable Language: Adequate Fund of Knowledge: Inadequate Attention and Concentration: Easily distracted Memory: Impaired Mood: Other (Euthymic to slightly irritable) Affect: Other (Good range and intensity) Thought Process & Associations: Disorganized (Mildly) Thought Content: Appropriate Hallucination Type: None Delusion Type: None Suicidal Ideation: No Suicidal Plan: No Suicidal Intention: No Homicidal Ideation: No Homicidal Plan: No Homicidal Intention: No Insight: Poor Judgment: Poor Assessment and Plan - Assessment (1) Delirium due to another medical condition Code(s): F05 - Delirium due to known physiological condition Status: Acute - Plan Plan: Estimated LOS: [] days I would recommend continued treatment of his underlying medical conditions. I have no specific recommendation for medication at this time. She is okay by psych for return to his senior living when medically cleared and stable thanks for the consult will sign off the present time Justification for Continued Inpatient Stay: Continue treatment of his underlying medical issues Discharge Planning: Prior medical team
[2018-05-16 14:43] LABS: Hepatitis A IgM Antibody Nonreactive (Nonreactive); Hepatitits B Surface Antigen Nonreactive (Nonreactive)
[2018-05-16] MEDS ORDERED: Sodium Chlor 0.9% Inj 500 ML IV.SIG ONE (15:29)
[2018-05-16] MEDS ORDERED: Ampicillin/Sulbactam Inj 1,500 MG in Sodium Chloride 0.9% Inj 100 ML IV.SIG SCH (16:00)
[2018-05-16] MEDS: Azithromycin Inj 500 MG in Sodium Chlor 0.9% Inj 250 ML IV.SIG SCH (16:17)
[2018-05-16] MEDS: Enoxaparin Inj 40 MG/0.4 ML Syringe SQ SCH (18:02)
[2018-05-17] MEDS: Sod Chloride 0.9% Inj 1,000 ML IV.CONT SCH ×4 (01:00→15:14)
[2018-05-17 05:24] LABS: Baso # (Auto) 0.1 th/mm3 (0.0-0.2); Baso % (Auto) 0.4 % (0.0-2.0); Eos # (Auto) 0.1 th/mm3 (0.0-0.4); Eos % (Auto) 0.4 % (0.0-4.0); Hematocrit 40.4 % (39.0-51.0); Hemoglobin 13.6 gm/dL (13.0-17.0); Lymph # (Auto) 1.8 th/mm3 (1.0-4.8); Lymph % (Auto) 15.2 % (9.0-44.0); Mean Corpuscular HGB Conc 33.6 % (32.0-36.0); Mean Corpuscular Hemoglobin 31.7 pg (27.0-34.0); Mean Corpuscular Volume 94.5 fL (80.0-100.0); Mean Platelet Volume 7.5 fL (7.0-11.0); Mono # (Auto) 1.8 th/mm3 (0.0-0.9); Neut # (Auto) 8.2 th/mm3 (1.8-7.7); Platelet Count 323 th/mm3 (150-450); Red Blood Count 4.28 mil/mm3 (4.50-5.90); Red Cell Distribution Width 14.7 % (11.6-17.2); White Blood Count 11.9 th/mm3 (4.0-11.0)
[2018-05-17 06:07] LABS: Alanine Aminotransferase 292 U/L (12-78); Albumin 2.6 g/dL (3.4-5.0); Alkaline Phosphatase 80 U/L (45-117); Anion Gap 11 meq/L (5-15); Aspartate Aminotransferase 355 U/L (15-37); Blood Urea Nitrogen 11 mg/dL (7-18); Calcium 8.1 mg/dL (8.5-10.1); Carbon Dioxide 21.4 meq/L (21.0-32.0); Chloride 108 meq/L (98-107); Creatine Kinase 10067 U/L (39-308); Glomerular Filtration Rate Greater Than 89 mL/min (>89); Glucose,Random 102 mg/dL (74-106); Sodium 140 meq/L (136-145); Total Protein 6.3 g/dL (6.4-8.2)
[2018-05-17 06:08] LABS: Potassium 3.6 meq/L (3.5-5.1)
[2018-05-17 06:35] LABS: Creatine Kinase MB 4.8 ng/mL (0.5-3.6)
[2018-05-17] MEDS: Enoxaparin Inj 40 MG/0.4 ML Syringe SQ SCH (08:13)
[2018-05-17] MEDS: Phenytoin Sodium 100 MG Capsule PO SCH (08:14)
[2018-05-17] MEDS: clonazePAM 1 MG Tablet PO SCH ×2 (08:20→20:53)
[2018-05-17] MEDS: FLUoxetine 20 MG Capsule PO SCH (08:20)
[2018-05-17] MEDS: Pantoprazole Sodium 20 MG DR Tablet PO SCH (08:23)
[2018-05-17] MEDS: Topiramate 100 MG Tablet PO SCH ×2 (08:23→20:54)
[2018-05-17] MEDS: Aspirin 300 MG Supp RECTAL SCH (08:24)
[2018-05-17] MEDS: Gabapentin 300 MG Capsule PO SCH ×2 (08:25→15:19)
[2018-05-17] MEDS: Senna/Docusate Sodium 8.6/50 MG Tablet PO SCH ×2 (08:26→20:54)
[2018-05-17] MEDS: amLODIPine 5 MG Tablet PO SCH (08:54)
[2018-05-17] MEDS: Magnesium Oxide 400 MG Tablet PO SCH (08:54)
--- NOTE | 2018-05-17 09:26 | P.PNFP ---
Subjective Interval history: Pt seen and examined for follow-up of AMS, sepsis, PNA, and rhabdo. Tachycardic to low 100s and BP running low. Patient asymptomatic. Reports he is feeling fine. In restraints because he has pulled out three IVs. Denies any acute problems. Denies CP, SOB, abdominal pain, N/V. Results - Labs Result diagrams: 05/17/18 04:37 05/17/18 04:37 Abnormal lab results 05/16/18 05/17/18 05/17/18 Range/Units 17:41 04:37 04:37 WBC 11.9 H (4.0-11.0) th/mm3 RBC 4.28 L (4.50-5.90) mil/mm3 [place] % (Auto) 15.0 H (0.0-8.0) % Neut # (Auto) 8.2 H (1.8-7.7) th/mm3 [place] # (Auto) 1.8 H (0.0-0.9) th/mm3 Chloride 108 H (98-107) meq/L Calcium 8.1 L (8.5-10.1) mg/dL AST 355 H (15-37) U/L ALT 292 H (12-78) U/L Ammonia 54 H (11-32) mcmol/L Total Creatine Kinase 05005 H (39-308) U/L CK-MB (CK-2) 4.8 H (0.5-3.6) ng/mL Total Protein 6.3 L D (6.4-8.2) g/dL Albumin 2.6 L D (3.4-5.0) g/dL Short CBC 05/17/18 Range/Units 04:37 WBC 11.9 H (4.0-11.0) th/mm3 Hgb 13.6 (13.0-17.0) gm/dL Hct 40.4 (39.0-51.0) % Plt Count 323 (150-450) th/mm3 BMP 05/17/18 04:37 Sodium 140 Potassium 3.6 Chloride 108 H Carbon Dioxide 21.4 BUN 11 Creatinine 0.61 Calcium 8.1 L Cardiac Enzymes 05/17/18 Range/Units 04:37 Total Creatine Kinase 45094 H (39-308) U/L CK-MB (CK-2) 4.8 H (0.5-3.6) ng/mL Liver Function 05/17/18 Range/Units 04:37 Total Bilirubin 0.5 (0.2-1.0) mg/dL AST 355 H (15-37) U/L ALT 292 H (12-78) U/L Alkaline Phosphatase 80 (45-117) U/L Albumin 2.6 L D (3.4-5.0) g/dL Physical Exam Vital signs: Vital Signs 05/16/18 10:00 05/16/18 11:00 05/16/18 12:00 Temperature 98.2 F Pulse Rate 114 H 105 H 104 H Respiratory Rate 20 Blood Pressure 110/60 Pulse Oximetry 97 05/16/18 13:00 05/16/18 14:00 05/16/18 15:00 Temperature Pulse Rate 102 H 110 H 126 H Respiratory Rate Blood Pressure Pulse Oximetry 05/16/18 16:00 05/16/18 17:00 05/16/18 18:00 Temperature 98 F Pulse Rate 113 H 118 H 117 H Respiratory Rate 22 Blood Pressure 115/68 Pulse Oximetry 96 05/16/18 19:00 05/16/18 20:00 05/16/18 21:00 Temperature 99.1 F Pulse Rate 106 H 104 H 108 H Respiratory Rate 18 Blood Pressure 103/69 Pulse Oximetry 96 05/16/18 22:00 05/16/18 23:00 05/17/18 00:00 Temperature 99.3 F Pulse Rate 106 H 105 H 108 H Respiratory Rate 18 Blood Pressure 107/64 Pulse Oximetry 95 05/17/18 01:00 05/17/18 02:00 05/17/18 03:00 Temperature Pulse Rate 92 H 94 H 99 H Respiratory Rate Blood Pressure Pulse Oximetry 05/17/18 04:00 05/17/18 05:00 05/17/18 06:00 Temperature 98.5 F Pulse Rate 98 H 94 H 100 H Respiratory Rate 18 Blood Pressure 82/54 L Pulse Oximetry 97 05/17/18 07:00 05/17/18 08:00 Temperature 97.8 F Pulse Rate 102 H 105 H Respiratory Rate 17 Blood Pressure 90/66 L Pulse Oximetry 98 Intake & Output 05/16/18 05/17/18 05/17/18 18:59 06:59 18:59 Intake Total 3045 / 3045 1880 / 1880 1100 / 1100 Output Total 900 / 900 550 / 550 Balance 2145 / 2145 1330 / 1330 1100 / 1100 Weight 66.1 kg Intake: IV 2565 / 2565 1200 / 1200 1100 / 1100 NS Inj 1,000 ML @ 150 mls/hr IV 1000 / 1000 1000 / 1000 1000 / 1000 .CONT .Q6H40M [facility] Rx#:[id number] Azithromycin Inj 500 MG In NS 250 / 250 Inj 250 ML @ 250 mls/hr IV.SIG Q24H [facility] Rx#:[id number] Maxipime Inj 1,000 MG In NS Inj 200 / 200 100 / 100 100 / 100 100 ML @ 200 mls/hr IV.SIG Q12H [facility] Rx#:[id number] NS Inj 500 ML @ Wide Open IV. 500 / 500 SIG BOLUS ONE Rx#:[id number] Vancomycin Inj 1,500 MG In NS 515 / 515 Inj 500 ML @ 250 mls/hr IV.SIG Q18H [facility] Rx#:[id number] Flagyl 500 MG Inj 100 ML @ 100 100 / 100 100 / 100 mls/hr IV.SIG Q8H [facility] Rx#: [id number] Oral 480 / 480 680 / 680 Output: Urine 550 / 550 Urine Amount (Catheter) 900 / 900 Indwelling Urethral Catheter 900 / 900 Other: Date of Last Bowel Movement 05/16/18 # Bowel Movements 1 1 Narrative: GENERAL: WN, WD male resting in bed in [facility]. SKIN: Warm and dry. HEENT: Right prior craniotomy scar. Pupils equal and round. MMM. NECK: Supple no tender LAD or JVD. HEART: Tachycardic with a regular rhythm. LUNGS: Diminished at the bases otherwise CTAB without wheezes or crackles. ABDOMEN: +BS, soft, NT, ND. EXTREMITIES: No LE edema. NEURO: Awake and alert. Oriented x 3. - Urinary Catheter Management Indwelling Urethral Catheter Cath placed during this visit: yes, but has since been removed by the nurse Reason for continuing: Not indwelling catheter Insertion date: 05/17/18 Insertion time: 05:10 Removal date: 05/17/18 Removal time: 05:25 Assessment and Plan - Assessment (1) Sepsis Code(s): A41.9 - Sepsis, unspecified organism Status: Acute (2) PNA (pneumonia) Code(s): J18.9 - Pneumonia, unspecified organism Status: Acute (3) NSTEMI (non-ST elevated myocardial infarction) Code(s): I21.4 - Non-ST elevation (NSTEMI) myocardial infarction Status: Acute (4) Encephalopathy Code(s): G93.40 - Encephalopathy, unspecified Status: Acute - Assessment and Plan 57 YOWM with history of TBI, seizure, and dementia admitted on 05/15 after being found lying on the floor of a SNF unresponsive for an unknown duration of time. On arrival he was febrile with tachycardia, leukocytosis, and lactic acidosis. He was found to have elevated troponins and rhabdomyolysis 1. Sepsis - On admission, white count elevated at 16.9, lactic acid 3.3, and patient febrile with T 100.3 and tachycardia - CT chest showing patchy infiltrates in lower lobes and R middle lobe - Blood cultures from 05/14 and 05/16 all negative so far - U/A with blood but cathed culture negative - Initially started on broad spectrum vanc and cefepime, changing antibiotics to cover for health-care associated and aspiration PNA as below - NS at 150 ml/hr 2. PNA - CXR showing no acute cardiopulmonary disease - CT chest showing patchy infiltrates in the lower lobes and right middle lobe as well as mild emphysema, concern for aspiration - Blood cultures negative so far - White count trending down - Started on vancomycin and cefepime in the ED - On 05/17 antibiotics were changed to to treat for both aspiration and healthcare associated PNA since he came from a SNF - Continue cefepime and add Azithromycin (for HCAP) and Flagyl (to cover aspiration) - Urine legionella and pneumococcal antigens negative - Sputum culture pending 3. NSTEMI - Troponins 1.69 and 3.88 - Likely demand from sepsis - Cardiology consulted and do not feel he is a good candidate for any aggressive further workup. Recommend medical management - ASA and statin 4. Transaminitis - LFTs continue to be elevated - Likely secondary from severe sepsis and hypoperfusion - Hepatitis panel negative - Check liver U/S - Avoid hepatotoxic agents - Monitor LFTs closely 5. AMS/encephalopathy/seizure disorder - Head CT showing encephalomalacia of R temporal lobe with e/o right-sided craniotomy - Psych consulted, no need for psych admission or additional psychotropic meds - Continue gabapentin, Prozac, and Topamax 6. Tachycardia - Sinus tach - BP running low (systolic 80-100s) - Bolus 500 NS x 1 and continue NS at 150 ml/hr 7. Rhabdomyolysis - Pt was down for an unknown length of time - Total CK up to 10K this AM - Aggressive hydration with NS at 150 ml/hr - Continue to monitor CK DVT prophylaxis: Lovenox Discharge Planning: If blood cultures remain negative and patient clinically stabilizes, can discharge home. Possibly in next few days but still critical since treating rhabdomyolysis, medically managing an NSTEMI, and treating for sepsis/PNA
[2018-05-17] MEDS ORDERED: Pharmacy Ordered Lab Info OTHER ONE (09:45)
[2018-05-17] MEDS ORDERED: Sodium Chlor 0.9% Inj 500 ML IV.SIG ONE (12:11)
[2018-05-17] MEDS: Azithromycin Inj 500 MG in Sodium Chlor 0.9% Inj 250 ML IV.SIG SCH (15:15)
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
[2018-05-18] MEDS: Sod Chloride 0.9% Inj 1,000 ML IV.CONT SCH ×5 (00:44→20:38)
[2018-05-18 06:32] LABS: Hematocrit 40.2 % (39.0-51.0); Hemoglobin 13.4 gm/dL (13.0-17.0); Mean Corpuscular HGB Conc 33.4 % (32.0-36.0); Mean Corpuscular Hemoglobin 31.3 pg (27.0-34.0); Mean Corpuscular Volume 93.7 fL (80.0-100.0); Mean Platelet Volume 7.9 fL (7.0-11.0); Platelet Count 354 th/mm3 (150-450); Red Blood Count 4.29 mil/mm3 (4.50-5.90); Red Cell Distribution Width 14.4 % (11.6-17.2); White Blood Count 8.6 th/mm3 (4.0-11.0)
[2018-05-18 07:11] LABS: Albumin 2.4 g/dL (3.4-5.0); Anion Gap 11 meq/L (5-15); Aspartate Aminotransferase 408 U/L (15-37); Blood Urea Nitrogen 10 mg/dL (7-18); Calcium 8.4 mg/dL (8.5-10.1); Carbon Dioxide 22.4 meq/L (21.0-32.0); Chloride 108 meq/L (98-107); Glomerular Filtration Rate Greater Than 89 mL/min (>89); Glucose,Random 93 mg/dL (74-106); Potassium 3.2 meq/L (3.5-5.1); Sodium 141 meq/L (136-145)
[2018-05-18 07:12] LABS: Alanine Aminotransferase 221 U/L (12-78)
[2018-05-18 07:37] LABS: Alkaline Phosphatase 78 U/L (45-117); Total Protein 6.3 g/dL (6.4-8.2)
[2018-05-18] MEDS: Phenytoin Sodium 100 MG Capsule PO SCH (08:21)
[2018-05-18] MEDS: amLODIPine 5 MG Tablet PO SCH (08:22)
[2018-05-18] MEDS: Topiramate 100 MG Tablet PO SCH ×2 (08:23→20:36)
[2018-05-18] MEDS: clonazePAM 1 MG Tablet PO SCH ×2 (08:23→20:36)
[2018-05-18] MEDS: Gabapentin 300 MG Capsule PO SCH ×3 (08:23→17:44)
[2018-05-18] MEDS: FLUoxetine 20 MG Capsule PO SCH (08:24)
[2018-05-18] MEDS: Pantoprazole Sodium 20 MG DR Tablet PO SCH (08:24)
[2018-05-18 08:26] LABS: Creatine Kinase 19444 U/L (39-308)
[2018-05-18] MEDS: Enoxaparin Inj 40 MG/0.4 ML Syringe SQ SCH (08:26)
[2018-05-18 08:27] LABS: Creatine Kinase MB 5.9 ng/mL (0.5-3.6)
[2018-05-18] MEDS: Senna/Docusate Sodium 8.6/50 MG Tablet PO SCH ×2 (08:27→20:36)
--- NOTE | 2018-05-18 09:16 | P.PNFP ---
Subjective Interval history: Pt seen and examined. D/W nursing. No events overnight. Pt has no complaints and states he is feeling well. Denies CP, SOB, abdominal pain, N/V. Denies muscle pains. Tolerating PO. Denies history of liver disease. States he used to drink heavily but hasn't had a drink since he has been living in a SNF prior to admission. Results - Labs Result diagrams: 05/18/18 04:50 05/18/18 04:50 Abnormal lab results 05/18/18 05/18/18 Range/Units 04:50 04:50 RBC 4.29 L (4.50-5.90) mil/mm3 Potassium 3.2 L (3.5-5.1) meq/L Chloride 108 H (98-107) meq/L Calcium 8.4 L (8.5-10.1) mg/dL AST 408 H (15-37) U/L ALT 221 H (12-78) U/L Total Creatine Kinase 55322 H (39-308) U/L CK-MB (CK-2) 5.9 H (0.5-3.6) ng/mL Total Protein 6.3 L (6.4-8.2) g/dL Albumin 2.4 L (3.4-5.0) g/dL Short CBC 05/18/18 Range/Units 04:50 WBC 8.6 (4.0-11.0) th/mm3 Hgb 13.4 (13.0-17.0) gm/dL Hct 40.2 (39.0-51.0) % Plt Count 354 (150-450) th/mm3 BMP 05/18/18 04:50 Sodium 141 Potassium 3.2 L Chloride 108 H Carbon Dioxide 22.4 BUN 10 Creatinine 0.66 Calcium 8.4 L Cardiac Enzymes 05/18/18 Range/Units 04:50 Total Creatine Kinase 94663 H (39-308) U/L CK-MB (CK-2) 5.9 H (0.5-3.6) ng/mL Liver Function 05/18/18 Range/Units 04:50 Total Bilirubin 0.4 (0.2-1.0) mg/dL AST 408 H (15-37) U/L ALT 221 H (12-78) U/L Alkaline Phosphatase 78 (45-117) U/L Albumin 2.4 L (3.4-5.0) g/dL - Imaging Impressions Liver Ultrasound 05/17/18 00:00 CONCLUSION: 1. Cholelithiasis otherwise unremarkable Physical Exam Vital signs: Vital Signs 05/17/18 09:00 05/17/18 10:00 05/17/18 11:25 Temperature Pulse Rate 102 H 106 H 97 H Respiratory Rate Blood Pressure Pulse Oximetry 05/17/18 12:00 05/17/18 13:00 05/17/18 14:00 Temperature 98 F Pulse Rate 98 H 90 86 Respiratory Rate 17 Blood Pressure 104/69 Pulse Oximetry 98 05/17/18 15:00 05/17/18 16:00 05/17/18 17:00 Temperature 98 F Pulse Rate 98 H 94 H 102 H Respiratory Rate 18 Blood Pressure 109/69 Pulse Oximetry 98 05/17/18 18:00 05/17/18 19:00 05/17/18 20:00 Temperature 97.9 F Pulse Rate 102 H 107 H 102 H Respiratory Rate 16 Blood Pressure 112/63 Pulse Oximetry 96 05/17/18 21:00 05/17/18 22:00 05/17/18 23:00 Temperature Pulse Rate 106 H 98 H 97 H Respiratory Rate Blood Pressure Pulse Oximetry 05/18/18 00:00 05/18/18 01:00 05/18/18 02:00 Temperature 98.4 F Pulse Rate 94 H 96 H 98 H Respiratory Rate 16 Blood Pressure 93/51 L Pulse Oximetry 05/18/18 03:00 05/18/18 04:00 05/18/18 05:00 Temperature 98 F Pulse Rate 99 H 98 H 98 H Respiratory Rate 16 Blood Pressure 86/60 L Pulse Oximetry 99 05/18/18 06:00 Temperature Pulse Rate 88 Respiratory Rate Blood Pressure Pulse Oximetry Intake & Output 05/17/18 05/18/18 05/18/18 18:59 06:59 18:59 Intake Total 3520 / 3520 1680 / 1680 Output Total 400 / 400 1050 / 1050 Balance 3120 / 3120 630 / 630 Weight 71.5 kg Intake: IV 2800 / 2800 1200 / 1200 NS Inj 1,000 ML @ 150 mls/hr IV 2000 / 2000 1000 / 1000 .CONT .Q6H40M [facility] Rx#:[id number] Maxipime Inj 1,000 MG In NS Inj 100 / 100 100 / 100 100 ML @ 200 mls/hr IV.SIG Q12H [facility] Rx#:[id number] NS Inj 500 ML @ Wide Open IV. 500 / 500 SIG BOLUS ONE Rx#:[id number] Flagyl 500 MG Inj 100 ML @ 100 200 / 200 100 / 100 mls/hr IV.SIG Q8H [facility] Rx#: [id number] Oral 720 / 720 480 / 480 Output: Urine 400 / 400 1050 / 1050 Other: Date of Last Bowel Movement 05/18/18 # Bowel Movements 1 Narrative: GENERAL: WN, WD male sitting up in bed eating breakfast in NAD. SKIN: Warm and dry. No jaundice. HEENT: Right prior craniotomy scar. Pupils equal and round. No scleral icterus. MMM. NECK: Supple no tender LAD or JVD. HEART: Tachycardic with a regular rhythm. LUNGS: CTAB without wheezes or crackles. ABDOMEN: +BS, soft, NT, ND. No hepatomegaly. EXTREMITIES: No LE edema. NEURO: Awake and alert. - Urinary Catheter Management Indwelling Urethral Catheter Cath placed during this visit: yes, but has since been removed by the nurse Reason for continuing: Not indwelling catheter Insertion date: 05/17/18 Insertion time: 14:00 Removal date: 05/17/18 Removal time: 14:30 Assessment and Plan - Assessment (1) Sepsis Code(s): A41.9 - Sepsis, unspecified organism Status: Acute (2) PNA (pneumonia) Code(s): J18.9 - Pneumonia, unspecified organism Status: Acute (3) NSTEMI (non-ST elevated myocardial infarction) Code(s): I21.4 - Non-ST elevation (NSTEMI) myocardial infarction Status: Acute (4) Encephalopathy Code(s): G93.40 - Encephalopathy, unspecified Status: Acute - Assessment and Plan 57 YOWM with history of TBI, seizure, and dementia admitted on 05/15 after being found lying on the floor of a SNF unresponsive for an unknown duration of time. On arrival he was febrile with tachycardia, leukocytosis, and lactic acidosis. He was found to have elevated troponins and rhabdomyolysis 1. Sepsis - RESOLVED - On admission, white count elevated at 16.9, lactic acid 3.3, and patient febrile with T 100.3 and tachycardia - CT chest showing patchy infiltrates in lower lobes and R middle lobe - Blood cultures from 05/14 and 05/16 all negative so far - U/A with blood but cathed culture negative - Initially started on broad spectrum vanc and cefepime, changing antibiotics to cover for health-care associated and aspiration PNA as below - NS at 150 ml/hr 2. PNA - CXR showing no acute cardiopulmonary disease - CT chest showing patchy infiltrates in the lower lobes and right middle lobe as well as mild emphysema, concern for aspiration - Blood cultures negative so far - White count has normalized - Started on vancomycin and cefepime in the ED - On 05/17 antibiotics were changed to to treat for both aspiration and healthcare associated PNA since he came from a SNF. He was continued on Cefepime and vanco was changed to Azithromycin. Flagyl was added to cover for aspiration - Clinically improving, afebrile, and no leukocytosis. Change to PO antibiotics. Continue Azithromycin PO and will convert to Clindamycin for aspiration coverage (avoiding Flagyl for rare instance of hepatotoxicity and since it was started around acute elevation of LFTs; avoiding Augmentin since per NIH, it is the LONGTERM of clinically apparent, drug-induced liver toxicity) - Urine legionella and pneumococcal antigens negative - Sputum culture pending - Will continue Azithromycin and Clindamycin to cover for 7 days of antibiotics 3. NSTEMI - Troponins 1.69 and 3.88 - Likely demand from sepsis - Cardiology consulted and do not feel he is a good candidate for any aggressive further workup. Recommend medical management - ASA - Avoid statin secondary to elevated liver enzymes 4. Transaminitis - LFTs continue to be elevated and trending up - Hepatitis panel negative - Liver U/S with cholelithiasis otherwise unremarkable - Discontinue potentially hepatotoxic medications started prior to increase including Flagyl (though only rare reports of acute hepatic injury) - Check GTT, coags, ferritin - Monitor LFTs closely - IV hydration - Consult GI for further evaluation 5. AMS/encephalopathy/seizure disorder - Mentation improving and patient appears to be at baseline with known memory deficits - Head CT showing encephalomalacia of R temporal lobe with e/o right-sided craniotomy - Psych consulted, no need for psych admission or additional psychotropic meds - Continue gabapentin, Prozac, and Topamax 6. Tachycardia - Sinus tach - BPs improved - Continue NS at 150 ml/hr 7. Rhabdomyolysis, elevated CK - Pt was down for an unknown length of time prior to admission - Patient asymptomatic but CK continues to rise, nearly doubled this morning from yesterday (up to ) - Continue aggressive hydration with NS at 150 ml/hr - Continue to monitor CK - Check troponin - No acute renal injury or electrolyte abnormalities except for mildly low potassium 8. Hypokalemia - KCl 40 meq PO x 1 - Monitor DVT prophylaxis: Lovenox Discharge Planning: Continuing to monitor LFTs and CK, consulting GI
[2018-05-18 11:59] LABS: Ferritin 282 ng/mL (26-388)
--- NOTE | 2018-05-18 12:16 | P.CONGI ---
History of Present Illness Consult date: 05/18/18 Consult reason: Elevated LFTs Chief complaint: NON STEMI, PNA History of Present Illness: This is a 57 yo M with PMH significant for TBI, epilepsy, dementia, and metabolic encephalopathy who was brought to the hospital on 05/15 after being found unresponsive on the floor of his nursing facility. Our service has been consulted to evaluate pt for elevated LFTs, on admission LFTs were WNL and elevated on 05/16 and has continued to elevate. Of note, pt with rhabdomyolysis and increasing CK levels and diagnosis of sepsis, now resolved. Pt poor historian. Denies history of liver issues. Denies nausea, vomiting, abdominal pain. <Rowan Espinosa - Last Filed: 05/18/18 12:02> Review of Systems Gastrointestinal: Denies abdominal pain, Denies nausea, Denies vomiting <Rowan Espinosa - Last Filed: 05/18/18 12:02> PMFSH - History History Provided By: Medical Record - Medical History Medical History: Medical History (Last Reviewed 05/18/18 @ 07:48 by Sarita Santiago, VIDEO PRODUCTION COORDINATOR) Dementia Epilepsia Metabolic encephalopathy Seizure Traumatic brain injury - Tobacco History Smoking Status: Unknown if ever smoked - Alcohol History How Often Do You Have a Drink Containing Alcohol: Unable to Obtain - Substance Use History Substance History: Unable to Obtain - Travel History Recent Travel in the [place] Within the Last 8 Weeks: No Recent Travel Out of the Country Within the Last 8 Weeks: No - Immunization History Tetanus Immunization: Unable to Assess Hx Influenza Vaccine This Season: Unable to Assess <Rowan Espinosa - Last Filed: 05/18/18 12:02> - Medical History Medical History: Medical History (Last Reviewed 05/18/18 @ 07:48 by Sarita Santiago, VIDEO PRODUCTION COORDINATOR) Dementia Epilepsia Metabolic encephalopathy Seizure Traumatic brain injury <Isaias Fink - Last Filed: 05/18/18 16:18> Medications and Allergies Active Medications: Active Medications Acetaminophen (Tylenol) 650 mg PO Q4H PRN PRN Reason: FEVER/PAIN 1-2 Al Hydroxide/Mg Hydroxide (Milk Of Magnesia Liq) 30 ml PO Q12H PRN PRN Reason: Mild Constipation Amlodipine Besylate (Norvasc) 5 mg PO DAILY [facility] Last Admin: 05/18/18 08:22 Dose: Not Given Aspirin (Ecotrin) 81 mg PO DAILY [facility] Last Admin: 05/18/18 08:22 Dose: 81 mg Azithromycin (Zithromax) 500 mg PO Q24H [facility] Bisacodyl (Dulcolax Supp) 10 mg RECTAL DAILY PRN PRN Reason: SEVERE CONSITIPATION Clindamycin HCl (Cleocin) 450 mg PO Q6HR [facility] Clonazepam (Klonopin) 1 mg PO BID [facility] Last Admin: 05/18/18 08:23 Dose: 1 mg Enoxaparin Sodium (Lovenox Inj) 40 mg SQ DAILY [facility] Last Admin: 05/18/18 08:26 Dose: 40 mg Fluoxetine HCl (Prozac) 20 mg PO DAILY [facility] Last Admin: 05/18/18 08:24 Dose: 20 mg Gabapentin (Neurontin) 300 mg PO TID [facility] Last Admin: 05/18/18 08:23 Dose: 300 mg Sodium Chloride (Ns Inj) 1,000 mls @ 100 mls/hr IV.CONT .Q10H [facility] Last Infusion: 05/16/18 15:56 Dose: Infused Sodium Chloride (Ns Inj) 1,000 mls @ 150 mls/hr IV.CONT .Q6H40M [facility] Last Admin: 05/18/18 10:55 Dose: 150 mls/hr Lactulose (Lactulose Liq) 15 ml PO BID [facility] Last Admin: 05/18/18 08:24 Dose: 15 ml Pantoprazole Sodium (Protonix) 20 mg PO DAILY [facility] Last Admin: 05/18/18 08:24 Dose: 20 mg Phenytoin Sodium (Dilantin) 300 mg PO DAILY [facility] Last Admin: 05/18/18 08:21 Dose: 300 mg Senna/Docusate Sodium (Coni-Colace) 1 tab PO BID [facility] Last Admin: 05/18/18 08:27 Dose: Not Given Sennosides (Senokot) 17.2 mg PO Q12H PRN PRN Reason: Moderate Constipation Topiramate (Topamax) 100 mg PO BID [facility] Last Admin: 05/18/18 08:23 Dose: 100 mg <Rowan Espinosa - Last Filed: 05/18/18 12:02> Active Medications: Active Medications Acetaminophen (Tylenol) 650 mg PO Q4H PRN PRN Reason: FEVER/PAIN 1-2 Al Hydroxide/Mg Hydroxide (Milk Of Magnesia Liq) 30 ml PO Q12H PRN PRN Reason: Mild Constipation Amlodipine Besylate (Norvasc) 5 mg PO DAILY [facility] Last Admin: 05/18/18 08:22 Dose: Not Given Aspirin (Ecotrin) 81 mg PO DAILY [facility] Last Admin: 05/18/18 08:22 Dose: 81 mg Azithromycin (Zithromax) 500 mg PO Q24H [facility] Last Admin: 05/18/18 14:48 Dose: 500 mg Bisacodyl (Dulcolax Supp) 10 mg RECTAL DAILY PRN PRN Reason: SEVERE CONSITIPATION Clindamycin HCl (Cleocin) 450 mg PO Q6HR [facility] Clonazepam (Klonopin) 1 mg PO BID [facility] Last Admin: 05/18/18 08:23 Dose: 1 mg Enoxaparin Sodium (Lovenox Inj) 40 mg SQ DAILY [facility] Last Admin: 05/18/18 08:26 Dose: 40 mg Fluoxetine HCl (Prozac) 20 mg PO DAILY [facility] Last Admin: 05/18/18 08:24 Dose: 20 mg Gabapentin (Neurontin) 300 mg PO TID [facility] Last Admin: 05/18/18 13:00 Dose: 300 mg Sodium Chloride (Ns Inj) 1,000 mls @ 100 mls/hr IV.CONT .Q10H [facility] Last Infusion: 05/16/18 15:56 Dose: Infused Sodium Chloride (Ns Inj) 1,000 mls @ 150 mls/hr IV.CONT .Q6H40M [facility] Last Admin: 05/18/18 10:55 Dose: 150 mls/hr Lactulose (Lactulose Liq) 15 ml PO BID [facility] Last Admin: 05/18/18 08:24 Dose: 15 ml Pantoprazole Sodium (Protonix) 20 mg PO DAILY [facility] Last Admin: 05/18/18 08:24 Dose: 20 mg Phenytoin Sodium (Dilantin) 300 mg PO DAILY [facility] Last Admin: 05/18/18 08:21 Dose: 300 mg Senna/Docusate Sodium (Coni-Colace) 1 tab PO BID [facility] Last Admin: 05/18/18 08:27 Dose: Not Given Sennosides (Senokot) 17.2 mg PO Q12H PRN PRN Reason: Moderate Constipation Topiramate (Topamax) 100 mg PO BID [facility] Last Admin: 05/18/18 08:23 Dose: 100 mg <Isaias Fink E - Last Filed: 05/18/18 16:18> Allergies Allergy/AdvReac Type Severity Reaction Status Date / Time No Known Allergies Allergy Unverified 05/15/18 13:21 Home Medications Medication Instructions Recorded Confirmed Type amlodipine 5 mg PO DAILY 05/15/18 05/15/18 History clonazepam 1 mg PO BID 05/15/18 05/15/18 History fluoxetine 20 mg PO DAILY 05/15/18 05/15/18 History gabapentin 300 mg PO TID 05/15/18 05/15/18 History lactulose 10 g PO BID 05/15/18 05/15/18 History magnesium oxide 400 mg PO DAILY 05/15/18 05/15/18 History omeprazole 20 mg PO DAILY 05/15/18 05/15/18 History phenytoin sodium extended 300 mg PO DAILY 05/15/18 05/15/18 History topiramate 100 mg PO BID 05/15/18 05/15/18 History tramadol 50 mg PO Q6H 05/15/18 05/15/18 History Exam Vital signs: Vital Signs 05/17/18 13:00 05/17/18 14:00 05/17/18 15:00 Temperature Pulse Rate 90 86 98 H Respiratory Rate Blood Pressure Pulse Oximetry 05/17/18 16:00 05/17/18 17:00 05/17/18 18:00 Temperature 98 F Pulse Rate 94 H 102 H 102 H Respiratory Rate 18 Blood Pressure 109/69 Pulse Oximetry 98 05/17/18 19:00 05/17/18 20:00 05/17/18 21:00 Temperature 97.9 F Pulse Rate 107 H 102 H 106 H Respiratory Rate 16 Blood Pressure 112/63 Pulse Oximetry 96 05/17/18 22:00 05/17/18 23:00 05/18/18 00:00 Temperature 98.4 F Pulse Rate 98 H 97 H 94 H Respiratory Rate 16 Blood Pressure 93/51 L Pulse Oximetry 05/18/18 01:00 05/18/18 02:00 05/18/18 03:00 Temperature Pulse Rate 96 H 98 H 99 H Respiratory Rate Blood Pressure Pulse Oximetry 05/18/18 04:00 05/18/18 05:00 05/18/18 06:00 Temperature 98 F Pulse Rate 98 H 98 H 88 Respiratory Rate 16 Blood Pressure 86/60 L Pulse Oximetry 99 05/18/18 08:00 Temperature 97.9 F Pulse Rate 99 H Respiratory Rate 18 Blood Pressure 115/70 Pulse Oximetry 96 Intake & Output 05/17/18 05/18/18 05/18/18 18:59 06:59 18:59 Intake Total 3520 / 3520 1680 / 1680 1100 / 1100 Output Total 400 / 400 1050 / 1050 Balance 3120 / 3120 630 / 630 1100 / 1100 Weight 71.5 kg Intake: IV 2800 / 2800 1200 / 1200 1100 / 1100 NS Inj 1,000 ML @ 150 mls/hr IV 2000 / 2000 1000 / 1000 1000 / 1000 .CONT .Q6H40M [facility] Rx#:[id number] Maxipime Inj 1,000 MG In NS Inj 100 / 100 100 / 100 100 ML @ 200 mls/hr IV.SIG Q12H [facility] Rx#:[id number] NS Inj 500 ML @ Wide Open IV. 500 / 500 SIG BOLUS ONE Rx#:[id number] Flagyl 500 MG Inj 100 ML @ 100 200 / 200 100 / 100 100 / 100 mls/hr IV.SIG Q8H [facility] Rx#: [id number] Oral 720 / 720 480 / 480 Output: Urine 400 / 400 1050 / 1050 Other: Date of Last Bowel Movement 05/18/18 05/18/18 # Bowel Movements 1 - Constitutional no acute distress - Routine HEENT Exam Head: Present: normocephalic, atraumatic - Routine Respiratory Exam Absent: accessory muscle use - Routine Cardiovascular Exam Present: RRR - Routine Abdominal Exam Present: soft, normoactive bowel sounds. Absent: tenderness, distended, rebound , guarding, firm - Routine Skin Exam Present: dry, warm <Rowan Espinosa - Last Filed: 05/18/18 12:02> Vital signs: Vital Signs 05/17/18 17:00 05/17/18 18:00 05/17/18 19:00 Temperature Pulse Rate 102 H 102 H 107 H Respiratory Rate Blood Pressure Pulse Oximetry 05/17/18 20:00 05/17/18 21:00 05/17/18 22:00 Temperature 97.9 F Pulse Rate 102 H 106 H 98 H Respiratory Rate 16 Blood Pressure 112/63 Pulse Oximetry 96 05/17/18 23:00 05/18/18 00:00 05/18/18 01:00 Temperature 98.4 F Pulse Rate 97 H 94 H 96 H Respiratory Rate 16 Blood Pressure 93/51 L Pulse Oximetry 05/18/18 02:00 05/18/18 03:00 05/18/18 04:00 Temperature 98 F Pulse Rate 98 H 99 H 98 H Respiratory Rate 16 Blood Pressure 86/60 L Pulse Oximetry 99 05/18/18 05:00 05/18/18 06:00 05/18/18 08:00 Temperature 97.9 F Pulse Rate 98 H 88 99 H Respiratory Rate 18 Blood Pressure 115/70 Pulse Oximetry 96 05/18/18 12:00 Temperature 97.6 F Pulse Rate 97 H Respiratory Rate 18 Blood Pressure 106/68 Pulse Oximetry 98 Intake & Output 05/17/18 05/18/18 05/18/18 18:59 06:59 18:59 Intake Total 3520 / 3520 1680 / 1680 1100 / 1100 Output Total 400 / 400 1050 / 1050 Balance 3120 / 3120 630 / 630 1100 / 1100 Weight 71.5 kg Intake: IV 2800 / 2800 1200 / 1200 1100 / 1100 NS Inj 1,000 ML @ 150 mls/hr IV 2000 / 2000 1000 / 1000 1000 / 1000 .CONT .Q6H40M [facility] Rx#:[id number] Maxipime Inj 1,000 MG In NS Inj 100 / 100 100 / 100 100 ML @ 200 mls/hr IV.SIG Q12H [facility] Rx#:[id number] NS Inj 500 ML @ Wide Open IV. 500 / 500 SIG [facility] Rx#:[id number] Flagyl 500 MG Inj 100 ML @ 100 200 / 200 100 / 100 100 / 100 mls/hr IV.SIG Q8H [facility] Rx#: [id number] Oral 720 / 720 480 / 480 Output: Urine 400 / 400 1050 / 1050 Other: Date of Last Bowel Movement 05/18/18 05/18/18 # Bowel Movements 1 <Isaias Fink E - Last Filed: 05/18/18 16:18> Results - Labs CBC & Chem 7: 05/18/18 04:50 05/18/18 04:50 Labs: Laboratory Results - last 24 hr 05/18/18 05/18/18 05/18/18 04:50 04:50 04:50 WBC 8.6 RBC 4.29 L Hgb 13.4 Hct 40.2 MCV 93.7 MCH 31.3 MCHC 33.4 RDW 14.4 Plt Count 354 MPV 7.9 ESR Sodium 141 Potassium 3.2 L Chloride 108 H Carbon Dioxide 22.4 Anion Gap 11 BUN 10 Creatinine 0.66 Estimated GFR Greater than 89 Random Glucose 93 Calcium 8.4 L Ferritin Total Bilirubin 0.4 GGT 160 H AST 408 H ALT 221 H Alkaline Phosphatase 78 Total Creatine Kinase 35318 H CK-MB (CK-2) 5.9 H CK-MB (CK-2) % 0.0 Total Protein 6.3 L Albumin 2.4 L Acetaminophen 05/18/18 05/18/18 04:50 04:50 WBC RBC Hgb Hct MCV MCH MCHC RDW Plt Count MPV ESR 56 H Sodium Potassium Chloride Carbon Dioxide Anion Gap BUN Creatinine Estimated GFR Random Glucose Calcium Ferritin 282 Total Bilirubin GGT AST ALT Alkaline Phosphatase Total Creatine Kinase CK-MB (CK-2) CK-MB (CK-2) % Total Protein Albumin Acetaminophen Less than 2.0 L - Imaging Impressions Liver Ultrasound 05/17/18 00:00 CONCLUSION: 1. Cholelithiasis otherwise unremarkable <Rowan Espinosa - Last Filed: 05/18/18 12:02> - Labs CBC & Chem 7: 05/18/18 04:50 05/18/18 04:50 Labs: Laboratory Results - last 24 hr 05/18/18 05/18/18 05/18/18 04:50 04:50 04:50 WBC 8.6 RBC 4.29 L Hgb 13.4 Hct 40.2 MCV 93.7 MCH 31.3 MCHC 33.4 RDW 14.4 Plt Count 354 MPV 7.9 ESR PT INR APTT Sodium 141 Potassium 3.2 L Chloride 108 H Carbon Dioxide 22.4 Anion Gap 11 BUN 10 Creatinine 0.66 Estimated GFR Greater than 89 Random Glucose 93 Calcium 8.4 L Ferritin Total Bilirubin 0.4 GGT 160 H AST 408 H ALT 221 H Alkaline Phosphatase 78 Total Creatine Kinase 33599 H CK-MB (CK-2) 5.9 H CK-MB (CK-2) % 0.0 Troponin I Total Protein 6.3 L Albumin 2.4 L Acetaminophen 05/18/18 05/18/18 05/18/18 04:50 04:50 04:50 WBC RBC Hgb Hct MCV MCH MCHC RDW Plt Count MPV ESR 56 H PT INR APTT Sodium Potassium Chloride Carbon Dioxide Anion Gap BUN Creatinine Estimated GFR Random Glucose Calcium Ferritin 282 Total Bilirubin GGT AST ALT Alkaline Phosphatase Total Creatine Kinase CK-MB (CK-2) CK-MB (CK-2) % Troponin I 1.83 H* Total Protein Albumin Acetaminophen Less than 2.0 L 05/18/18 13:46 WBC RBC Hgb Hct MCV MCH MCHC RDW Plt Count MPV ESR PT 10.1 INR 1.0 APTT 29.5 Sodium Potassium Chloride Carbon Dioxide Anion Gap BUN Creatinine Estimated GFR Random Glucose Calcium Ferritin Total Bilirubin GGT AST ALT Alkaline Phosphatase Total Creatine Kinase CK-MB (CK-2) CK-MB (CK-2) % Troponin I Total Protein Albumin Acetaminophen - Imaging Impressions Liver Ultrasound 05/17/18 00:00 CONCLUSION: 1. Cholelithiasis otherwise unremarkable <Isaias Fink - Last Filed: 05/18/18 16:18> Assessment and Plan (1) Elevated LFTs Status: Acute Code(s): R94.5 - Abnormal results of liver function studies - Plan Assessment: - Elevated LFTs- WNL on admission on 05/15, elevated on 05/16 and has continued to gradually increase. Pt admitted after being found unresponsive at half-way, sepsis, rhabdomyolysis, NSTEMI. Pt with baseline dementia, TBI- very poor historian. Denies previous liver issues, previous admission revealed a slightly elevated AST but otherwise WNL. Hepatitis panel negative. (05/18) AST-408 ALT-221 Alk phos-78 T bili-0.4 US liver --> Cholelithiasis, otherwise unremarkable Elevation likely acute, given normal labs on admission, ? secondary to hypotension vs rhabdomyolysis with increasing CK during admission Plan: Avoid hepatotoxins Avoid hypotension Monitor LFTs Further recommendations based on clinical course Pt has been seen and examined by myself and Dr. Fink and [facility] <Rowan Espinosa - Last Filed: 05/18/18 12:02> (1) Elevated LFTs Status: Acute Code(s): R94.5 - Abnormal results of liver function studies - Attending Attestation Patient seen and examined, agree with above, continue with current supportive care, monitor labs Most likely cause of liver function test elevation is multifactorial probably related to syncopal episode and probable underlying hypotension also rhabdomyolysis is contributing to the elevation of the AST Would encourage hydration at this point and close monitoring <Isaias Fink E - Last Filed: 05/18/18 16:18>
[2018-05-18 14:16] LABS: Activated Partial Thrombo Time 29.5 sec (24.3-30.1); Prothrombin Time 10.1 sec (9.8-11.6)
[2018-05-18] MEDS: Azithromycin 250 MG Tablet PO SCH (14:48)
[2018-05-19] MEDS: Sod Chloride 0.9% Inj 1,000 ML IV.CONT SCH ×3 (05:29→18:02)
[2018-05-19 06:15] LABS: Hematocrit 41.4 % (39.0-51.0); Hemoglobin 14.2 gm/dL (13.0-17.0); Mean Corpuscular HGB Conc 34.3 % (32.0-36.0); Mean Corpuscular Hemoglobin 32.3 pg (27.0-34.0); Mean Corpuscular Volume 94.2 fL (80.0-100.0); Mean Platelet Volume 7.9 fL (7.0-11.0); Platelet Count 407 th/mm3 (150-450); Red Cell Distribution Width 14.4 % (11.6-17.2); White Blood Count 9.9 th/mm3 (4.0-11.0)
[2018-05-19 06:42] LABS: Albumin 2.3 g/dL (3.4-5.0); Anion Gap 12 meq/L (5-15); Aspartate Aminotransferase 353 U/L (15-37); Blood Urea Nitrogen 6 mg/dL (7-18); Calcium 8.8 mg/dL (8.5-10.1); Chloride 111 meq/L (98-107); Glomerular Filtration Rate Greater Than 89 mL/min (>89); Glucose,Random 89 mg/dL (74-106); Potassium 3.4 meq/L (3.5-5.1); Sodium 143 meq/L (136-145)
[2018-05-19 06:44] LABS: Alanine Aminotransferase 162 U/L (12-78)
[2018-05-19 06:46] LABS: Alkaline Phosphatase 76 U/L (45-117); Total Protein 6.2 g/dL (6.4-8.2)
[2018-05-19] MEDS: Gabapentin 300 MG Capsule PO SCH ×4 (08:47→18:30)
[2018-05-19] MEDS: clonazePAM 1 MG Tablet PO SCH ×2 (08:47→20:37)
[2018-05-19] MEDS: FLUoxetine 20 MG Capsule PO SCH (08:48)
[2018-05-19] MEDS: Topiramate 100 MG Tablet PO SCH ×2 (08:48→20:37)
[2018-05-19] MEDS: Phenytoin Sodium 100 MG Capsule PO SCH (08:48)
[2018-05-19] MEDS: Pantoprazole Sodium 20 MG DR Tablet PO SCH (08:49)
[2018-05-19] MEDS: Enoxaparin Inj 40 MG/0.4 ML Syringe SQ SCH (08:50)
[2018-05-19] MEDS: amLODIPine 5 MG Tablet PO SCH (08:51)
[2018-05-19] MEDS: Senna/Docusate Sodium 8.6/50 MG Tablet PO SCH ×2 (08:51→20:37)
--- NOTE | 2018-05-19 10:07 | P.PN ---
Physical Exam Vital signs: Vital Signs 05/18/18 11:00 05/18/18 12:00 05/18/18 13:00 Temperature 97.6 F Pulse Rate 97 H 102 H 92 H Respiratory Rate 18 Blood Pressure 106/68 Pulse Oximetry 98 05/18/18 14:00 05/18/18 15:00 05/18/18 16:00 Temperature 98.0 F Pulse Rate 96 H 97 H 96 H Respiratory Rate 20 Blood Pressure 116/70 Pulse Oximetry 98 05/18/18 17:00 05/18/18 18:00 05/18/18 19:00 Temperature Pulse Rate 100 H 110 H 105 H Respiratory Rate Blood Pressure Pulse Oximetry 05/18/18 20:00 05/18/18 21:00 05/18/18 22:00 Temperature 98.6 F Pulse Rate 105 H 80 87 Respiratory Rate 18 Blood Pressure 92/62 L Pulse Oximetry 98 05/18/18 23:00 05/19/18 00:00 05/19/18 01:00 Temperature 98.8 F Pulse Rate 85 78 87 Respiratory Rate 18 Blood Pressure 75/56 L Pulse Oximetry 98 05/19/18 02:00 05/19/18 03:00 05/19/18 04:00 Temperature 98.4 F Pulse Rate 98 H 99 H 98 H Respiratory Rate 16 Blood Pressure 111/70 Pulse Oximetry 96 05/19/18 05:00 05/19/18 06:00 Temperature Pulse Rate 106 H 99 H Respiratory Rate Blood Pressure Pulse Oximetry Intake & Output 05/18/18 05/19/18 05/19/18 18:59 06:59 18:59 Intake Total 3060 / 3060 2720 / 2720 Output Total 1525 / 1525 1200 / 1200 Balance 1535 / 1535 1520 / 1520 Weight 69 kg Intake: IV 2099 / 2099 NS Inj 1,000 ML @ 150 mls/hr IV 1999 .CONT .Q6H40M [facility] Rx#:[id number] Flagyl 500 MG Inj 100 ML @ 100 100 / 100 mls/hr IV.SIG Q8H [facility] Rx#: [id number] Oral 960 / 960 720 / 720 Output: Urine 1525 / 1525 1200 / 1200 Other: Date of Last Bowel Movement 05/18/18 05/19/18 # Bowel Movements 1 Narrative: Subjective Interval history: Patient in the chair, appears chronically ill. Denies chest pain or sob, no cough he was ambulating earlier with PT feels tired now. No chest olivarez Physical Exam GENERAL: male sitting up in the chair, doesn't appear in distress. SKIN: Warm and dry. No jaundice. HEENT: Right prior craniotomy scar. Pupils equal and round. No scleral icterus. MMM. NECK: Supple no tender LAD or JVD. HEART: Tachycardic with a regular rhythm. LUNGS: CTAB without wheezes or crackles. ABDOMEN: +BS x4 Q, soft, NT, ND. No hepatomegaly. EXTREMITIES: No LE edema. NEURO: Awake and alert. Assessment and Plan 57 YOWM with history of TBI, seizure, and dementia admitted on 05/15 after being found lying on the floor of a SNF unresponsive for an unknown duration of time. On arrival he was febrile with tachycardia, leukocytosis, and lactic acidosis. He was found to have elevated troponins and rhabdomyolysis 1. Sepsis - RESOLVED - On admission, white count elevated at 16.9, lactic acid 3.3, and patient febrile with T 100.3 and tachycardia - CT chest showing patchy infiltrates in lower lobes and R middle lobe - Blood cultures from 05/14 and 05/16 all negative so far - U/A with blood but cathed culture negative - Initially started on broad spectrum vanc and cefepime, changing antibiotics to cover for health-care associated and aspiration PNA as below - NS at 150 ml/hr 2. PNA - CXR showing no acute cardiopulmonary disease - CT chest showing patchy infiltrates in the lower lobes and right middle lobe as well as mild emphysema, concern for aspiration - Blood cultures negative so far - White count has normalized - Started on vancomycin and cefepime in the ED - On 05/17 antibiotics were changed to to treat for both aspiration and healthcare associated PNA since he came from a SNF. He was continued on Cefepime and vanco was changed to Azithromycin. Flagyl was added to cover for aspiration - Clinically improving, afebrile, and no leukocytosis. Change to PO antibiotics. Continue Azithromycin PO and will convert to Clindamycin for aspiration coverage (avoiding Flagyl for rare instance of hepatotoxicity and since it was started around acute elevation of LFTs; avoiding Augmentin since per [facility], it is the [facility] of clinically apparent, drug-induced liver toxicity) - Urine legionella and pneumococcal antigens negative - Sputum culture pending - Will continue Azithromycin and Clindamycin to cover for 7 days of antibiotics 3. NSTEMI - Troponins 1.69 and 3.88 - Likely demand from sepsis - Cardiology consulted and do not feel he is a good candidate for any aggressive further workup. Recommend medical management - ASA - Avoid statin secondary to elevated liver enzymes 4. Transaminitis - LFTs continue to be elevated and trending up - Hepatitis panel negative - Liver U/S with cholelithiasis otherwise unremarkable - Discontinue potentially hepatotoxic medications started prior to increase including Flagyl (though only rare reports of acute hepatic injury) - Check GTT, coags, ferritin - Monitor LFTs closely - IV hydration - Consult GI for further evaluation 5. AMS/encephalopathy/seizure disorder - Mentation improving and patient appears to be at baseline with known memory deficits - Head CT showing encephalomalacia of R temporal lobe with e/o right-sided craniotomy - Psych consulted, no need for psych admission or additional psychotropic meds - Continue gabapentin, Prozac, and Topamax 6. Tachycardia - Sinus tach - BPs improved - Continue NS at 150 ml/hr 7. Rhabdomyolysis, elevated CK - Pt was down for an unknown length of time prior to admission - Patient asymptomatic but CK continues to rise, nearly [place] [id number]) - Continue aggressive hydration with NS at 150 ml/hr - Continue to monitor CK - Check troponin - No acute renal injury or electrolyte abnormalities except for mildly low potassium 8. Hypokalemia - KCl 40 meq PO x 1 - Monitor DVT prophylaxis: Lovenox Discharge Planning: Continuing to monitor LFTs and CK, consulting GI Came from [facility] back [facility] [place] - Urinary Catheter Management Indwelling Urethral Catheter Cath placed during this visit: yes, but has since been removed by the nurse Reason for continuing: Not indwelling catheter Insertion date: 05/17/18 Insertion time: 14:00 Removal date: 05/17/18 Removal time: 14:30 Results - Labs CBC & Chem 7: 05/19/18 04:40 05/19/18 04:40 Laboratory Results - last 24 hr 05/18/18 05/18/18 05/18/18 04:50 04:50 04:50 WBC RBC Hgb Hct MCV MCH MCHC RDW Plt Count MPV ESR PT INR APTT Sodium Potassium Chloride Carbon Dioxide Anion Gap BUN Creatinine Estimated GFR Random Glucose Calcium Ferritin 282 Total Bilirubin GGT 160 H AST ALT Alkaline Phosphatase Troponin I 1.83 H* Total Protein Albumin Acetaminophen Less than 2.0 L 05/18/18 05/18/18 05/19/18 04:50 13:46 04:40 WBC 9.9 RBC 4.40 L Hgb 14.2 Hct 41.4 MCV 94.2 MCH 32.3 MCHC 34.3 RDW 14.4 Plt Count 407 MPV 7.9 ESR 56 H PT 10.1 INR 1.0 APTT 29.5 Sodium Potassium Chloride Carbon Dioxide Anion Gap BUN Creatinine Estimated GFR Random Glucose Calcium Ferritin Total Bilirubin GGT AST ALT Alkaline Phosphatase Troponin I Total Protein Albumin Acetaminophen 05/19/18 04:40 WBC RBC Hgb Hct MCV MCH MCHC RDW Plt Count MPV ESR PT INR APTT Sodium 143 Potassium 3.4 L Chloride 111 H Carbon Dioxide 20.0 L Anion Gap 12 BUN 6 L Creatinine 0.55 L Estimated GFR Greater than 89 Random Glucose 89 Calcium 8.8 Ferritin Total Bilirubin 0.3 GGT AST 353 H ALT 162 H Alkaline Phosphatase 76 Troponin I Total Protein 6.2 L Albumin 2.3 L Acetaminophen Microbiology 05/17/18 06:28 Sputum - Oral Tracheal Aspirate Gram Stain - Final 05/17/18 06:28 Sputum - Oral Tracheal Aspirate Sputum Culture - Final Heavy growth normal respiratory jeanette 05/15/18 10:45 Blood - Peripheral Aerobic Blood Culture - Preliminary No growth in 3 days 05/15/18 10:45 Blood - Peripheral Anaerobic Blood Culture - Final QNS - See aerobic report. 05/15/18 10:40 Blood - Peripheral Aerobic Blood Culture - Preliminary No growth in 3 days 05/15/18 10:40 Blood - Peripheral Anaerobic Blood Culture - Final QNS - See aerobic report. 05/14/18 23:50 Blood - Peripheral Aerobic Blood Culture - Preliminary No growth in 3 days 05/14/18 23:50 Blood - Peripheral Anaerobic Blood Culture - Preliminary No growth in 3 days 05/14/18 02:46 Blood - Peripheral Aerobic Blood Culture - Preliminary No growth in 3 days 05/14/18 02:46 Blood - Peripheral Anaerobic Blood Culture - Preliminary No growth in 3 days Assessment and Plan - Assessment (1) Sepsis Code(s): A41.9 - Sepsis, unspecified organism Status: Acute (2) PNA (pneumonia) Code(s): J18.9 - Pneumonia, unspecified organism Status: Acute (3) NSTEMI (non-ST elevated myocardial infarction) Code(s): I21.4 - Non-ST elevation (NSTEMI) myocardial infarction Status: Acute (4) Encephalopathy Code(s): G93.40 - Encephalopathy, unspecified Status: Acute
--- NOTE | 2018-05-19 10:45 | P.PNGI ---
Subjective Interval history: Pt resting in bed. Oriented to person, place and month but not year. Denies any GI complaints at this time. <Rowan Espinosa - Last Filed: 05/19/18 10:41> Physical Exam Vital signs: Vital Signs 05/18/18 11:00 05/18/18 12:00 05/18/18 13:00 Temperature 97.6 F Pulse Rate 97 H 102 H 92 H Respiratory Rate 18 Blood Pressure 106/68 Pulse Oximetry 98 05/18/18 14:00 05/18/18 15:00 05/18/18 16:00 Temperature 98.0 F Pulse Rate 96 H 97 H 96 H Respiratory Rate 20 Blood Pressure 116/70 Pulse Oximetry 98 05/18/18 17:00 05/18/18 18:00 05/18/18 19:00 Temperature Pulse Rate 100 H 110 H 105 H Respiratory Rate Blood Pressure Pulse Oximetry 05/18/18 20:00 05/18/18 21:00 05/18/18 22:00 Temperature 98.6 F Pulse Rate 105 H 80 87 Respiratory Rate 18 Blood Pressure 92/62 L Pulse Oximetry 98 05/18/18 23:00 05/19/18 00:00 05/19/18 01:00 Temperature 98.8 F Pulse Rate 85 78 87 Respiratory Rate 18 Blood Pressure 75/56 L Pulse Oximetry 98 05/19/18 02:00 05/19/18 03:00 05/19/18 04:00 Temperature 98.4 F Pulse Rate 98 H 99 H 98 H Respiratory Rate 16 Blood Pressure 111/70 Pulse Oximetry 96 05/19/18 05:00 05/19/18 06:00 05/19/18 08:00 Temperature 98.8 F Pulse Rate 106 H 99 H 103 H Respiratory Rate 18 Blood Pressure 117/71 Pulse Oximetry 97 Intake & Output 05/18/18 05/19/18 05/19/18 18:59 06:59 18:59 Intake Total 3060 / 3060 2720 / 2720 Output Total 1525 / 1525 1200 / 1200 Balance 1535 / 1535 1520 / 1520 Weight 69 kg Intake: IV 2099 NS Inj 1,000 ML @ 150 mls/hr IV 1999 .CONT .Q6H40M [facility] Rx#:[id number] Flagyl 500 MG Inj 100 ML @ 100 100 / 100 mls/hr IV.SIG Q8H [facility] Rx#: [id number] Oral 960 / 960 720 / 720 Output: Urine 1525 / 1525 1200 / 1200 Other: Date of Last Bowel Movement 05/18/18 05/19/18 05/19/18 # Bowel Movements 1 - Constitutional no acute distress - Routine HEENT Exam Head: Present: normocephalic, atraumatic - Routine Respiratory Exam Absent: accessory muscle use - Routine Cardiovascular Exam Present: RRR - Routine Abdominal Exam Present: soft, normoactive bowel sounds. Absent: tenderness, distended, rebound , guarding, firm - Routine Skin Exam Present: dry, warm - Routine Neurological Exam Present: alert, oriented X3 - Urinary Catheter Management Indwelling Urethral Catheter Cath placed during this visit: yes, but has since been removed by the nurse Reason for continuing: Not indwelling catheter Insertion date: 05/17/18 Insertion time: 14:00 Removal date: 05/17/18 Removal time: 14:30 <Rowan Espinosa - Last Filed: 05/19/18 10:41> Vital signs: Vital Signs 05/18/18 17:00 05/18/18 18:00 05/18/18 19:00 Temperature Pulse Rate 100 H 110 H 105 H Respiratory Rate Blood Pressure Pulse Oximetry 05/18/18 20:00 05/18/18 21:00 05/18/18 22:00 Temperature 98.6 F Pulse Rate 105 H 80 87 Respiratory Rate 18 Blood Pressure 92/62 L Pulse Oximetry 98 05/18/18 23:00 05/19/18 00:00 05/19/18 01:00 Temperature 98.8 F Pulse Rate 85 78 87 Respiratory Rate 18 Blood Pressure 75/56 L Pulse Oximetry 98 05/19/18 02:00 05/19/18 03:00 05/19/18 04:00 Temperature 98.4 F Pulse Rate 98 H 99 H 98 H Respiratory Rate 16 Blood Pressure 111/70 Pulse Oximetry 96 05/19/18 05:00 05/19/18 06:00 05/19/18 07:00 Temperature Pulse Rate 106 H 99 H 103 H Respiratory Rate Blood Pressure Pulse Oximetry 05/19/18 08:00 05/19/18 09:00 05/19/18 10:00 Temperature 98.8 F Pulse Rate 96 H 104 H 102 H Respiratory Rate 18 Blood Pressure 117/71 Pulse Oximetry 97 05/19/18 11:00 05/19/18 12:00 05/19/18 13:00 Temperature 98.2 F Pulse Rate 92 H 98 H 98 H Respiratory Rate 20 Blood Pressure 113/68 Pulse Oximetry 98 05/19/18 14:00 05/19/18 15:00 05/19/18 16:00 Temperature 97.8 F Pulse Rate 96 H 92 H 96 H Respiratory Rate 18 Blood Pressure 109/69 Pulse Oximetry 96 Intake & Output 05/18/18 05/19/18 05/19/18 18:59 06:59 18:59 Intake Total 3060 / 3060 2720 / 2720 1000 / 1000 Output Total 1525 / 1525 1200 / 1200 Balance 1535 / 1535 1520 / 1520 1000 / 1000 Weight 69 kg Intake: IV 2099 / 2099 1999 / 1999 1000 / 1000 NS Inj 1,000 ML @ 150 mls/hr IV 1999 / 1999 2000 / 2000 1000 / 1000 .CONT .Q6H40M [facility] Rx#:[id number] Flagyl 500 MG Inj 100 ML @ 100 100 / 100 mls/hr IV.SIG Q8H [facility] Rx#: [id number] Oral 960 / 960 720 / 720 Output: Urine 1525 / 1525 1200 / 1200 Other: Date of Last Bowel Movement 05/18/18 05/19/18 05/19/18 # Bowel Movements 1 - Urinary Catheter Management Indwelling Urethral Catheter Cath placed during this visit: no <Isaias Fink E - Last Filed: 05/19/18 16:19> Results - Labs CBC & Chem 7: 05/19/18 04:40 05/19/18 04:40 Laboratory Results - last 24 hr 05/18/18 05/18/18 05/18/18 04:50 04:50 04:50 WBC RBC Hgb Hct MCV MCH MCHC RDW Plt Count MPV ESR PT INR APTT Sodium Potassium Chloride Carbon Dioxide Anion Gap BUN Creatinine Estimated GFR Random Glucose Calcium Ferritin 282 Total Bilirubin GGT 160 H AST ALT Alkaline Phosphatase Troponin I 1.83 H* Total Protein Albumin Acetaminophen Less than 2.0 L 05/18/18 05/18/18 05/19/18 04:50 13:46 04:40 WBC 9.9 RBC 4.40 L Hgb 14.2 Hct 41.4 MCV 94.2 MCH 32.3 MCHC 34.3 RDW 14.4 Plt Count 407 MPV 7.9 ESR 56 H PT 10.1 INR 1.0 APTT 29.5 Sodium Potassium Chloride Carbon Dioxide Anion Gap BUN Creatinine Estimated GFR Random Glucose Calcium Ferritin Total Bilirubin GGT AST ALT Alkaline Phosphatase Troponin I Total Protein Albumin Acetaminophen 05/19/18 04:40 WBC RBC Hgb Hct MCV MCH MCHC RDW Plt Count MPV ESR PT INR APTT Sodium 143 Potassium 3.4 L Chloride 111 H Carbon Dioxide 20.0 L Anion Gap 12 BUN 6 L Creatinine 0.55 L Estimated GFR Greater than 89 Random Glucose 89 Calcium 8.8 Ferritin Total Bilirubin 0.3 GGT AST 353 H ALT 162 H Alkaline Phosphatase 76 Troponin I Total Protein 6.2 L Albumin 2.3 L Acetaminophen Microbiology 05/17/18 06:28 Sputum - Oral Tracheal Aspirate Gram Stain - Final 05/17/18 06:28 Sputum - Oral Tracheal Aspirate Sputum Culture - Final Heavy growth normal respiratory jeanette 05/15/18 10:45 Blood - Peripheral Aerobic Blood Culture - Preliminary No growth in 3 days 05/15/18 10:45 Blood - Peripheral Anaerobic Blood Culture - Final QNS - See aerobic report. 05/15/18 10:40 Blood - Peripheral Aerobic Blood Culture - Preliminary No growth in 3 days 05/15/18 10:40 Blood - Peripheral Anaerobic Blood Culture - Final QNS - See aerobic report. 05/14/18 23:50 Blood - Peripheral Aerobic Blood Culture - Preliminary No growth in 3 days 05/14/18 23:50 Blood - Peripheral Anaerobic Blood Culture - Preliminary No growth in 3 days 05/14/18 02:46 Blood - Peripheral Aerobic Blood Culture - Preliminary No growth in 3 days 05/14/18 02:46 Blood - Peripheral Anaerobic Blood Culture - Preliminary No growth in 3 days <Rowan Espinosa - Last Filed: 05/19/18 10:41> - Labs CBC & Chem 7: 05/19/18 04:40 05/19/18 04:40 Laboratory Results - last 24 hr 05/19/18 05/19/18 04:40 04:40 WBC 9.9 RBC 4.40 L Hgb 14.2 Hct 41.4 MCV 94.2 MCH 32.3 MCHC 34.3 RDW 14.4 Plt Count 407 MPV 7.9 Sodium 143 Potassium 3.4 L Chloride 111 H Carbon Dioxide 20.0 L Anion Gap 12 BUN 6 L Creatinine 0.55 L Estimated GFR Greater than 89 Random Glucose 89 Calcium 8.8 Total Bilirubin 0.3 AST 353 H ALT 162 H Alkaline Phosphatase 76 Total Protein 6.2 L Albumin 2.3 L Microbiology 05/15/18 10:45 Blood - Peripheral Aerobic Blood Culture - Preliminary No growth in 4 days 05/15/18 10:45 Blood - Peripheral Anaerobic Blood Culture - Final QNS - See aerobic report. 05/15/18 10:40 Blood - Peripheral Aerobic Blood Culture - Preliminary No growth in 4 days 05/15/18 10:40 Blood - Peripheral Anaerobic Blood Culture - Final QNS - See aerobic report. 05/14/18 23:50 Blood - Peripheral Aerobic Blood Culture - Preliminary No growth in 4 days 05/14/18 23:50 Blood - Peripheral Anaerobic Blood Culture - Preliminary No growth in 4 days 05/14/18 02:46 Blood - Peripheral Aerobic Blood Culture - Preliminary No growth in 4 days 05/14/18 02:46 Blood - Peripheral Anaerobic Blood Culture - Preliminary No growth in 4 days 05/17/18 06:28 Sputum - Oral Tracheal Aspirate Gram Stain - Final 05/17/18 06:28 Sputum - Oral Tracheal Aspirate Sputum Culture - Final Heavy growth normal respiratory jeanette <Isaias Fink - Last Filed: 05/19/18 16:19> Assessment and Plan (1) Elevated LFTs Status: Acute Code(s): R94.5 - Abnormal results of liver function studies - Plan Assessment: - Elevated LFTs- WNL on admission on 05/15, elevated on 05/16 and has continued to gradually increase. Pt admitted after being found unresponsive at snf, sepsis, rhabdomyolysis, NSTEMI. Pt with baseline dementia, TBI- very poor historian. Denies previous liver issues, previous admission revealed a slightly elevated AST but otherwise WNL. Hepatitis panel negative. (05/18) AST-408 ALT-221 Alk phos-78 T bili-0.4 US liver --> Cholelithiasis, otherwise unremarkable Elevation likely acute, given normal labs on admission, ? secondary to hypotension vs rhabdomyolysis with increasing CK during admission (05/19) LFTs trending down some today. As previously stated likely acute secondary to multifactorial causes including hypotension and rhabdomyolysis Plan: Avoid hepatotoxins Avoid hypotension Monitor LFTs Fluid hydration Our service will sign off, please reconsult as needed Have pt follow up with GI after DC Pt has been seen and examined by myself and Dr. Fink and this note is written on his behalf <Rowan Espinosa - Last Filed: 05/19/18 10:41> (1) Elevated LFTs Status: Acute Code(s): R94.5 - Abnormal results of liver function studies - Attending Attestation Patient seen and examined Agree with above Continue with current supportive care Monitor labs Not much to add at this point from a GI perspective we will sign off but please reconsult as needed <Isaias Fink - Last Filed: 05/19/18 16:19>
[2018-05-19] MEDS: Acetaminophen 325 MG Tablet PO PRN (13:44)
[2018-05-19] MEDS: Azithromycin 250 MG Tablet PO SCH (14:14)
[2018-05-20] MEDS: clonazePAM 1 MG Tablet PO SCH (09:08)
[2018-05-20] MEDS: Enoxaparin Inj 40 MG/0.4 ML Syringe SQ SCH (09:08)
[2018-05-20] MEDS: Senna/Docusate Sodium 8.6/50 MG Tablet PO SCH (09:09)
[2018-05-20] MEDS: FLUoxetine 20 MG Capsule PO SCH (09:09)
[2018-05-20] MEDS: Gabapentin 300 MG Capsule PO SCH ×2 (09:10→12:58)
[2018-05-20] MEDS: Phenytoin Sodium 100 MG Capsule PO SCH (09:10)
[2018-05-20] MEDS: amLODIPine 5 MG Tablet PO SCH (09:10)
[2018-05-20] MEDS: Pantoprazole Sodium 20 MG DR Tablet PO SCH (09:11)
[2018-05-20] MEDS: Topiramate 100 MG Tablet PO SCH (09:17)
--- NOTE | 2018-05-20 11:29 | P.DS ---
Date of admission: 05/15/18 03:46 Primary care physician: Dejan Aranda MD Brief History from admission: This is a 57-year-old male with a PMH of TBI, Seizure Disorder and Dementia who was brought to the ER by EMS from SNF after patient found lying on the floor unresponsive. Unknown length of downtime. Pt nonverbal, not answering questions, seemingly at baseline. Unable to obtain any history from patient. On arrival, BP 127/73, HR 132, O2 sat 96% on RA, Temp 100.3. WBC 16.9. Creatinine 1.37. Lactic Acid 3.3, repeat 1.7. Troponin I 0.69. UA positive for UTI. CT Head encephalomalacia right temporal lobe, right-sided craniotomy, no acute findings. CT Chest patchy infiltrates lower lobes and right middle lobe. CXR with no acute findings. CT Abdomen/Pelvis with no acute abnormalities. S/p Rocephin in ER. DS: Diagnosis - Discharge Diagnosis (1) Sepsis Status: Acute (2) PNA (pneumonia) Status: Acute (3) NSTEMI (non-ST elevated myocardial infarction) Status: Acute (4) Encephalopathy Status: Acute DS: Summary Hospital Course: 57 YOWM with history of TBI, seizure, and dementia admitted on 05/15 after being found lying on the floor of a SNF unresponsive for an unknown duration of time. On arrival he was febrile with tachycardia, leukocytosis, and lactic acidosis. He was found to have elevated troponins and rhabdomyolysis 1. Sepsis - RESOLVED - On admission, white count elevated at 16.9, lactic acid 3.3, and patient febrile with T 100.3 and tachycardia - CT chest showing patchy infiltrates in lower lobes and R middle lobe - Blood cultures from 05/14 and 05/16 all negative so far - U/A with blood but cathed culture negative - Initially started on broad spectrum vanc and cefepime, changing antibiotics to cover for health-care associated and aspiration PNA as below - NS at 150 ml/hr 2. PNA - CXR showing no acute cardiopulmonary disease - CT chest showing patchy infiltrates in the lower lobes and right middle lobe as well as mild emphysema, concern for aspiration - Blood cultures negative so far - White count has normalized - Started on vancomycin and cefepime in the ED - On 05/17 antibiotics were changed to to treat for both aspiration and healthcare associated PNA since he came from a SNF. He was continued on Cefepime and vanco was changed to Azithromycin. Flagyl was added to cover for aspiration - Clinically improving, afebrile, and no leukocytosis. Change to PO antibiotics. Continue Azithromycin PO and will convert to Clindamycin for aspiration coverage (avoiding Flagyl for rare instance of hepatotoxicity and since it was started around acute elevation of LFTs; avoiding Augmentin since per NIH, it is the DETENTION of clinically apparent, drug-induced liver toxicity) - Urine legionella and pneumococcal antigens negative - Sputum culture pending - Will continue Azithromycin and Clindamycin to cover for 7 days of antibiotics 3. NSTEMI - Troponins 1.69 and 3.88 - Likely demand from sepsis - Cardiology consulted and do not feel he is a good candidate for any aggressive further workup. Recommend medical management - ASA - Avoid statin secondary to elevated liver enzymes 4. Transaminitis - LFTs continue to be elevated and trending up - Hepatitis panel negative - Liver U/S with cholelithiasis otherwise unremarkable - Discontinue potentially hepatotoxic medications started prior to increase including Flagyl (though only rare reports of acute hepatic injury) - Check GTT, coags, ferritin - Monitor LFTs closely - IV hydration - Consult GI for further evaluation 5. AMS/encephalopathy/seizure disorder - Mentation improving and patient appears to be at baseline with known memory deficits - Head CT showing encephalomalacia of R temporal lobe with e/o right-sided craniotomy - Psych consulted, no need for psych admission or additional psychotropic meds - Continue gabapentin, Prozac, and Topamax 6. Tachycardia - Sinus tach - BPs improved - Continue NS at 150 ml/hr 7. Rhabdomyolysis, elevated CK - Pt was down for an unknown length of time prior to admission - Patient asymptomatic but CK continues to rise, nearly doubled this morning from yesterday (up to ) - Continue aggressive hydration with NS at 150 ml/hr - Continue to monitor CK - Check troponin - No acute renal injury or electrolyte abnormalities except for mildly low potassium 8. Hypokalemia - KCl 40 meq PO x 1 - Monitor DVT prophylaxis: Lovenox Discharge Planning: Cleared by GI charge. Patient discharged to snf facility in stable condition to follow-up with PCP and consultants as outpatient. - Time Spent with Patient Total time spent providing and/or coordinating discharge services: Exam Vital signs: Vital Signs 05/19/18 12:00 05/19/18 13:00 05/19/18 14:00 Temperature 98.2 F Pulse Rate 98 H 98 H 96 H Respiratory Rate 20 Blood Pressure 113/68 Pulse Oximetry 98 05/19/18 15:00 05/19/18 16:00 05/19/18 17:00 Temperature 97.8 F Pulse Rate 92 H 96 H 100 H Respiratory Rate 18 Blood Pressure 109/69 Pulse Oximetry 96 05/19/18 18:00 05/19/18 19:00 05/19/18 20:00 Temperature 98.5 F Pulse Rate 98 H 100 H 99 H Respiratory Rate 18 Blood Pressure 118/73 Pulse Oximetry 99 05/19/18 21:00 05/19/18 22:00 05/19/18 23:00 Temperature Pulse Rate 90 80 88 Respiratory Rate Blood Pressure Pulse Oximetry 05/20/18 00:00 05/20/18 01:00 05/20/18 02:00 Temperature 98.8 F Pulse Rate 82 83 90 Respiratory Rate 16 Blood Pressure 112/70 Pulse Oximetry 100 05/20/18 03:00 05/20/18 04:00 05/20/18 05:00 Temperature 98.4 F Pulse Rate 89 88 102 H Respiratory Rate 16 Blood Pressure 116/69 Pulse Oximetry 99 05/20/18 06:00 05/20/18 07:00 05/20/18 07:46 Temperature 98.5 F Pulse Rate 94 H 88 103 H Respiratory Rate 16 Blood Pressure 111/63 Pulse Oximetry 97 05/20/18 08:00 05/20/18 09:00 05/20/18 10:00 Temperature Pulse Rate 98 H 100 H 104 H Respiratory Rate Blood Pressure Pulse Oximetry Intake & Output 05/19/18 05/20/18 05/20/18 18:59 06:59 18:59 Intake Total 2960 / 2960 480 / 480 Output Total 1400 / 1400 2280 / 2280 Balance 1560 / 1560 -1800 / -1800 Weight 72.5 kg Intake: IV 1999 NS Inj 1,000 ML @ 150 mls/hr IV 1999 .CONT .Q6H40M [facility] Rx#:[id number] Oral 960 / 960 480 / 480 Output: Urine 1400 / 1400 2280 / 2280 Other: Date of Last Bowel Movement 05/19/18 05/19/18 Narrative: GENERAL: male sitting up in the chair, doesn't appear in distress. SKIN: Warm and dry. No jaundice. HEENT: Right prior craniotomy scar. Pupils equal and round. No scleral icterus. MMM. NECK: Supple no tender LAD or JVD. HEART: Tachycardic with a regular rhythm. LUNGS: CTAB without wheezes or crackles. ABDOMEN: +BS x4 Q, soft, NT, ND. No hepatomegaly. EXTREMITIES: No LE edema. NEURO: Awake and alert. Results Procedures completed during hospitalization: none - Impressions ITS Impressions Chest X-Ray 05/14/18 23:56 CONCLUSION: No acute cardiopulmonary disease. Head CT 05/15/18 00:08 CONCLUSION: 1. Encephalomalacia right temporal lobe. 2. Right-sided craniotomy. Chest CT 05/15/18 01:21 CONCLUSION: 1. Patchy infiltrates in the lower lobes and right middle lobe. 2. Mild emphysema. Abdomen/Pelvis CT 05/15/18 01:22 CONCLUSION: 1. No acute abnormalities. Liver Ultrasound 05/17/18 00:00 CONCLUSION: 1. Cholelithiasis otherwise unremarkable Discharge Plan - Discharge Disposition Patient Disposition: 03 Discharge to SNF - Discharge Condition Condition: Stable - Discharge Order Discharge Orders: Discharge Order (Routine); Ordered 05/20/18 Ordered By: Philly Harrington - Discharge Details Anticipated Discharge Date: 05/20/18 - Physicians Team Primary Care Provider: Dejan Aranda Attending Provider: Philly Harrington Other Providers: Jesse Jones MD ; Maxi Martinez MD ; Isaias Fink MD
[2018-05-20] MEDS: Acetaminophen 325 MG Tablet PO PRN (12:56)
[2018-05-20] MEDS: Azithromycin 250 MG Tablet PO SCH (14:49)
== END 2018-05-20 15:57 ==
LOC: NEPE 22:39 → NEDA 05-15 03:46 → NEDH 05-15 03:56 → HCIS 05-15 13:50
PROVIDERS: ADMIT Hospitalist; ATTEND Hospitalist
DX: G40.909 Epilepsy, unspecified, not intractable, without status epilepticus; A41.9 Sepsis, unspecified organism; E87.6 Hypokalemia; F05 Delirium due to known physiological condition; F03.90 Unspecified dementia, unspecified severity, without behavioral disturbance, psychotic disturbance, mood disturbance, and anxiety; M62.82 Rhabdomyolysis; J18.9 Pneumonia, unspecified organism; I21.4 Non-ST elevation (NSTEMI) myocardial infarction; G93.40 Encephalopathy, unspecified

== ENCOUNTER 2018-06-04 20:17 | Inpatient (IN) ==
--- NOTE | 2018-06-04 21:01 | ED ---
HPI General Chief Complaint: Altered Mental Status Stated Complaint: AMS Time Seen by Provider: 06/04/18 20:47 Source: patient and EMS Mode of arrival: EMS Limitations: altered mental status (h/o TBI, dementia) History of Present Illness HPI narrative: 58-year-old male presents to the emergency department from [facility] where staff noted for patient to have altered mentation. Patient has history of underlying dementia with some mild confusion but nursing staff felt the patient was more confused than his normal. No known injury or fall or seizure. No known patient himself has no complaints other than headache. Patient states has had an episode of vomiting this morning. No report of hematemesis coffee-ground emesis melena hematochezia. Patient denies any nausea at this time denies headache at this time denies visual disturbance at this time denies difficulty with speech denies chest pain shortness of breath abdominal pain flank pain arm or leg pain. Patient does have history of traumatic brain injury with subdural hematoma requiring craniotomy with evacuation and per EMS report h/o COMMODITIES MANAGER shunt. Patient has prior history of non-STEMI sepsis toxic encephalopathy Dilantin toxicity abnormal LFTs. Patient is aware of who he is, his date of , that he is in the hospital, he knows the president, and is able to do simple math. Patient believes the year is 2018. Medical staff at the [facility] states that he appears to be in a daze or in a stare. According to paramedics patient was able to ambulate without ataxia to the stretcher without difficulty and without assistance. complaint: weakness Onset (ago): unknown (unclear /possibly since this AM) Timing confirmed by: other (EMS) Severity: mild Consistency of symptoms: unknown Context: history of similar presentation and seizure disorder Associated symptoms: headaches and nausea/vomiting (x1) Related Data Home Medications Medication Instructions Recorded Confirmed amlodipine 5 mg PO DAILY 05/15/18 06/04/18 clonazepam 1 mg PO BID 05/15/18 06/04/18 fluoxetine 20 mg PO DAILY 05/15/18 06/04/18 gabapentin 300 mg PO TID 05/15/18 06/04/18 lactulose 10 g PO BID 05/15/18 06/04/18 magnesium oxide 400 mg PO DAILY 05/15/18 06/04/18 omeprazole 20 mg PO DAILY 05/15/18 06/04/18 phenytoin sodium extended 300 mg PO DAILY 05/15/18 06/04/18 topiramate 100 mg PO BID 05/15/18 06/04/18 tramadol 50 mg PO Q6H 05/15/18 06/04/18 acetaminophen 650 mg PO Q4H PRN 06/04/18 06/04/18 Previous Rx's Medication Instructions Recorded aspirin 81 mg PO DAILY #30 tab 05/20/18 Allergies Allergy/AdvReac Type Severity Reaction Status Date / Time No Known Allergies Allergy Verified 06/04/18 20:56 Review of Systems Except as stated in HPI: all other systems reviewed are negative PMFSH History History Provided By: Patient and Medical Record Medical History Medical History Metabolic encephalopathy (Acute) Traumatic brain injury (Acute) Epilepsia (Acute) Seizure (Acute) Dementia (Acute) Social History Social History Substance History: No History of Abuse Smoking Status: Unknown if ever smoked Tobacco Type: Cigarettes How Often Do You Have a Drink Containing Alcohol: Unable to Obtain Exam Narrative Exam Narrative: GENERAL: Well-developed well-nourished male in no acute distress no respiratory distress GCS 14 SKIN: Focused skin assessment warm/dry. HEAD: Atraumatic. Normocephalic. EYES: Pupils equal and round. No scleral icterus. No injection or drainage. ENT: No nasal bleeding or discharge. Mucous membranes pink and moist. NECK: Trachea midline. No JVD. CARDIOVASCULAR: Regular rate and rhythm. No murmur appreciated. RESPIRATORY: No accessory muscle use. Clear to auscultation. Breath sounds equal bilaterally. GASTROINTESTINAL: Abdomen soft, non-tender, nondistended. Hepatic and splenic margins not palpable. MUSCULOSKELETAL: No obvious deformities. No clubbing. No cyanosis. No edema. NEUROLOGICAL: Awake and alert. No obvious cranial nerve deficits. Motor grossly within normal limits. No pronator. Normal speech. PSYCHIATRIC: Appropriate mood and affect; insight and judgment normal. Course Initial Documented Vital Signs Temperature 98.0 F 06/04/18 20:51 Pulse Rate 77 06/04/18 20:51 Respiratory Rate 18 06/04/18 20:51 Blood Pressure 145/80 H 06/04/18 20:51 Pulse Oximetry 100 06/04/18 20:51 Last Documented Vital Signs Temperature 97.9 F 06/05/18 15:40 Pulse Rate 70 06/05/18 15:40 Respiratory Rate 20 06/05/18 15:40 Blood Pressure 100/60 06/05/18 15:40 Pulse Oximetry 98 06/05/18 15:40 Medical Decision Making MDM Narrative Medical decision making narrative: 58-year-old male with known history of traumatic brain injury previous craniotomy COMMODITIES MANAGER shunt and episodes of altered mentation with baseline dementia presents with worsening mentation concern for possible metabolic toxicity medication toxicity shunt occlusion TIA/CVA sepsis; patient placed on setter automatic spinning lathe with continuous pulse oximetry IV access obtained specimens collected and sent for resulting CT brain noncontrast reveals no acute abnormality no bleed no mass-effect; lab values grossly normal range lactic acid is not elevated at 1.1 total white cell count is not elevated ammonia level is not elevated unlikely seizure activity At 10:50 PM Dilantin level is 35.9 consistent with Dilantin toxicity; discussed with [facility] MD, Dr Christopher, for admission. Differential Diagnosis Differential Diagnosis: Altered mental status, TIA, CVA, shunt occlusion, metabolic encephalopathy medication toxicity sepsis arrhythmia Medical Records Medical records reviewed: Yes I reviewed the patient's medical records. Lab Data Result diagrams: 06/05/18 03:03 06/05/18 03:03 Lab Results 06/04/18 06/04/18 06/04/18 Range/Units 21:00 21:00 21:00 WBC 6.9 (4.0-11.0) th/mm3 RBC 4.04 L (4.50-5.90) mil/mm3 Hgb 13.0 (13.0-17.0) gm/dL Hct 37.8 L (39.0-51.0) % MCV 93.6 (80.0-100.0) fL MCH 32.1 (27.0-34.0) pg MCHC 34.3 (32.0-36.0) % RDW 15.2 (11.6-17.2) % Plt Count 512 H (150-450) th/mm3 MPV 7.5 (7.0-11.0) fL Prelim Diff (Auto) Neut % (Auto) 45.2 (16.0-70.0) % Lymph % (Auto) 32.6 (9.0-44.0) % Keith % (Auto) 13.0 H (0.0-8.0) % Eos % (Auto) 8.6 H (0.0-4.0) % Baso % (Auto) 0.6 (0.0-2.0) % Neut # (Auto) 3.1 (1.8-7.7) th/mm3 Lymph # (Auto) 2.3 (1.0-4.8) th/mm3 Keith # (Auto) 0.9 (0.0-0.9) th/mm3 Eos # (Auto) 0.6 H (0.0-0.4) th/mm3 Baso # (Auto) 0.0 (0.0-0.2) th/mm3 WBC Differential . Diff Scan Differential Comment Auto diff final Platelet Estimate (Normal) Platelet Morphology (Normal) RBC Morphology (Normal) PT 10.2 (9.8-11.6) sec INR 1.0 Ratio APTT 28.0 (24.3-30.1) sec Sodium (136-145) meq/L Potassium (3.5-5.1) meq/L Chloride (98-107) meq/L Carbon Dioxide (21.0-32.0) meq/L Anion Gap (5-15) meq/L BUN (7-18) mg/dL Creatinine (0.60-1.30) mg/dL Estimated GFR (>89) mL/min POC Glucose (68-110) mg/dl Random Glucose (74-106) mg/dL Lactic Acid 1.0 (0.4-2.0) mmol/L Calcium (8.5-10.1) mg/dL Total Bilirubin (0.2-1.0) mg/dL AST (15-37) U/L ALT (12-78) U/L Alkaline Phosphatase (45-117) U/L Ammonia (11-32) mcmol/L Total Creatine Kinase Troponin I (0.02-0.05) ng/mL Total Protein (6.4-8.2) g/dL Albumin (3.4-5.0) g/dL TSH (0.358-3.740) uIU/mL Phenytoin Serum Alcohol (0-5) mg/dL 06/04/18 06/04/18 06/04/18 Range/Units 21:00 21:00 21:50 WBC (4.0-11.0) th/mm3 RBC (4.50-5.90) mil/mm3 Hgb (13.0-17.0) gm/dL Hct (39.0-51.0) % MCV (80.0-100.0) fL MCH (27.0-34.0) pg MCHC (32.0-36.0) % RDW (11.6-17.2) % Plt Count (150-450) th/mm3 MPV (7.0-11.0) fL Prelim Diff (Auto) Neut % (Auto) (16.0-70.0) % Lymph % (Auto) (9.0-44.0) % Keith % (Auto) (0.0-8.0) % Eos % (Auto) (0.0-4.0) % Baso % (Auto) (0.0-2.0) % Neut # (Auto) (1.8-7.7) th/mm3 Lymph # (Auto) (1.0-4.8) th/mm3 Keith # (Auto) (0.0-0.9) th/mm3 Eos # (Auto) (0.0-0.4) th/mm3 Baso # (Auto) (0.0-0.2) th/mm3 WBC Differential Diff Scan Differential Comment Platelet Estimate (Normal) Platelet Morphology (Normal) RBC Morphology (Normal) PT (9.8-11.6) sec INR Ratio APTT (24.3-30.1) sec Sodium 141 (136-145) meq/L Potassium 4.1 (3.5-5.1) meq/L Chloride 106 (98-107) meq/L Carbon Dioxide 27.6 (21.0-32.0) meq/L Anion Gap 7 (5-15) meq/L BUN 5 L (7-18) mg/dL Creatinine 0.79 (0.60-1.30) mg/dL Estimated GFR Greater than 89 (>89) mL/min POC Glucose (68-110) mg/dl Random Glucose 85 (74-106) mg/dL Lactic Acid (0.4-2.0) mmol/L Calcium 8.7 (8.5-10.1) mg/dL Total Bilirubin 0.1 L (0.2-1.0) mg/dL AST 25 (15-37) U/L ALT 29 (12-78) U/L Alkaline Phosphatase 114 (45-117) U/L Ammonia (11-32) mcmol/L Total Creatine Kinase Cancelled 202 Troponin I Less than 0.02 L (0.02-0.05) ng/mL Total Protein 7.1 (6.4-8.2) g/dL Albumin 3.0 L (3.4-5.0) g/dL TSH 0.518 (0.358-3.740) uIU/mL Phenytoin Cancelled 35.9 H* Serum Alcohol Less than 3 (0-5) mg/dL 06/04/18 06/04/18 06/05/18 Range/Units 21:50 22:52 03:03 WBC 8.8 (4.0-11.0) th/mm3 RBC 4.29 L (4.50-5.90) mil/mm3 Hgb 13.6 (13.0-17.0) gm/dL Hct 40.9 (39.0-51.0) % MCV 95.2 (80.0-100.0) fL MCH 31.7 (27.0-34.0) pg MCHC 33.3 (32.0-36.0) % RDW 15.3 (11.6-17.2) % Plt Count 599 H (150-450) th/mm3 MPV 7.5 (7.0-11.0) fL Prelim Diff (Auto) Slide review pending Neut % (Auto) 43.4 (16.0-70.0) % Lymph % (Auto) 36.4 (9.0-44.0) % Keith % (Auto) 10.1 H (0.0-8.0) % Eos % (Auto) 9.3 H (0.0-4.0) % Baso % (Auto) 0.8 (0.0-2.0) % Neut # (Auto) 3.8 (1.8-7.7) th/mm3 Lymph # (Auto) 3.2 (1.0-4.8) th/mm3 Keith # (Auto) 0.9 (0.0-0.9) th/mm3 Eos # (Auto) 0.8 H (0.0-0.4) th/mm3 Baso # (Auto) 0.1 (0.0-0.2) th/mm3 WBC Differential . Diff Scan Auto diff confirmed Differential Comment . Platelet Estimate High H (Normal) Platelet Morphology Normal (Normal) RBC Morphology Normal (Normal) PT (9.8-11.6) sec INR Ratio APTT (24.3-30.1) sec Sodium (136-145) meq/L Potassium (3.5-5.1) meq/L Chloride (98-107) meq/L Carbon Dioxide (21.0-32.0) meq/L Anion Gap (5-15) meq/L BUN (7-18) mg/dL Creatinine (0.60-1.30) mg/dL Estimated GFR (>89) mL/min POC Glucose 104 (68-110) mg/dl Random Glucose (74-106) mg/dL Lactic Acid (0.4-2.0) mmol/L Calcium (8.5-10.1) mg/dL Total Bilirubin (0.2-1.0) mg/dL AST (15-37) U/L ALT (12-78) U/L Alkaline Phosphatase (45-117) U/L Ammonia 11 (11-32) mcmol/L Total Creatine Kinase Troponin I (0.02-0.05) ng/mL Total Protein (6.4-8.2) g/dL Albumin (3.4-5.0) g/dL TSH (0.358-3.740) uIU/mL Phenytoin Serum Alcohol (0-5) mg/dL 06/05/18 Range/Units 03:03 WBC (4.0-11.0) th/mm3 RBC (4.50-5.90) mil/mm3 Hgb (13.0-17.0) gm/dL Hct (39.0-51.0) % MCV (80.0-100.0) fL MCH (27.0-34.0) pg MCHC (32.0-36.0) % RDW (11.6-17.2) % Plt Count (150-450) th/mm3 MPV (7.0-11.0) fL Prelim Diff (Auto) Neut % (Auto) (16.0-70.0) % Lymph % (Auto) (9.0-44.0) % Keith % (Auto) (0.0-8.0) % Eos % (Auto) (0.0-4.0) % Baso % (Auto) (0.0-2.0) % Neut # (Auto) (1.8-7.7) th/mm3 Lymph # (Auto) (1.0-4.8) th/mm3 Keith # (Auto) (0.0-0.9) th/mm3 Eos # (Auto) (0.0-0.4) th/mm3 Baso # (Auto) (0.0-0.2) th/mm3 WBC Differential Diff Scan Differential Comment Platelet Estimate (Normal) Platelet Morphology (Normal) RBC Morphology (Normal) PT (9.8-11.6) sec INR Ratio APTT (24.3-30.1) sec Sodium 143 (136-145) meq/L Potassium 3.9 (3.5-5.1) meq/L Chloride 110 H (98-107) meq/L Carbon Dioxide 26.6 (21.0-32.0) meq/L Anion Gap 6 (5-15) meq/L BUN 7 (7-18) mg/dL Creatinine 0.73 (0.60-1.30) mg/dL Estimated GFR Greater than 89 (>89) mL/min POC Glucose (68-110) mg/dl Random Glucose 91 (74-106) mg/dL Lactic Acid (0.4-2.0) mmol/L Calcium 8.9 (8.5-10.1) mg/dL Total Bilirubin (0.2-1.0) mg/dL AST (15-37) U/L ALT (12-78) U/L Alkaline Phosphatase (45-117) U/L Ammonia (11-32) mcmol/L Total Creatine Kinase Troponin I (0.02-0.05) ng/mL Total Protein (6.4-8.2) g/dL Albumin (3.4-5.0) g/dL TSH (0.358-3.740) uIU/mL Phenytoin 37.2 H* Serum Alcohol (0-5) mg/dL Imaging Data Radiologist's impression: Shunt Study 06/04/18 00:00 CONCLUSION: No active cardiopulmonary disease on chest x-ray. Previous right craniotomy. No evidence for shunt. Head CT 06/04/18 20:47 CONCLUSION: 1. No acute findings. Stable changes of right craniotomy with encephalomalacia in the right temporal region. . Discharge Plan Discharge Disposition Patient Disposition: 30 Still Patient Discharge Condition Condition: Fair Discharge Details Diagnosis: Dilantin toxicity Physicians Team ED Provider: Katlyn Barrera Primary Care Provider: UNKNOWN, Attending Provider: Jose Christopher Other Providers: Nela Chaney Status ED Status: Left Department Discharge Information Discharge Date/Time: 06/05/18 00:31
[2018-06-04 21:29] LABS: Prothrombin Time 10.2 sec (9.8-11.6)
--- NOTE | 2018-06-04 21:55 | CT ---
EXAM DATE: 06/04/2018 9:30 PM EDT AGE/SEX: 58 years / Male INDICATIONS: Altered mental status. CLINICAL DATA: This is the patient's initial encounter. Patient reports that signs and symptoms have been present for 1 day and indicates a pain score of Nonresponsive. MEDICAL/SURGICAL HISTORY: Seizures. Traumatic brain injury, dementia. Craniotomy. RADIATION DOSE: 39.27 CTDI (mGy) [place] [facility] [place]. . TECHNIQUE: CT of the head without contrast. Using automated exposure control and adjustment of the mA and/or kV according to patient size, radiation dose was kept as low as reasonably achievable to ob tain optimal diagnostic quality images. DICOM format image data is available electronically for revi ew and comparison. FINDINGS: Cerebrum: There is previous right craniotomy with encephalomalacia predominantly in the right tempor al lobe. No intracranial mass, hemorrhage or shift. Stable dilatation of the temporal horn right late ral ventricle. Posterior Fossa: The cerebellum and brainstem are intact. The 4th ventricle is midline. The cerebe llopontine angle is unremarkable. Extracranial: The visualized portion of the orbits is intact. Skull: The calvaria is intact. No evidence of skull fracture. CONCLUSION: 1. No acute findings. Stable changes of right craniotomy with encephalomalacia in the right temporal region. . Electronically signed by: Thom Bailey MD 06/04/2018 9:54 PM EDT
--- NOTE | 2018-06-04 21:58 | XR ---
EXAM DATE: 06/04/2018 9:46 PM EDT AGE/SEX: 58 years / Male INDICATIONS: Altered mental status, cough. CLINICAL DATA: This is the patient's initial encounter. Patient reports that signs and symptoms have been present for 2 days and indicates a pain score of 0/10. MEDICAL/SURGICAL HISTORY: . Dementia. Epilepsy. Metabolic encephalopathy. Seizures. Traumatic b rain injury. Craniotomy. COMPARISON: No prior exams available for comparison. FINDINGS: There is previous right craniotomy. No ventriculostomy tube or shunt tubing identified. Chest radiograph reveals no active disease. Mild constipation the abdomen. No acute bony abnormalitie s. CONCLUSION: No active cardiopulmonary disease on chest x-ray. Previous right craniotomy. No evidence for shunt. Electronically signed by: Tohm Bailey MD 06/04/2018 9:57 PM EDT
[2018-06-04 22:07] LABS: Baso % (Auto) 0.6 % (0.0-2.0); Eos # (Auto) 0.6 th/mm3 (0.0-0.4); Eos % (Auto) 8.6 % (0.0-4.0); Hematocrit 37.8 % (39.0-51.0); Lymph # (Auto) 2.3 th/mm3 (1.0-4.8); Lymph % (Auto) 32.6 % (9.0-44.0); Mean Corpuscular HGB Conc 34.3 % (32.0-36.0); Mean Corpuscular Hemoglobin 32.1 pg (27.0-34.0); Mean Corpuscular Volume 93.6 fL (80.0-100.0); Mean Platelet Volume 7.5 fL (7.0-11.0); Mono # (Auto) 0.9 th/mm3 (0.0-0.9); Neut # (Auto) 3.1 th/mm3 (1.8-7.7); Neut % (Auto) 45.2 % (16.0-70.0); Platelet Count 512 th/mm3 (150-450); Red Blood Count 4.04 mil/mm3 (4.50-5.90); Red Cell Distribution Width 15.2 % (11.6-17.2); White Blood Count 6.9 th/mm3 (4.0-11.0)
[2018-06-04 22:40] LABS: Alanine Aminotransferase 29 U/L (12-78); Alkaline Phosphatase 114 U/L (45-117); Anion Gap 7 meq/L (5-15); Aspartate Aminotransferase 25 U/L (15-37); Blood Urea Nitrogen 5 mg/dL (7-18); Calcium 8.7 mg/dL (8.5-10.1); Carbon Dioxide 27.6 meq/L (21.0-32.0); Chloride 106 meq/L (98-107); Creatine Kinase 202 U/L (39-308); Glomerular Filtration Rate Greater Than 89 mL/min (>89); Glucose,Random 85 mg/dL (74-106); Potassium 4.1 meq/L (3.5-5.1); Sodium 141 meq/L (136-145); Thyroid Stimulating Hormone 0.518 uIU/mL (0.358-3.740); Total Protein 7.1 g/dL (6.4-8.2)
[2018-06-04 22:49] LABS: Phenytoin (Dilantin) 35.9 mcg/mL (10.0-20.0)
--- NOTE | 2018-06-05 00:20 | P.HPIM ---
History of Present Illness Primary Care Physician: UNKNOWN History of Present Illness: 58 y/o male with a history of TBI, seizures, HTN and dementia was sent form [facility] for AMS. Patient was found to have a Dilantin toxicity per labs. According to the alf medication record his Dilantin was switch from Daily to BID recently. Patient is lethargic but but is able to state his name and he knows he is in the hospital. ROS is limited due to mental status. Inpatient Certification: I certify that the inpatient services were ordered in accordance with Medicare regulations governing the order. This includes certification that hospital inpatient services are reasonable and necessary and in the case of services not specified as inpatient-only under 42 CFR 419.22(n), that they are appropriately provided as inpatient services in accordance to with the 2-midnight benchmark under 43 CFR 412.3(e) Estimated Total Length of Stay (Days): 2 Plans for Post Hospital Care: SNF Review of Systems All other systems reviewed negative except as stated in HPI [facility] - History History Provided By: Patient, Medical Record - Medical History Medical History: Medical History (Last Reviewed 06/04/18 @ 20:59 by Katlyn Barrera MD) Metabolic encephalopathy (Acute) Traumatic brain injury (Acute) Epilepsia (Acute) Seizure (Acute) Dementia (Acute) - Surgical History Surgical History: Surgical History (Last Updated 06/05/18 @ 00:13 by IAM Dempsey) H/O craniotomy - Family History Family History: Family History (Last Updated 06/05/18 @ 00:14 by IAM Dempsey) Other Family history unknown - Tobacco History Tobacco Use In Past 30 Days: Yes Smoking Status: Current every day smoker Tobacco Type: Cigarettes - Alcohol History How Often Do You Have a Drink Containing Alcohol: Never - Substance Use History Substance History: No History of Abuse - Immunization History Tetanus Immunization: Unsure Hx Influenza Vaccine This Season: No Medications and Allergies Active Medications: Active Medications Acetaminophen (Tylenol) 650 mg PO Q4H PRN PRN Reason: Temp > 100.4 Heparin Sodium (Porcine) (Heparin Inj) 5,000 units SQ Q8H [facility] Sodium Chloride (Ns Inj) 1,000 mls @ 75 mls/hr IV.CONT .[id number] [facility] Ondansetron HCl (Zofran Inj) 4 mg IV.PUSH Q6H PRN PRN Reason: NAUSEA OR VOMITING Sodium Chloride (Ns Flush) 2 ml IV.FLUSH PRN PRN PRN Reason: FLUSH AFTER USING IV ACCESS Allergies Allergy/AdvReac Type Severity Reaction Status Date / Time No Known Allergies Allergy Verified 06/04/18 20:56 Home Medications Medication Instructions Recorded Confirmed Type amlodipine 5 mg PO DAILY 05/15/18 06/04/18 History clonazepam 1 mg PO BID 05/15/18 06/04/18 History fluoxetine 20 mg PO DAILY 05/15/18 06/04/18 History gabapentin 300 mg PO TID 05/15/18 06/04/18 History lactulose 10 g PO BID 05/15/18 06/04/18 History magnesium oxide 400 mg PO DAILY 05/15/18 06/04/18 History omeprazole 20 mg PO DAILY 05/15/18 06/04/18 History phenytoin sodium extended 300 mg PO DAILY 05/15/18 06/04/18 History topiramate 100 mg PO BID 05/15/18 06/04/18 History tramadol 50 mg PO Q6H 05/15/18 06/04/18 History acetaminophen 650 mg PO Q4H PRN 06/04/18 06/04/18 History Exam Vital signs: Vital Signs 06/04/18 20:51 06/04/18 20:57 06/04/18 21:45 Temperature 98.0 F Pulse Rate 77 77 Respiratory Rate 18 18 Blood Pressure 145/80 H 115/59 L Pulse Oximetry 100 100 99 Intake & Output 06/04/18 06/04/18 06/05/18 06:59 18:59 06:59 Weight 72.575 kg Narrative: GENERAL: This is a well-nourished, well-developed patient, in no apparent distress. CARDIOVASCULAR: Regular rate and rhythm without murmurs, gallops, or rubs. RESPIRATORY: Clear to auscultation. Breath sounds equal bilaterally. No wheezes , rales, or rhonchi. GASTROINTESTINAL: Abdomen soft, non-tender, nondistended. Normal active bowel sounds MUSCULOSKELETAL: Extremities without clubbing, cyanosis, or edema. NEURO: Lethargic & Oriented 2-3. Moves all ext x4 Results - Labs CBC & Chem 7: 06/04/18 21:00 06/04/18 21:50 Labs: Short CBC 06/04/18 Range/Units 21:00 WBC 6.9 (4.0-11.0) th/mm3 Hgb 13.0 (13.0-17.0) gm/dL Hct 37.8 L (39.0-51.0) % Plt Count 512 H (150-450) th/mm3 BMP 06/04/18 21:50 Sodium 141 Potassium 4.1 Chloride 106 Carbon Dioxide 27.6 BUN 5 L Creatinine 0.79 Calcium 8.7 Cardiac Enzymes 06/04/18 06/04/18 Range/Units 21:00 21:50 Total Creatine Kinase Cancelled 202 Troponin I Less than 0.02 L (0.02-0.05) ng/mL Liver Function 06/04/18 Range/Units 21:50 Total Bilirubin 0.1 L (0.2-1.0) mg/dL AST 25 (15-37) U/L ALT 29 (12-78) U/L Alkaline Phosphatase 114 (45-117) U/L Albumin 3.0 L (3.4-5.0) g/dL - Imaging Impressions Shunt Study 06/04/18 00:00 CONCLUSION: No active cardiopulmonary disease on chest x-ray. Previous right craniotomy. No evidence for shunt. Head CT 06/04/18 20:47 CONCLUSION: 1. No acute findings. Stable changes of right craniotomy with encephalomalacia in the right temporal region. . Caprini VTE Risk Assessment Caprini VTE Risk Assessment: No/Low Risk (score <= 1) Caprini Risk Assessment Model: Point Value = 1 Point Value = 2 Point Value = 3 Point Value = 5 Age 41-60 Minor surgery BMI > 25 kg/m2 Swollen legs Varicose veins or History of unexplained or recurrent spontaneous Oral contraceptives or hormone replacement Sepsis (< 1 month) Serious lung disease, including pneumonia (< 1 month) Abnormal pulmonary function Acute myocardial infarction Congestive heart failure (< 1 month) History of inflammatory bowel disease Medical patient at bed rest Age 61-74 Arthroscopic surgery Major open surgery (> 45 min) Laparoscopic surgery (> 45 min) Malignancy Confined to bed (> 72 hours) Immobilizing plaster cast Central venous access Age >= 75 History of VTE Family history of VTE Factor V Leiden Prothrombin [id number] Lupus anticoagulant Anticardiolipin antibodies Elevated serum homocysteine Heparin-induced thrombocytopenia Other congenital or acquired thrombophilia Stroke (< 1 month) Elective arthroplasty Hip, pelvis, or leg fracture Acute spinal cord injury (< 1 month) Prophylaxis Regimen: Total Risk Factor Score Risk Level Prophylaxis Regimen 0-1 Low Early ambulation 2 Moderate Order ONE of the following: *Sequential Compression Device (SCD) *Heparin 5000 units SQ BID 3-4 Higher Order ONE of the following medications: *Heparin 5000 units SQ TID *Enoxaparin/Lovenox 40 mg SQ daily (WT < 150 kg, CrCl > 30 mL/min) *Enoxaparin/Lovenox 30 mg SQ daily (WT < 150 kg, CrCl > 10-29 mL/min) *Enoxaparin/Lovenox 30 mg SQ BID (WT < 150 kg, CrCl > 30 mL/min) AND/OR *Sequential Compression Device (SCD) 5 or more Highest Order ONE of the following medications: *Heparin 5000 units SQ TID (Preferred with Epidurals) *Enoxaparin/Lovenox 40 mg SQ daily (WT < 150 kg, CrCl > 30 mL/min) *Enoxaparin/Lovenox 30 mg SQ daily (WT < 150 kg, CrCl > 10-29 mL/min) *Enoxaparin/Lovenox 30 mg SQ BID (WT < 150 kg, CrCl > 30 mL/min) AND *Sequential Compression Device (SCD) Assessment and Plan - Plan Phenytoin toxicity phenytoin level 35.9 EKG shows NSR -Recheck level in AM -Serial EKGs -Hold home phenytoin -Consult to neurology for evaluation -Neuro checks -Hold sedating medications -Seizure precautions Hypertension, chronic -resume home medications, monitor vitals DVT prophylaxis: SCDs, Heparin SQ Discussed Condition With: Patient, RN and ED physician
[2018-06-05] MEDS: Heparin - SQ 10,000 UNITS/ML Vial SQ SCH ×3 (00:22→16:57)
[2018-06-05] MEDS: Sod Chloride 0.9% Inj 1,000 ML IV.CONT SCH ×2 (03:17→16:48)
[2018-06-05 03:59] LABS: Baso # (Auto) 0.1 th/mm3 (0.0-0.2); Baso % (Auto) 0.8 % (0.0-2.0); Eos # (Auto) 0.8 th/mm3 (0.0-0.4); Eos % (Auto) 9.3 % (0.0-4.0); Hematocrit 40.9 % (39.0-51.0); Hemoglobin 13.6 gm/dL (13.0-17.0); Lymph # (Auto) 3.2 th/mm3 (1.0-4.8); Lymph % (Auto) 36.4 % (9.0-44.0); Mean Corpuscular HGB Conc 33.3 % (32.0-36.0); Mean Corpuscular Hemoglobin 31.7 pg (27.0-34.0); Mean Corpuscular Volume 95.2 fL (80.0-100.0); Mean Platelet Volume 7.5 fL (7.0-11.0); Mono # (Auto) 0.9 th/mm3 (0.0-0.9); Mono % (Auto) 10.1 % (0.0-8.0); Neut # (Auto) 3.8 th/mm3 (1.8-7.7); Neut % (Auto) 43.4 % (16.0-70.0); Platelet Count 599 th/mm3 (150-450); Red Blood Count 4.29 mil/mm3 (4.50-5.90); Red Cell Distribution Width 15.3 % (11.6-17.2); White Blood Count 8.8 th/mm3 (4.0-11.0)
[2018-06-05 04:13] LABS: Anion Gap 6 meq/L (5-15); Blood Urea Nitrogen 7 mg/dL (7-18); Calcium 8.9 mg/dL (8.5-10.1); Carbon Dioxide 26.6 meq/L (21.0-32.0); Chloride 110 meq/L (98-107); Glomerular Filtration Rate Greater Than 89 mL/min (>89); Glucose,Random 91 mg/dL (74-106); Potassium 3.9 meq/L (3.5-5.1); Sodium 143 meq/L (136-145)
[2018-06-05 04:26] LABS: Phenytoin (Dilantin) 37.2 mcg/mL (10.0-20.0)
[2018-06-05 04:56] LABS: RBC Morphology Normal (Normal)
[2018-06-05 04:57] LABS: Platelet Morphology Normal (Normal)
--- NOTE | 2018-06-05 08:33 | ECG ---
Date Performed: 06/05/2018 Time Performed: 05:02:54 PTAGE: 58 years EKG: Sinus rhythm POSSIBLE LEFT ATRIAL ENLARGEMENT BORDERLINE ECG PREVIOUS TRACING : 06/04/2018 23.38 No significant change from previous tracing noted. DOCTOR: Rudi Diallo Interpretating Date/Time 06/05/2018 08:33:17
--- NOTE | 2018-06-05 08:36 | ECG ---
Date Performed: 06/04/2018 Time Performed: 23:38:32 PTAGE: 58 years EKG: Sinus rhythm NORMAL ECG PREVIOUS TRACING : 05/15/2018 03.02 Compared to previous tracing, heart rate has decreased DOCTOR: Rudi Diallo Interpretating Date/Time 06/05/2018 08:35:50
[2018-06-05] MEDS ORDERED: amLODIPine 5 MG Tablet PO SCH (09:00)
[2018-06-05] MEDS: Pantoprazole Sodium 20 MG DR Tablet PO SCH (10:03)
[2018-06-05] MEDS: Topiramate 100 MG Tablet PO SCH ×2 (10:03→20:21)
[2018-06-05] MEDS: Acetaminophen 325 MG Tablet PO PRN ×2 (10:03→16:57)
[2018-06-05] MEDS: FLUoxetine 20 MG Capsule PO SCH (10:03)
[2018-06-05] MEDS: Magnesium Oxide 400 MG Tablet PO SCH (10:05)
--- NOTE | 2018-06-05 10:09 | P.CONNEU ---
History of Present Illness Service: Neurology Consult date: 06/05/18 Requesting Physician: Jose Christopher Reason for Consult: Dilantin Toxicity Primary Care Provider: UNKNOWN Chief Complaint: change in mental status, dilantin toxicity History of Present Illness: 58 y/o male with hx of TBI, seizures was brought to ER with change in mental status at his assisted living facility. Pt is unable to give me history, therefore history is obtained from the chart. He is unsure about his medications, states that his sister gives him his medications, but it appears he is living in [facility]. It appears from the MAR that his Dilantin ER 300mg was changed from daily to bid. He is unsure if he has a neurologist or who changed the dose and why. According to the nursing facility , pt yesterday began having some staring spells and was acting more confused. Per nursing facility this is different from his baseline as he is usually alert and orient x 3. He denies any seizure activity. There was a question of headache but pt denies today. He does note some problems with memory and confusion. Denies headache, tremor, nausea, dizziness, chest pain, shortness of breath. Review of Systems All other systems reviewed negative except as stated in HPI PMFSH - History History Provided By: Patient, Medical Record - Medical History Medical History: Medical History (Last Reviewed 06/05/18 @ 09:34 by Netta Balderas) Metabolic encephalopathy (Acute) Traumatic brain injury (Acute) Epilepsia (Acute) Seizure (Acute) Dementia (Acute) - Surgical History Surgical History: Surgical History (Last Reviewed 06/05/18 @ 09:35 by Netta Balderas) H/O craniotomy - Family History Family History: Family History (Last Reviewed 06/05/18 @ 09:35 by Netta Balderas) Other Family history unknown - Tobacco History Tobacco Use In Past 30 Days: Yes Smoking Status: Unknown if ever smoked Tobacco Type: Cigarettes - Alcohol History How Often Do You Have a Drink Containing Alcohol: Unable to Obtain - Substance Use History Substance History: No History of Abuse - Immunization History Tetanus Immunization: Unsure Hx Influenza Vaccine This Season: No Medications and Allergies Allergies Allergy/AdvReac Type Severity Reaction Status Date / Time No Known Allergies Allergy Verified 06/04/18 20:56 Home Medications Medication Instructions Recorded Confirmed Type amlodipine 5 mg PO DAILY 05/15/18 06/04/18 History clonazepam 1 mg PO BID 05/15/18 06/04/18 History fluoxetine 20 mg PO DAILY 05/15/18 06/04/18 History gabapentin 300 mg PO TID 05/15/18 06/04/18 History lactulose 10 g PO BID 05/15/18 06/04/18 History magnesium oxide 400 mg PO DAILY 05/15/18 06/04/18 History omeprazole 20 mg PO DAILY 05/15/18 06/04/18 History phenytoin sodium extended 300 mg PO DAILY 05/15/18 06/04/18 History topiramate 100 mg PO BID 05/15/18 06/04/18 History tramadol 50 mg PO Q6H 05/15/18 06/04/18 History acetaminophen 650 mg PO Q4H PRN 06/04/18 06/04/18 History Active Medications: Active Medications Acetaminophen (Tylenol) 650 mg PO Q4H PRN PRN Reason: Temp > 100.4 Amlodipine Besylate (Norvasc) 5 mg PO DAILY [facility] Aspirin (Ecotrin) 81 mg PO DAILY [facility] Fluoxetine HCl (Prozac) 20 mg PO DAILY [facility] Heparin Sodium (Porcine) (Heparin Inj) 5,000 units SQ Q8H [facility] Last Admin: 06/05/18 00:22 Dose: 5,000 units Sodium Chloride (Ns Inj) 1,000 mls @ 75 mls/hr IV.CONT .[id number] [facility] Last Admin: 06/05/18 03:17 Dose: 75 mls/hr Lactulose (Lactulose Liq) 15 ml PO BID [facility] Magnesium Oxide (Mag-Ox) 400 mg PO DAILY [facility] Ondansetron HCl (Zofran Inj) 4 mg IV.PUSH Q6H PRN PRN Reason: NAUSEA OR VOMITING Pantoprazole Sodium (Protonix) 20 mg PO DAILY [facility] Sodium Chloride (Ns Flush) 2 ml IV.FLUSH PRN PRN PRN Reason: FLUSH AFTER USING IV ACCESS Topiramate (Topamax) 100 mg PO BID [facility] Exam Vital signs: Vital Signs 06/04/18 20:51 06/04/18 20:57 06/04/18 21:45 Temperature 98.0 F Pulse Rate 77 77 Respiratory Rate 18 18 Blood Pressure 145/80 H 115/59 L Pulse Oximetry 100 100 99 06/05/18 00:00 06/05/18 03:30 06/05/18 08:07 Temperature 98.2 F 98.2 F Pulse Rate 68 86 68 Respiratory Rate 16 15 20 Blood Pressure 116/60 132/64 87/50 L Pulse Oximetry 97 99 06/05/18 08:27 Temperature Pulse Rate Respiratory Rate Blood Pressure Pulse Oximetry 98 Intake & Output 06/04/18 06/05/18 06/05/18 18:59 06:59 18:59 Weight 72.575 kg - Constitutional no acute distress - Routine Neurological Exam Alert to self and , unsure of date, knows he is in the hospital in [place], [place] but thinks he is in [facility]. no facial asymmetry, PERRL, nystagmus and saccadic EOMs, moving all extremities against gravity, reflexes 2 + uppers and on the right, 1+ left, mild dorsiflexion weakness on the left, no ataxia with f-n-f, no asterixis, no tremor noted, mild dysarthria, no aphasia Results - Labs CBC & Chem 7: 06/05/18 03:03 06/05/18 03:03 Labs: Laboratory Results - last 24 hr 06/04/18 06/04/18 06/04/18 21:00 21:00 21:00 WBC 6.9 RBC 4.04 L Hgb 13.0 Hct 37.8 L MCV 93.6 MCH 32.1 MCHC 34.3 RDW 15.2 Plt Count 512 H MPV 7.5 Prelim Diff (Auto) Neut % (Auto) 45.2 Lymph % (Auto) 32.6 [place] % (Auto) 13.0 H Eos % (Auto) 8.6 H Baso % (Auto) 0.6 Neut # (Auto) 3.1 Lymph # (Auto) 2.3 [place] # (Auto) 0.9 Eos # (Auto) 0.6 H Baso # (Auto) 0.0 WBC Differential . Diff Scan Differential Comment Auto diff final Platelet Estimate Platelet Morphology RBC Morphology PT 10.2 INR 1.0 APTT 28.0 Sodium Potassium Chloride Carbon Dioxide Anion Gap BUN Creatinine Estimated GFR POC Glucose Random Glucose Lactic Acid 1.0 Calcium Total Bilirubin AST ALT Alkaline Phosphatase Ammonia Total Creatine Kinase Troponin I Total Protein Albumin TSH Phenytoin Serum Alcohol 06/04/18 06/04/18 06/04/18 21:00 21:00 21:50 WBC RBC Hgb Hct MCV MCH MCHC RDW Plt Count MPV Prelim Diff (Auto) Neut % (Auto) Lymph % (Auto) [place] % (Auto) Eos % (Auto) Baso % (Auto) Neut # (Auto) Lymph # (Auto) [place] # (Auto) Eos # (Auto) Baso # (Auto) WBC Differential Diff Scan Differential Comment Platelet Estimate Platelet Morphology RBC Morphology PT INR APTT Sodium 141 Potassium 4.1 Chloride 106 Carbon Dioxide 27.6 Anion Gap 7 BUN 5 L Creatinine 0.79 Estimated GFR Greater than 89 POC Glucose Random Glucose 85 Lactic Acid Calcium 8.7 Total Bilirubin 0.1 L AST 25 ALT 29 Alkaline Phosphatase 114 Ammonia Total Creatine Kinase Cancelled 202 Troponin I Less than 0.02 L Total Protein 7.1 Albumin 3.0 L TSH 0.518 Phenytoin Cancelled 35.9 H* Serum Alcohol Less than 3 06/04/18 06/04/18 06/05/18 21:50 22:52 03:03 WBC 8.8 RBC 4.29 L Hgb 13.6 Hct 40.9 MCV 95.2 MCH 31.7 MCHC 33.3 RDW 15.3 Plt Count 599 H MPV 7.5 Prelim Diff (Auto) Slide review pending Neut % (Auto) 43.4 Lymph % (Auto) 36.4 [place] % (Auto) 10.1 H Eos % (Auto) 9.3 H Baso % (Auto) 0.8 Neut # (Auto) 3.8 Lymph # (Auto) 3.2 [place] # (Auto) 0.9 Eos # (Auto) 0.8 H Baso # (Auto) 0.1 WBC Differential . Diff Scan Auto diff confirmed Differential Comment . Platelet Estimate High H Platelet Morphology Normal RBC Morphology Normal PT INR APTT Sodium Potassium Chloride Carbon Dioxide Anion Gap BUN Creatinine Estimated GFR POC Glucose 104 Random Glucose Lactic Acid Calcium Total Bilirubin AST ALT Alkaline Phosphatase Ammonia 11 Total Creatine Kinase Troponin I Total Protein Albumin TSH Phenytoin Serum Alcohol 06/05/18 03:03 WBC RBC Hgb Hct MCV MCH MCHC RDW Plt Count MPV Prelim Diff (Auto) Neut % (Auto) Lymph % (Auto) [place] % (Auto) Eos % (Auto) Baso % (Auto) Neut # (Auto) Lymph # (Auto) [place] # (Auto) Eos # (Auto) Baso # (Auto) WBC Differential Diff Scan Differential Comment Platelet Estimate Platelet Morphology RBC Morphology PT INR APTT Sodium 143 Potassium 3.9 Chloride 110 H Carbon Dioxide 26.6 Anion Gap 6 BUN 7 Creatinine 0.73 Estimated GFR Greater than 89 POC Glucose Random Glucose 91 Lactic Acid Calcium 8.9 Total Bilirubin AST ALT Alkaline Phosphatase Ammonia Total Creatine Kinase Troponin I Total Protein Albumin TSH Phenytoin 37.2 H* Serum Alcohol - Imaging Impressions Shunt Study 06/04/18 00:00 CONCLUSION: No active cardiopulmonary disease on chest x-ray. Previous right craniotomy. No evidence for shunt. Head CT 06/04/18 20:47 CONCLUSION: 1. No acute findings. Stable changes of right craniotomy with encephalomalacia in the right temporal region. . Review/Management - Review/Management Plan: Would continue to hold Dilantin level 8 was 35.9, 83 37.2 Albumin 3.0L continue Topamax, Gabapentin and Klonopin discontinue Tramadol as it can lower seizure threshold as there may be hx of Dilantin toxicity, consider starting Vimpat 50mg bid in place of Dilantin once pt back to baseline will recheck Dilantin level in am Addendum pt seen d/w with PA pht on hold level in am would stop pht change vimpat 50 mg bid.
[2018-06-06] MEDS: Heparin - SQ 10,000 UNITS/ML Vial SQ SCH ×3 (00:41→16:51)
[2018-06-06] MEDS: Pantoprazole Sodium 20 MG DR Tablet PO SCH (09:12)
[2018-06-06] MEDS: FLUoxetine 20 MG Capsule PO SCH (09:12)
[2018-06-06] MEDS: Magnesium Oxide 400 MG Tablet PO SCH (09:12)
[2018-06-06] MEDS: Sod Chloride 0.9% Inj 1,000 ML IV.CONT SCH ×2 (09:13→16:16)
[2018-06-06] MEDS: Lacosamide 50 MG Tablet PO SCH ×2 (12:55→20:40)
[2018-06-06] MEDS: Topiramate 100 MG Tablet PO SCH ×2 (12:55→20:40)
[2018-06-06] MEDS ORDERED: Sod Chloride 0.9% Inj 1,000 ML IV.SIG ONE (13:09)
--- NOTE | 2018-06-06 13:31 | P.PN ---
Subjective Interval history: Follow-up for Dilantin toxicity in a patient with a history of seizure activities. Patient is currently doing well. Denies any chest pain, shortness of breath, fever or chills. Patient denies any seizure activities. Physical Exam Vital signs: Vital Signs 06/05/18 15:40 06/05/18 19:28 06/05/18 20:00 Temperature 97.9 F 97.8 F 97.2 F L Pulse Rate 70 88 90 Respiratory Rate 20 16 20 Blood Pressure 100/60 117/71 123/70 Pulse Oximetry 98 98 97 06/05/18 22:02 06/05/18 23:54 06/06/18 00:00 Temperature 97.3 F L Pulse Rate 77 74 80 Respiratory Rate 20 Blood Pressure 140/72 Pulse Oximetry 98 06/06/18 03:53 06/06/18 04:40 06/06/18 08:00 Temperature 97.4 F L 97.2 F L Pulse Rate 83 85 85 Respiratory Rate 18 16 Blood Pressure 137/61 75/55 L Pulse Oximetry 98 06/06/18 12:00 Temperature 97.6 F Pulse Rate 88 Respiratory Rate 16 Blood Pressure 84/52 L Pulse Oximetry 99 Intake & Output 06/05/18 06/06/18 06/06/18 18:59 06:59 18:59 Intake Total 1000 / 1000 1340 / 1340 Balance 1000 / 1000 1340 / 1340 Weight 65.2 kg Intake: IV 1000 / 1000 1000 / 1000 NS Inj 1,000 ML @ 75 mls/hr IV. 1000 / 1000 1000 / 1000 CONT .[id number] [facility] Rx#:[id number] Oral 340 / 340 Other: # Voids 0 Date of Last Bowel Movement 06/05/18 06/05/18 Narrative: GENERAL: Alert, NAD. SKIN: Warm and dry. HEAD: Normocephalic. EYES: No scleral icterus. No injection or drainage. NECK: Supple, trachea midline. No JVD or lymphadenopathy. CARDIOVASCULAR: Regular rate and rhythm without murmurs, gallops, or rubs. RESPIRATORY: Breath sounds equal bilaterally. No accessory muscle use. GASTROINTESTINAL: Abdomen soft, non-tender, nondistended. MUSCULOSKELETAL: No cyanosis, or edema. BACK: Nontender without obvious deformity. No CVA tenderness. Results - Labs CBC & Chem 7: 06/05/18 03:03 06/05/18 03:03 Laboratory Results - last 24 hr 06/06/18 06:14 Phenytoin 30.3 H* - Imaging Shunt Study 06/04/18 00:00 CONCLUSION: No active cardiopulmonary disease on chest x-ray. Previous right craniotomy. No evidence for shunt. Head CT 06/04/18 20:47 CONCLUSION: 1. No acute findings. Stable changes of right craniotomy with encephalomalacia in the right temporal region. . Assessment and Plan - Plan Mr. Gonzalez is a 58-year-old male with a history of TBI, seizure activities, hypertension and dementia who was sent to the hospital from [facility] for acute mental status change. Patient was found to have Dilantin toxicity. Neurology was consulted. Acute encephalopathy Dilantin toxicity -Patient is currently doing well. Dilantin level is decreasing today 30.3. -Discussed with neurology. Will repeat Dilantin level tomorrow morning. If below 15-20 week of discharge patient -Dilantin discontinued. Will instead start Vimpat 50mg twice a day. -Continue Topamax 100 mg p.o. twice daily Hypotension -Last blood pressure 84/52. Will start patient on normal saline bolus then continue 125cc/hour. Full code. Heparin SQ.
[2018-06-07] MEDS: Heparin - SQ 10,000 UNITS/ML Vial SQ SCH ×3 (00:19→15:45)
[2018-06-07] MEDS: Sod Chloride 0.9% Inj 1,000 ML IV.CONT SCH ×3 (04:59→17:26)
[2018-06-07] MEDS: Magnesium Oxide 400 MG Tablet PO SCH (09:14)
[2018-06-07] MEDS: FLUoxetine 20 MG Capsule PO SCH (09:14)
[2018-06-07] MEDS: Lacosamide 50 MG Tablet PO SCH (09:14)
[2018-06-07] MEDS: Topiramate 100 MG Tablet PO SCH (09:14)
[2018-06-07] MEDS: Pantoprazole Sodium 20 MG DR Tablet PO SCH (09:14)
--- NOTE | 2018-06-07 13:24 | P.DS ---
Date of admission: 06/04/18 23:38 Primary care physician: UNKNOWN Brief History from admission: 58 y/o male with a history of TBI, seizures, HTN and dementia was sent form [facility] for AMS. Patient was found to have a Dilantin toxicity per labs. According to the alf medication record his Dilantin was switch from Daily to BID recently. Patient is lethargic but but is able to state his name and he knows he is in the hospital. ROS is limited due to mental status. DS: Medications - Discharge Medications Prescriptions: lacosamide [Vimpat] 50 mg PO BID #60 tab DS: Summary Hospital Course: Mr. Gonzalez is a 58-year-old male with a history of TBI, seizure activities, hypertension and dementia who was sent to the hospital from [facility] for acute mental status change. Patient was found to have Dilantin toxicity. Neurology was consulted. Monitor outpatient Dilantin level. Dilantin level was 21.3 on 06/07/2018. I discussed with neurology on 06/06/2018. Neurology recommended discontinuing Dilantin and starting Vimpat. Patient was started on Vimpat 50 mg twice daily. Patient continued to do well clinically. Subsequently he was discharged on 06/07/2018 to [facility]. - Time Spent with Patient Total time spent providing and/or coordinating discharge services: Less than 30 minutes - Quality: VTE Deep Vein Thrombosis/Pulmonary Embolism Present on Admission: No Exam Vital signs: Vital Signs 06/06/18 16:00 06/06/18 18:01 06/06/18 20:00 Temperature 97.2 F L 97.9 F 98.3 F Pulse Rate 89 86 82 Respiratory Rate 16 16 20 Blood Pressure 97/58 L 96/57 L 84/53 L Pulse Oximetry 98 98 98 06/07/18 00:00 06/07/18 01:00 06/07/18 04:00 Temperature 97.8 F 98.3 F Pulse Rate 87 Respiratory Rate 20 17 Blood Pressure 89/64 L 128/72 96/60 L Pulse Oximetry 98 06/07/18 04:01 06/07/18 08:00 06/07/18 12:00 Temperature 97.5 F L 97.6 F Pulse Rate 83 86 Respiratory Rate 16 16 Blood Pressure 124/60 91/63 L 90/53 L Pulse Oximetry 98 99 Intake & Output 06/06/18 06/07/18 06/07/18 18:59 06:59 18:59 Intake Total 1000 / 1000 1220 / 1220 Balance 1000 / 1000 1220 / 1220 Intake: IV 1000 / 1000 1000 / 1000 NS Inj 1,000 ML @ 125 mls/hr IV 1000 / 1000 1000 / 1000 .CONT .Q8H [facility] Rx#:[id number] Oral 220 / 220 Other: # Voids 5 Date of Last Bowel Movement 06/05/18 06/07/18 # Bowel Movements 5 Narrative: GENERAL: Alert, NAD. SKIN: Warm and dry. HEAD: Normocephalic. EYES: No scleral icterus. No injection or drainage. NECK: Supple, trachea midline. No JVD or lymphadenopathy. CARDIOVASCULAR: Regular rate and rhythm without murmurs, gallops, or rubs. RESPIRATORY: Breath sounds equal bilaterally. No accessory muscle use. GASTROINTESTINAL: Abdomen soft, non-tender, nondistended. MUSCULOSKELETAL: No cyanosis, or edema. BACK: Nontender without obvious deformity. No CVA tenderness. Results Procedures completed during hospitalization: None. Labs on day of discharge: Labs from last 24 hours 06/07/18 07:17 Phenytoin 21.3 H - Impressions ITS Impressions Shunt Study 06/04/18 00:00 CONCLUSION: No active cardiopulmonary disease on chest x-ray. Previous right craniotomy. No evidence for shunt. Head CT 06/04/18 20:47 CONCLUSION: 1. No acute findings. Stable changes of right craniotomy with encephalomalacia in the right temporal region. . Discharge Plan - Discharge Disposition Patient Disposition: Discharge to SNF - Discharge Condition Condition: Fair - Discharge Order Discharge Orders: Discharge Order (Routine); Ordered 06/07/18 Ordered By: Kobi Shah - Discharge Details Anticipated Discharge Date: 06/07/18 - Physicians Team Primary Care Provider: UNKNOWN, Attending Provider: Kobi Shah Other Providers: Nela Chaney MD
== END 2018-06-07 18:05 ==
LOC: NEPC 20:17 → NEDA 23:38 → NEPGCP 06-05 00:39 → N06 06-05 20:55
PROVIDERS: ADMIT Hospitalist; ATTEND Hospitalist